=== PATIENT | female | born 1935 | race Caucasian/White ===

== ENCOUNTER → 2016-10-14 | Outpatient (CLI) | payer OTHER ==
[~2016-10-14] MED LIST: ASPEC81 PO; BIMA0.01 OPB; BRIM0.15 OPB; CRS/10 PO; DORZ1SOL6 OPB; LOSA1TAB PO; LSN10 PO; SYN50 PO; TPRSR25 PO; WARF2.5T8 PO; WARF5TAB7 PO
[2016-10-14 16:52] LABS: INR 2.3 (0.9-1.1); PROTHROMBIN TIME (PATIENT) 25.5 SECONDS (9.0-12.0)
[2016-10-14 16:54] LABS: BLOOD UREA NITROGEN 11 mg/dl (7-18); BUN/CREATININE RATIO 11.6 (10-20); CALCIUM 9.2 mg/dl (8.5-10.1); CARBON DIOXIDE 26 mmol/L (21-32); CHLORIDE 107 mmol/L (98-107); CREATININE 0.96 mg/dl (0.60-1.20); GLUCOSE 99 mg/dl (70-99); POTASSIUM 4.2 mmol/L (3.5-5.1); SODIUM 142 mmol/L (136-145)
== END | disposition home or self-care (01) ==
LOC: C.LABBFT 16:28
PROVIDERS: ATTEND Internal Medicine Cardiovascular Disease
DX: I48.91 Unspecified atrial fibrillation (principal); I42.9 Cardiomyopathy, unspecified

== ENCOUNTER → 2016-10-14 | Outpatient (CLI) | payer OTHER ==
--- NOTE | 2016-10-14 13:47 | MAMMOGRAPHY REPORT ---
UNILATERAL LEFT DIGITAL DIAGNOSTIC MAMMOGRAM TOMOSYNTHESIS WITH CAD: 10/14/2016 CLINICAL HISTORY: 6 Month Follow-up. TECHNIQUE: Breast tomosynthesis in addition to standard 2D mammography was performed. Current study was also evaluated with a Computer Aided Detection (CAD) system. Left CC and MLO 2-D and tomosynth esis images were obtained. COMPARISON: Comparison is made to exams dated: 04/13/2016 ultrasound, 04/13/2016 mammogram, 04/08/2016 m ammogram, 04/07/2015 mammogram, 04/04/2014 mammogram, and 04/03/2013 mammogram - [facility]. BREAST COMPOSITION: There are scattered areas of fibroglandular density in the left breast. FINDINGS: The previously described mass seen within the left upper inner quadrant posteriorly is de creased in size and is much less prominent compared to the prior March 2016 exam, and is therefore be nign and compatible with a resolving cyst. The remainder of the left breast is stable compared to p rior exams, without suspicious masses, calcifications, or areas of architectural distortion noted. Other small round/oval circumscribed benign-appearing masses are seen scattered within the left [address] st, which likely represent cysts. IMPRESSION: ACR BI-RADS CATEGORY 2: BENIGN The left upper inner quadrant breast mass is decreased in size and much less prominent compared to t he March 2016 exam, and is therefore benign and most compatible with a resolving cyst. There is no m ammographic evidence of malignancy. Return to annual mammogram screening schedule is recommended, du e April 2017. The patient has been verbally notified of the results. Approximately 10% of breast cancers are not detected with mammography. A negative mammographic repor t should not delay biopsy if a clinically suggestive mass is present. Shelley Greenwood M.D. /:10/14/2016 11:04:33 Rotating Equipment Specialist: Theodora Frances, [facility] letter sent: Normal 1/2 BI-RADS Code: ACR BI-RADS Category 2: Benign
== END | disposition home or self-care (01) ==
LOC: C.MAMM 10:42
PROVIDERS: ATTEND Family Medicine
DX: N63 Unspecified lump in breast (principal); I48.91 Unspecified atrial fibrillation; I42.9 Cardiomyopathy, unspecified

== ENCOUNTER → 2016-10-27 | Outpatient (CLI) | payer OTHER ==
[2016-10-27 14:52] LABS: BLOOD UREA NITROGEN 13 mg/dl (7-18); BUN/CREATININE RATIO 15.8 (10-20); CALCIUM 9.3 mg/dl (8.5-10.1); CARBON DIOXIDE 26 mmol/L (21-32); CHLORIDE 108 mmol/L (98-107); CREATININE 0.84 mg/dl (0.60-1.20); GLUCOSE 92 mg/dl (70-99); SODIUM 144 mmol/L (136-145)
== END | disposition home or self-care (01) ==
LOC: C.LAB1850 13:33
PROVIDERS: ATTEND Internal Medicine Cardiovascular Disease
DX: I42.9 Cardiomyopathy, unspecified (principal)

== ENCOUNTER → 2016-11-01 | Outpatient (CLI) | payer OTHER ==
[2016-11-01 12:46] LABS: INR 1.7 (0.9-1.1); PROTHROMBIN TIME (PATIENT) 18.9 SECONDS (9.0-12.0)
== END | disposition home or self-care (01) ==
LOC: C.LABBFT 09:54
PROVIDERS: ATTEND Internal Medicine
DX: I48.91 Unspecified atrial fibrillation (principal)

== ENCOUNTER → 2016-12-13 | Outpatient (CLI) | payer OTHER ==
[2016-12-13 11:31] LABS: ALT/SGPT 13 U/L (12-78); BLOOD UREA NITROGEN 13 mg/dl (7-18); BUN/CREATININE RATIO 16.5 (10-20); CARBON DIOXIDE 24 mmol/L (21-32); CHLORIDE 107 mmol/L (98-107); CREATININE 0.77 mg/dl (0.60-1.20); GLUCOSE 86 mg/dl (70-99); POTASSIUM 3.9 mmol/L (3.5-5.1); SODIUM 142 mmol/L (136-145)
[2016-12-13 11:34] LABS: ALB/GLOB RATIO 1.1 (0.9-2); ALKALINE PHOSPHATASE 89 U/L (45-117); AST/SGOT 12 U/L (15-37)
== END | disposition home or self-care (01) ==
LOC: C.LAB1850 10:03
PROVIDERS: ATTEND Internal Medicine Cardiovascular Disease
DX: I42.9 Cardiomyopathy, unspecified (principal); I48.91 Unspecified atrial fibrillation

== ENCOUNTER → 2016-12-27 | Outpatient (CLI) | payer OTHER ==
[2016-12-27 13:46] LABS: THYROID STIMULATING HORMONE 1.94 uIu/ml (0.300-4.500)
== END | disposition home or self-care (01) ==
LOC: C.LAB1850 12:10
PROVIDERS: ATTEND Internal Medicine Endocrinology, Diabetes & Metabolism
DX: E03.9 Hypothyroidism, unspecified (principal)

== ENCOUNTER → 2016-12-29 | Outpatient (CLI) | payer OTHER ==
--- NOTE | 2016-12-29 12:50 | DIAGNOSTIC IMAGING REPORT ---
ADDENDUM Comparison is now possible to prior study dated 2011 mild increase of the largest nodule at 3.0 x 2.5 cm. This is previously biopsied and is benign. Multinodular thyroid bilaterally in general is slightly increased in prominence. Electronically signed by: Conrado Drummond M.D. 12/30/2016 9:51 AM Dictated Date/Time: 12/30/2016 9:48 AM ORIGINAL REPORT THYROID ULTRASOUND HISTORY: Thyroid nodules E04.2 Nontoxic multinodular [id number] COMPARISON: None. FINDINGS: Right lobe: Diffusely heterogeneous. Maximum dimension 5.4 cm. Multinodular appearance. Largest nodule measures 3.0 x 2.5 cm. Left lobe: Maximum dimension 3.8 cm. Multinodular appearance. Maximum nodule dimension 2.4 x 1.1 cm. Isthmus: No nodules. IMPRESSION: Multinodular thyroid 2. Dominant nodule the right thyroid has maximum dimension of 3.0 x 2.5 cm. 3. Dominant nodule left thyroid measures 2.4 x 1.1 cm. Electronically signed by: Conrado Drummond M.D. 12/29/2016 12:49 PM Dictated Date/Time: 12/29/2016 12:46 PM
== END | disposition home or self-care (01) ==
LOC: C.ULTR 12:13
PROVIDERS: ATTEND Internal Medicine Endocrinology, Diabetes & Metabolism
DX: E04.2 Nontoxic multinodular goiter (principal)

== ENCOUNTER → 2017-04-11 | Outpatient (CLI) | payer OTHER ==
--- NOTE | 2017-04-13 12:32 | MAMMOGRAPHY REPORT ---
BILATERAL DIGITAL SCREENING MAMMOGRAM TOMOSYNTHESIS WITH CAD: 04/11/2017 CLINICAL HISTORY: Routine screening. Patient has no complaints. TECHNIQUE: Breast tomosynthesis in addition to standard 2D mammography was performed. Current study was also evaluated with a Computer Aided Detection (CAD) system. COMPARISON: Comparison is made to exams dated: 10/14/2016 mammogram, 04/13/2016 mammogram, 04/08/2016 caitie mogram, 04/07/2015 mammogram, 04/04/2014 mammogram, and 04/03/2013 mammogram - [facility]. BREAST COMPOSITION: There are scattered areas of fibroglandular density in both breasts. FINDINGS: There are stable benign-appearing calcifications in the breasts. Mild vascular calcificati on. No new suspicious mass, architectural distortion or cluster of microcalcifications is seen. IMPRESSION: ACR BI-RADS CATEGORY 1: NEGATIVE There is no mammographic evidence of malignancy. A 1 year screening mammogram is recommended. The pa tient will receive written notification of the results. Approximately 10% of breast cancers are not detected with mammography. A negative mammographic report should not delay biopsy if a clinically suggestive mass is present. Janelle Cedeno M.D. ay/:04/11/2017 15:16:06 Vp Account Director: Sophie JENSEN(Lucille)([place])(ARCH[place]), [facility] letter sent: Normal 1/2 BI-RADS Code: ACR BI-RADS Category 1: Negative
== END | disposition home or self-care (01) ==
LOC: C.MAMM 13:40
PROVIDERS: ATTEND Internal Medicine
DX: Z12.31 Encounter for screening mammogram for malignant neoplasm of breast (principal)

== ENCOUNTER 2017-04-17 19:44 | Observation (INO) | payer OTHER ==
[~2017-04-17] VITALS: Ht 157.5 cm; Wt 68.8 kg
[~2017-04-17 19:44] MED LIST changes: -LOSA1TAB PO
--- NOTE | 2017-04-17 20:28 | EMERGENCY ROOM VISIT NOTE ---
History Report prepared by Victorina: Kalpana Matamoros Under the Supervision of: Dr. Kalyan Jacobs M.D. First contact with patient: 19:50 Chief Complaint: CHEST PAIN Stated Complaint: CHEST PAINS History of Present Illness The patient is a 81 year old female who presents to the Emergency Room with complaints of intermittent chest pain beginning 2 hours ago. The patient states that she had an episode of constant sharp chest pain in the lower center of her chest that lasted 20 minutes. She reports that during the episode her pain was a 10/10 but it has now resolved. She notes that she took a baby aspirin when the pain started and after laying down and removing her bra her pain resolved. The patient denies any radiation of the pain, back pain, diaphoresis, nausea, vomiting, shortness of breath, and leg pain. She notes that she is on Coumadin for atrial fibrillation and was diagnosed with broken heart syndrome in 2016. The patient complains of excessive burping. She had a cardiac catheterization last year that revealed moderate non-obstructive coronary artery disease. Source of History: patient Onset: 2 hours ago Position: chest Symptom Intensity: 10/10 Quality: sharp Timing: other (episode) Modifying Factors (Worsening): rest Associated Symptoms: No diaphoresis, No SOB, No nausea, No vomiting, No back pain Note: Pt complains of excessive burping. The patient denies any radiation of the pain , leg pain. Review of Systems See HPI for pertinent positives & negatives. A total of 10 systems reviewed and were otherwise negative. Past Medical & Surgical Medical Problems: (1) Atrial fibrillation (2) CVA (3) Elevated troponin I level (4) HYPERLIPIDEMIA NEC/NOS (5) NSTEMI (non-ST elevated myocardial infarction) Old medical records were reviewed. Nurse's notes were reviewed and I agree with. Family History Noncontributory secondary to age Social History Smoking Status: Never Smoker Alcohol Use: occasionally Drug Use: none Marital Status: Housing Status: lives with family Occupation Status: retired Current/Historical Medications Scheduled Aspirin (Aspirin EC Low Dose), 81 MG PO QAM Bimatoprost (Lumigan), 1 DROPS OPB HS Brimonidine Tartrate Oph (Alphagan P Oph), 1 DROP OPB BID Dorzolamide Hcl-Timolol Maleat (Cosopt Oph), 1 DROP OPB BID Levothyroxine Sodium (Synthroid), 50 MCG PO QAM Losartan Potassium (Cozaar), Unknown Dose PO DAILY Metoprolol Succinate (Metoprolol Succinate ER), 25 MG PO QAM Warfarin Sod (Jantoven), 5 MG PO WK Warfarin Sod (Jantoven), 2.5 MG PO 6XWK Allergies Coded Allergies: Penicillins (Verified Allergy, Unknown, RASH ONLY, 04/17/17) Physical Exam Vital Signs Date Time Temp Pulse Resp B/P (MAP) Pulse Ox O2 Delivery O2 Flow Rate FiO2 04/17/17 19:59 57 04/17/17 19:45 36.6 62 20 161/81 95 Room Air Physical Exam General: Well developed well nourished in no acute distress, non ill appearing older female, breathing comfortably on room air. Normal speech HEENT: Normal cephalic atraumatic. Pupils are equal round and reactive to light. Sclerae anicteric. Extraocular movements are intact. Oropharynx is pink with moist mucous membranes. No swelling of the mouth lips or tongue. Neck: Supple with a midline trachea. No meningeal signs or stiffness, no JVD or bruits. No Stridor. Chest: Clear to auscultation bilaterally. No wheezes or rhonchi. No increased work of breathing. Heart: Irregular rate and rhythm. Consistent with chronic A. fib. Rate controlled. Abdomen: Soft nontender, nondistended without rebound guarding or rigidity. Extremities: No cyanosis clubbing or edema. No calf tenderness or assymetry Spine/Back. Non tender to palpation. No CVA tenderness Skin: Good turgor without rashes. Neurologic exam: Cranial nerves two through 12 are intact. Motor and sensation are intact and symmetrical throughout. Medical Decision & Procedures ER Provider Diagnostic Interpretation: Radiology results as stated below per my review and radiologist interpretation: SINGLE VIEW CHEST FINDINGS: An AP, portable, upright chest radiograph is compared to study dated 10/03/2016. The examination is degraded by portable technique and patient rotation. The heart is enlarged and there is atherosclerotic calcification of the thoracic aorta. The pulmonary vasculature is noncongested. Chronic interstitial thickening is similar to previous. No airspace consolidation, large pleural effusion, or pneumothorax is seen. The skeletal structures are osteopenic. Degenerative change is seen in the thoracic spine. IMPRESSION: Cardiomegaly with no acute cardiopulmonary abnormality. Electronically signed by: Volodymyr Olmedo M.D. 04/17/2017 8:51 PM Dictated Date/Time: 04/17/2017 8:50 PM Laboratory Results 04/17/17 19:55 Red Blood Count 4.63, Mean Corpuscular Volume 96.1, Mean Corpuscular Hemoglobin 31.3, Mean Corpuscular Hemoglobin Concent 32.6, Mean Platelet Volume 10.6, Neutrophils (%) (Auto) 43.9, Lymphocytes (%) (Auto) 41.4, Monocytes (%) (Auto) 11.4, Eosinophils (%) (Auto) 2.6, Basophils (%) (Auto) 0.5, Neutrophils # (Auto ) 2.74, Lymphocytes # (Auto) 2.58, Monocytes # (Auto) 0.71, Eosinophils # (Auto ) 0.16, Basophils # (Auto) 0.03 04/17/17 19:55 Test 04/17/17 19:55 04/17/17 21:04 White Blood Count 6.23 K/uL (4.8-10.8) Red Blood Count 4.63 M/uL (4.2-5.4) Hemoglobin 14.5 g/dL (12.0-16.0) Hematocrit 44.5 % (37-47) Mean Corpuscular Volume 96.1 fL (80-100) Mean Corpuscular Hemoglobin 31.3 pg (25-34) Mean Corpuscular Hemoglobin Concent 32.6 g/dl (32-36) Platelet Count 267 K/uL (130-400) Mean Platelet Volume 10.6 fL (7.4-10.4) Neutrophils (%) (Auto) 43.9 % Lymphocytes (%) (Auto) 41.4 % Monocytes (%) (Auto) 11.4 % Eosinophils (%) (Auto) 2.6 % Basophils (%) (Auto) 0.5 % Neutrophils # (Auto) 2.74 K/uL (1.4-6.5) Lymphocytes # (Auto) 2.58 K/uL (1.2-3.4) Monocytes # (Auto) 0.71 K/uL (0.11-0.59) Eosinophils # (Auto) 0.16 K/uL (0-0.5) Basophils # (Auto) 0.03 K/uL (0-0.2) RDW Standard Deviation 52.2 fL (36.4-46.3) RDW Coefficient of Variation 14.8 % (11.5-14.5) Immature Granulocyte % (Auto) 0.2 % Immature Granulocyte # (Auto) 0.01 K/uL (0.00-0.02) Prothrombin Time 30.9 SECONDS (9.0-12.0) Prothromb Time International Ratio 2.8 (0.9-1.1) Activated Partial Thromboplast Time 41.4 SECONDS (21.0-31.0) Partial Thromboplastin Ratio 1.6 Anion Gap 12.0 mmol/L (3-11) Est Creatinine Clear Calc Drug Dose 54.8 ml/min Estimated GFR () 89.5 Estimated GFR (Non- 77.2 BUN/Creatinine Ratio 17.1 (10-20) Calcium Level 9.0 mg/dl (8.5-10.1) Total Bilirubin 0.2 mg/dl (0.2-1) Direct Bilirubin < 0.1 mg/dl (0-0.2) Aspartate Amino Transf (AST/SGOT) 21 U/L (15-37) Alanine Aminotransferase (ALT/SGPT) 24 U/L (12-78) Alkaline Phosphatase 88 U/L (45-117) Total Creatine Kinase 45 U/L (26-192) Creatine Kinase MB 0.8 ng/ml (0.5-3.6) Creatine Kinase MB Ratio (0-3.0) Total Protein 7.5 gm/dl (6.4-8.2) Albumin 3.7 gm/dl (3.4-5.0) Lipase 215 U/L (73-393) Bedside Troponin I < 0.030 ng/ml (0-0.045) Laboratory studies as stated above per my review. ECG Indication: chest pain Rate (beats per minute): 64 Rhythm: atrial fibrillation Findings: no acute ischemic change, other (nonspecific T wave abnormalities ) Comparison ECG Date: 10/05/16 Change: T wave inversions have resolved. ED Course 1949: Past medical records reviewed. The patient was evaluated in room C11, and a complete history and physical examination were performed. 2130: I reevaluated and updated the patient. 2138: I spoke to Dr. Moore of [facility]. He will evaluate the patient for further management. 2144: Upon reevaluation, the patient is doing well. I discussed the results and treatment plan with the patient. She verbalized agreement of the treatment plan. The patient will be evaluated for further management. Medical Decision Differential diagnosis includes IA, acute coronary syndrome, arrhythmia, PE, GERD. Medication Reconciliation: I attest that I have personally reviewed the patient' s current medication list. Blood pressure Screening: Patient was found to have an elevated blood pressure and was referred to their primary doctor for recheck and further treatment. This patient comes in as described above. She was placed in room C11. She has a history cardiac disease and she had episode of chest pain. She is feeling better now last about a half hour. She was placed on a behavioral health case manager and room C11 and she took an aspirin prior to arrival. She additionally is also on Coumadin. EKG shows chronic A. fib without acute ischemic changes and her EKG looks significant improved compared to her most recent one in the computer. Chest x-ray does not show congestive heart failure, pneumonia, or pneumothorax. She has no acute electrolyte or metabolic abnormality. Cardiac biomarkers are not elevated. I did review her old records she did have a cardiac cath last year which showed mild to moderate multivessel coronary disease. I do think she needs to be observed in the hospital to rule out acute coronary syndrome. The patient and family were happy with the plan and she was admitted. Consults Time Called: 2134 Consulting Physician: Dr. Moore - [facility] Returned Call: [address] Moore of [facility]. He will evaluate the patient for further management. Impression Primary Impression: Precordial chest pain Scribe Attestation The scribe's documentation has been prepared under my direction and personally reviewed by me in its entirety. I confirm that the note above accurately reflects all work, treatment, procedures, and medical decision making performed by me. Departure Information Dispostion Being Evaluated By Hospitalist Referrals Andrei Francis M.D. (PCP) Patient Instructions My [facility]
[2017-04-17 20:30] LABS: BASO % 0.5 %; BASO ABS # 0.03 K/uL (0-0.2); COMPLETE YES; EOS % 2.6 %; HEMATOCRIT 44.5 % (37-47); IG% 0.2 %; LYMPH % 41.4 %; LYMPH ABS # 2.58 K/uL (1.2-3.4); MEAN CELL VOLUME 96.1 fL (80-100); MEAN CORPUSCULAR HEMOGLOBIN 31.3 pg (25-34); MEAN CORPUSCULAR HGB CONC 32.6 g/dl (32-36); MEAN PLATELET VOLUME 10.6 fL (7.4-10.4); MONO % 11.4 %; NEUT % 43.9 %; PLATELET COUNT 267 K/uL (130-400); RED BLOOD COUNT 4.63 M/uL (4.2-5.4); WHITE BLOOD COUNT 6.23 K/uL (4.8-10.8)
[2017-04-17 20:44] LABS: BLOOD UREA NITROGEN 13 mg/dl (7-18); BUN/CREATININE RATIO 17.1 (10-20); CARBON DIOXIDE 21 mmol/L (21-32); CHLORIDE 106 mmol/L (98-107); CREATININE 0.73 mg/dl (0.60-1.20); GLUCOSE 102 mg/dl (70-99); INR 2.8 (0.9-1.1); PARTIAL THROMBOPLASTIN RATIO 1.6; POTASSIUM 3.8 mmol/L (3.5-5.1); PROTHROMBIN TIME (PATIENT) 30.9 SECONDS (9.0-12.0); SODIUM 139 mmol/L (136-145)
[2017-04-17 20:49] LABS: ALKALINE PHOSPHATASE 88 U/L (45-117); ALT/SGPT 24 U/L (12-78); AST/SGOT 21 U/L (15-37); CKMB/CK RATIO 1.8 (0-3.0)
--- NOTE | 2017-04-17 20:52 | DIAGNOSTIC IMAGING REPORT ---
SINGLE VIEW CHEST CLINICAL HISTORY: Atypical chest pain. FINDINGS: An AP, portable, upright chest radiograph is compared to study dated 10/03/2016. The examination is degraded by portable technique and patient rotation. The heart is enlarged and there is atherosclerotic calcification of the thoracic aorta. The pulmonary vasculature is noncongested. Chronic interstitial thickening is similar to previous. No airspace consolidation, large pleural effusion, or pneumothorax is seen. The skeletal structures are osteopenic. Degenerative change is seen in the thoracic spine. IMPRESSION: Cardiomegaly with no acute cardiopulmonary abnormality. Electronically signed by: Volodymyr Olmedo M.D. 04/17/2017 8:51 PM Dictated Date/Time: 04/17/2017 8:50 PM
[2017-04-17] MEDS ORDERED: LOSA1TAB PO (21:22)
[2017-04-17] MEDS ORDERED: ALUMINUM/MAGNESIUM/SIMETH (MAALOX MAX) 30 ML UDC PO PRN (22:15)
[2017-04-17] MEDS ORDERED: MoRPHine SULFATE 2 MG/ML CARP IV PRN (22:15)
[2017-04-17] MEDS ORDERED: NITROGLYCERIN 0.4 MG SL PER TAB CHARGE SL PRN (22:15)
[2017-04-17] MEDS ORDERED: ONDANSETRON INJ 2 MG/ML 2 ML VIAL IV PRN (22:15)
[2017-04-17] MEDS ORDERED: MAGNESIUM HYDROXIDE SUSP 30 ML UDC PO PRN (22:15)
[2017-04-17] MEDS ORDERED: ACETAMINOPHEN 325 MG TAB PO PRN (22:15)
[2017-04-17] MEDS ORDERED: WARFARIN SOD 5 MG TAB PO STA (22:15)
[2017-04-17] MEDS ORDERED: POLYETHYLENE (MIRALAX) 17 GM PACK PO PRN (22:15)
[2017-04-17] MEDS ORDERED: BIMATOPROST 0.01% OP SOLN 2.5 ML BTL OPB SCH (22:30)
[2017-04-17] MEDS ORDERED: IV FLUIDS COMPLETED PRN (22:45)
[2017-04-17] MEDS ORDERED: HydrALAZINE HCL 20 MG/ML VIAL IV. PRN (23:00)
--- NOTE | 2017-04-17 23:11 | History and Physical ---
History & Physical Date & Time of Service: Apr 17, 2017 at 22:46 Chief Complaint: Chest Pains Primary Care Physician: Andrei Francis M.D. History of Present Illness Source: patient 81 y/o F, chronic AF, HTN, HPL, Takotsubo syndrome, moderate nonocclusive CAD. Pt was admitted with a NSTEMI 09/24 which was thought due to vasospasm. She had dinner this evening which included 2 wine spritzers and then retired to her computer to catch up on various [employer]-related activities. She then developed acute upper abdominal and central chest pain accompanied by SOB and lightheadedness. She denies N/V, diaphoresis. The pain persisted for a 30 min period and prompted her to visit the ER. Past Medical/Surgical History 1) Atrial fibrillation 2) Non-occlusive CAD on cath 2015 1. Left main coronary artery: The LMCA is without angiographic evidence of CAD. 2. Left anterior descending: The LAD extends to the apex. Proximal LAD 30%. Mid LAD 30%. Medium caliber D1. Slow flow (MARIYA II) noted within apical LAD with no severe lesion noted. 3. Circumflex: The circumflex gives rise to a very small OM1, small caliber OM2 , and medium caliber OM3 with lateral branches. Mid circumflex 20%. Distal circumflex 20%. No significant CAD within marginal vessels. 4. Right coronary artery: The RCA is large and dominant. Proximal RCA 40%. No angiographic evidence of CAD within posterior lateral branch or PDA. 3) CVA 4) HPL 5) HTN Family History Noncontributory secondary to age Social History Smoking Status: Never Smoker Drug Use: none Marital Status: Housing status: lives with family Occupational Status: retired Immunizations History of Influenza Vaccine: No History of Tetanus Vaccine?: 2008 History of Pneumococcal: No History of Hepatitis B Vaccine: No Multi-Drug Resistant Organisms History of MDRO: No Allergies Coded Allergies: Penicillins (Verified Allergy, Unknown, RASH ONLY, 04/17/17) Home Medications Scheduled Aspirin (Aspirin EC Low Dose), 81 MG PO QAM Bimatoprost (Lumigan), 1 DROPS OPB HS Brimonidine Tartrate Oph (Alphagan P Oph), 1 DROP OPB BID Dorzolamide Hcl-Timolol Maleat (Cosopt Oph), 1 DROP OPB BID Levothyroxine Sodium (Synthroid), 50 MCG PO QAM Losartan Potassium (Cozaar), Unknown Dose PO DAILY Metoprolol Succinate (Metoprolol Succinate ER), 25 MG PO QAM Warfarin Sod (Jantoven), 5 MG PO WK Warfarin Sod (Jantoven), 2.5 MG PO 6XWK Review of Systems Constitutional: No fever, No chills, No sweats Eyes: No worsening of vision ENT: No hearing loss, No nasal symptoms Respiratory: + shortness of breath, No cough, No sputum, No wheezing Cardiovascular: + chest pain, No orthopnea, No PND Abdomen: + pain, No nausea, No vomiting Musculoskeletal: No joint pain, No muscle pain Genitourinary - Female: No dysuria, No urinary frequency, No urinary urgency Neurologic: No memory loss, No paralysis, No weakness Psychiatric: No depression symptoms Endocrine: No fatigue Hematologic / Lymphatic: No abnormal bleeding/bruising Integumentary: No rash Allergic / Immunologic: No environmental allergies Physical Exam Vital Signs Date Time Temp Pulse Resp B/P (MAP) Pulse Ox O2 Delivery O2 Flow Rate FiO2 04/17/17 22:35 63 19 188/108 97 Room Air 04/17/17 22:25 208/105 04/17/17 19:59 57 04/17/17 19:45 36.6 62 20 161/81 95 Room Air General Appearance: WD/WN, no apparent distress Head: normocephalic Eyes: normal inspection ENT: normal ENT inspection, hearing grossly normal, TMs normal, pharynx normal Neck: supple, no JVD Respiratory/Chest: chest non-tender, lungs clear, normal breath sounds Cardiovascular: no edema, no gallop, no JVD, + irregularly irregular Abdomen/GI: normal bowel sounds, non tender, soft Back: normal inspection, no CVA tenderness, no muscle spasm, normal range of motion Extremities/Musculoskelatal: normal inspection, no calf tenderness, normal capillary refill 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, no motor/sensory deficits, alert, normal mood/affect, normal reflexes, oriented x 3 Skin: normal color, warm/dry, no rash Diagnostics Laboratory Results Results Past 24 Hours Test 04/17/17 19:55 04/17/17 21:04 Range/Units White Blood Count 6.23 4.8-10.8 K/uL Red Blood Count 4.63 4.2-5.4 M/uL Hemoglobin 14.5 12.0-16.0 g/dL Hematocrit 44.5 37-47 % Mean Corpuscular Volume 96.1 80-100 fL Mean Corpuscular Hemoglobin 31.3 25-34 pg Mean Corpuscular Hemoglobin Concent 32.6 32-36 g/dl Platelet Count 267 130-400 K/uL Mean Platelet Volume 10.6 7.4-10.4 fL Neutrophils (%) (Auto) 43.9 % Lymphocytes (%) (Auto) 41.4 % Monocytes (%) (Auto) 11.4 % Eosinophils (%) (Auto) 2.6 % Basophils (%) (Auto) 0.5 % Neutrophils # (Auto) 2.74 1.4-6.5 K/uL Lymphocytes # (Auto) 2.58 1.2-3.4 K/uL Monocytes # (Auto) 0.71 0.11-0.59 K/uL Eosinophils # (Auto) 0.16 0-0.5 K/uL Basophils # (Auto) 0.03 0-0.2 K/uL RDW Standard Deviation 52.2 36.4-46.3 fL RDW Coefficient of Variation 14.8 11.5-14.5 % Immature Granulocyte % (Auto) 0.2 % Immature Granulocyte # (Auto) 0.01 0.00-0.02 K/uL Prothrombin Time 30.9 9.0-12.0 SECONDS Prothromb Time International Ratio 2.8 0.9-1.1 Activated Partial Thromboplast Time 41.4 21.0-31.0 SECONDS Partial Thromboplastin Ratio 1.6 Sodium Level 139 136-145 mmol/L Potassium Level 3.8 3.5-5.1 mmol/L Chloride Level 106 98-107 mmol/L Carbon Dioxide Level 21 21-32 mmol/L Anion Gap 12.0 3-11 mmol/L Blood Urea Nitrogen 13 7-18 mg/dl Creatinine 0.73 0.60-1.20 mg/dl Est Creatinine Clear Calc Drug Dose 54.8 ml/min Estimated GFR () 89.5 Estimated GFR (Non- 77.2 BUN/Creatinine Ratio 17.1 10-20 Random Glucose 102 70-99 mg/dl Calcium Level 9.0 8.5-10.1 mg/dl Total Bilirubin 0.2 0.2-1 mg/dl Direct Bilirubin < 0.1 0-0.2 mg/dl Aspartate Amino Transf (AST/SGOT) 21 15-37 U/L Alanine Aminotransferase (ALT/SGPT) 24 12-78 U/L Alkaline Phosphatase 88 45-117 U/L Total Creatine Kinase 45 26-192 U/L Creatine Kinase MB 0.8 0.5-3.6 ng/ml Creatine Kinase MB Ratio 0-3.0 Total Protein 7.5 6.4-8.2 gm/dl Albumin 3.7 3.4-5.0 gm/dl Lipase 215 73-393 U/L Bedside Troponin I < 0.030 0-0.045 ng/ml EKG AF - low voltage - no evidence of acute ischemia Impression Assessment and Plan 81 y/o F, chronic AF, HTN, HPL, Takotsubo syndrome, moderate nonocclusive CAD. Pt was admitted with a NSTEMI 09/24 which was thought due to vasospasm - presents with acute upper abdominal and central chest pain accompanied by SOB and lightheadedness. She denies N/V, diaphoresis. The pain persisted for a 30 min period and prompted her to visit the ER. 1) Chest pain - resolved on admission - serial troponins, NTG PRN. Cont ASA, B cindy - she is anticoagulated with Coumadin. Presumably she is statin intolerant. 2) AF - Rate controlled - cont Toprol - INR is subtherapeutic -addtional dose of Coumadin was provided - will add Lovenox if troponin is elevated. 3) HTN- poorly controlled on admission - cont Lisinopril, Toprol - PRN Hydralazine added, Full code - Heparin prophylaxis Total time for this admit including review of labs, meds, EKG - discussion with pt and ER attending -30 min Level of Care Telemetry Resuscitation Status FULL RESUSCITATION VTE Prophylaxis VTE Risk Assessment Done? Y/N: Yes Risk Level: Moderate Given or contraindicated: Warfarin (Coumadin)
[2017-04-17 23:24] VITALS: BP_SYST 181; BP_SYST 195; BP_DIAS 100; BP_DIAS 103; PULSE 75; TEMP 36.4; O2SAT 98; Ht 157.5 cm; Wt 68.8 kg
[2017-04-18] VITALS (10 sets, daily range): BP systolic 119–189; BP diastolic 78–101; PULSE 55–68; TEMP 36.5–36.7; O2SAT 91–98
[2017-04-18] MEDS ORDERED: LEVOTHYROXINE 50 MCG TAB PO SCH (06:00)
[2017-04-18] MEDS ORDERED: METOPROLOL SUCC 25MG EXT REL TAB PO SCH (09:00)
[2017-04-18] MEDS ORDERED: BRIMONIDINE TARTRATE-P 0.15% 5 ML BTL OPB SCH (09:00)
[2017-04-18] MEDS ORDERED: LOSARTAN POTASSIUM 25 MG TAB PO SCH (09:00)
[2017-04-18] MEDS ORDERED: DORZOLAMIDE/TIMOLOL 22.3/6.8MG/ML 10 ML BTL OPB SCH (09:00)
[2017-04-18] MEDS ORDERED: ASPIRIN 81 MG ECTAB PO SCH (09:00)
--- NOTE | 2017-04-18 15:04 | Discharge Instructions ---
Discharge Instructions Date of Service Apr 18, 2017. Admission Reason for Admission: Precordial Chest Pain Discharge Discharge Diagnosis / Problem: Chest pain, no evidence of cardiac ischemia Discharge Goals Goal(s): Improve function, Increase independence Activity Recommendations Activity Limitations: resume your previous activity Lifting Limitations: none Exercise/Sports Limitations: as tolerated May Resume Sexual Activity: when tolerated Shower/Bathe: no limitations Driving or Machine Use: no limitations . Instructions / Follow-Up Instructions / Follow-Up Medications: no changes made Chest pain: EKG and cardiac enzymes negative for signs of ischemia, no evidence to suggest that chest pain was related to the heart. No further chest pain while admitted. FOLLOW UP - please follow up as needed with Dr. Francis, no specific need for hospital follow up as work up was negative and the issue was self limiting Current Hospital Diet Patient's current hospital diet: AHA Diet (Heart Healthy) Discharge Diet Recommended Diet: AHA Diet (Heart Healthy) Pending Studies Studies pending at discharge: no Medical Emergencies . Who to Call and When: Medical Emergencies: If at any time you feel your situation is an emergency, please call 911 immediately. . Non-Emergent Contact Non-Emergency issues call your: Primary Care Provider Call Non-Emergent contact if: your pain is concerning you, you have any medication questions . . "Provider Documentation" section prepared by Alex Raymond. . VTE Core Measure Inpt VTE Proph given/why not?: Warfarin (Coumadin) [place] Drug Monitoring Program Search Results: no issues identified
[2017-04-18] MEDS ORDERED: WARFARIN SOD 2.5 MG TAB PO SCH (16:00)
--- NOTE | 2017-04-19 08:18 | Discharge Summary ---
Discharge Summary Date of Service Apr 18, 2017. Discharge Summary Admission Date: Apr 17, 2017 at 22:10 Discharge Date: Apr 18, 2017 Principal Diagnosis: Chest pressure Immunizations: Have You Had Influenza Vaccine: No History of Tetanus Vaccine?: 2008 History of Pneumococcal: No History of Hepatitis B Vaccine: No Procedures: none Consultations: none Medication Reconciliation Continued Medications: Aspirin (Aspirin EC Low Dose) 81 Mg Ectab 81 MG PO QAM for 30 Days Bimatoprost (Lumigan) 0.01 % Yadira 1 DROPS OPB HS for 30 Days, #2.5 ML 3 Refills Brimonidine Tartrate Oph (Alphagan P Oph) 0.15 % Yadira 1 DROP OPB BID, BTL Dorzolamide Hcl-Timolol Maleat (Cosopt Oph) 1 Yadira Yadira 1 DROP OPB BID Levothyroxine Sodium (Synthroid) 50 Mcg Tab 50 MCG PO QAM Losartan Potassium (Cozaar) 25 Mg Tab Unknown Dose PO DAILY, TAB 2TAB Metoprolol Succinate (Metoprolol Succinate ER) 25 Mg Tabcr 25 MG PO QAM for 30 Days Warfarin Sod (Jantoven) 5 Mg Tab 5 MG PO WK, TAB TUESDAY Warfarin Sod (Jantoven) 2.5 Mg Tab 2.5 MG PO 6XWK, TAB Discharge Exam Patient without any further chest pain after admission. Rested comfortably all day. Troponin negative x 3. EKG normal. Discussed with patient and family, cleared for discharge. Review of Systems: Constitutional: No fever, No chills, No sweats, No weight loss, No weakness , No fatigue, No problem reported Eyes: No worsening of vision, No eye pain, No redness, No discharge, No diplopia, No problem reported ENT: No hearing loss, No unusual epistaxis, No nasal symptoms, No sore throat, No tinnitus, No dental problems, No trouble swallowing, No problem reported Respiratory: No cough, No sputum, No wheezing, No shortness of breath, No dyspnea on exertion, No dyspnea at rest, No hemoptysis, No problem reported Cardiovascular: No chest pain, No orthopnea, No PND, No edema, No claudication, No palpitations, No problem reported Abdomen: No pain, No nausea, No vomiting, No diarrhea, No constipation, No GI bleeding, No problem reported Musculoskeletal: No joint pain, No muscle pain, No swelling, No calf pain, No problem reported Genitourinary - Female: No dysuria, No urinary frequency, No urinary urgency , No urinary incontinence Neurologic: No memory loss, No paralysis, No weakness, No numbness/tingling , No vertigo, No balance problems, No problem reported Psychiatric: No depression symptoms, No anhedonism, No anxiety, No insomnia , No substance abuse, No problem reported Endocrine: No fatigue, No excessive thirst, No excessive urination, No problem reported Hematologic / Lymphatic: No abnormal bleeding/bruising, No clotting problems , No swollen lymph nodes, No night sweats, No problem reported Integumentary: No rash, No itch, No new/changing skin lesions, No color change, No bleeding, No problem reported Physical Exam: General Appearance: WD/WN, no apparent distress Eyes: normal inspection, EOMI, sclerae normal ENT: normal ENT inspection, hearing grossly normal, pharynx normal Neck: supple, no adenopathy, no JVD, trachea midline Respiratory/Chest: chest non-tender, lungs clear, normal breath sounds, no respiratory distress, no accessory muscle use Cardiovascular: regular rate, rhythm, no edema, no gallop, no JVD, no murmur , normal peripheral pulses Abdomen / GI: normal bowel sounds, non tender, soft, no organomegaly Extremities: normal inspection, no calf tenderness, normal capillary refill , no pedal edema, normal range of motion, pelvis stable Neurologic/Psychiatric: 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 Pt was admitted with a NSTEMI 09/24 which was thought due to vasospasm - presents with acute upper abdominal and central chest pain accompanied by SOB and lightheadedness. She denies N/V, diaphoresis. The pain persisted for a 30 min period and prompted her to visit the ER. 1) Chest pain - no further chest pain after admission EKG normal troponin negative x 3 patient feeling well, d/c to home, follow up with PCP as needed 2) AF - Rate controlled - continue Toprol - continue Coumadin 3) HTN- cont Lisinopril, Toprol BP initially poorly controlled, however, improved over the next 24 hours with rest and appropriate medications follow up in office as previously scheduled Full code - Heparin prophylaxis Total Time Spent: Less than 30 minutes This includes examination of the patient, discharge planning, medication reconciliation, and communication with other providers. Discharge Instructions Please refer to the electronic Patient Visit Report (Discharge Instructions) for additional information. Follow-Up Dr. Francis as needed Additional Copies To Andrei Francis M.D.
== END 2017-04-18 17:00 | disposition home or self-care (01) ==
LOC: C.EDB 19:44 → C.2T 22:10 → EEVIPCON 22:10 → ENRESERV 22:35
PROVIDERS: ADMIT Internal Medicine; ATTEND Internal Medicine
DX: R07.2 Precordial pain (principal); I48.2 Chronic atrial fibrillation; I10 Essential (primary) hypertension; I25.10 Atherosclerotic heart disease of native coronary artery without angina pectoris; I25.2 Old myocardial infarction; Z86.73 Personal history of transient ischemic attack (TIA), and cerebral infarction without residual deficits; Z79.82 Long term (current) use of aspirin; Z79.01 Long term (current) use of anticoagulants

== ENCOUNTER → 2017-06-23 | Outpatient (CLI) | payer OTHER ==
[~2017-06-23] MED LIST changes: -CRS/10 PO; +LOSA1TAB PO; -LSN10 PO
[2017-06-23 12:17] LABS: HEMATOCRIT 43.1 % (37-47); MEAN CELL VOLUME 96.9 fL (80-100); MEAN CORPUSCULAR HEMOGLOBIN 32.6 pg (25-34); MEAN CORPUSCULAR HGB CONC 33.6 g/dl (32-36); MEAN PLATELET VOLUME 11.1 fL (7.4-10.4); PLATELET COUNT 294 K/uL (130-400); RED BLOOD COUNT 4.45 M/uL (4.2-5.4); WHITE BLOOD COUNT 5.84 K/uL (4.8-10.8)
[2017-06-23 12:32] LABS: ALT/SGPT 20 U/L (12-78); AST/SGOT 15 U/L (15-37); BLOOD UREA NITROGEN 11 mg/dl (7-18); BUN/CREATININE RATIO 15.5 (10-20); CALCIUM 9.6 mg/dl (8.5-10.1); CARBON DIOXIDE 26 mmol/L (21-32); CHLORIDE 108 mmol/L (98-107); CREATININE 0.73 mg/dl (0.60-1.20); GLUCOSE 92 mg/dl (70-99); POTASSIUM 4.3 mmol/L (3.5-5.1); SODIUM 141 mmol/L (136-145)
== END | disposition home or self-care (01) ==
LOC: C.LAB1850 10:16
PROVIDERS: ATTEND Internal Medicine Cardiovascular Disease
DX: E03.9 Hypothyroidism, unspecified (principal); I48.91 Unspecified atrial fibrillation; I34.0 Nonrheumatic mitral (valve) insufficiency; I42.9 Cardiomyopathy, unspecified; I51.81 Takotsubo syndrome

== ENCOUNTER → 2017-12-29 | Outpatient (CLI) | payer OTHER ==
[2017-12-29 12:28] LABS: HEMATOCRIT 44.9 % (37-47); HEMOGLOBIN 14.7 g/dL (12.0-16.0); MEAN CELL VOLUME 99.3 fL (80-100); MEAN CORPUSCULAR HEMOGLOBIN 32.5 pg (25-34); MEAN CORPUSCULAR HGB CONC 32.7 g/dl (32-36); PLATELET COUNT 251 K/uL (130-400); RED CELL DISTRIBUTION WIDTH CV 15.1 % (11.5-14.5); WHITE BLOOD COUNT 6.27 K/uL (4.8-10.8)
[2017-12-29 12:58] LABS: BLOOD UREA NITROGEN 11 mg/dl (7-18); CARBON DIOXIDE 26 mmol/L (21-32); CREATININE 0.82 mg/dl (0.60-1.20); GLUCOSE 108 mg/dl (70-99); POTASSIUM 3.7 mmol/L (3.5-5.1); SODIUM 139 mmol/L (136-145)
== END | disposition home or self-care (01) ==
LOC: C.LAB1850 10:53
PROVIDERS: ATTEND Internal Medicine Cardiovascular Disease
DX: I48.91 Unspecified atrial fibrillation (principal); I10 Essential (primary) hypertension; I34.0 Nonrheumatic mitral (valve) insufficiency; I42.9 Cardiomyopathy, unspecified; I25.10 Atherosclerotic heart disease of native coronary artery without angina pectoris; Z79.01 Long term (current) use of anticoagulants

== ENCOUNTER → 2018-06-02 | Outpatient (CLI) | payer OTHER ==
[~2018-06-02] MED LIST changes: -ASPEC81 PO; +ASPI-320 PO; -BIMA0.01 OPB; +LATA0.009 OPB; -LOSA1TAB PO; +MRLP17X PO; +NRV5 PO; +PRED1SUS OPB
[2018-06-02 12:51] LABS: BASO % 0.5 %; BASO ABS # 0.03 K/uL (0-0.2); EOS % 1.4 %; EOS ABS # 0.08 K/uL (0-0.5); HEMATOCRIT 43.7 % (37-47); HEMOGLOBIN 14.3 g/dL (12.0-16.0); IG# 0.02 K/uL (0.00-0.02); LYMPH % 29.9 %; LYMPH ABS # 1.73 K/uL (1.2-3.4); MEAN CELL VOLUME 96.3 fL (80-100); MEAN CORPUSCULAR HEMOGLOBIN 31.5 pg (25-34); MEAN CORPUSCULAR HGB CONC 32.7 g/dl (32-36); MEAN PLATELET VOLUME 10.9 fL (7.4-10.4); MONO % 9.2 %; MONO ABS # 0.53 K/uL (0.11-0.59); NEUT % 58.7 %; PLATELET COUNT 274 K/uL (130-400); RED CELL DISTRIBUTION WIDTH CV 14.3 % (11.5-14.5); RED CELL DISTRIBUTION WIDTH SD 50.4 fL (36.4-46.3); WHITE BLOOD COUNT 5.79 K/uL (4.8-10.8)
[2018-06-02 14:01] LABS: BLOOD UREA NITROGEN 13 mg/dl (7-18); CALCIUM 9.2 mg/dl (8.5-10.1); CARBON DIOXIDE 22 mmol/L (21-32); CREATININE 0.78 mg/dl (0.60-1.20); GLUCOSE 99 mg/dl (70-99); POTASSIUM 3.6 mmol/L (3.5-5.1); SODIUM 140 mmol/L (136-145)
== END | disposition home or self-care (01) ==
LOC: C.LAB 11:31
PROVIDERS: ATTEND Internal Medicine Cardiovascular Disease
DX: E03.9 Hypothyroidism, unspecified (principal); I48.91 Unspecified atrial fibrillation; I10 Essential (primary) hypertension; I42.9 Cardiomyopathy, unspecified; Z79.01 Long term (current) use of anticoagulants; I25.10 Atherosclerotic heart disease of native coronary artery without angina pectoris; N28.0 Ischemia and infarction of kidney

== ENCOUNTER → 2018-06-05 | Outpatient (CLI) | payer OTHER ==
[~2018-06-05] MED LIST changes: +OPTIRAY 320 IV PRN
--- NOTE | 2018-06-05 09:43 | DIAGNOSTIC IMAGING REPORT ---
CT OF THE CHEST WITH IV CONTRAST CLINICAL HISTORY: Abnormal chest CT. Follow-up examination. COMPARISON STUDY: 03/14/2018 TECHNIQUE: Following the IV administration of 94 mL of Optiray-320, CT of the thorax was performed from the thoracic inlet to the lung bases. Images are reviewed in the axial, sagittal, and coronal planes. IV contrast was administered without complication. A dose lowering technique was utilized adhering to the principles of ALARA. CT DOSE: 227.06 mGy.cm FINDINGS: Thyroid: There is a multinodular thyroid gland with a dominant 26 mm right lobe nodule. This remain similar to the preceding study. Thoracic aorta: The thoracic aorta is normal in course and caliber, noting standard 3-vessel arch anatomy. No aneurysm or dissection is seen. Pulmonary vasculature: There is persistent prominence of the main pulmonary artery segment suggestive of pulmonary artery hypertension. HEART: The heart is mildly enlarged. Lungs and pleural spaces: There are no pleural effusions. There is no focal pulmonary consolidation. 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 Mediastinum: There is no evidence of pathologic mediastinal lymphadenopathy mediastinal lymph nodes measuring up to 8 mm in short axis are again evident. Alyx: There is no evidence of pathologic hilar lymphadenopathy Axilla: There is no evidence of pathologic axillary lymphadenopathy Upper abdomen: Partially visualized upper abdominal viscera is within normal limits. Skeletal structures: There is a pectus deformity. IMPRESSION: 1. Lingular arteriovenous malformation 2. No evidence of focal pulmonary consolidation. No evidence of pathologic adenopathy 3. Multinodular thyroid gland with a dominant 26 mm right lobe nodule Electronically signed by: Eulogio Noriega M.D. 06/05/2018 9:41 AM Dictated Date/Time: 06/05/2018 9:24 AM
== END | disposition home or self-care (01) ==
LOC: C.CTS 08:54
PROVIDERS: ATTEND Internal Medicine
DX: R93.8 Abnormal findings on diagnostic imaging of other specified body structures (principal); Q28.2 Arteriovenous malformation of cerebral vessels; E04.2 Nontoxic multinodular goiter

== ENCOUNTER 2023-06-19 15:52 | Inpatient (IN) ==
[2023-06-19] MEDS ORDERED: ONDANSETRON INJ 2 MG/ML 2 ML VIAL IV STA (16:10)
--- NOTE | 2023-06-19 16:27 | Emergency Department Note ---
ED Provider Note History of Present Illness Chief Complaint: Abdominal Pain Stated Complaint: ABDOMINAL PAIN, CONSTIPATED Time Seen by Provider: 06/19/23 16:00 Source: patient Mode of arrival: ambulatory Limitations: no limitations This patient is an 87-year-old female who presents to the emergency department for evaluation of abdominal pain. Patient reports that she has been feeling constipated recently. She states that over the past 2 months, she feels that she has difficulty with bowel movements although admits that she has still been having bowel movements daily. Her last bowel movement was 2 days ago. Last night, she reports she had abdominal pain which kept her up at night. She has had multiple episodes of vomiting. She denies any fever/chills or urinary symptoms. She has not taken any medications for her symptoms. Nothing makes her symptoms better or worse. Home Medications Medication Instructions Recorded Confirmed Type dorzolamide 22.3 mg-timolol 6.8 1 drp OPB BID 02/23/19 06/19/23 History mg/mL eye drops latanoprost 0.005 % eye drops 1 drp OPB HS 04/30/19 06/19/23 History brimonidine 0.2 % eye drops 1 drp OPB BID 05/07/19 06/19/23 History amlodipine 5 mg tablet 5 mg PO QPM #45 tabs 02/06/21 06/19/23 Rx cholecalciferol (vitamin D3) 50 4,000 unit PO DAILY 05/28/21 06/19/23 History mcg (2,000 unit) tablet (Vitamin D3) metoprolol succinate 25 mg 25 mg PO QAM #90 tabs 10/26/22 06/19/23 Rx tablet,extended release 24 hr levothyroxine 50 mcg tablet 50 mcg PO 6XWK 90 days #90 tabs 11/09/22 06/19/23 Rx ergocalciferol (vitamin D2) 1,250 1,250 mcg PO .weekly #30 caps 12/29/22 06/19/23 Rx mcg (50,000 unit) capsule rivaroxaban 20 mg tablet (Xarelto) 20 mg PO DAILY@1500 #90 tabs 04/22/23 06/19/23 Rx Allergies Allergy/AdvReac Type Severity Reaction Status Date / Time Penicillins Allergy Unknown RASH ONLY Verified 06/19/23 18:59 atorvastatin AdvReac Verified 06/19/23 18:59 pravastatin AdvReac Verified 06/19/23 18:59 simvastatin AdvReac Verified 06/19/23 18:59 Past Med/Surg History Medical History Abnormal CT of the chest Acid reflux Anticoagulant long-term use Arthritis Atrial fibrillation CAD in [place] artery Cardiomyopathy Carotid artery stenosis Claudication Glaucoma Jacques's thyroiditis Herpes zoster History of CVA (cerebrovascular accident) History of myocardial infarction Hx of hemorrhoids Hyperglycemia Hyperlipidemia Hypertension Hypothyroidism Intractable pain Irritable bowel syndrome (IBS) Mitral regurgitation NSTEMI (non-ST elevated myocardial infarction) Overweight Paralysis of left vocal fold Renal infarct Takotsubo syndrome Tricuspid regurgitation Ventricular tachycardia Surgical History H/O endarterectomy History of Neurological Surgery Carotid Endarterectomy History of carpal tunnel surgery History of cholecystectomy History of thyroid surgery History of total abdominal hysterectomy and bilateral salpingo-oophorectomy S/P appendectomy Family History Mother Diabetes Hypertension Sister Diabetes Kidney disease Hypertension Brother Kidney disease Hypertension Diabetes Father Myocardial infarction Colorectal cancer Unknown Hypertension Cardiac disorder Stroke Cancer Other Buerger's disease No family history of bleeding disorder Denies family history of Ovarian cancer Prostate cancer Breast cancer Social History Smoking Status: Never smoker Second Hand Exposure: No; Do You Dip or Chew Tobacco: No; Hx Alcohol Use: Yes Alcohol type: wine Alcohol Intake Frequency: 4 or More x per/Week Alcohol Intake Frequency Comment: 1-2 glasses per day Hx Substance Use: No Preferred Language: Bangladeshi Communication Ability: Effective Visual Impairment: Limited Hearing Ability: Normal marital status: Current Living Situation: Spouse current occupational status: retired current occupation: Retired-[employer] Feels Safe at Home: Yes Childhood Exposure to Second-Hand Smoke: No Diet: regular caffeine: Yes during the past year weight has: remained stable Dental Care, Regularly: No Physical Activity Frequency: Does not Exercise Seatbelt Use: always Sunscreen Use: Yes Assistive Devices: Denture - Upper, Denture - Lower and Glasses Physical Exam Vital Signs Vital Signs - 24 hr 06/19/23 15:54 06/19/23 16:43 06/19/23 17:03 Temperature 36.3 C L Temperature Source Temporal Artery Scan Pulse Rate 76 61 Pulse Rate [Left Apical] 58 L Respiratory Rate 20 24 Respiratory Effort / Characteristics Non-Labored Spontaneous Respiratory Depth Normal Blood Pressure 208/91 H Blood Pressure [Right Arm] 195/86 H Blood Pressure Mean 130 Blood Pressure Mean [Right Arm] 122 Pulse Oximetry 97 98 Oxygen Delivery Method Room Air Room Air Sepsis Recent Fever Within 48 Hours No Sepsis New/Unexplained Change in Mental Status N/A Sepsis Action Taken by Nursing No Action Required 06/19/23 19:11 06/19/23 19:50 Temperature Temperature Source Pulse Rate 101 H 60 Pulse Rate [Left Apical] Respiratory Rate 16 23 Respiratory Effort / Characteristics Respiratory Depth Blood Pressure 213/105 H 191/80 H Blood Pressure [Right Arm] Blood Pressure Mean 141 117 Blood Pressure Mean [Right Arm] Pulse Oximetry 95 96 Oxygen Delivery Method Room Air Room Air Sepsis Recent Fever Within 48 Hours Sepsis New/Unexplained Change in Mental Status Sepsis Action Taken by Nursing VITALS: Vitals are noted on the nurse's note and reviewed by myself. GENERAL: This is an 87-year-old female, in no acute distress, well-developed well-nourished. SKIN: The skin was without rashes, erythema, edema, or bruising. EYES: Pupils equal round and reactive to light and accommodation. No scleral icterus. MOUTH: Mucous membranes moist. HEART: Regular rate and rhythm without murmurs gallops or rubs. LUNGS: Clear to auscultation bilaterally without wheezes, rales or rhonchi. ABDOMEN: Positive bowel sounds x 4. Abdomen is soft, with tenderness throughout the mid abdomen and epigastric region. No guarding or rebound tenderness. NEURO: Patient was alert and oriented to person place and time. Course Administered Medications Brimonidine Tartrate (Brimonidine Tartrate 0.2% 5ml) 1 drops OPB BID [facility] Stop: 07/19/23 21:02 Last Admin: 06/19/23 22:51 Dose: 1 drops Documented By: QGV Dorzolamide/Timolol (Dorzolamide/Timolol 22.3/6.8mg/Ml 10 Ml Btl) 1 drops OPB BID [facility] Stop: 07/19/23 21:02 Last Admin: 06/19/23 22:51 Dose: 1 drops Documented By: QGV Heparin Sodium/Dextrose (Heparin Sodium/Dextrose) 25,000 units in 500 mls @ 20 mls/hr IV .Q24H ELZA; Protocol Stop: 07/19/23 19:29 Last Admin: 06/19/23 19:47 Dose: 1,000 units/hr, 20 mls/hr Documented By: QGV Co-signed By: TIERRA Discontinued Medications Amlodipine Besylate (Amlodipine Besylate 5 Mg Tab) 10 mg PO NOW ONE Stop: 06/19/23 20:19 Last Admin: 06/19/23 20:45 Dose: 10 mg Documented By: QGV Heparin Sodium (Porcine) (Heparin Sod (Porcine) 1000 Unit/Ml) 2,000 units IV NOW ONE Stop: 06/19/23 19:31 Last Admin: 06/19/23 19:48 Dose: 2,000 units Documented By: QGV Co-signed By: TIERRA Heparin Sodium/Dextrose (Heparin Iv Adult Wt-Based Standard With Bolus Protocol) 1 each IV NOW STA; Protocol Stop: 06/19/23 19:13 Last Admin: 06/19/23 19:48 Dose: Not Given Documented By: QGV Ioversol (Optiray 320 100ml) 89 ml IV ONCE ONE Stop: 06/19/23 17:41 Last Admin: 06/19/23 17:41 Dose: 89 ml Documented By: HAROON Ondansetron HCl (Ondansetron Inj 2 Mg/Ml 2 Ml Vial) 4 mg IV NOW STA Stop: 06/19/23 16:11 Last Admin: 06/19/23 16:49 Dose: 4 mg Documented By: Chao Medical Decision Making Differential Diagnosis Appendicitis, ovarian cyst, ovarian torsion, infections, diverticulitis, UTI, obstruction, mesenteric ischemia, aortic pathology, inflammatory bowel disease, renal colic, PUD, pancreatitis, biliary pathology, hernia, volvulus, constipati on, as well as other pathologies. Home Medications was personally reviewed by me Laboratory Data Attestation: I reviewed the patient's lab results. 06/19/23 16:44 06/19/23 16:44 Lab Results 06/19/23 06/19/23 06/19/23 Range/Units 16:44 16:44 16:44 WBC 9.71 (4.8-10.8) K/ul RBC 4.48 (4.20-5.40) M/uL Hgb 14.8 (12.0-16.0) g/dl Hct 43.4 (37.0-47.0) % MCV 96.9 (80.0-100.0) fL MCH 33.0 (25.0-34.0) pg MCHC 34.1 (32.0-36.0) g/dL RDW Std Deviation 50.7 H (36.4-46.3) fL RDW Coeff of Maritza 14.1 (11.5-14.5) % Plt Count 239 (130-400) K/uL MPV 10.8 (9.4-12.4) fL Immature Gran % (Auto) 0.2 % Neut % (Auto) 77.2 % Lymph % (Auto) 15.3 % [place] % (Auto) 6.6 % Eos % (Auto) 0.4 % Baso % (Auto) 0.3 % Neut # (Auto) 7.49 H (1.40-6.50) K/uL Lymph # (Auto) 1.49 (1.20-3.40) K/uL [place] # (Auto) 0.64 H (0.11-0.59) K/uL Eos # (Auto) 0.04 (0.00-0.50) K/uL Baso # (Auto) 0.03 (0.00-0.20) K/uL Immature Gran # (Auto) 0.02 (0.01-0.20) K/uL PT (9.0-12.0) Seconds INR (0.9-1.1) APTT (21.0-31.0) Seconds PTT Ratio Sodium 135 L (136-145) mmol/L Potassium 4.2 (3.5-5.1) mmol/L Chloride 102 (98-107) mmol/L Carbon Dioxide 25 (21-32) mmol/L Anion Gap 8 (3-11) BUN 13 (6-23) mg/dl Creatinine 0.68 (0.6-1.2) mg/dl Est Cr Clr Drug Dosing 52.0 ml/min Est GFR ( Amer) 91.2 ml/min Est GFR (Non-Af Amer) 78.6 ml/min BUN/Creatinine Ratio 19.1 (10-20) Glucose 107 H (70-99(Fasting)) mg/dl Lactate 1.2 (0.4-2.0) mmol/L Calcium 9.4 (8.6-10.3) mg/dl Phosphorus 3.0 (2.5-4.9) mg/dl Magnesium 2.1 (1.7-2.4) mg/dl Total Bilirubin 0.7 (0.2-1.0) mg/dl AST 29 (13-39) U/L ALT 22 (7-52) U/L Alkaline Phosphatase 75 (34-104) U/L Total Protein 7.6 (6.0-8.3) gm/dl Albumin 4.2 (3.4-5.0) gm/dl Globulin 3.4 (2.5-4.0) gm/dl Albumin/Globulin Ratio 1.2 (0.9-2) Lipase 25 (11-82) U/L Urine Color Urine Appearance (Clear) Urine pH (4.5-7.5) Ur Specific [place] (1.000-1.030) Urine Protein (Negative) Urine Glucose (UA) (Negative) Urine Ketones (Negative) Urine Blood (Negative) Urine Nitrite (Negative) Urine Bilirubin (Negative) Urine Urobilinogen (Negative) Ur Leukocyte Esterase (Negative) Urine WBC (Auto) (0-5) /hpf Urine RBC (Auto) (0-4) /hpf U Hyaline Cast (Auto) (0-5) /lpf U Epithel Cells (Auto) (0-5) /lpf Urine Bacteria (Auto) (Negative) 06/19/23 06/19/23 Range/Units 16:44 19:14 WBC (4.8-10.8) K/ul RBC (4.20-5.40) M/uL Hgb (12.0-16.0) g/dl Hct (37.0-47.0) % MCV (80.0-100.0) fL MCH (25.0-34.0) pg MCHC (32.0-36.0) g/dL RDW Std Deviation (36.4-46.3) fL RDW Coeff of Maritza (11.5-14.5) % Plt Count (130-400) K/uL MPV (9.4-12.4) fL Immature Gran % (Auto) % Neut % (Auto) % Lymph % (Auto) % [place] % (Auto) % Eos % (Auto) % Baso % (Auto) % Neut # (Auto) (1.40-6.50) K/uL Lymph # (Auto) (1.20-3.40) K/uL [place] # (Auto) (0.11-0.59) K/uL Eos # (Auto) (0.00-0.50) K/uL Baso # (Auto) (0.00-0.20) K/uL Immature Gran # (Auto) (0.01-0.20) K/uL PT 11.4 (9.0-12.0) Seconds INR 1.0 (0.9-1.1) APTT 30.1 (21.0-31.0) Seconds PTT Ratio 1.1 Sodium (136-145) mmol/L Potassium (3.5-5.1) mmol/L Chloride (98-107) mmol/L Carbon Dioxide (21-32) mmol/L Anion Gap (3-11) BUN (6-23) mg/dl Creatinine (0.6-1.2) mg/dl Est Cr Clr Drug Dosing ml/min Est GFR ( Amer) ml/min Est GFR (Non-Af Amer) ml/min BUN/Creatinine Ratio (10-20) Glucose (70-99(Fasting)) mg/dl Lactate (0.4-2.0) mmol/L Calcium (8.6-10.3) mg/dl Phosphorus (2.5-4.9) mg/dl Magnesium (1.7-2.4) mg/dl Total Bilirubin (0.2-1.0) mg/dl AST (13-39) U/L ALT (7-52) U/L Alkaline Phosphatase (34-104) U/L Total Protein (6.0-8.3) gm/dl Albumin (3.4-5.0) gm/dl Globulin (2.5-4.0) gm/dl Albumin/Globulin Ratio (0.9-2) Lipase (11-82) U/L Urine Color Yellow Urine Appearance Clear (Clear) Urine pH 6.5 (4.5-7.5) Ur Specific [place] 1.044 H (1.000-1.030) Urine Protein Negative (Negative) Urine Glucose (UA) Negative (Negative) Urine Ketones Negative (Negative) Urine Blood Trace H (Negative) Urine Nitrite Negative (Negative) Urine Bilirubin Negative (Negative) Urine Urobilinogen Negative (Negative) Ur Leukocyte Esterase Negative (Negative) Urine WBC (Auto) 1-5 (0-5) /hpf Urine RBC (Auto) 0-4 (0-4) /hpf U Hyaline Cast (Auto) 0 (0-5) /lpf U Epithel Cells (Auto) 20-30 H (0-5) /lpf Urine Bacteria (Auto) Negative (Negative) Imaging Data Attestation: I personally reviewed and interpreted this imaging study as follows: Radiologist's Impression: Abdomen/Pelvis CT 06/19/23 16:12 CT SCAN OF THE ABDOMEN AND PELVIS WITH IV CONTRAST CLINICAL HISTORY: Generous abdominal pain. Vomiting. COMPARISON STUDY: Abdominal CT dated 03/13/2018. TECHNIQUE: Following the IV administration of 89 cc of Optiray 320, CT scan of the abdomen and pelvis is performed from the lung bases to the proximal femora. Images are reviewed in the axial, sagittal, and coronal planes. IV contrast was administered without complication. A dose lowering technique was utilized adhering to the principles of ALARA. CT DOSE: 915.03 mGy.cm FINDINGS: Lung bases: The heart is enlarged and without pericardial effusion. The lung bases are clear noting bibasilar scarring/atelectasis. There is a tiny hiatal hernia. Liver: The contrast-enhanced liver is normal in size, contour, and attenuation. There is no intrahepatic biliary ductal dilatation. The hepatic veins and portal veins are patent. Gallbladder: Surgically absent noting clips in the gallbladder fossa. Spleen: Normal in size and attenuation. Pancreas: Moderately atrophic and grossly unremarkable. Adrenal glands: Unremarkable. Kidneys: The contrast enhanced kidneys demonstrate cortical atrophy and without hydronephrosis. Foci of cortical scarring are seen throughout the left kidney. There is a moderate subacute appearing cortical infarct in the posterior upper pole to interpolar region of the right kidney, best seen on axial image #111. This measures up to 4 cm. 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 A 1.4 cm right adrenal cyst is unchanged. Abdominal vasculature: The abdominal aorta is normal in course and caliber noting advanced atherosclerotic calcification. There is moderate focal stenosis of the superior mesenteric artery seen on axial image #102. The main renal arteries are patent. There is moderate to high-grade stenosis at the origin of the right renal artery. Bowel: There is mild sigmoid diverticulosis without CT evidence of acute diverticulitis. No bowel obstruction is identified. The appendix is not identified and reported surgically absent. Peritoneum: There is no intraperitoneal free air or abdominal ascites. There is a small fat-containing umbilical hernia. Lymphadenopathy: None. Pelvic viscera: The bladder is normal as visualized. The uterus is surgically absent. No adnexal lesion is seen. Skeletal structures: The skeletal structures are osteopenic. There is moderate lumbosacral spondylosis. No lytic or blastic lesions are seen. IMPRESSION: 1. There is a moderate subacute appearing cortical infarct of the right kidney as above. 2. Cardiomegaly. 3. Mild sigmoid diverticulosis without CT evidence of acute diverticulitis. 4. Additional findings as above. ACT 112: Negative or not required by law. Electronically signed by: Volodymyr Olmedo M.D. 06/19/2023 6:41 PM MDM Narrative Continuous director of cardiac rehabilitation: Order was placed for continuous director of cardiac rehabilitation. Patient was placed on the director of cardiac rehabilitation. Patient was noted to be in normal sinus rhythm at an initial rate of 60 bpm. The patient is a 87-year-old female who presents today complaining of abdominal pain and vomiting. Labs revealed no leukocytosis or anemia. There were no concerning electrolyte abnormalities. Lactate was not elevated. Urinalysis was not suggestive of infection. CT scan showed a renal infarct. I did speak with Dr. Bahena of hematology, who recommended discontinuing the Xarelto and starting the patient on heparin (standard with half bolus). She will need admitted for further cardiac/thrombo embolic work-up. All findings were discussed with the patient and family. They verbalized understanding. Impression Renal infarct Discharge Plan Visit Data Chief Complaint: Abdominal Pain Stated Complaint: ABDOMINAL PAIN, CONSTIPATED ED Provider: Conrado Miguel ED Midlevel Provider: Cait Aguilar Discharge Problem: Renal infarct Patient Disposition: Admitted As Inpatient Discharge Instructions Interventions: ED Discharge Assessment Last Done: 06/19/23 21:03
[2023-06-19 17:03] LABS: Basophils # (auto) 0.03 K/uL (0.00-0.20); Basophils % (auto) 0.3 %; Eosinophils # (auto) 0.04 K/uL (0.00-0.50); Eosinophils % (auto) 0.4 %; Hematocrit (blood only) 43.4 % (37.0-47.0); Hemoglobin 14.8 g/dl (12.0-16.0); Immature Granulocytes # (auto) 0.02 K/uL (0.01-0.20); Immature Granulocytes % (auto) 0.2 %; Lymphocytes # (auto) 1.49 K/uL (1.20-3.40); Lymphocytes % (auto) 15.3 %; Mean Corpuscular Hgb Conc 34.1 g/dL (32.0-36.0); Mean Corpuscular Volume 96.9 fL (80.0-100.0); Mean Platelet Volume 10.8 fL (9.4-12.4); Monocytes # (auto) 0.64 K/uL (0.11-0.59); Monocytes % (auto) 6.6 %; Neutrophils # (auto) 7.49 K/uL (1.40-6.50); Neutrophils % (auto) 77.2 %; Platelet Count 239 K/uL (130-400); RDW Coefficient of Variation 14.1 % (11.5-14.5); RDW Standard Deviation 50.7 fL (36.4-46.3); Red Blood Count 4.48 M/uL (4.20-5.40); White Blood Count 9.71 K/ul (4.8-10.8)
[2023-06-19 17:16] LABS: Albumin Globulin Ratio 1.2 (0.9-2); Albumin Level 4.2 gm/dl (3.4-5.0); BUN Creatinine Ratio 19.1 (10-20); Bilirubin,Total 0.7 mg/dl (0.2-1.0); Calcium 9.4 mg/dl (8.6-10.3); Est GFR (African American) 91.2 ml/min; Est GFR (Non-African American) 78.6 ml/min; Globulin 3.4 gm/dl (2.5-4.0); Potassium 4.2 mmol/L (3.5-5.1); Total Protein 7.6 gm/dl (6.0-8.3)
[2023-06-19] MEDS ORDERED: OPTIRAY 320 100ml IV ONE (17:40)
--- NOTE | 2023-06-19 18:44 | CT Scan Report ---
CT SCAN OF THE ABDOMEN AND PELVIS WITH IV CONTRAST CLINICAL HISTORY: Generous abdominal pain. Vomiting. COMPARISON STUDY: Abdominal CT dated 03/13/2018. TECHNIQUE: Following the IV administration of 89 cc of Optiray 320, CT scan of the abdomen and pelvi s is performed from the lung bases to the proximal femora. Images are reviewed in the axial, sagittal , and coronal planes. IV contrast was administered without complication. A dose lowering technique wa s utilized adhering to the principles of ALARA. CT DOSE: 915.03 mGy.cm FINDINGS: Lung bases: The heart is enlarged and without pericardial effusion. The lung bases are clear noting b ibasilar scarring/atelectasis. There is a tiny hiatal hernia. Liver: The contrast-enhanced liver is normal in size, contour, and attenuation. There is no intrahepa tic biliary ductal dilatation. The hepatic veins and portal veins are patent. Gallbladder: Surgically absent noting clips in the gallbladder fossa. Spleen: Normal in size and attenuation. Pancreas: Moderately atrophic and grossly unremarkable. Adrenal glands: Unremarkable. Kidneys: The contrast enhanced kidneys demonstrate cortical atrophy and without hydronephrosis. Foci of cortical scarring are seen throughout the left kidney. There is a moderate subacute appearing royce ical infarct in the posterior upper pole to interpolar region of the right kidney, best seen on axial image #111. This measures up to 4 cm. 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 A 1.4 cm right adrenal cyst is unchanged. Abdominal vasculature: The abdominal aorta is normal in course and caliber noting advanced atheroscle rotic calcification. There is moderate focal stenosis of the superior mesenteric artery seen on axial image #102. The main renal arteries are patent. There is moderate to high-grade stenosis at the orig in of the right renal artery. Bowel: There is mild sigmoid diverticulosis without CT evidence of acute diverticulitis. No bowel obs truction is identified. The appendix is not identified and reported surgically absent. Peritoneum: There is no intraperitoneal free air or abdominal ascites. There is a small fat-containin g umbilical hernia. Lymphadenopathy: None. Pelvic viscera: The bladder is normal as visualized. The uterus is surgically absent. No adnexal lesi on is seen. Skeletal structures: The skeletal structures are osteopenic. There is moderate lumbosacral spondylosi s. No lytic or blastic lesions are seen. IMPRESSION: 1. There is a moderate subacute appearing cortical infarct of the right kidney as above. 2. Cardiomegaly. 3. Mild sigmoid diverticulosis without CT evidence of acute diverticulitis. 4. Additional findings as above. ACT 112: Negative or not required by law. Electronically signed by: Volodymyr Olmedo M.D. 06/19/2023 6:41 PM
[2023-06-19] MEDS ORDERED: Heparin IV Adult Wt-Based Standard WITH Bolus Protocol IV STA (19:12)
[2023-06-19] MEDS ORDERED: HEPARIN SOD (PORCINE) 1000 UNIT/ML IV ONE ×2 (19:27→19:30)
[2023-06-19 19:34] LABS: Partial Thromboplastin Ratio 1.1; Partial Thromboplastin Time 30.1 Seconds (21.0-31.0); Prothrombin Time 11.4 Seconds (9.0-12.0)
[2023-06-19] MEDS: HEPARIN SODIUM/DEXTROSE 25,000 UNITS/500 ML BAG IV SCH (19:47)
[2023-06-19 19:51] LABS: Appearance Urine Clear (Clear); Bacteria Urine Automated Negative (Negative); Bilirubin Urine Negative (Negative); Blood Urine Trace (Negative); Cast Urine Automated 0 /lpf (0-5); Color Urine Yellow; Epithelial Cell Urine Auto 20-30 /lpf (0-5); Glucose Urine UA Negative (Negative); Ketones Urine Negative (Negative); Leukocyte Esterase Urine Negative (Negative); Nitrite Urine Negative (Negative); Protein Urine Negative (Negative); RBC Urine Automated 0-4 /hpf (0-4); Specific Gravity Urine 1.044 (1.000-1.030); Urobilinogen Urine Negative (Negative); pH Urine 6.5 (4.5-7.5)
--- NOTE | 2023-06-19 20:02 | Emergency Department Note ---
ED Visit Note Physician Evaluation Note: Patient was seen in conjunction with the midlevel provider. Please see the midlevel provider note for full details of the patient's visit. I have personally evaluated and examined this patient. On my examination the patient is in no acute distress, she has a mild tenderness in the lower mid abdomen on to palpation without any guarding or rigidity. Following discussion by the midlevel provider with on-call hematology, patient will be heparinized for renal infarct and admitted to the hospital for further management given her abdominal pain and concern for Xarelto failure. Patient is in agreement to this plan. She is hemodynamically stable and otherwise appears well on my reassessment. Patient was placed for admission in stable condition. I agree with assessment and plan of WILLY Carrizales DO .
[2023-06-19] MEDS ORDERED: amLODIPine BESYLATE 5 MG TAB PO ONE (20:18)
--- NOTE | 2023-06-19 20:18 | History & Physical Report ---
Date of Service June 19, 2023 Assessment & Plan (1) Renal infarct: Plan: 87-year-old female presenting with acute onset of abdominal pain. Found to have a moderate subacute appearing cortical infarct of the right kidney. CT of the abdomen as above with significant atherosclerotic disease as well as moderate to high-grade stenosis of the origin of the right renal artery. Question atherosclerotic versus thromboembolic source. patient has been on Eliquis and reports that she is compliant. Does not miss doses. Hold Eliquis for now Heparin drip for anticoagulation Patient is statin intolerant Consider nephrology consultation regarding consideration for stent placement (2) Atrial fibrillation: Plan: with slow ventricular response. Patient was recently on Eliquis which is currently being held in favor of heparin drip Continue metoprolol 25 mg p.o. every morning Heparin drip (3) Hypertension: Plan: Patient with markedly elevated blood pressures in the ER. She reports that her blood pressure typically runs high at home. She was given 10 mg of amlodipine which improved her pressure. Presently 155/63 We will continue amlodipine, increase from 5 mg p.o. daily to 10 mg p.o. daily Continue metoprolol 25 mg p.o. every morning Consider initiation of ESTRELLA inhibitor in setting of renovascular hypertension continue to monitor (4) Hypothyroidism: Plan: Chronic. Stable. Continue Synthroid History of Present Illness Chief Complaint: abdominal pain Primary Care Provider: Andrei Francis MD Salome Younger Is an 87-year-old female with history of atrial fibrillation on Eliquis anticoagulation, coronary artery disease, hypertension and hyperlipidemia presenting from home with acute onset of abdominal pain. Patient went to bed last night and woke around 01:30 with severe, acute periumbilical pain. The pain was central in location, nonradiating, severe and stabbing. She felt that she had to move her bowels but was unable. Her pain continued through the day. She had no associated nausea but did try to vomit to see if that would improve the pain which it did not. She has been passing gas and had a normal BM yesterday. No exacerbating or relieving factors identified. Additionally, patient denies fevers, chills, chest pain, cough, shortness of breath, nausea, vomiting or diarrhea. She has had normal urine output with no hematuria. She denies back pain or flank pain. Patient with baseline history of hypertension. States that her blood pressure is typically in the 180s at home. In the ER patient is afebrile, hypertensive at 195/86 otherwise hemodynamically stable ER course: Zofran, heparin drip, amlodipine, eyedrops Allergies Allergy/AdvReac Type Severity Reaction Status Date / Time Penicillins Allergy Unknown RASH ONLY Verified 06/19/23 18:59 atorvastatin AdvReac Verified 06/19/23 18:59 pravastatin AdvReac Verified 06/19/23 18:59 simvastatin AdvReac Verified 06/19/23 18:59 Home Medications Medication Instructions Recorded Confirmed Type dorzolamide 22.3 mg-timolol 6.8 1 drp OPB BID 02/23/19 06/19/23 History mg/mL eye drops latanoprost 0.005 % eye drops 1 drp OPB HS 04/30/19 06/19/23 History brimonidine 0.2 % eye drops 1 drp OPB BID 05/07/19 06/19/23 History amlodipine 5 mg tablet 5 mg PO QPM #45 tabs 02/06/21 06/19/23 Rx cholecalciferol (vitamin D3) 50 4,000 unit PO DAILY 05/28/21 06/19/23 History mcg (2,000 unit) tablet (Vitamin D3) metoprolol succinate 25 mg 25 mg PO QAM #90 tabs 10/26/22 06/19/23 Rx tablet,extended release 24 hr levothyroxine 50 mcg tablet 50 mcg PO 6XWK 90 days #90 tabs 11/09/22 06/19/23 Rx ergocalciferol (vitamin D2) 1,250 1,250 mcg PO .weekly #30 caps 12/29/22 06/19/23 Rx mcg (50,000 unit) capsule rivaroxaban 20 mg tablet (Xarelto) 20 mg PO DAILY@1500 #90 tabs 04/22/23 06/19/23 Rx Past Med/Surg History Medical History Abnormal CT of the chest Acid reflux Anticoagulant long-term use Arthritis Atrial fibrillation CAD in [place] artery Cardiomyopathy Carotid artery stenosis Claudication Glaucoma Jacques's thyroiditis Herpes zoster History of CVA (cerebrovascular accident) History of myocardial infarction Hx of hemorrhoids Hyperglycemia Hyperlipidemia Hypertension Hypothyroidism Intractable pain Irritable bowel syndrome (IBS) Mitral regurgitation NSTEMI (non-ST elevated myocardial infarction) Overweight Paralysis of left vocal fold Renal infarct Takotsubo syndrome Tricuspid regurgitation Ventricular tachycardia Surgical History H/O endarterectomy History of Neurological Surgery Carotid Endarterectomy History of carpal tunnel surgery History of cholecystectomy History of thyroid surgery History of total abdominal hysterectomy and bilateral salpingo-oophorectomy S/P appendectomy Family History Mother Diabetes Hypertension Sister Diabetes Kidney disease Hypertension Brother Kidney disease Hypertension Diabetes Father Myocardial infarction Colorectal cancer Unknown Hypertension Cardiac disorder Stroke Cancer Other Buerger's disease No family history of bleeding disorder Denies family history of Ovarian cancer Prostate cancer Breast cancer Social History Smoking Status: Never smoker Second Hand Exposure: No; Do You Dip or Chew Tobacco: No; Hx Alcohol Use: Yes Alcohol type: wine Alcohol Intake Frequency: 4 or More x per/Week Alcohol Intake Frequency Comment: 1-2 glasses per day Hx Substance Use: No Preferred Language: Angolan Communication Ability: Effective Visual Impairment: Limited Hearing Ability: Normal marital status: Current Living Situation: Spouse current occupational status: retired current occupation: Retired-[employer] Feels Safe at Home: Yes Childhood Exposure to Second-Hand Smoke: No Diet: regular caffeine: Yes during the past year weight has: remained stable Dental Care, Regularly: No Physical Activity Frequency: Does not Exercise Seatbelt Use: always Sunscreen Use: Yes Assistive Devices: Denture - Upper, Denture - Lower and Glasses Review of Systems Review of Systems: All systems reviewed & are unremarkable except as noted in HPI & below Physical Exam Physical Exam: General: patient resting comfortably, NAD, non-toxic in appearance, AA&O x 4 Skin: warm, dry, intact, no rashes or lesions HEENT: NC/AT, PERRL, EOMI, anicteric sclera, conjunctiva without injection, external ear normal to inspection and nontender, nares patent, moist mucus membranes, dentition intact, no oropharyngeal lesions, neck supple, trachea midline, no LAD, no thyromegaly, no JVD Heart: +S1/S2, irregularly irregular, no m/r/g Lungs: equal air entry bilaterally, no rales/rhonchi/wheezes Abd: +BS, soft, pain in mid abdominal, no rebound/guarding/peritoneal signs, ND, no masses/organomegaly/ascites Ext: warm, 2+ pulses in UE/LE bilaterally, no clubbing/cyanosis or edema Neuro: nonfocal, patient AA&O x 4, speech intact, no facial droop, moving all extremities on command with equal strength 5/5 Results & Data Results & Data Vital Signs (Past 12 Hours) Vital Signs Temp Pulse Pulse Resp BP BP Pulse Ox 06/19/23 17:03 61 06/19/23 16:43 58 L 24 195/86 H 98 06/19/23 15:54 36.3 C L 76 20 208/91 H 97 O2 Del Method 06/19/23 17:03 06/19/23 16:43 Room Air 06/19/23 15:54 Room Air Laboratory Results Laboratory Results WBC 9.71 K/ul (4.8-10.8) 06/19/23 16:44 RBC 4.48 M/uL (4.20-5.40) 06/19/23 16:44 Hgb 14.8 g/dl (12.0-16.0) 06/19/23 16:44 Hct 43.4 % (37.0-47.0) 06/19/23 16:44 MCV 96.9 fL (80.0-100.0) 06/19/23 16:44 MCH 33.0 pg (25.0-34.0) 06/19/23 16:44 MCHC 34.1 g/dL (32.0-36.0) 06/19/23 16:44 RDW Std Deviation 50.7 fL (36.4-46.3) H 06/19/23 16:44 RDW Coeff of Maritza 14.1 % (11.5-14.5) 06/19/23 16:44 Plt Count 239 K/uL (130-400) 06/19/23 16:44 MPV 10.8 fL (9.4-12.4) 06/19/23 16:44 Immature Gran % (Auto) 0.2 % 06/19/23 16:44 Neut % (Auto) 77.2 % 06/19/23 16:44 Lymph % (Auto) 15.3 % 06/19/23 16:44 [place] % (Auto) 6.6 % 06/19/23 16:44 Eos % (Auto) 0.4 % 06/19/23 16:44 Baso % (Auto) 0.3 % 06/19/23 16:44 Neut # (Auto) 7.49 K/uL (1.40-6.50) H 06/19/23 16:44 Lymph # (Auto) 1.49 K/uL (1.20-3.40) 06/19/23 16:44 [place] # (Auto) 0.64 K/uL (0.11-0.59) H 06/19/23 16:44 Eos # (Auto) 0.04 K/uL (0.00-0.50) 06/19/23 16:44 Baso # (Auto) 0.03 K/uL (0.00-0.20) 06/19/23 16:44 Immature Gran # (Auto) 0.02 K/uL (0.01-0.20) 06/19/23 16:44 PT 11.4 Seconds (9.0-12.0) 06/19/23 16:44 INR 1.0 (0.9-1.1) 06/19/23 16:44 APTT 30.1 Seconds (21.0-31.0) 06/19/23 16:44 PTT Ratio 1.1 06/19/23 16:44 Sodium 135 mmol/L (136-145) L 06/19/23 16:44 Potassium 4.2 mmol/L (3.5-5.1) 06/19/23 16:44 Chloride 102 mmol/L (98-107) 06/19/23 16:44 Carbon Dioxide 25 mmol/L (21-32) 06/19/23 16:44 Anion Gap 8 (3-11) 06/19/23 16:44 BUN 13 mg/dl (6-23) 06/19/23 16:44 Creatinine 0.68 mg/dl (0.6-1.2) 06/19/23 16:44 Est Cr Clr Drug Dosing 52.0 ml/min 06/19/23 16:44 Est GFR ( Amer) 91.2 ml/min 06/19/23 16:44 Est GFR (Non-Af Amer) 78.6 ml/min 06/19/23 16:44 BUN/Creatinine Ratio 19.1 (10-20) 06/19/23 16:44 Glucose 107 mg/dl (70-99(Fasting)) H 06/19/23 16:44 Lactate 1.2 mmol/L (0.4-2.0) 06/19/23 16:44 Calcium 9.4 mg/dl (8.6-10.3) 06/19/23 16:44 Phosphorus 3.0 mg/dl (2.5-4.9) 06/19/23 16:44 Magnesium 2.1 mg/dl (1.7-2.4) 06/19/23 16:44 Total Bilirubin 0.7 mg/dl (0.2-1.0) 06/19/23 16:44 AST 29 U/L (13-39) 06/19/23 16:44 ALT 22 U/L (7-52) 06/19/23 16:44 Alkaline Phosphatase 75 U/L (34-104) 06/19/23 16:44 Total Protein 7.6 gm/dl (6.0-8.3) 06/19/23 16:44 Albumin 4.2 gm/dl (3.4-5.0) 06/19/23 16:44 Globulin 3.4 gm/dl (2.5-4.0) 06/19/23 16:44 Albumin/Globulin Ratio 1.2 (0.9-2) 06/19/23 16:44 Lipase 25 U/L (11-82) 06/19/23 16:44 Urine Color Yellow 06/19/23 19:14 Urine Appearance Clear (Clear) 06/19/23 19:14 Urine pH 6.5 (4.5-7.5) 06/19/23 19:14 Ur Specific [place] 1.044 (1.000-1.030) H 06/19/23 19:14 Urine Protein Negative (Negative) 06/19/23 19:14 Urine Glucose (UA) Negative (Negative) 06/19/23 19:14 Urine Ketones Negative (Negative) 06/19/23 19:14 Urine Blood Trace (Negative) H 06/19/23 19:14 Urine Nitrite Negative (Negative) 06/19/23 19:14 Urine Bilirubin Negative (Negative) 06/19/23 19:14 Urine Urobilinogen Negative (Negative) 06/19/23 19:14 Ur Leukocyte Esterase Negative (Negative) 06/19/23 19:14 Urine WBC (Auto) 1-5 /hpf (0-5) 06/19/23 19:14 Urine RBC (Auto) 0-4 /hpf (0-4) 06/19/23 19:14 U Hyaline Cast (Auto) 0 /lpf (0-5) 06/19/23 19:14 U Epithel Cells (Auto) 20-30 /lpf (0-5) H 06/19/23 19:14 Urine Bacteria (Auto) Negative (Negative) 06/19/23 19:14 Impressions Abdomen/Pelvis CT 06/19/23 16:12 CT SCAN OF THE ABDOMEN AND PELVIS WITH IV CONTRAST CLINICAL HISTORY: Generous abdominal pain. Vomiting. COMPARISON STUDY: Abdominal CT dated 03/13/2018. TECHNIQUE: Following the IV administration of 89 cc of Optiray 320, CT scan of the abdomen and pelvis is performed from the lung bases to the proximal femora. Images are reviewed in the axial, sagittal, and coronal planes. IV contrast was administered without complication. A dose lowering technique was utilized adhering to the principles of ALARA. CT DOSE: 915.03 mGy.cm FINDINGS: Lung bases: The heart is enlarged and without pericardial effusion. The lung bases are clear noting bibasilar scarring/atelectasis. There is a tiny hiatal hernia. Liver: The contrast-enhanced liver is normal in size, contour, and attenuation. There is no intrahepatic biliary ductal dilatation. The hepatic veins and portal veins are patent. Gallbladder: Surgically absent noting clips in the gallbladder fossa. Spleen: Normal in size and attenuation. Pancreas: Moderately atrophic and grossly unremarkable. Adrenal glands: Unremarkable. Kidneys: The contrast enhanced kidneys demonstrate cortical atrophy and without hydronephrosis. Foci of cortical scarring are seen throughout the left kidney. There is a moderate subacute appearing cortical infarct in the posterior upper pole to interpolar region of the right kidney, best seen on axial image #111. This measures up to 4 cm. 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 A 1.4 cm right adrenal cyst is unchanged. Abdominal vasculature: The abdominal aorta is normal in course and caliber noting advanced atherosclerotic calcification. There is moderate focal stenosis of the superior mesenteric artery seen on axial image #102. The main renal arteries are patent. There is moderate to high-grade stenosis at the origin of the right renal artery. Bowel: There is mild sigmoid diverticulosis without CT evidence of acute diverticulitis. No bowel obstruction is identified. The appendix is not identified and reported surgically absent. Peritoneum: There is no intraperitoneal free air or abdominal ascites. There is a small fat-containing umbilical hernia. Lymphadenopathy: None. Pelvic viscera: The bladder is normal as visualized. The uterus is surgically absent. No adnexal lesion is seen. Skeletal structures: The skeletal structures are osteopenic. There is moderate lumbosacral spondylosis. No lytic or blastic lesions are seen. IMPRESSION: 1. There is a moderate subacute appearing cortical infarct of the right kidney as above. 2. Cardiomegaly. 3. Mild sigmoid diverticulosis without CT evidence of acute diverticulitis. 4. Additional findings as above. ACT 112: Negative or not required by law. Electronically signed by: Volodymyr Olmedo M.D. 06/19/2023 6:41 PM ECG Additional Comments: EKG shows atrial fibrillation with slow ventricular response at 57 bpm, QRS = 70, QTc = 412, no acute ischemic changes Code Status & VTE Plan VTE Prophylaxis Plan VTE Prophylaxis will be ordered: No PG Care Time/CCT Total # of Minutes Spent Total Time Spent with Patient: Total time spent is greater than 50% in coordination of care (as documented) at patient's floor/unit and/or counseling patient: Coding Level of Care Code 76761 INT INP/OBS CARE 3/75MIN Diagnoses Renal infarct N28.0 Atrial fibrillation I48.91 Hypertension I10 Hypertension type: essential hypertension Hypothyroidism E03.8; E06.3 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
[2023-06-19] MEDS ORDERED: DOCUSATE SODIUM 100 MG CAP PO PRN (21:03)
[2023-06-19] MEDS ORDERED: ACETAMINOPHEN 325 MG TAB PO PRN (21:03)
[2023-06-19 21:21] LABS: Magnesium 2.1 mg/dl (1.7-2.4)
[2023-06-19] MEDS: DORZOLAMIDE/TIMOLOL 22.3/6.8MG/ML 10 ML BTL OPB SCH (22:51)
[2023-06-19] MEDS: BRIMONIDINE TARTRATE 0.2% 5ML OPB SCH (22:51)
[2023-06-20 02:21] LABS: Basophils # (auto) 0.05 K/uL (0.00-0.20); Basophils % (auto) 0.5 %; Eosinophils # (auto) 0.06 K/uL (0.00-0.50); Eosinophils % (auto) 0.6 %; Hematocrit (blood only) 42.9 % (37.0-47.0); Hemoglobin 14.3 g/dl (12.0-16.0); Immature Granulocytes # (auto) 0.02 K/uL (0.01-0.20); Immature Granulocytes % (auto) 0.2 %; Lymphocytes # (auto) 2.04 K/uL (1.20-3.40); Lymphocytes % (auto) 18.8 %; Mean Corpuscular Hemoglobin 32.6 pg (25.0-34.0); Mean Corpuscular Hgb Conc 33.3 g/dL (32.0-36.0); Mean Corpuscular Volume 97.9 fL (80.0-100.0); Mean Platelet Volume 10.8 fL (9.4-12.4); Monocytes # (auto) 0.92 K/uL (0.11-0.59); Monocytes % (auto) 8.5 %; Neutrophils # (auto) 7.77 K/uL (1.40-6.50); Neutrophils % (auto) 71.4 %; Platelet Count 225 K/uL (130-400); RDW Coefficient of Variation 14.3 % (11.5-14.5); RDW Standard Deviation 51.6 fL (36.4-46.3); Red Blood Count 4.38 M/uL (4.20-5.40); White Blood Count 10.86 K/ul (4.8-10.8)
[2023-06-20 02:36] LABS: Albumin Level 4.2 gm/dl (3.4-5.0); BUN Creatinine Ratio 16.7 (10-20); Bilirubin Direct 0.1 mg/dl (0-0.2); Bilirubin,Total 0.7 mg/dl (0.2-1.0); Calcium 9.1 mg/dl (8.6-10.3); Creatinine Clr Calc Pharmacy 41.2 ml/min; Est GFR (African American) 72.4 ml/min; Est GFR (Non-African American) 62.5 ml/min; Potassium 3.6 mmol/L (3.5-5.1); Total Protein 7.4 gm/dl (6.0-8.3)
[2023-06-20 03:08] LABS: Partial Thromboplastin Ratio 1.8
[2023-06-20 03:09] LABS: Partial Thromboplastin Time 49.4 Seconds (21.0-31.0)
[2023-06-20] MEDS: DORZOLAMIDE/TIMOLOL 22.3/6.8MG/ML 10 ML BTL OPB SCH ×2 (09:52→20:49)
[2023-06-20] MEDS: BRIMONIDINE TARTRATE 0.2% 5ML OPB SCH ×2 (09:52→20:49)
[2023-06-20] MEDS: POLYETHYLENE (MIRALAX) 17 GM PACK PO SCH (09:52)
[2023-06-20] MEDS: LEVOTHYROXINE SODIUM 50 MCG TABLET PO SCH (09:52)
[2023-06-20] MEDS: METOPROLOL SUCC 25MG EXT REL TAB PO SCH (10:10)
--- NOTE | 2023-06-20 11:52 | Electrocardiogram Report ---
Test Reason : Blood Pressure : / mmHG Vent. Rate : 057 BPM Atrial Rate : 000 BPM P-R Int : 000 ms QRS Dur : 070 ms QT Int : 424 ms P-R-T Axes : 000 059 073 degrees QTc Int : 412 ms Atrial fibrillation with slow ventricular response Nonspecific ST abnormality Abnormal ECG When compared with ECG of 03-OCT-2019 09:46, No significant change was found Confirmed by Len Griffin ([id number]) on 06/20/2023 11:52:05 AM Referred By: REFERRED SELF Confirmed By:Len Griffin
--- NOTE | 2023-06-20 13:50 | XCELERA ---
[id number]
[2023-06-20] MEDS ORDERED: amLODIPine BESYLATE 5 MG TAB PO SCH ×2 (21:00)
--- NOTE | 2023-06-20 22:55 | Hospitalist Progress Note ---
Date of Service June 20, 2023 Assessment & Plan (1) Renal infarct: Plan: 87-year-old female presenting with acute onset of abdominal pain. Found to have a moderate subacute appearing cortical infarct of the right kidney. CT of the abdomen as above with significant atherosclerotic disease as well as moderate to high-grade stenosis of the origin of the right renal artery. Question atherosclerotic versus thromboembolic source. patient has been on Eliquis and reports that she is compliant. Does not miss doses. Hold Eliquis for now Heparin drip for anticoagulation Patient is statin intolerant Consider vascular consultation (2) Atrial fibrillation: Plan: with slow ventricular response. Patient was recently on Eliquis which is currently being held in favor of heparin drip Continue metoprolol 25 mg p.o. every morning Heparin drip (3) Hypertension: Plan: Patient with markedly elevated blood pressures in the ER. She reports that her blood pressure typically runs high at home. She was given 10 mg of amlodipine which improved her pressure. Presently 155/63 We will continue amlodipine, increase from 5 mg p.o. daily to 10 mg p.o. daily Continue metoprolol 25 mg p.o. every morning Consider initiation of ESTRELLA inhibitor in setting of renovascular hypertension continue to monitor (4) Hypothyroidism: Plan: Chronic. Stable. Continue Synthroid Admission and Anticipated Discharge Date Admission Date: June 19, 2023 Subjective Patient reports feeling better. Pain appears to be controlled. Review of Systems Review of Systems: All systems reviewed & are unremarkable except as noted in HPI & below Physical Exam Physical Exam: General: patient resting comfortably, NAD, non-toxic in appearance, AA&O x 4 Skin: warm, dry, intact, no rashes or lesions HEENT: NC/AT Heart: +S1/S2, irregularly irregular, no m/r/g Lungs: equal air entry bilaterally, no rales/rhonchi/wheezes Abd: +BS, soft, pain in mid abdominal Ext: warm, 2+ pulses in UE/LE bilaterally, no clubbing/cyanosis or edema Neuro: nonfocal, patient AA&O x 4 Results & Data Results & Data Vital Signs (Past 12 Hours) Vital Signs Temp Pulse Pulse Pulse Resp BP BP 06/20/23 19:00 37.6 C H 55 L 20 120/72 06/20/23 16:25 36.9 C 68 18 06/20/23 15:50 72 20 06/20/23 15:40 71 17 06/20/23 15:30 69 21 06/20/23 15:20 72 26 H 06/20/23 15:10 66 22 06/20/23 15:00 70 16 06/20/23 15:00 154/75 H 06/20/23 14:50 73 15 06/20/23 14:40 65 19 06/20/23 14:30 82 24 06/20/23 14:20 74 19 06/20/23 14:10 76 16 06/20/23 14:00 68 26 H 06/20/23 14:00 141/67 H 06/20/23 13:50 65 28 H 06/20/23 13:40 65 30 H 06/20/23 13:30 68 33 H 06/20/23 13:20 63 26 H 06/20/23 13:10 69 30 H 06/20/23 13:00 62 26 H 06/20/23 13:00 142/65 H 06/20/23 12:50 66 16 06/20/23 12:40 65 25 H 06/20/23 12:30 59 L 21 06/20/23 12:20 63 28 H 06/20/23 12:10 59 L 22 06/20/23 12:00 63 24 06/20/23 12:00 131/64 06/20/23 11:50 64 24 06/20/23 11:40 59 L 25 H 06/20/23 11:30 60 18 06/20/23 11:20 67 24 06/20/23 11:10 59 L 21 06/20/23 11:00 60 20 06/20/23 11:00 125/70 BP Pulse Ox O2 Del Method 06/20/23 19:00 92 Room Air 06/20/23 16:25 136/78 91 Room Air 06/20/23 15:50 91 06/20/23 15:40 90 06/20/23 15:30 93 06/20/23 15:20 90 06/20/23 15:10 92 06/20/23 15:00 90 06/20/23 15:00 06/20/23 14:50 89 L 06/20/23 14:40 91 06/20/23 14:30 06/20/23 14:20 91 06/20/23 14:10 90 06/20/23 14:00 06/20/23 14:00 06/20/23 13:50 91 06/20/23 13:40 91 06/20/23 13:30 91 06/20/23 13:20 91 06/20/23 13:10 91 06/20/23 13:00 89 L 06/20/23 13:00 06/20/23 12:50 92 06/20/23 12:40 06/20/23 12:30 06/20/23 12:20 90 06/20/23 12:10 90 06/20/23 12:00 92 06/20/23 12:00 06/20/23 11:50 92 06/20/23 11:40 93 06/20/23 11:30 92 06/20/23 11:20 93 06/20/23 11:10 94 06/20/23 11:00 91 06/20/23 11:00 PG Care Time/CCT Total # of Minutes Spent Total Time Spent with Patient: Total time spent is greater than 50% in coordination of care (as documented) at patient's floor/unit and/or counseling patient: Coding Level of Care Code 46936 SUB INP/OBS CARE 2/35MIN Diagnoses Renal infarct N28.0 Atrial fibrillation I48.91 Hypertension I10 Hypertension type: essential hypertension Hypothyroidism E03.8; E06.3 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
[2023-06-20] MEDS: HEPARIN SODIUM/DEXTROSE 25,000 UNITS/500 ML BAG IV SCH (23:26)
[2023-06-21] MEDS: LEVOTHYROXINE SODIUM 50 MCG TABLET PO SCH (05:33)
[2023-06-21 05:52] LABS: Hemoglobin 13.4 g/dl (12.0-16.0); Mean Corpuscular Hemoglobin 32.7 pg (25.0-34.0); Mean Corpuscular Hgb Conc 33.5 g/dL (32.0-36.0); Mean Corpuscular Volume 97.6 fL (80.0-100.0); Platelet Count 201 K/uL (130-400); RDW Coefficient of Variation 14.1 % (11.5-14.5); RDW Standard Deviation 51.2 fL (36.4-46.3)
[2023-06-21 05:59] LABS: D Dimer 280 ug/L FEU (0-500)
[2023-06-21 06:14] LABS: Albumin Level 3.6 gm/dl (3.4-5.0); BUN Creatinine Ratio 18.6 (10-20); Bilirubin Direct 0.2 mg/dl (0-0.2); Bilirubin,Total 0.9 mg/dl (0.2-1.0); Calcium 8.6 mg/dl (8.6-10.3); Creatinine Clr Calc Pharmacy 49.5 ml/min; Est GFR (African American) 90.3 ml/min; Est GFR (Non-African American) 77.9 ml/min; Potassium 3.8 mmol/L (3.5-5.1); Total Protein 6.5 gm/dl (6.0-8.3)
[2023-06-21 06:35] LABS: Partial Thromboplastin Time 57.4 Seconds (21.0-31.0)
[2023-06-21] MEDS: POLYETHYLENE (MIRALAX) 17 GM PACK PO SCH (08:47)
[2023-06-21] MEDS: DORZOLAMIDE/TIMOLOL 22.3/6.8MG/ML 10 ML BTL OPB SCH (08:47)
[2023-06-21] MEDS: BRIMONIDINE TARTRATE 0.2% 5ML OPB SCH (08:47)
[2023-06-21] MEDS: METOPROLOL SUCC 25MG EXT REL TAB PO SCH (08:47)
--- NOTE | 2023-06-21 09:14 | Consultation ---
Date of Consultation June 21, 2023 Assessment & Plan (1) Renal infarct: CT reviewed by Dr Abraham. Pt with small area of R renal infarct. No changes in renal fxn. Appears subacute and pt's pain was not in corresponding location. Unlikely to be the cause of her pain. While she does have some stenosis of her R renal artery, she would not benefit from vascular surgical intervention for this, as this will neither improve her renal fxn, improve her HTN control, nor reverse her infarct. A CTA could be ordered if there are further questions regarding degree of renal art stenosis, however, this would not likely change her outcome at the present time. Please call if needed. Pt typically follows with Dr Bolaños for vascular problems and will continue to follow up with him. 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 SHe is asymptomatic from this, no intervention required. Please call if needed. History of Present Illness Reason for Consultation: renal infarct Attending Physician: Gerber Jacome History of Present Illness 87 yo f with hx of a fib on xarelto, PAD, CAD, glaucoma, GERD, HTN, hyperlipidemia, hypothyroidism, MR, IBS, takotsubo cardiomyopathy, CVA, osteopenia, SC, admitted with abd pain, seen in consultation today for R renal infarct noted on CT abd/pelvis. Pt states no prior similar kidney problems, or changes in her renal fxn. States she had severe sudden onset mid abd pain that persisted most of the day, but is improved since admission. Did have some nausea/vomiting, but that is resolved. Denies SEAY, fever, chest pain, SOB, rest pain, claudication, nonhealing ulcerations, chronic post prandial pain, unintentional weight loss, changes in eating habits, other complaints. CT abd pelvis demonstrates some mesenteric artery stenosis and renal art stenosis, as well as R renal infarct. Allergies Allergy/AdvReac Type Severity Reaction Status Date / Time Penicillins Allergy Unknown RASH ONLY Verified 06/19/23 18:59 atorvastatin AdvReac Verified 06/19/23 18:59 pravastatin AdvReac Verified 06/19/23 18:59 simvastatin AdvReac Verified 06/19/23 18:59 Home Medications Medication Instructions Recorded Confirmed Type dorzolamide 22.3 mg-timolol 6.8 1 drp OPB BID 02/23/19 06/19/23 History mg/mL eye drops latanoprost 0.005 % eye drops 1 drp OPB HS 04/30/19 06/19/23 History brimonidine 0.2 % eye drops 1 drp OPB BID 05/07/19 06/19/23 History amlodipine 5 mg tablet 5 mg PO QPM #45 tabs 02/06/21 06/19/23 Rx cholecalciferol (vitamin D3) 50 4,000 unit PO DAILY 05/28/21 06/19/23 History mcg (2,000 unit) tablet (Vitamin D3) metoprolol succinate 25 mg 25 mg PO QAM #90 tabs 10/26/22 06/19/23 Rx tablet,extended release 24 hr levothyroxine 50 mcg tablet 50 mcg PO 6XWK 90 days #90 tabs 11/09/22 06/19/23 Rx ergocalciferol (vitamin D2) 1,250 1,250 mcg PO .weekly #30 caps 12/29/22 06/19/23 Rx mcg (50,000 unit) capsule rivaroxaban 20 mg tablet (Xarelto) 20 mg PO DAILY@1500 #90 tabs 04/22/23 06/19/23 Rx Patient History Medical History Abnormal CT of the chest Acid reflux Anticoagulant long-term use Arthritis Atrial fibrillation CAD in [place] artery Cardiomyopathy Carotid artery stenosis Claudication Glaucoma Jacques's thyroiditis Herpes zoster History of CVA (cerebrovascular accident) History of myocardial infarction Hx of hemorrhoids Hyperglycemia Hyperlipidemia Hypertension Hypothyroidism Intractable pain Irritable bowel syndrome (IBS) Mitral regurgitation NSTEMI (non-ST elevated myocardial infarction) Overweight Paralysis of left vocal fold Renal infarct Takotsubo syndrome Tricuspid regurgitation Ventricular tachycardia Surgical History H/O endarterectomy History of Neurological Surgery Carotid Endarterectomy History of carpal tunnel surgery History of cholecystectomy History of thyroid surgery History of total abdominal hysterectomy and bilateral salpingo-oophorectomy S/P appendectomy Family History Mother Diabetes Hypertension Sister Diabetes Kidney disease Hypertension Brother Kidney disease Hypertension Diabetes Father Myocardial infarction Colorectal cancer Unknown Hypertension Cardiac disorder Stroke Cancer Other Buerger's disease No family history of bleeding disorder Denies family history of Ovarian cancer Prostate cancer Breast cancer Social History Smoking Status: Never smoker Second Hand Exposure: No; Do You Dip or Chew Tobacco: No; Hx Alcohol Use: Yes Alcohol type: wine Alcohol Intake Frequency: 4 or More x per/Week Alcohol Intake Frequency Comment: 1-2 glasses per day Hx Substance Use: No Preferred Language: Irish Communication Ability: Effective Visual Impairment: Limited Hearing Ability: Normal Planning Specialist Required: No Beliefs That Will Affect Care: None marital status: Current Living Situation: Spouse Current Living Situation Comment: mobile home current occupational status: retired current occupation: Retired-[employer] Feels Safe at Home: Yes Childhood Exposure to Second-Hand Smoke: No Diet: regular caffeine: Yes during the past year weight has: remained stable Dental Care, Regularly: No Physical Activity Frequency: Does not Exercise Seatbelt Use: always Sunscreen Use: Yes Assistive Devices: Walker Review of Systems Review of Systems: All systems reviewed & are unremarkable except as noted in HPI & below Physical Exam Constitutional: WD/WN, vitals as above cooperative and comfortable; not in distress ENMT: Ears: no hearing impairment Neck: trachea midline Respiratory: normal respiratory effort, lungs clear to auscultation Auscultation: + diminished lung sounds Cardiovascular: Rate/Rhythm: + irregularly irregular Vessels: femoral pulses present, posterior tibial pulses present, dorsalis pedis pulses present and radial pulses present; + abnormal peripheral pulses Extremities: normal capillary refill Gastrointestinal (Abdomen): Inspection/Auscultation: abdomen normal to inspection and normal bowel sounds Percussion/Palpation: abdomen soft; abdo men nontender Musculoskeletal: no cyanosis or clubbing, extremities motor strength 5/5 Skin: no rashes, warm and dry Neurologic: moves all extremities and awake; no focal motor deficits and not confused Psychiatric: A+Ox3, euthymic affect Results & Data Vital Signs (Past 12 Hours) Vital Signs Temp Pulse Pulse Resp BP Pulse Ox O2 Del Method 06/21/23 07:58 37.5 C 89 17 130/69 90 Room Air 06/21/23 07:00 61 06/20/23 22:01 58 L 06/21/23 00:38 Room Air
--- NOTE | 2023-06-21 17:29 | Discharge Summary ---
Date of Service June 21, 2023 Admission HPI Per Admitting Provider Salome Younger Is an 87-year-old female with history of atrial fibrillation on Eliquis anticoagulation, coronary artery disease, hypertension and hyperlipidemia presenting from home with acute onset of abdominal pain. Patient went to bed last night and woke around 01:30 with severe, acute periumbilical pain. The pain was central in location, nonradiating, severe and stabbing. She felt that she had to move her bowels but was unable. Her pain continued through the day. She had no associated nausea but did try to vomit to see if that would improve the pain which it did not. She has been passing gas and had a normal BM yesterday. No exacerbating or relieving factors identified. Additionally, patient denies fevers, chills, chest pain, cough, shortness of breath, nausea, vomiting or diarrhea. She has had normal urine output with no hematuria. She denies back pain or flank pain. Patient with baseline history of hypertension. States that her blood pressure is typically in the 180s at home. In the ER patient is afebrile, hypertensive at 195/86 otherwise hemodynamically stable ER course: Zofran, heparin drip, amlodipine, eyedrops Discharge Data Allergies Allergy/AdvReac Type Severity Reaction Status Date / Time Penicillins Allergy Unknown RASH ONLY Verified 06/19/23 18:59 atorvastatin AdvReac Verified 06/19/23 18:59 pravastatin AdvReac Verified 06/19/23 18:59 simvastatin AdvReac Verified 06/19/23 18:59 Consultations 06/20/23 10:04 Consult Vascular Surgery Routine Ordered Studies 06/19/23 16:12 CT abd pelvis IV con only Stat Hospital Course (1) Renal infarct: 87-year-old female presenting with acute onset of abdominal pain. Found to have a moderate subacute appearing cortical infarct of the right kidney. CT of the abdomen as above with significant atherosclerotic disease as well as moderate to high-grade stenosis of the origin of the right renal artery. Question atherosclerotic versus thromboembolic source. patient has been on Eliquis and reports that she is compliant. Does not miss doses. Hold Eliquis for now Heparin drip for anticoagulation Patient is statin intolerant Consider vascular consultation (2) Atrial fibrillation: Chronic atrial fibrillation with slow ventricular response. Patient was recently on Eliquis which is currently being held in favor of heparin drip Continue metoprolol 25 mg p.o. every morning Heparin drip (3) Hypertension: Patient with markedly elevated blood pressures in the ER. She reports that her blood pressure typically runs high at home. She was given 10 mg of amlodipine which improved her pressure. Presently 155/63 We will continue amlodipine, increase from 5 mg p.o. daily to 10 mg p.o. daily Continue metoprolol 25 mg p.o. every morning Consider initiation of ESTRELLA inhibitor in setting of renovascular hypertension continue to monitor (4) Hypothyroidism: Chronic. Stable. Continue Synthroid Discharge Plan Discharge Items Patient Disposition: Home - Self-Care Reason For Visit: ABDOMINAL PAIN Discharge Diagnosis: abdominal pain Activity: Resume your previous activity Non-emergency contact: Primary Care Provider Call non-emergency contact if: you have any medication questions Follow-up/Referrals: Andrei Francis MD [Primary Care Provider] - Diet: Heart Healthy Addtl Attending Provider Instructions: recommend followup with GI to assess your abdominal pain. Recommend a goal to have 1 bowel movement per day with senna/docusate. You can try dicyclomine for your abdominal pain. We will also prescribe a cholesterol medicine once a day. Pending Studies at Discharge: No Stand-Alone Forms: [employer], Smoking Cessation Medications and DC Order Prescriptions: New sennosides-docusate sodium [Senna with Docusate Sodium] 8.6-50 mg tablet 1 tab-cap PO DAILY Qty: 30 0RF dicyclomine 10 mg capsule 10 mg PO QID PRN (Reason: abdominal pain) Qty: 30 0RF pravastatin 10 mg tablet 10 mg PO .q2dhs Qty: 30 0RF Continued amlodipine 5 mg tablet 5 mg PO QPM Qty: 45 5RF cholecalciferol (vitamin D3) [Vitamin D3] 50 mcg (2,000 unit) tablet 4,000 unit PO DAILY metoprolol succinate 25 mg tablet extended release 24 hr 25 mg PO QAM Qty: 90 3RF levothyroxine 50 mcg tablet 50 mcg PO 6XWK 90 Days Qty: 90 3RF Rx Instructions: Take every morning except Tuesday ergocalciferol (vitamin D2) 1,250 mcg (50,000 unit) capsule 1,250 mcg PO .weekly Qty: 30 0RF Xarelto 20 mg tablet 20 mg PO DAILY@1500 Qty: 90 1RF Rx Instructions: must administer with evening meal latanoprost 0.005 % drops 1 drp OPB HS dorzolamide-timolol 22.3-6.8 mg/mL drops 1 drp OPB BID brimonidine 0.2 % drops 1 drp OPB BID Discharge Orders: Discharge Order (Routine); Ordered 06/21/23 Ordered By: Gerber Jacome Admission Data Admit Date/Time: 06/19/23 20:16 Attending Provider: Gerber Jacome Admit Provider: Karyna Burrows Primary Care Provider: Andrei Francis Other Providers: Cali Abraham Coding Diagnoses Renal infarct N28.0 Atrial fibrillation I48.91 Hypertension I10 Hypertension type: essential hypertension Hypothyroidism E03.8; E06.3 Hypothyroidism type: due to Jacques's thyroiditis
[2023-06-21] MEDS ORDERED: RIVAROXABAN 20 MG TAB PO SCH (17:30)
== END 2023-06-21 18:13 | disposition home or self-care (01) | DRG 699 ==
LOC: ED 15:52 → SUATTDRO 20:16 → EDINP 20:16 → 2N 21:03

== ENCOUNTER 2024-04-08 15:34 | Observation (INO) ==
[2024-04-08 16:06] LABS: Basophils # (auto) 0.06 K/uL (0.00-0.20); Basophils % (auto) 0.9 %; Eosinophils # (auto) 0.18 K/uL (0.00-0.50); Eosinophils % (auto) 2.6 %; Hematocrit (blood only) 45.7 % (37.0-47.0); Immature Granulocytes # (auto) 0.01 K/uL (0.01-0.20); Immature Granulocytes % (auto) 0.1 %; Lymphocytes # (auto) 2.06 K/uL (1.20-3.40); Lymphocytes % (auto) 29.7 %; Mean Corpuscular Hemoglobin 32.2 pg (25.0-34.0); Mean Corpuscular Hgb Conc 32.8 g/dL (32.0-36.0); Mean Corpuscular Volume 98.1 fL (80.0-100.0); Mean Platelet Volume 10.5 fL (9.4-12.4); Monocytes # (auto) 0.65 K/uL (0.11-0.59); Monocytes % (auto) 9.4 %; Neutrophils # (auto) 3.97 K/uL (1.40-6.50); Neutrophils % (auto) 57.3 %; Platelet Count 241 K/uL (130-400); RDW Coefficient of Variation 14.2 % (11.5-14.5); RDW Standard Deviation 51.8 fL (36.4-46.3); Red Blood Count 4.66 M/uL (4.20-5.40); White Blood Count 6.93 K/ul (4.8-10.8)
[2024-04-08 16:18] LABS: Albumin Globulin Ratio 1.3 (0.9-2); Albumin Level 4.2 gm/dl (3.4-5.0); BUN Creatinine Ratio 11.3 (10-20); Bilirubin,Total 0.7 mg/dl (0.2-1.0); Calcium 9.9 mg/dl (8.6-10.3); Creatinine Clr Calc Pharmacy 35.3 ml/min; Est GFR (African American) 60.4 ml/min; Est GFR (Non-African American) 52.1 ml/min; Globulin 3.3 gm/dl (2.5-4.0); Magnesium 2.1 mg/dl (1.7-2.4); Potassium 4.8 mmol/L (3.5-5.1); Total Protein 7.5 gm/dl (6.0-8.3)
[2024-04-08 16:24] LABS: Troponin I High Sensitivity 9.2 pg/ml (0-14)
--- NOTE | 2024-04-08 16:24 | XRay Report ---
XR chest 1V portable CLINICAL HISTORY: Dyspnea. COMPARISON STUDY: Chest CT June 05, 2018. Chest radiograph February 27, 2024. FINDINGS: There is no pneumothorax. Blunting of the left costophrenic angle is chronic and likely rel ated to epicardial fat pad. Cardiomegaly is unchanged. No evidence for pulmonary edema. Apparent hazy left basilar opacity. IMPRESSION: 1. Cardiomegaly without evidence for pulmonary edema. 2. Apparent hazy left basilar opacity. This is likely artifactual however pneumonia could appear luther lar. Radiographic follow-up is recommended. ACT 112: Negative or not required by law. Electronically signed by: Avinash Mace M.D. 04/08/2024 4:23 PM
--- NOTE | 2024-04-08 16:27 | Emergency Department Note ---
Impression & Plan VACA (dyspnea on exertion), Bilateral claudication of lower limb, Abnormal nuclear stress test ED Provider Note Provider: Killian Humphrey MD DATE OF SERVICE: 04/08/2024 CHIEF COMPLAINT: Calf cramping, chest tightness and shortness of breath HISTORY OF PRESENT ILLNESS: Patient is a 88-year-old female past medical history including CAD, atrial fibrillation, hypertension, IBS, PAD, and CVA presenting here today via ambulance from her home. Has been working with her doctors and airplane charter clerk in particular with several weeks of some exertional chest discomfort. Been having some bilateral calf discomfort with ambulation but not at rest. No falls or syncope. Seen cardiology just several days ago. Denies chest pain currently but stated bit of tightness and again some worsening shortness of breath with exertion even just walking in the house. No syncope or falls. States she has been taking her Xarelto. Did miss her morning blood pressure medicine blood pressure is elevated upon arrival here. States he did finally talk with family given ongoing symptoms came here for evaluation. States her airplane charter clerk was planning to refer her back to Dr. Bolaños for evaluation of her legs given her some pain in the calves there. There is no swelling. No recent travel or sick contact reported. Received aspirin 324 mg and route. Did take her afternoon Xarelto already today by her report. No numbness or weakness or dizziness reported. PAST MEDICAL HISTORY: As noted above MEDICATIONS: Reviewed home medications, states she did not take her morning blood pressure medicine metoprolol, is on Xarelto SOCIAL HISTORY: Resides at home PHYSICAL EXAM: GENERAL: alert and oriented in no acute distress on stretcher Head: normocephalic and atraumatic EYES: No injection, discharge or icterus. NECK: Trachea midline. ENT: Mucous membranes pink and moist. LUNGS: Airway patent. No retractions. Breath sounds clear with good air entry bilaterally. HEART: Irregular rate and rhythm. No chest wall tenderness ABDOMEN: Soft and non-tender, without guarding or rebound. SKIN: Acyanotic, warm, dry, without rashes EXTREMITIES: Without swelling, tenderness or deformity, 1+ bilateral DP pulses. No evidence of decreased significant capillary refill or ischemia of the lower extremities notable on exam. No pain with ROM of the lower extremities. NEUROLOGICAL: No focal deficits. No aphasia. No facial droop or slurred speech. Normal strength and tone in the extremities. Sensation to gross touch normal. EK bpm atrial fibrillation. No acute ST segment elevation or depression with a QTc of 438. CONTINUOUS CARDIAC MONITORING: was ordered and showed a heart rate of 50s to 80s bpm in atrial fibrillation Patient's laboratory studies and imaging reviewed. Differential includes Reactive airway disease, pneumonia, pneumothorax, COPD, CHF, infections, cardiac ischemia, pulmonary embolism, musculoskeletal, gastrointestinal, PAD, DVT as well as other pathologies. IMPRESSION/MEDICAL DECISION MAKING: Patient no acute distress here. Not hypoxic here though reportedly slightly hypoxic for EMS upon their arrival in the high 80s after ambulating to the stretcher. Hypertensive upon arrival. Do not take her morning metoprolol this was ordered. Received aspirin prior to arrival. In no distress here. Resting comfortably. Did review and review cardiology notes. Patient did seem somewhat stable regards to her breathing on review of the note but again the patient states he has been having significant symptoms. Did recently have a abnormal stress test but as she was doing well at the cardiology appointment they deferred acute intervention at that time and that she developed symptoms. Sounds expect having some symptoms based on this. His anticoagulant Xarelto and low suspicion for PE or bilateral DVT. No swelling or pain at this time. Doubt fluid overload. Question some claudication issues and does have a history of PAD hence why they were referring to Dr. Bolaños for evaluation there. Does not appear to have ischemic limbs at this time. Chest x-ray here reassuring without evidence of mainstem x-ray or pulmonary edema although a little bit of pain in his left base, the clinical context I doubt pneumonia here. No fevers and no leukocytosis. No significant anemia or leukocytosis on blood work. No severe electrolyte abnormalities signs of renal dysfunction. BNP not severely elevated troponin is normal here which is somewhat reassuring. Renal function appears normal. Did complete an abundance of caution respiratory viral panel but seems less likely to be this. This did return negative. No A-fib RVR and stable permanent atrial fibrillation. Given the history of abnormal myocardial perfusion scan and her symptoms did discuss with her staying in the hospital overnight for further cardiac evaluation tomorrow possible cardiac catheterization. She was in agreement. Blood pressure is beginning to improve some here after home metoprolol. Discussed with the hospitalist team. DIAGNOSIS: Dyspnea on exertion, claudication, hypertension DISPOSITION: Hospitalist will evaluate Patient was agreeable with this plan. Past Med/Surg History Problem List (Updated 04/08/24 @ 17:44 by Killian Humphrey M.D.) Bilateral claudication of lower limb (Acute) VACA (dyspnea on exertion) (Acute) Abnormal nuclear stress test (Acute) Dyspnea on exertion Acute memory impairment Left knee DJD Abnormal CT of the chest Acid reflux Anticoagulant long-term use Arthritis Atrial fibrillation CAD in [place] artery Cardiomyopathy Carotid artery stenosis Constipation Glaucoma Jacques's thyroiditis Herpes zoster Hyperlipidemia Hypertension Hypothyroidism Mitral regurgitation Nontoxic multinodular goiter Overweight 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 Tricuspid regurgitation Ventricular tachycardia Irritable bowel syndrome (IBS) PAD (peripheral artery disease) Allergic rhinitis Hx of hemorrhoids Rectal bleeding Osteopenia Impaired fasting glucose Vitamin D deficiency Back pain Urinary symptom or sign Neurological symptoms Multiple thyroid nodules Cough Cholesterol-lowering agent myopathy Constipation History of CVA (cerebrovascular accident) History of myocardial infarction Renal infarct (Acute) Mesenteric artery stenosis Medical History Renal infarct Hyperglycemia Claudication NSTEMI (non-ST elevated myocardial infarction) Intractable pain Surgical History History of carpal tunnel surgery History of total abdominal hysterectomy and bilateral salpingo-oophorectomy S/P appendectomy History of cholecystectomy History of thyroid surgery H/O endarterectomy Family History Mother Diabetes Hypertension Sister Diabetes Kidney disease Hypertension Brother Kidney disease Hypertension Diabetes Father Myocardial infarction Colorectal cancer Unknown Hypertension Cardiac disorder Stroke Cancer Other Buerger's disease No family history of bleeding disorder Denies family history of Ovarian cancer Prostate cancer Breast cancer Social History Smoking Status: Never smoker Second Hand Exposure: No; Do You Dip or Chew Tobacco: No; Hx Alcohol Use: Yes Alcohol type: wine Alcohol Intake Frequency: 4 or More x per/Week Alcohol Intake Frequency Comment: 1-2 glasses per day Hx Substance Use: No Preferred Language: Mohawk Communication Ability: Effective Visual Impairment: Limited Hearing Ability: Normal Professor [employer] Education Required: No Beliefs That Will Affect Care: None marital status: Current Living Situation: Spouse Current Living Situation Comment: mobile home current occupational status: retired current occupation: Retired[employer] Feels Safe at Home: Yes Childhood Exposure to Second-Hand Smoke: No Diet: regular caffeine: Yes during the past year weight has: remained stable Dental Care, Regularly: No Physical Activity Frequency: Does not Exercise Seatbelt Use: always Sunscreen Use: Yes Assistive Devices: Denture - Upper, Denture - Lower and Glasses Allergies Allergies Allergy/AdvReac Type Severity Reaction Status Date / Time Penicillins Allergy Intermediate RASH ONLY Verified 04/08/24 17:33 atorvastatin AdvReac Intermediate MUSCLE Verified 04/08/24 17:33 CRAMPS/PAIN pravastatin AdvReac Intermediate MUSCLE Verified 04/08/24 17:33 CRAMPS/PAIN simvastatin AdvReac Intermediate MUSCLE Verified 04/08/24 17:33 CRAMPS/PAIN Home Meds Home Medications Medication Instructions Recorded Confirmed dorzolamide 22.3 mg-timolol 6.8 1 drp OPB BID 02/23/19 04/08/24 mg/mL eye drops latanoprost 0.005 % eye drops 1 drp OPB HS 04/30/19 04/08/24 brimonidine 0.2 % eye drops 1 drp OPB BID 05/07/19 04/08/24 ergocalciferol (vitamin D2) 1,250 1,250 mcg PO WK 04/08/24 04/08/24 mcg (50,000 unit) capsule Previous Rx's Medication Instructions Recorded metoprolol succinate 25 mg 25 mg PO QAM #90 tabs 10/26/22 tablet,extended release 24 hr rivaroxaban 20 mg tablet (Xarelto) 20 mg PO DAILY@1500 #90 tabs 04/22/23 omeprazole 40 mg capsule,delayed 40 mg PO DAILY #90 caps 07/18/23 release levothyroxine 50 mcg tablet 50 mcg PO DAILY 90 days #90 tabs 03/22/24 amlodipine 5 mg tablet 7.5 mg (1.5 x 5 mg) PO QPM #135 04/06/24 tabs evolocumab 140 mg/mL subcutaneous 140 mg subcut .q2week #2 mL 04/06/24 pen injector (Radha Goetz) Results & Data (ED) Vital Signs Vital Signs - 24 hr 04/08/24 15:39 04/08/24 15:39 04/08/24 15:45 Temperature Temperature Source Pulse Rate Pulse Rate [Apical] Pulse Rate from SpO2 Sensor Pulse Rhythm Respiratory Rate Respiratory Effort / Characteristics Respiratory Depth Respiratory Pattern Blood Pressure 257/115 H 257/115 H 208/105 H Blood Pressure [Left Arm] Blood Pressure Mean 168 168 172 Blood Pressure Mean [Left Arm] Pulse Oximetry Oxygen Delivery Method Oxygen Flow Rate Sepsis Recent Fever Within 48 Hours Sepsis New/Unexplained Change in Mental Status Sepsis Action Taken by Nursing 04/08/24 15:45 04/08/24 15:46 04/08/24 15:49 Temperature 36.3 C L Temperature Source Oral Pulse Rate 65 81 Pulse Rate [Apical] Pulse Rate from SpO2 Sensor Pulse Rhythm Irregular Respiratory Rate 21 Respiratory Effort / Characteristics Non-Labored Respiratory Depth Normal Respiratory Pattern Regular Blood Pressure 208/105 H 208/105 H Blood Pressure [Left Arm] Blood Pressure Mean 172 139 Blood Pressure Mean [Left Arm] Pulse Oximetry 97 Oxygen Delivery Method Room Air Oxygen Flow Rate Sepsis Recent Fever Within 48 Hours No Sepsis New/Unexplained Change in Mental Status No Sepsis Action Taken by Nursing No Action Required 04/08/24 15:54 04/08/24 16:01 04/08/24 16:02 Temperature Temperature Source Pulse Rate 64 Pulse Rate [Apical] Pulse Rate from SpO2 Sensor 69 Pulse Rhythm Respiratory Rate 15 Respiratory Effort / Characteristics Respiratory Depth Respiratory Pattern Blood Pressure 219/90 H Blood Pressure [Left Arm] Blood Pressure Mean 123 Blood Pressure Mean [Left Arm] Pulse Oximetry 94 Oxygen Delivery Method Room Air Oxygen Flow Rate 97 Sepsis Recent Fever Within 48 Hours Sepsis New/Unexplained Change in Mental Status Sepsis Action Taken by Nursing 04/08/24 16:03 04/08/24 16:06 04/08/24 16:30 Temperature Temperature Source Pulse Rate 63 Pulse Rate [Apical] Pulse Rate from SpO2 Sensor 66 Pulse Rhythm Respiratory Rate 23 Respiratory Effort / Characteristics Non-Labored Respiratory Depth Normal Respiratory Pattern Blood Pressure 205/86 H Blood Pressure [Left Arm] Blood Pressure Mean 154 Blood Pressure Mean [Left Arm] Pulse Oximetry 96 Oxygen Delivery Method Oxygen Flow Rate Sepsis Recent Fever Within 48 Hours Sepsis New/Unexplained Change in Mental Status Sepsis Action Taken by Nursing 04/08/24 16:30 04/08/24 16:30 04/08/24 16:30 Temperature Temperature Source Pulse Rate 61 Pulse Rate [Apical] Pulse Rate from SpO2 Sensor 61 Pulse Rhythm Respiratory Rate 23 Respiratory Effort / Characteristics Respiratory Depth Respiratory Pattern Blood Pressure 205/86 H 205/86 H Blood Pressure [Left Arm] Blood Pressure Mean 154 154 Blood Pressure Mean [Left Arm] Pulse Oximetry 95 Oxygen Delivery Method Oxygen Flow Rate Sepsis Recent Fever Within 48 Hours Sepsis New/Unexplained Change in Mental Status Sepsis Action Taken by Nursing 04/08/24 16:57 04/08/24 16:57 04/08/24 16:57 Temperature Temperature Source Pulse Rate 62 Pulse Rate [Apical] Pulse Rate from SpO2 Sensor 64 Pulse Rhythm Respiratory Rate 21 Respiratory Effort / Characteristics Respiratory Depth Respiratory Pattern Blood Pressure 192/77 H 192/77 H Blood Pressure [Left Arm] Blood Pressure Mean 148 148 Blood Pressure Mean [Left Arm] Pulse Oximetry 96 Oxygen Delivery Method Oxygen Flow Rate Sepsis Recent Fever Within 48 Hours Sepsis New/Unexplained Change in Mental Status Sepsis Action Taken by Nursing 04/08/24 17:00 04/08/24 17:00 04/08/24 17:00 Temperature Temperature Source Pulse Rate Pulse Rate [Apical] Pulse Rate from SpO2 Sensor Pulse Rhythm Respiratory Rate Respiratory Effort / Characteristics Respiratory Depth Respiratory Pattern Blood Pressure 181/86 H 181/86 H 181/86 H Blood Pressure [Left Arm] Blood Pressure Mean 139 139 139 Blood Pressure Mean [Left Arm] Pulse Oximetry Oxygen Delivery Method Oxygen Flow Rate Sepsis Recent Fever Within 48 Hours Sepsis New/Unexplained Change in Mental Status Sepsis Action Taken by Nursing 04/08/24 17:03 04/08/24 17:27 04/08/24 17:30 Temperature Temperature Source Pulse Rate 54 L 57 L Pulse Rate [Apical] Pulse Rate from SpO2 Sensor 58 L 60 Pulse Rhythm Respiratory Rate 28 H 29 H Respiratory Effort / Characteristics Respiratory Depth Respiratory Pattern Blood Pressure 193/90 H Blood Pressure [Left Arm] Blood Pressure Mean 128 Blood Pressure Mean [Left Arm] Pulse Oximetry 95 96 Oxygen Delivery Method Oxygen Flow Rate Sepsis Recent Fever Within 48 Hours Sepsis New/Unexplained Change in Mental Status Sepsis Action Taken by Nursing 04/08/24 17:30 04/08/24 17:39 04/08/24 17:42 Temperature Temperature Source Pulse Rate 56 L 61 Pulse Rate [Apical] Pulse Rate from SpO2 Sensor 57 L 59 L Pulse Rhythm Respiratory Rate 17 19 Respiratory Effort / Characteristics Respiratory Depth Respiratory Pattern Blood Pressure 193/90 H Blood Pressure [Left Arm] Blood Pressure Mean 128 Blood Pressure Mean [Left Arm] Pulse Oximetry 95 95 Oxygen Delivery Method Oxygen Flow Rate Sepsis Recent Fever Within 48 Hours Sepsis New/Unexplained Change in Mental Status Sepsis Action Taken by Nursing 04/08/24 17:46 04/08/24 17:51 04/08/24 18:00 Temperature Temperature Source Pulse Rate 54 L Pulse Rate [Apical] 51 L Pulse Rate from SpO2 Sensor 54 L Pulse Rhythm Respiratory Rate 16 21 Respiratory Effort / Characteristics Non-Labored Respiratory Depth Normal Respiratory Pattern Blood Pressure 198/91 H Blood Pressure [Left Arm] 198/91 H Blood Pressure Mean 122 Blood Pressure Mean [Left Arm] 126 Pulse Oximetry 97 95 Oxygen Delivery Method Room Air Oxygen Flow Rate Sepsis Recent Fever Within 48 Hours Sepsis New/Unexplained Change in Mental Status Sepsis Action Taken by Nursing 04/08/24 18:00 04/08/24 18:00 04/08/24 18:00 Temperature Temperature Source Pulse Rate Pulse Rate [Apical] Pulse Rate from SpO2 Sensor Pulse Rhythm Respiratory Rate Respiratory Effort / Characteristics Respiratory Depth Respiratory Pattern Blood Pressure 191/89 H 191/89 H 191/89 H Blood Pressure [Left Arm] Blood Pressure Mean 136 136 136 Blood Pressure Mean [Left Arm] Pulse Oximetry Oxygen Delivery Method Oxygen Flow Rate Sepsis Recent Fever Within 48 Hours Sepsis New/Unexplained Change in Mental Status Sepsis Action Taken by Nursing 04/08/24 18:15 04/08/24 18:15 04/08/24 18:15 Temperature Temperature Source Pulse Rate 55 L Pulse Rate [Apical] Pulse Rate from SpO2 Sensor 52 L Pulse Rhythm Respiratory Rate 29 H Respiratory Effort / Characteristics Respiratory Depth Respiratory Pattern Blood Pressure 198/106 H 198/106 H Blood Pressure [Left Arm] Blood Pressure Mean 149 149 Blood Pressure Mean [Left Arm] Pulse Oximetry 96 Oxygen Delivery Method Oxygen Flow Rate Sepsis Recent Fever Within 48 Hours Sepsis New/Unexplained Change in Mental Status Sepsis Action Taken by Nursing 04/08/24 18:21 Temperature Temperature Source Pulse Rate 50 L Pulse Rate [Apical] Pulse Rate from SpO2 Sensor 54 L Pulse Rhythm Respiratory Rate 18 Respiratory Effort / Characteristics Respiratory Depth Respiratory Pattern Blood Pressure Blood Pressure [Left Arm] Blood Pressure Mean Blood Pressure Mean [Left Arm] Pulse Oximetry 96 Oxygen Delivery Method Oxygen Flow Rate Sepsis Recent Fever Within 48 Hours Sepsis New/Unexplained Change in Mental Status Sepsis Action Taken by Nursing Laboratory Data 04/08/24 15:42 04/08/24 15:42 Lab Results 04/08/24 04/08/24 04/08/24 Range/Units 15:42 16:03 16:19 WBC 6.93 (4.8-10.8) K/ul RBC 4.66 (4.20-5.40) M/uL Hgb 15.0 (12.0-16.0) g/dl Hct 45.7 (37.0-47.0) % MCV 98.1 (80.0-100.0) fL MCH 32.2 (25.0-34.0) pg MCHC 32.8 (32.0-36.0) g/dL RDW Std Deviation 51.8 H (36.4-46.3) fL RDW Coeff of [place] 14.2 (11.5-14.5) % Plt Count 241 (130-400) K/uL MPV 10.5 (9.4-12.4) fL Immature Gran % (Auto) 0.1 % Neut % (Auto) 57.3 % Lymph % (Auto) 29.7 % Boundary % (Auto) 9.4 % Eos % (Auto) 2.6 % Baso % (Auto) 0.9 % Neut # (Auto) 3.97 (1.40-6.50) K/uL Lymph # (Auto) 2.06 (1.20-3.40) K/uL Boundary # (Auto) 0.65 H (0.11-0.59) K/uL Eos # (Auto) 0.18 (0.00-0.50) K/uL Baso # (Auto) 0.06 (0.00-0.20) K/uL Immature Gran # (Auto) 0.01 (0.01-0.20) K/uL PT 14.5 H (9.0-12.0) Seconds INR 1.4 H (0.9-1.1) APTT 38 H (21-31) Seconds PTT Ratio 1.4 Sodium 137 (136-145) mmol/L Potassium 4.8 (3.5-5.1) mmol/L Chloride 104 (98-107) mmol/L Carbon Dioxide 26 (21-32) mmol/L Anion Gap 7 (3-11) BUN 11 (6-23) mg/dl Creatinine 0.97 (0.6-1.2) mg/dl Est Cr Clr Drug Dosing 35.3 ml/min Est GFR ( Amer) 60.4 ml/min Est GFR (Non-Af Amer) 52.1 ml/min BUN/Creatinine Ratio 11.3 (10-20) Glucose 90 (70-99(Fasting)) mg/dl Calcium 9.9 (8.6-10.3) mg/dl Magnesium 2.1 (1.7-2.4) mg/dl Total Bilirubin 0.7 (0.2-1.0) mg/dl AST 17 (13-39) U/L ALT 9 (7-52) U/L Alkaline Phosphatase 78 (34-104) U/L Troponin I High Sens 9.2 (0-14) pg/ml B-Natriuretic Peptide 130 H (0-100) pg/ml Total Protein 7.5 (6.0-8.3) gm/dl Albumin 4.2 (3.4-5.0) gm/dl Globulin 3.3 (2.5-4.0) gm/dl Albumin/Globulin Ratio 1.3 (0.9-2) Urine Color Yellow Urine Appearance Cloudy A (Clear) Urine pH 6.0 (4.5-7.5) Ur Specific [place] 1.015 (1.000-1.030) Urine Protein Negative (Negative) Urine Glucose (UA) Negative (Negative) Urine Ketones Trace H (Negative) Urine Blood Negative (Negative) Urine Nitrite Negative (Negative) Urine Bilirubin Negative (Negative) Urine Urobilinogen Negative (Negative) Ur Leukocyte Esterase Trace H (Negative) Urine WBC (Auto) 0-5 (0-5) /hpf Urine RBC (Auto) 11-20 H (0-2) /hpf U Hyaline Cast (Auto) 0-2 (0-2) /lpf U Epithel Cells (Auto) 6-10 H (0-2) /hpf Urine Bacteria (Auto) 2+ H (None Seen) Urine Yeast Present A (None Prsent) Adenovirus (PCR) Not Detected (NotDetected) B. pertussis DNA (PCR) Not Detected (NotDetected) B.parapertussis DNA PCR Not Detected (NotDetected) C. pneumoniae DNA (PCR) Not Detected (NotDetected) Coronavirus OC43 (PCR) Not Detected (NotDetected) Coronavirus HKU1 (PCR) Not Detected (NotDetected) Coronavirus 229E (PCR) Not Detected (NotDetected) SARS-CoV-2 (PCR) Not Detected (NotDetected) Coronavirus NL63 (PCR) Not Detected (NotDetected) Human Metapneumovir PCR Not Detected (NotDetected) Influenza Type A (PCR) Not Detected (NotDetected) Influenza Type B (PCR) Not Detected (NotDetected) M. pneumoniae (PCR) Not Detected (NotDetected) Parainfluenza 1 (PCR) Not Detected (NotDetected) Parainfluenza 2 (PCR) Not Detected (NotDetected) Parainfluenza 3 (PCR) Not Detected (NotDetected) Parainfluenza 4 (PCR) Not Detected (NotDetected) RSV (PCR) Not Detected (NotDetected) Entero/Rhino (PCR) Not Detected (NotDetected) Administered Medications Amlodipine Besylate (Amlodipine Besylate 5 Mg Tab) 7.5 mg PO QPM [facility] Stop: 05/08/24 21:06 Last Admin: 04/08/24 21:30 Dose: 7.5 mg Documented By: MIRA Atorvastatin Calcium (Atorvastatin 40 Mg Tab) 40 mg PO QAM [facility] Stop: 05/08/24 18:29 Last Admin: 04/08/24 21:32 Dose: 40 mg Documented By: MIRA Brimonidine Tartrate (Brimonidine Tartrate 0.2% 5ml) 1 drops OPB BID [facility] Stop: 05/08/24 21:06 Last Admin: 04/08/24 21:30 Dose: 1 drops Documented By: MIRA Dorzolamide/Timolol (Dorzolamide/Timolol 22.3/6.8mg/Ml 10 Ml Btl) 1 drops OPB BID [facility] Stop: 05/08/24 21:06 Last Admin: 04/08/24 21:30 Dose: 1 drops Documented By: MIRA Latanoprost (Latanoprost 0.005% Op Soln 2.5 Ml Btl) 1 drops OPB HS [facility] Stop: 05/08/24 21:06 Last Admin: 04/08/24 21:30 Dose: 1 drops Documented By: MIRA Discontinued Medications Metoprolol Tartrate (Metoprolol Tartrate 25 Mg Tab) 25 mg PO ONCE ONE Stop: 04/08/24 16:10 Last Admin: 04/08/24 16:29 Dose: 25 mg Documented By: ED Nitroglycerin (Nitroglycerin 2% Ointment 30gm Tube) 1 inch EXT NOW ONE Stop: 04/08/24 21:08 Last Admin: 04/08/24 21:39 Dose: 1 inch Documented By: MIRA Imaging Data Radiologist's Impression: Chest X-Ray 04/08/24 15:50 XR chest 1V portable CLINICAL HISTORY: Dyspnea. COMPARISON STUDY: Chest CT June 05, 2018. Chest radiograph February 27, 2024. FINDINGS: There is no pneumothorax. Blunting of the left costophrenic angle is chronic and likely related to epicardial fat pad. Cardiomegaly is unchanged. No evidence for pulmonary edema. Apparent hazy left basilar opacity. IMPRESSION: 1. Cardiomegaly without evidence for pulmonary edema. 2. Apparent hazy left basilar opacity. This is likely artifactual however pneumonia could appear similar. Radiographic follow-up is recommended. ACT 112: Negative or not required by law. Electronically signed by: Avinash Mace M.D. 04/08/2024 4:23 PM Discharge Plan Visit Data Chief Complaint: Shortness of Breath/Dyspnea ED Provider: Killian Humphrey Discharge Problem: VACA (dyspnea on exertion), Bilateral claudication of lower limb, Abnormal nuclear stress test Patient Disposition: Admitted As Inpatient Discharge Instructions Interventions: ED Discharge Assessment Last Done: 04/08/24 20:53
[2024-04-08] MEDS: METOPROLOL TARTRATE 25 MG TAB PO ONE (16:29)
[2024-04-08 16:30] LABS: INR 1.4 (0.9-1.1); Partial Thromboplastin Ratio 1.4; Partial Thromboplastin Time 38 Seconds (21-31); Prothrombin Time 14.5 Seconds (9.0-12.0)
[2024-04-08 16:51] LABS: Appearance Urine Cloudy (Clear); Bacteria Urine Automated 2+ (None Seen); Bilirubin Urine Negative (Negative); Blood Urine Negative (Negative); Cast Urine Automated 0-2 /lpf (0-2); Color Urine Yellow; Glucose Urine UA Negative (Negative); Ketones Urine Trace (Negative); Leukocyte Esterase Urine Trace (Negative); Nitrite Urine Negative (Negative); Protein Urine Negative (Negative); Specific Gravity Urine 1.015 (1.000-1.030); Urobilinogen Urine Negative (Negative); WBC Urine Automated 0-5 /hpf (0-5)
[2024-04-08 17:07] LABS: Adenovirus PCR Not Detected (NotDetected); Bordetella parapertussis PCR Not Detected (NotDetected); Bordetella pertussis PCR Not Detected (NotDetected); Chlamydia pneumoniae PCR Not Detected (NotDetected); Coronavirus 229E PCR Not Detected (NotDetected); Coronavirus CoV-2 (COVID19)PCR Not Detected (NotDetected); Coronavirus HKU1 PCR Not Detected (NotDetected); Coronavirus NL63 PCR Not Detected (NotDetected); Coronavirus OC43PCR Not Detected (NotDetected); Human Metapneumovirus PCR Not Detected (NotDetected); Influenza A PCR Not Detected (NotDetected); Influenza B PCR Not Detected (NotDetected); Mycoplasma pneumoniae PCR Not Detected (NotDetected); Parainfluenza Virus 1 PCR Not Detected (NotDetected); Parainfluenza Virus 2 PCR Not Detected (NotDetected); Parainfluenza Virus 3 PCR Not Detected (NotDetected); Parainfluenza Virus 4 PCR Not Detected (NotDetected); Respiratory Syncytial VirusPCR Not Detected (NotDetected); Rhinovirus/Enterovirus PCR Not Detected (NotDetected)
[2024-04-08] MEDS ORDERED: hydrALAZINE HCL 20 MG/ML VIAL IV PRN (18:21)
[2024-04-08] MEDS ORDERED: ALUMINUM/MAGNESIUM SUSP 30 ML UDC PO PRN (18:23)
[2024-04-08] MEDS ORDERED: ACETAMINOPHEN 325 MG TAB PO PRN (18:23)
[2024-04-08] MEDS ORDERED: MELATONIN 3 MG TAB PO PRN (18:23)
[2024-04-08] MEDS ORDERED: ONDANSETRON INJ 2 MG/ML 2 ML VIAL IV PRN (18:23)
--- NOTE | 2024-04-08 19:05 | History & Physical Report ---
Date of Service April 08, 2024 Assessment & Plan (1) Hypertension: Plan: Patient presents with very elevated blood, systolic blood pressure in the 200s, reports chest discomfort with exertion, as well as shortness of breath EKG is consistent with atrial fibrillation, no significant ST changes Troponin is 9.2 Patient was not taking her blood pressure medicine as prescribed for at least 2 days Will continue her home medication Will start her on Nitropaste for now Consult engineering operations leader Keep her n.p.o. after midnight in case if she will need a cardiac catheterization Will hold her Xarelto (2) Bilateral claudication of lower limb: Plan: Patient does have peripheral arterial disease, reports stent placement a year ago Possibly needs to be evaluated by vascular surgeon (3) Abnormal nuclear stress test: Plan: Presents with chest discomfort, will consult engineering operations leader for further recommendation (4) Atrial fibrillation: Plan: She is in permanent atrial fibrillation, rate controlled (5) History of CVA (cerebrovascular accident): Plan: Patient is on Xarelto at home, blood pressure is very elevated, missed her regular home medication History of Present Illness Chief Complaint: Chest pain ,shortness of breath Primary Care Provider: Andrei Francis MD 88-year-old female past medical history including CAD, atrial fibrillation, hypertension, IBS, PAD, and CVA presenting here today via ambulance from her home. Has been working with her doctors and engineering operations leader in particular with several weeks of some exertional chest discomfort. Been having some bilateral calf discomfort with ambulation but not at rest. No falls or syncope. Seen cardiology just several days ago. Denies chest pain currently but stated bit of tightness and again some worsening shortness of breath with exertion even just walking in the house. No syncope or falls. States she has been taking her Xarelto. She did not take any of her blood pressure medicine for 2 days, she ran out of the, her blood pressure is elevated in the 200s. She reports having positive stress test as outpatient, but decision was to treated medically. She denies headache, fever or chills, cough. Denies chest pain currently, denies shortness of breath at rest. Allergies Allergy/AdvReac Type Severity Reaction Status Date / Time Penicillins Allergy Intermediate RASH ONLY Verified 04/08/24 17:33 atorvastatin AdvReac Intermediate MUSCLE Verified 04/08/24 17:33 CRAMPS/PAIN pravastatin AdvReac Intermediate MUSCLE Verified 04/08/24 17:33 CRAMPS/PAIN simvastatin AdvReac Intermediate MUSCLE Verified 04/08/24 17:33 CRAMPS/PAIN Home Medications Medication Instructions Recorded Confirmed Type dorzolamide 22.3 mg-timolol 6.8 1 drp OPB BID 02/23/19 04/08/24 History mg/mL eye drops latanoprost 0.005 % eye drops 1 drp OPB HS 04/30/19 04/08/24 History brimonidine 0.2 % eye drops 1 drp OPB BID 05/07/19 04/08/24 History metoprolol succinate 25 mg 25 mg PO QAM #90 tabs 10/26/22 04/08/24 Rx tablet,extended release 24 hr rivaroxaban 20 mg tablet (Xarelto) 20 mg PO DAILY@1500 #90 tabs 04/22/23 04/08/24 Rx omeprazole 40 mg capsule,delayed 40 mg PO DAILY #90 caps 07/18/23 04/08/24 Rx release levothyroxine 50 mcg tablet 50 mcg PO DAILY 90 days #90 tabs 03/22/24 04/08/24 Rx amlodipine 5 mg tablet 7.5 mg (1.5 x 5 mg) PO QPM #135 04/06/24 04/08/24 Rx tabs evolocumab 140 mg/mL subcutaneous 140 mg subcut .q2week #2 mL 04/06/24 04/08/24 Rx pen injector (Radha Goetz) ergocalciferol (vitamin D2) 1,250 1,250 mcg PO WK 04/08/24 04/08/24 History mcg (50,000 unit) capsule Past Med/Surg History Problem List (Updated 04/08/24 @ 17:44 by Killian Humphrey M.D.) Bilateral claudication of lower limb (Acute) VACA (dyspnea on exertion) (Acute) Abnormal nuclear stress test (Acute) Dyspnea on exertion Acute memory impairment Left knee DJD Abnormal CT of the chest Acid reflux Anticoagulant long-term use Arthritis Atrial fibrillation CAD in [place] artery Cardiomyopathy Carotid artery stenosis Constipation Glaucoma Jacques's thyroiditis Herpes zoster Hyperlipidemia Hypertension Hypothyroidism Mitral regurgitation Nontoxic multinodular goiter Overweight 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 Tricuspid regurgitation Ventricular tachycardia Irritable bowel syndrome (IBS) PAD (peripheral artery disease) Allergic rhinitis Hx of hemorrhoids Rectal bleeding Osteopenia Impaired fasting glucose Vitamin D deficiency Back pain Urinary symptom or sign Neurological symptoms Multiple thyroid nodules Cough Cholesterol-lowering agent myopathy Constipation History of CVA (cerebrovascular accident) History of myocardial infarction Renal infarct (Acute) Mesenteric artery stenosis Medical History Renal infarct Hyperglycemia Claudication NSTEMI (non-ST elevated myocardial infarction) Intractable pain Surgical History History of carpal tunnel surgery History of total abdominal hysterectomy and bilateral salpingo-oophorectomy S/P appendectomy History of cholecystectomy History of thyroid surgery H/O endarterectomy Family History Mother Diabetes Hypertension Sister Diabetes Kidney disease Hypertension Brother Kidney disease Hypertension Diabetes Father Myocardial infarction Colorectal cancer Unknown Hypertension Cardiac disorder Stroke Cancer Other Buerger's disease No family history of bleeding disorder Denies family history of Ovarian cancer Prostate cancer Breast cancer Social History Smoking Status: Never smoker Second Hand Exposure: No; Do You Dip or Chew Tobacco: No; Hx Alcohol Use: Yes Alcohol type: wine Alcohol Intake Frequency: 4 or More x per/Week Alcohol Intake Frequency Comment: 1-2 glasses per day Hx Substance Use: No Preferred Language: Ukrainian Communication Ability: Effective Visual Impairment: Limited Hearing Ability: Normal Delivery Technician Required: No Beliefs That Will Affect Care: None marital status: Current Living Situation: Spouse Current Living Situation Comment: mobile home current occupational status: retired current occupation: Retired[employer] Feels Safe at Home: Yes Childhood Exposure to Second-Hand Smoke: No Diet: regular caffeine: Yes during the past year weight has: remained stable Dental Care, Regularly: No Physical Activity Frequency: Does not Exercise Seatbelt Use: always Sunscreen Use: Yes Assistive Devices: Walker Review of Systems Review of Systems: All systems reviewed & are unremarkable except as noted in Subjective Physical Exam Physical Exam: GENERAL: alert and oriented in no acute distress on stretcher Head: normocephalic and atraumatic EYES: No injection, discharge or icterus. NECK: Trachea midline. ENT: Mucous membranes pink and moist. LUNGS: Airway patent. No retractions. Breath sounds clear with good air entry bilaterally. HEART: Irregular rate and rhythm. No chest wall tenderness ABDOMEN: Soft and non-tender, without guarding or rebound. SKIN: Acyanotic, warm, dry, without rashes EXTREMITIES: Without swelling, tenderness or deformity, 1+ bilateral DP pulses. No evidence of decreased significant capillary refill or ischemia of the lower extremities notable on exam. No pain with ROM of the lower extremities. NEUROLOGICAL: No focal deficits. No aphasia. No facial droop or slurred speech. Normal strength and tone in the extremities. Sensation to gross touch normal. Results & Data Results & Data Vital Signs (Past 12 Hours) Vital Signs Temp Pulse Pulse Resp BP BP Pulse Ox 04/08/24 18:50 51 L 18 208/109 H 97 04/08/24 18:33 57 L 21 95 04/08/24 18:30 211/107 H 04/08/24 18:30 211/107 H 04/08/24 18:21 50 L 18 96 04/08/24 18:15 198/106 H 04/08/24 18:15 198/106 H 04/08/24 18:15 55 L 29 H 96 04/08/24 18:00 191/89 H 04/08/24 18:00 191/89 H 04/08/24 18:00 191/89 H 04/08/24 18:00 54 L 21 95 04/08/24 17:51 51 L 16 198/91 H 97 04/08/24 17:46 198/91 H 04/08/24 17:42 61 19 95 04/08/24 17:39 56 L 17 95 04/08/24 17:30 193/90 H 04/08/24 17:30 193/90 H 04/08/24 17:27 57 L 29 H 96 04/08/24 17:03 54 L 28 H 04/08/24 17:00 181/86 H 04/08/24 17:00 181/86 H 04/08/24 17:00 181/86 H 04/08/24 16:57 192/77 H 04/08/24 16:57 192/77 H 04/08/24 16:57 62 21 96 04/08/24 16:30 61 23 95 04/08/24 16:30 205/86 H 04/08/24 16:30 205/86 H 04/08/24 16:30 205/86 H 04/08/24 16:06 63 23 96 04/08/24 16:02 04/08/24 16:01 219/90 H 04/08/24 15:54 64 15 94 04/08/24 15:49 36.3 C L 81 21 208/105 H 97 04/08/24 15:46 65 04/08/24 15:45 208/105 H 04/08/24 15:45 208/105 H 04/08/24 15:39 257/115 H 04/08/24 15:39 257/115 H O2 Del Method O2 Flow Rate 04/08/24 18:50 Room Air 04/08/24 18:33 04/08/24 18:30 04/08/24 18:30 04/08/24 18:21 04/08/24 18:15 04/08/24 18:15 04/08/24 18:15 04/08/24 18:00 04/08/24 18:00 04/08/24 18:00 04/08/24 18:00 04/08/24 17:51 Room Air 04/08/24 17:46 04/08/24 17:42 04/08/24 17:39 04/08/24 17:30 04/08/24 17:30 04/08/24 17:27 04/08/24 17:03 04/08/24 17:00 04/08/24 17:00 04/08/24 17:00 04/08/24 16:57 04/08/24 16:57 04/08/24 16:57 04/08/24 16:30 04/08/24 16:30 04/08/24 16:30 04/08/24 16:30 04/08/24 16:06 04/08/24 16:02 Room Air 97 04/08/24 16:01 04/08/24 15:54 04/08/24 15:49 Room Air 04/08/24 15:46 04/08/24 15:45 04/08/24 15:45 04/08/24 15:39 04/08/24 15:39 PG Care Time/CCT Total # of Minutes Spent Total Time Spent with Patient: Total time spent is greater than 50% in coordination of care (as documented) at patient's floor/unit and/or counseling patient: Coding Level of Care Code 11500 INT INP/OBS CARE MIN Diagnoses Essential hypertension I10 Hypertension type: essential hypertension Bilateral claudication of lower limb I73.9 Abnormal nuclear stress test R94.39 Atrial fibrillation I48.91 History of CVA (cerebrovascular accident) Z86.73 (1) Hypertension Hypertension type: essential hypertension Qualified Code(s): I10 - Essential (primary) hypertension
[2024-04-08] MEDS: LATANOPROST 0.005% OP SOLN 2.5 ML BTL OPB SCH (21:30)
[2024-04-08] MEDS: BRIMONIDINE TARTRATE 0.2% 5ML OPB SCH (21:30)
[2024-04-08] MEDS: amLODIPine BESYLATE 5 MG TAB PO SCH (21:30)
[2024-04-08] MEDS: DORZOLAMIDE/TIMOLOL 22.3/6.8MG/ML 10 ML BTL OPB SCH (21:30)
[2024-04-08] MEDS: ATORVASTATIN 40 MG TAB PO SCH (21:32)
[2024-04-08] MEDS: NITROGLYCERIN 2% OINTMENT 30GM TUBE EXT ONE (21:39)
--- NOTE | 2024-04-08 22:51 | Electrocardiogram Report ---
Test Reason : Blood Pressure : / mmHG Vent. Rate : 065 BPM Atrial Rate : 000 BPM P-R Int : 000 ms QRS Dur : 084 ms QT Int : 422 ms P-R-T Axes : 000 043 045 degrees QTc Int : 438 ms Atrial fibrillation Abnormal ECG When compared with ECG of 19-JUN-2023 16:27, No significant change was found Confirmed by Rodri Taylor ([id number]) on 04/08/2024 10:51:12 PM Referred By: Confirmed By:Rodri Taylor
[2024-04-09] MEDS: ASPIRIN CHEW 324 MG ONE (01:40)
[2024-04-09] MEDS: NITROGLYCERIN 2% OINTMENT 30GM TUBE EXT SCH (02:53)
[2024-04-09] MEDS: LEVOTHYROXINE SODIUM 50 MCG TABLET PO SCH (05:55)
[2024-04-09] MEDS: PANTOprazole 40 MG TAB PO SCH (08:28)
[2024-04-09] MEDS: METOPROLOL SUCC 25MG EXT REL TAB PO SCH (08:28)
--- NOTE | 2024-04-09 14:25 | Cardiology Consultation ---
Date of Consultation April 09, 2024 Assessment & Plan (1) Palpitations: (2) CAD in [place] artery: (3) Atrial fibrillation, permanent: (4) Mitral regurgitation: (5) Hypertension: (6) Cardiomyopathy: (7) Dyspnea on exertion: (8) Abnormal nuclear stress test: Plan ASSESSMENT/PLAN: 1. Palpitations: Although she used the words chest pain, her description seems more like palpitations. She had 2 brief thump sensation only lasting a second or 2 and none since. Atrial fibrillation on telemetry. No further evaluation in this regard. 2. CAD: Nonobstructive noted on 2015 coronary angiography. Small area of lateral ischemia 2023 myocardial perfusion study but her dyspnea on exertion has since returned to baseline. She preferred medical therapy. Intolerant to statin therapy. Continue beta-cindy. She did not tolerate nitrate therapy. 3. Atrial fibrillation: Permanent. Asymptomatic. Continue beta-cindy for rate control strategy. 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 Continue Ana stacey. Monitor CBC and renal function while on Eliquis. 4. Takotsubo cardiomyopathy: Appears euvolemic. LV systolic function has normalized. Losartan was discontinued during hospitalization in the past and replaced with amlodipine by other providers. ESTRELLA inhibitor possibly cause dry cough. Continue beta-cindy. 5. Hypertension: Has a history of hypertension but much more severe while miss ing a couple doses of amlodipine. Blood pressure has improved while here. Increase amlodipine to 10 mg daily. Will consider adding losartan, which she tolerated in the past if blood pressure remains elevated. 6. Peripheral arterial disease: Bilateral lower extremity claudication. Further imaging and vascular follow-up has been requested in the outpatient setting. She has been seen by Dr. Bolaños in the past. 7. Mitral regurgitation: Nonsevere. Continue to follow in the outpatient setting. 8. Abnormal myocardial perfusion study: Medical management as above. No angina. 9. Disposition: No further inpatient cardiology workup planned at this time. Please call with any further questions or concerns. Plan of care communicated with Dr. Torres of the primary hospitalist service. Today's visit was 55 minutes in duration, including [id number] time, counseling patient, coordinating care, reviewing records/labs, studies, and completing documentation. Thank you for allowing me to participate in the care of your patient. Please call for any other questions or concerns. Sincerely, Celestino Taylor M.D. History of Present Illness Reason for Consultation: "chest pain" Requesting Physician: Dr. Royal Attending Physician: Neo Torres MD History of Present Illness Mrs. Younger is a very pleasant 88-year-old female with a history significant for atrial fibrillation, Takotsubo cardiomyopathy, nonobstructive CAD, dyslipidemia, hypertension, carotid artery stenosis status post left CEA, PAD s/p angioplasty, and stroke. 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 On 08/27/12, she presented to [facility] with stroke-like symptoms. She apparently had an episode of syncope at home and also had difficulty with speech. She had another episode of loss of consciousness in the emergency department and was flown to [facility] for further care. It was noted however at that time that she had atrial fibrillation, which was a new diagnosis with her. She denies undergoing lytic therapy but was discharged on Coumadin. She was hospitalized on 10/04/2016 and diagnosed with Takotsubo's cardiomyopathy, with reduced LV systolic function. Her peak troponin was 10.8. She also had nonsustained ventricular tachycardia on telemetry, otherwise atrial fibrillation. On 03/10/2018, she had a left renal infarct with subtherapeutic INR and was eventually placed on Xarelto in place of Coumadin. She has had the following studies/procedures: 1. Echo 01/05/2016: Normal LV size, wall motion, systolic function. EF 60-65%. Moderate left atrial dilation. Moderate MR. RVSP less than 40. 2. Carotid duplex 12/23/2015: No significant stenosis bilateral ICA. Status post left endarterectomy. 3. Echo 10/04/2016: Mildly to moderately reduced LV systolic function. EF 40- 45%. Aneurysmal (dyskinesis) area involving apex, distal anterior, distal inferior, distal lateral, distal septal ruiz. Base to mid wall segments appear hypokinetic. Moderate left atrial dilation. Mild to moderate MR. RVSP 31. 4. Cardiac catheterization 10/04/2016: Proximal LAD 30%. Mid LAD 30%. Mid circumflex 20%. Distal circumflex 20%. Proximal RCA 40%. Dominant RCA. LVEDP 14. Hyperdynamic basal segment wall motion. Apical dyskinesis. EF 45%. 5. Echo 12/27/2016: Normal LV size and systolic function. EF 60-65%. Normal wall motion. Mild left atrial dilation. At least mild to moderate MR, MR jet not well visualized. RVSP 31. 6. Lower extremity arterial duplex 07/12/2017: No significant occlusive arterial disease bilaterally. 7. Echo 05/08/2018: Normal LV size, wall motion, systolic function. EF 60-65%. At least mild MR. Moderate TR. 8. Left leg arterial Doppler 05/07/19: High-grade stenosis estimated 90% left popliteal artery. Occlusion left posterior tibial artery. 9. Bilateral lower extremity angiogram 05/09/2019 Dr. Bolaños: Left Lower extremity: Mid popliteal artery 99%. Two vessel runoff to foot via peroneal artery which provides collaterals to the DPA/distal ADOPTION COUNSELOR. Mid ADOPTION COUNSELOR 100%. A TA with severe diffuse disease. Underwent angiography of left popliteal stenosis with 4 x 80 mm drug-eluting balloon. Angioplasty of ORLIN with 2 mm balloon. Right lower extremity: Ostial profundal a 40-50%. Mild SFA/popliteal disease. Severe diffuse peroneal disease. A TA proximal 100%. 10. Left lower extremity angiogram 06/20/2020: Severe distal SFA stenosis, patent popliteal artery and single-vessel runoff. Underwent angioplasty of distal SFA into popliteal artery with drug eluting balloon (5 x 150 mm). 11. Echo 11/04/2020: Normal LV size. Hyperdynamic systolic function. EF > 70%. Normal wall motion. No LVH. Severe left atrial dilation. Sclerotic aortic valve. Moderate MR. Mild to moderate TR. RVSP 34. 12. Lower extremity arterial duplex 01/20/2021: No evidence of restenoses in the left distal SFA/pop A, post intervention. Left proximal chinedu A, ORLIN (approximately 50% stenosis) and ADOPTION COUNSELOR are patent proximally. Mid ORLIN/ADOPTION COUNSELOR occluded with collateral flow at foot. 13. Echo 06/20/2023 [facility]: Normal LV size, wall motion, systolic function. EF 65 to 70%. Moderate MR. RVSP 27. 14. Echo 03/01/2024 [facility]: Normal LV size, wall motion, systolic function. EF 65-70%. Moderate LVH. Moderate left atrial dilation. Sclerotic aortic valve. Moderate MR. Mild to moderate TR. RVSP 49. 15. Nuclear stress 03/28/2024: Abnormal, suggesting small area of lateral ischemia. EF 88%. Normal wall motion. Severely hypertensive as she did not take her morning medications. She was admitted on 04/08/2024 after experiencing what she referred to as "chest pain" while sitting down at home. Upon further questioning, she felt a "thump thump" lasting only a quick second or 2. She felt 2 distinct thumps, such as palpitations. It has not recurred. When she presented to the ER however her blood pressure was severely elevated at 257/115 mmHg. She had run out of amlodipine for a couple of days, despite it being titrated just last week when she was seen in the office. A new prescription was sent to her pharmacy at that time. She feels back to baseline. She has chronic dyspnea on exertion which is at a stable level. She continues to have bilateral lower extremity claudication, more significant on the right. Outpatient arterial duplex study has been ordered with the plan to follow-up with Dr. Bolaños on the same day. She denies syncope, near syncope, angina, edema, or bleeding such as melena, hematochezia, or hematuria. Review of systems: As above. Family history: No known premature CAD. Mother had [place] at the age of 84. Social history: Denies tobacco or drug abuse. One glass of wine per day. She lives with her 3rd ( x1 [alcoholic], x1) in [place], [place]. Five children. A granddaughter, Rosa Elena, is RN. She is a retired piece work conveyor worker. In the past, she was accompanied by her . She was unaccompanied today. Allergies Allergy/AdvReac Type Severity Reaction Status Date / Time Penicillins Allergy Intermediate RASH ONLY Verified 04/08/24 17:33 atorvastatin AdvReac Intermediate MUSCLE Verified 04/08/24 17:33 CRAMPS/PAIN pravastatin AdvReac Intermediate MUSCLE Verified 04/08/24 17:33 CRAMPS/PAIN simvastatin AdvReac Intermediate MUSCLE Verified 04/08/24 17:33 CRAMPS/PAIN Home Medications Medication Instructions Recorded Confirmed Type dorzolamide 22.3 mg-timolol 6.8 1 drp OPB BID 02/23/19 04/08/24 History mg/mL eye drops latanoprost 0.005 % eye drops 1 drp OPB HS 04/30/19 04/08/24 History brimonidine 0.2 % eye drops 1 drp OPB BID 05/07/19 04/08/24 History metoprolol succinate 25 mg 25 mg PO QAM #90 tabs 10/26/22 04/08/24 Rx tablet,extended release 24 hr rivaroxaban 20 mg tablet (Xarelto) 20 mg PO DAILY@1500 #90 tabs 04/22/23 04/08/24 Rx omeprazole 40 mg capsule,delayed 40 mg PO DAILY #90 caps 07/18/23 04/08/24 Rx release levothyroxine 50 mcg tablet 50 mcg PO DAILY 90 days #90 tabs 03/22/24 04/08/24 Rx amlodipine 5 mg tablet 7.5 mg (1.5 x 5 mg) PO QPM #135 04/06/24 04/08/24 Rx tabs evolocumab 140 mg/mL subcutaneous 140 mg subcut .q2week #2 mL 04/06/24 04/08/24 Rx pen injector (Repatha SureClick) ergocalciferol (vitamin D2) 1,250 1,250 mcg PO WK 04/08/24 04/08/24 History mcg (50,000 unit) capsule Problem List (Updated 04/09/24 @ 22:45 by Rodri Taylor MD) Atrial fibrillation, permanent Palpitations Bilateral claudication of lower limb (Acute) VACA (dyspnea on exertion) (Acute) Abnormal nuclear stress test (Acute) Dyspnea on exertion Acute memory impairment Left knee DJD Abnormal CT of the chest Acid reflux Anticoagulant long-term use Arthritis CAD in t[place] artery Cardiomyopathy Carotid artery stenosis Constipation Glaucoma Jacques's thyroiditis Herpes zoster Hyperlipidemia Hypertension Hypothyroidism Mitral regurgitation Nontoxic multinodular goiter Overweight 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 Tricuspid regurgitation Ventricular tachycardia Irritable bowel syndrome (IBS) PAD (peripheral artery disease) Allergic rhinitis Hx of hemorrhoids Rectal bleeding Osteopenia Impaired fasting glucose Vitamin D deficiency Back pain Urinary symptom or sign Neurological symptoms Multiple thyroid nodules Cough Cholesterol-lowering agent myopathy Constipation History of CVA (cerebrovascular accident) History of myocardial infarction Renal infarct (Acute) Mesenteric artery stenosis Patient History Medical History (Updated 04/09/24 @ 22:45 by Rodri Taylor MD) Renal infarct Hyperglycemia Claudication NSTEMI (non-ST elevated myocardial infarction) Intractable pain Surgical History History of carpal tunnel surgery History of total abdominal hysterectomy and bilateral salpingo-oophorectomy S/P appendectomy History of cholecystectomy History of thyroid surgery H/O endarterectomy History of Neurological Surgery Carotid Endarterectomy Family History Mother Diabetes Hypertension Sister Diabetes Kidney disease Hypertension Brother Kidney disease Hypertension Diabetes Father Myocardial infarction Colorectal cancer Unknown Hypertension Cardiac disorder Stroke Cancer Other Buerger's disease No family history of bleeding disorder Denies family history of Ovarian cancer Prostate cancer Breast cancer Social History Smoking Status: Never smoker Second Hand Exposure: No; Do You Dip or Chew Tobacco: No; Hx Alcohol Use: Yes Alcohol type: wine Alcohol Intake Frequency: 4 or More x per/Week Alcohol Intake Frequency Comment: 1-2 glasses per day Hx Substance Use: No Preferred Language: Chilean Communication Ability: Effective Visual Impairment: Limited Hearing Ability: Normal Fire Support Man Required: No Beliefs That Will Affect Care: None marital status: Current Living Situation: Spouse Current Living Situation Comment: mobile home current occupational status: retired current occupation: Retired-[employer] Feels Safe at Home: Yes Childhood Exposure to Second-Hand Smoke: No Diet: regular caffeine: Yes during the past year weight has: remained stable Dental Care, Regularly: No Physical Activity Frequency: Does not Exercise Seatbelt Use: always Sunscreen Use: Yes Assistive Devices: None Physical Exam Physical Exam: Gen.: No acute distress. Alert. HEENT: Anicteric sclera. Neck: No JVD. Cardiac: No ventricular heave. Irregularly irregular. Normal rate. Normal S1- S2. No audible murmurs, rubs, or gallops. Pulmonary: Clear to auscultation bilaterally without wheezes, rales, or rhonchi. Abdomen: Soft, nontender, nondistended, with normoactive bowel sounds. No bruits noted. Extremities: 2+ radial pulses bilaterally. No significant pitting edema. No c yanosis. Psychiatric: Affect appears appropriate. Results & Data Vital Signs (Past 12 Hours) Vital Signs Temp Pulse Pulse Resp BP Pulse Ox O2 Del Method 04/09/24 11:37 36.4 C L 55 L 20 165/80 H 98 Room Air 04/09/24 08:28 76 04/09/24 07:34 36.9 C 55 L 20 150/73 H 95 Room Air 04/09/24 02:44 36.8 C 62 18 175/77 H 96 Room Air Laboratory Results Laboratory Results - last 24 hr 04/08/24 04/08/24 04/08/24 15:42 16:03 16:19 WBC 6.93 RBC 4.66 Hgb 15.0 Hct 45.7 MCV 98.1 MCH 32.2 MCHC 32.8 RDW Std Deviation 51.8 H RDW Coeff of Maritza 14.2 Plt Count 241 MPV 10.5 Immature Gran % (Auto) 0.1 Neut % (Auto) 57.3 Lymph % (Auto) 29.7 [place] % (Auto) 9.4 Eos % (Auto) 2.6 Baso % (Auto) 0.9 Neut # (Auto) 3.97 Lymph # (Auto) 2.06 [place] # (Auto) 0.65 H Eos # (Auto) 0.18 Baso # (Auto) 0.06 Immature Gran # (Auto) 0.01 PT 14.5 H INR 1.4 H APTT 38 H PTT Ratio 1.4 Sodium 137 Potassium 4.8 Chloride 104 Carbon Dioxide 26 Anion Gap 7 BUN 11 Creatinine 0.97 Est Cr Clr Drug Dosing 35.3 Est GFR ( Amer) 60.4 Est GFR (Non-Af Amer) 52.1 BUN/Creatinine Ratio 11.3 Glucose 90 Calcium 9.9 Magnesium 2.1 Total Bilirubin 0.7 AST 17 ALT 9 Alkaline Phosphatase 78 Troponin I High Sens 9.2 B-Natriuretic Peptide 130 H Total Protein 7.5 Albumin 4.2 Globulin 3.3 Albumin/Globulin Ratio 1.3 Urine Color Yellow Urine Appearance Cloudy A Urine pH 6.0 Ur Specific Sherman 1.015 Urine Protein Negative Urine Glucose (UA) Negative Urine Ketones Trace H Urine Blood Negative Urine Nitrite Negative Urine Bilirubin Negative Urine Urobilinogen Negative Ur Leukocyte Esterase Trace H Urine WBC (Auto) 0-5 Urine RBC (Auto) 11-20 H U Hyaline Cast (Auto) 0-2 U Epithel Cells (Auto) 6-10 H Urine Bacteria (Auto) 2+ H Urine Yeast Present A Adenovirus (PCR) Not Detected B. pertussis DNA (PCR) Not Detected B.parapertussis DNA PCR Not Detected C. pneumoniae DNA (PCR) Not Detected Coronavirus OC43 (PCR) Not Detected Coronavirus HKU1 (PCR) Not Detected Coronavirus 229E (PCR) Not Detected SARS-CoV-2 (PCR) Not Detected Coronavirus NL63 (PCR) Not Detected Human Metapneumovir PCR Not Detected Influenza Type A (PCR) Not Detected Influenza Type B (PCR) Not Detected M. pneumoniae (PCR) Not Detected Parainfluenza 1 (PCR) Not Detected Parainfluenza 2 (PCR) Not Detected Parainfluenza 3 (PCR) Not Detected Parainfluenza 4 (PCR) Not Detected RSV (PCR) Not Detected Entero/Rhino (PCR) Not Detected 04/09/24 09:27 WBC RBC Hgb Hct MCV MCH MCHC RDW Std Deviation RDW Coeff of Maritza Plt Count MPV Immature Gran % (Auto) Neut % (Auto) Lymph % (Auto) [place] % (Auto) Eos % (Auto) Baso % (Auto) Neut # (Auto) Lymph # (Auto) [place] # (Auto) Eos # (Auto) Baso # (Auto) Immature Gran # (Auto) PT INR APTT PTT Ratio Sodium Potassium Chloride Carbon Dioxide Anion Gap BUN Creatinine Est Cr Clr Drug Dosing Est GFR ( Amer) Est GFR (Non-Af Amer) BUN/Creatinine Ratio Glucose Calcium Magnesium Total Bilirubin AST ALT Alkaline Phosphatase Troponin I High Sens 9.8 B-Natriuretic Peptide Total Protein Albumin Globulin Albumin/Globulin Ratio Urine Color Urine Appearance Urine pH Ur Specific Sherman Urine Protein Urine Glucose (UA) Urine Ketones Urine Blood Urine Nitrite Urine Bilirubin Urine Urobilinogen Ur Leukocyte Esterase Urine WBC (Auto) Urine RBC (Auto) U Hyaline Cast (Auto) U Epithel Cells (Auto) Urine Bacteria (Auto) Urine Yeast Adenovirus (PCR) B. pertussis DNA (PCR) B.parapertussis DNA PCR C. pneumoniae DNA (PCR) Coronavirus OC43 (PCR) Coronavirus HKU1 (PCR) Coronavirus 229E (PCR) SARS-CoV-2 (PCR) Coronavirus NL63 (PCR) Human Metapneumovir PCR Influenza Type A (PCR) Influenza Type B (PCR) M. pneumoniae (PCR) Parainfluenza 1 (PCR) Parainfluenza 2 (PCR) Parainfluenza 3 (PCR) Parainfluenza 4 (PCR) RSV (PCR) Entero/Rhino (PCR) Diagnostic Findings Telemetry personally reviewed: Rate controlled atrial fibrillation. Labs reviewed and notable for stable renal function, normal potassium, normal blood counts. Normal transaminase levels. High-sensitivity troponin negative x 2. ECG personally reviewed from 04/08/2024: Atrial fibrillation 65 bpm. History and physical report reviewed. Chest x-ray 04/08/2024: Apparent hazy left basilar opacity likely artifactual per radiology. Medications Administered Current Inpatient Medications Acetaminophen (Acetaminophen 325 Mg Tab) 650 mg PO Q4H PRN PRN Reason: pain/fever Stop: 05/08/24 18:22 Al Hydrox/Mg Hydrox/Simethicone (Aluminum/Magnesium Susp 30 Ml Udc) 30 ml PO Q6H PRN PRN Reason: Dyspepsia Stop: 05/08/24 18:22 Amlodipine Besylate (Amlodipine Besylate 5 Mg Tab) 7.5 mg PO QPM ELZA Stop: 05/08/24 21:06 Last Admin: 04/08/24 21:30 Dose: 7.5 mg Atorvastatin Calcium (Atorvastatin 40 Mg Tab) 40 mg PO QAM ELZA Stop: 05/08/24 18:29 Last Admin: 04/09/24 08:20 Dose: Not Given Brimonidine Tartrate (Brimonidine Tartrate 0.2% 5ml) 1 drops OPB BID ELZA Stop: 05/08/24 21:06 Last Admin: 04/09/24 08:27 Dose: 1 drops Dorzolamide/Timolol (Dorzolamide/Timolol 22.3/6.8mg/Ml 10 Ml Btl) 1 drops OPB BID ELZA Stop: 05/08/24 21:06 Last Admin: 04/09/24 08:27 Dose: 1 drops Ergocalciferol (Ergocalciferol 1250 Mcg (50,000 Units) Cap) 1,250 mcg PO Fr ELZA Stop: 05/13/24 08:59 Hydralazine HCl (Hydralazine Hcl 20 Mg/Ml Vial) 10 mg IV Q8 PRN PRN Reason: sbp>185 or dbp>95 Stop: 05/08/24 18:20 Latanoprost (Latanoprost 0.005% Op Soln 2.5 Ml Btl) 1 drops OPB HS [facility] Stop: 05/08/24 21:06 Last Admin: 04/08/24 21:30 Dose: 1 drops Levothyroxine Sodium (Levothyroxine Sodium 50 Mcg Tablet) 50 mcg PO DAILYBB [facility] Stop: 05/09/24 06:29 Last Admin: 04/09/24 05:55 Dose: 50 mcg Melatonin (Melatonin 3 Mg Tab) 3 mg PO HS PRN PRN Reason: Insomnia Stop: 05/08/24 18:22 Metoprolol Succinate (Metoprolol Succ 25mg Ext Rel Tab) 25 mg PO QAM [facility] Stop: 05/09/24 08:59 Last Admin: 04/09/24 08:28 Dose: 25 mg Nitroglycerin (Nitroglycerin 2% Ointment 30gm Tube) 1 inch EXT Q6H [facility] Stop: 05/09/24 01:59 Last Admin: 04/09/24 14:23 Dose: 1 inch Ondansetron HCl (Ondansetron Inj 2 Mg/Ml 2 Ml Vial) 4 mg IV Q6H PRN PRN Reason: Nausea Stop: 05/08/24 18:22 Pantoprazole Sodium (Pantoprazole 40 Mg Tab) 40 mg PO DAILY [facility] Stop: 05/09/24 08:59 Last Admin: 04/09/24 08:28 Dose: 40 mg PG Care Time/CCT Total # of Minutes Spent Total Time Spent with Patient: Total time spent is greater than 50% in coordination of care (as documented) at patient's floor/unit and/or counseling patient: Coding Level of Care Code 04337 INT INP/OBS CARE 2/55MIN Diagnoses Palpitations R00.2 CAD in [place] artery I25.10 Atrial fibrillation, permanent I48.21 Mitral regurgitation I34.0 Essential hypertension I10 Hypertension type: essential hypertension Cardiomyopathy I42.9 Dyspnea on exertion R06.09 Abnormal nuclear stress test R94.39 (5) Hypertension Hypertension type: essential hypertension Qualified Code(s): I10 - Essential (primary) hypertension
--- NOTE | 2024-04-09 14:46 | Hospitalist Progress Note ---
Date of Service April 09, 2024 Assessment & Plan (1) Hypertension: Plan: Improved since admission. Amlodipine has been increased to 10 mg daily. Appreciate cardiology consultation and recommendations. Nitropaste has been discontinued (2) Bilateral claudication of lower limb: Plan: Known peripheral arterial disease. Stent placement a year ago. Continue current medical management (3) Abnormal nuclear stress test: Plan: Chest discomfort on admission was probably due to palpitations according to cardiology. Known abnormal stress test recently. No indication for left heart catheterization at this time per cardiology. Xarelto has been restarted (4) Atrial fibrillation: Plan: Chronic. Rate controlled. Continue Xarelto (5) History of CVA (cerebrovascular accident): Plan: Stable. Continue current medical management Plan Hopefully home tomorrow, April 10 Admission and Anticipated Discharge Date Admission Date: April 08, 2024 Subjective Alert and oriented. No complaints. No recurrent chest discomfort. She has been seen by cardiology who increased her amlodipine for better blood pressure control but does not feel stress testing or left heart catheterization is required at this time. Her chest pain was probably due to palpitations. Xarelto has been restarted and topical nitrates discontinued. Blood pressure has improved since admission. Hopefully she can go home tomorrow, April 10 Review of Systems 2 Review of Systems: Constitutional-no fever or chills ENT-no blurred vision, no double vision, no epistaxis, no sore throat Respiratory-no cough, no wheezing, no shortness of breath Cardiac-no palpitations, no chest pain, no syncope GI-no nausea, vomiting, diarrhea, melena, hematochezia -no urinary retention, no urinary incontinence, no dysuria, no hematuria Musculoskeletal-no joint pain, no muscle tenderness Skin-no bruising, no rashes, no pruritus Neuro-no isolated weakness, no paresthesia, no weakness Psych-no depression, no anxiety Physical Exam 2 Physical Exam: General-alert and oriented x3, no fever, no chills HEENT-head atraumatic and normocephalic, pupils equal and reactive to light, extraocular muscles intact Neck-no lymphadenopathy or thyromegaly, trachea midline Chest-clear to auscultation. No rales, wheezing or rhonchi Cardiac-irregular heart rhythm. Controlled rate. Normal S1 and S2 Abdomen-normal bowel sounds, no hepatosplenomegaly Extremities-no cyanosis, clubbing, or edema Neuro-cranial nerves II through XII intact, motor and sensory function within normal limits, strength symmetrical, no focal deficits Psych-normal affect, normal mood Results & Data Results & Data Vital Signs (Past 12 Hours) Vital Signs Temp Pulse Pulse Resp BP Pulse Ox O2 Del Method 04/09/24 11:37 36.4 C L 55 L 20 165/80 H 98 Room Air 04/09/24 08:28 76 04/09/24 07:34 36.9 C 55 L 20 150/73 H 95 Room Air 04/09/24 02:44 36.8 C 62 18 175/77 H 96 Room Air Laboratory Results 04/08/24 15:42 04/08/24 15:42 PG Care Time/CCT Total # of Minutes Spent Total Time Spent with Patient: Total time spent is greater than 50% in coordination of care (as documented) at patient's floor/unit and/or counseling patient: Coding Level of Care Code 72162 SUB INP/OBS CARE 3/50MIN Diagnoses Essential hypertension I10 Hypertension type: essential hypertension Bilateral claudication of lower limb I73.9 Abnormal nuclear stress test R94.39 Atrial fibrillation I48.91 History of CVA (cerebrovascular accident) Z86.73 (1) Hypertension Hypertension type: essential hypertension Qualified Code(s): I10 - Essential (primary) hypertension
[2024-04-09] MEDS ORDERED: NITROGLYCERIN SL 0.4 MG/TAB TAB SL PRN (14:47)
[2024-04-09] MEDS: RIVAROXABAN 20 MG TAB PO SCH (17:02)
[2024-04-09] MEDS: amLODIPine BESYLATE 5 MG TAB PO SCH (20:00)
[2024-04-10 07:05] LABS: Basophils # (auto) 0.05 K/uL (0.00-0.20); Basophils % (auto) 0.8 %; Eosinophils # (auto) 0.15 K/uL (0.00-0.50); Eosinophils % (auto) 2.3 %; Hematocrit (blood only) 43.6 % (37.0-47.0); Hemoglobin 14.6 g/dl (12.0-16.0); Immature Granulocytes # (auto) 0.06 K/uL (0.01-0.20); Immature Granulocytes % (auto) 0.9 %; Lymphocytes # (auto) 2.03 K/uL (1.20-3.40); Lymphocytes % (auto) 30.8 %; Mean Corpuscular Hemoglobin 32.4 pg (25.0-34.0); Mean Corpuscular Hgb Conc 33.5 g/dL (32.0-36.0); Mean Corpuscular Volume 96.9 fL (80.0-100.0); Mean Platelet Volume 10.4 fL (9.4-12.4); Monocytes # (auto) 0.67 K/uL (0.11-0.59); Monocytes % (auto) 10.2 %; Neutrophils # (auto) 3.64 K/uL (1.40-6.50); Platelet Count 241 K/uL (130-400)
[2024-04-10 07:52] LABS: Calcium 8.8 mg/dl (8.6-10.3)
[2024-04-10 07:57] LABS: BUN Creatinine Ratio 22.6 (10-20); Creatinine Clr Calc Pharmacy 40.7 ml/min; Est GFR (African American) 71.9 ml/min; Est GFR (Non-African American) 62.1 ml/min
--- NOTE | 2024-04-10 13:21 | Cardiology Progress Note ---
Date of Service April 10, 2024 Assessment & Plan (1) Palpitations: (2) CAD in [place] artery: (3) Atrial fibrillation, permanent: (4) Mitral regurgitation: (5) Hypertension: (6) Cardiomyopathy: (7) Dyspnea on exertion: (8) Abnormal nuclear stress test: Plan ASSESSMENT/PLAN: 1. Palpitations: Although she used the words chest pain, her description seems more like palpitations. She had 2 brief thump sensation only lasting a second or 2 and none since hospitalization. Atrial fibrillation on telemetry. No further evaluation in this regard. 2. CAD: Nonobstructive noted on 2015 coronary angiography. Small area of lateral ischemia 2023 myocardial perfusion study but her dyspnea on exertion has since returned to baseline. She preferred medical therapy. Intolerant to statin therapy. Continue beta-cindy. She did not tolerate nitrate therapy. Improved blood pressure control. 3. Atrial fibrillation: Permanent. Asymptomatic. Continue beta-cindy for rate control strategy. Mild bradycardia at rest but seems asymptomatic. If bradycardia seems troublesome in the future or potentially symptomatic, would consider discontinuing. 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 Continue El iquis. Monitor CBC and renal function while on Eliquis. 4. Takotsubo cardiomyopathy: Appears euvolemic. LV systolic function has normalized. Losartan was discontinued during hospitalization in the past and replaced with amlodipine by other providers. ESTRELLA inhibitor possibly cause dry cough. Continue beta-cindy as tolerated. 5. Hypertension: Has a history of hypertension but much more severe while missing a couple doses of amlodipine. Blood pressure has improved while here. Amlodipine has been increased to 10 mg daily. Start losartan 25 mg daily today. 6. Peripheral arterial disease: Bilateral lower extremity claudication. Further imaging and vascular follow-up has been requested in the outpatient setting. She has been seen by Dr. Bolaños in the past. 7. Mitral regurgitation: Nonsevere. Continue to follow in the outpatient setting. 8. Abnormal myocardial perfusion study: Medical management as above. No angina. 9. Disposition: No further inpatient cardiology workup planned at this time. Please call with any further questions or concerns. Plan of care communicated with Dr. Ashley of the primary hospitalist service. Admission and Anticipated Discharge Date Admission Date: April 08, 2024 Subjective She was seen this morning with her daughter and grandson at the bedside. She feels like she is back to baseline. She denies shortness of breath, chest pain, syncope, near syncope, palpitations, significant edema, or bleeding. She would like to go home today. Physical Exam Physical Exam: Gen.: No acute distress. Alert. HEENT: Anicteric sclera. Neck: No JVD. Cardiac: No ventricular heave. Irregularly irregular with normal rate. Normal S1-S2. No audible murmurs, rubs, or gallops. Pulmonary: Clear to auscultation bilaterally without wheezes, rales, or rhonchi. Abdomen: Soft, nontender, nondistended, with normoactive bowel sounds. No bruits noted. Extremities: 2+ radial pulses bilaterally. No significant pitting edema. No cyanosis. Psychiatric: Affect appears appropriate. Results & Data Vital Signs (Past 12 Hours) Vital Signs Temp Pulse Pulse Resp BP Pulse Ox O2 Del Method 04/10/24 12:21 36.6 C 48 L 16 152/77 H 94 Room Air 04/10/24 10:03 56 L 04/10/24 07:57 36.7 C 61 16 164/77 H 96 Room Air 04/10/24 03:06 36.7 C 54 L 16 151/76 H 97 Room Air Intake & Output 04/08/24 04/09/24 04/10/24 04/11/24 06:59 06:59 06:59 06:59 Intake Total 120 / 120 660 / 660 Balance 120 / 120 660 / 660 Weight 135 lb 5.821 oz 141 lb 8.588 oz Laboratory Results Laboratory Results - last 24 hr 04/10/24 06:47 WBC 6.60 RBC 4.50 Hgb 14.6 Hct 43.6 MCV 96.9 MCH 32.4 MCHC 33.5 RDW Std Deviation 50.0 H RDW Coeff of Maritza 14.0 Plt Count 241 MPV 10.4 Immature Gran % (Auto) 0.9 Neut % (Auto) 55.0 Lymph % (Auto) 30.8 Bollinger % (Auto) 10.2 Eos % (Auto) 2.3 Baso % (Auto) 0.8 Neut # (Auto) 3.64 Lymph # (Auto) 2.03 Bollinger # (Auto) 0.67 H Eos # (Auto) 0.15 Baso # (Auto) 0.05 Immature Gran # (Auto) 0.06 Sodium 135 L Potassium 4.0 Chloride 104 Carbon Dioxide 25 Anion Gap 6 BUN 19 Creatinine 0.84 Est Cr Clr Drug Dosing 40.7 Est GFR ( Amer) 71.9 Est GFR (Non-Af Amer) 62.1 BUN/Creatinine Ratio 22.6 H Glucose 98 Calcium 8.8 Diagnostic Findings Telemetry personally reviewed: Atrial fibrillation with heart rate in the 50s while in bed. Labs reviewed and notable for normal hemoglobin, normal potassium, stable renal function. Medications Administered Current Inpatient Medications Acetaminophen (Acetaminophen 325 Mg Tab) 650 mg PO Q4H PRN PRN Reason: pain/fever Stop: 05/08/24 18:22 Al Hydrox/Mg Hydrox/Simethicone (Aluminum/Magnesium Susp 30 Ml Udc) 30 ml PO Q6H PRN PRN Reason: Dyspepsia Stop: 05/08/24 18:22 Amlodipine Besylate (Amlodipine Besylate 5 Mg Tab) 10 mg PO QPM ELZA Stop: 05/09/24 20:59 Last Admin: 04/09/24 20:00 Dose: 10 mg Atorvastatin Calcium (Atorvastatin 40 Mg Tab) 40 mg PO QAM ELZA Stop: 05/08/24 18:29 Last Admin: 04/10/24 08:20 Dose: 40 mg Brimonidine Tartrate (Brimonidine Tartrate 0.2% 5ml) 1 drops OPB BID ELZA Stop: 05/08/24 21:06 Last Admin: 04/10/24 08:20 Dose: 1 drops Dorzolamide/Timolol (Dorzolamide/Timolol 22.3/6.8mg/Ml 10 Ml Btl) 1 drops OPB BID ELZA Stop: 05/08/24 21:06 Last Admin: 04/10/24 08:20 Dose: 1 drops Ergocalciferol (Ergocalciferol 1250 Mcg (50,000 Units) Cap) 1,250 mcg PO Fr ELZA Stop: 05/13/24 08:59 Hydralazine HCl (Hydralazine Hcl 20 Mg/Ml Vial) 10 mg IV Q8 PRN PRN Reason: sbp>185 or dbp>95 Stop: 05/08/24 18:20 Latanoprost (Latanoprost 0.005% Op Soln 2.5 Ml Btl) 1 drops OPB HS ELZA Stop: 05/08/24 21:06 Last Admin: 04/09/24 20:01 Dose: 1 drops Levothyroxine Sodium (Levothyroxine Sodium 50 Mcg Tablet) 50 mcg PO DAILYBB [facility] Stop: 05/09/24 06:29 Last Admin: 04/10/24 05:38 Dose: 50 mcg Melatonin (Melatonin 3 Mg Tab) 3 mg PO HS PRN PRN Reason: Insomnia Stop: 05/08/24 18:22 Metoprolol Succinate (Metoprolol Succ 25mg Ext Rel Tab) 25 mg PO QAM [facility] Stop: 05/09/24 08:59 Last Admin: 04/10/24 08:19 Dose: 25 mg Nitroglycerin (Nitroglycerin Sl 0.4 Mg/Tab Tab) 0.4 mg SL Q5M PRN PRN Reason: Chest Pain Stop: 05/09/24 14:46 Ondansetron HCl (Ondansetron Inj 2 Mg/Ml 2 Ml Vial) 4 mg IV Q6H PRN PRN Reason: Nausea Stop: 05/08/24 18:22 Pantoprazole Sodium (Pantoprazole 40 Mg Tab) 40 mg PO DAILY [facility] Stop: 05/09/24 08:59 Last Admin: 04/10/24 08:20 Dose: 40 mg Rivaroxaban (Rivaroxaban 20 Mg Tab) 20 mg PO QDD [facility] Stop: 05/09/24 16:29 Last Admin: 04/09/24 17:02 Dose: 20 mg PG Care Time/CCT Total # of Minutes Spent Total Time Spent with Patient: Total time spent is greater than 50% in coordination of care (as documented) at patient's floor/unit and/or counseling patient: Coding Level of Care Code 20892 SUB INP/OBS CARE 3/50MIN Diagnoses Palpitations R00.2 CAD in [place] artery I25.10 Atrial fibrillation, permanent I48.21 Mitral regurgitation I34.0 Essential hypertension I10 Hypertension type: essential hypertension Cardiomyopathy I42.9 Dyspnea on exertion R06.09 Abnormal nuclear stress test R94.39 (5) Hypertension Hypertension type: essential hypertension Qualified Code(s): I10 - Essential (primary) hypertension
[2024-04-10] MEDS: LOSARTAN POTASSIUM 25 MG TAB PO SCH (13:52)
--- NOTE | 2024-04-10 17:27 | Discharge Summary ---
Date of Service date of admission - April 08, 2024 date of discharge - April 10, 2024 Admission HPI Per Admitting Provider 88-year-old female past medical history including CAD, atrial fibrillation, hypertension, IBS, PAD, and CVA presenting here today via ambulance from her home. Has been working with her doctors and single stroke preformer in particular with several weeks of some exertional chest discomfort. Been having some bilateral calf discomfort with ambulation but not at rest. No falls or syncope. Seen cardiology just several days ago. Denies chest pain currently but stated bit of tightness and again some worsening shortness of breath with exertion even just walking in the house. No syncope or falls. States she has been taking her Xarelto. She did not take any of her blood pressure medicine for 2 days, she ran out of the, her blood pressure is elevated in the 200s. She reports having positive stress test as outpatient, but decision was to treated medically. She denies headache, fever or chills, cough. Denies chest pain currently, denies shortness of breath at rest. Principal Diagnosis 1. chest discomfort - ACS ruled out 2. chest "thumping"/palpitations - only atrial fibrillation seen on heart monitoring 3. PAD Discharge Exam gen - NAD, looks well neck - no JVD mouth - MMM heart - RRR, s1 s2, no murmur lungs - CTA b/l abd - soft NT ND BS+ ext - no edema vascular - pulses b/l feet 1+; popliteal pulse 0-1+ on left, 1+ on right; no ischemic changes b/l feet; cap refill about 3 sec Discharge Data Allergies Allergy/AdvReac Type Severity Reaction Status Date / Time Penicillins Allergy Intermediate RASH ONLY Verified 04/08/24 17:33 atorvastatin AdvReac Intermediate MUSCLE Verified 04/08/24 17:33 CRAMPS/PAIN pravastatin AdvReac Intermediate MUSCLE Verified 04/08/24 17:33 CRAMPS/PAIN simvastatin AdvReac Intermediate MUSCLE Verified 04/08/24 17:33 CRAMPS/PAIN Consultations [facility] Cardiology Vascular Surgery Ordered Studies Chest X-Ray 04/08/24 15:50 XR chest 1V portable CLINICAL HISTORY: Dyspnea. COMPARISON STUDY: Chest CT June 05, 2018. Chest radiograph February 27, 2024. FINDINGS: There is no pneumothorax. Blunting of the left costophrenic angle is chronic and likely related to epicardial fat pad. Cardiomegaly is unchanged. No evidence for pulmonary edema. Apparent hazy left basilar opacity. IMPRESSION: 1. Cardiomegaly without evidence for pulmonary edema. 2. Apparent hazy left basilar opacity. This is likely artifactual however pneumonia could appear similar. Radiographic follow-up is recommended. ACT 112: Negative or not required by law. Electronically signed by: Avinash Mace M.D. 04/08/2024 4:23 PM Duplex Scan Lower Extremity Artery 04/09/24 17:39 US arterial duplex LE BI CLINICAL HISTORY: claudication TECHNIQUE: Real-time grayscale and color and spectral Doppler ultrasound imaging of the bilateral lower extremity arteries was performed. Measurements calculated based on NASCET criteria. COMPARISON: Comparison is made to Doppler ultrasound 05/07/2019 FINDINGS: Right: Monophasic waveforms are seen in the deep femoral artery with a maximum flow rate of 52 cm/s. Elevated velocities are seen in the popliteal artery with maximal velocity of 260 cm/s. Monophasic waveforms are seen in the leg with diminished flow as follows: Anterior tibial artery: 10 cm/s occluded mid to distal anterior tibial artery noted. Posterior tibial artery: 39 cm/s Peroneal artery: 43 cm/s Dorsalis pedis artery: 25 cm/s Left: Monophasic waveforms are seen in the deep femoral artery with a maximum flow rate of 90 cm/s Monophasic waveforms are in the popliteal artery with occlusion of the mid to distal artery. Maximum flow is 9.5 cm/s. Monophasic waveforms are seen in the leg as follows: Peroneal artery: 31 cm/s Anterior tibial artery 4.6 cm/s with occlusion of the mid and distal artery Posterior tibial artery: 24 cm/s with occlusion of the mid and distal artery Dorsalis pedis artery: 5.6 cm/s ANKLE/BRACHIAL INDEX (KIRK): Brachial: Right: 166 mmHg. Ankle (dorsalis pedis): Right: 99 mmHg. Left: 125 mmHg. Ankle (posterior tibial): Right: 117 mmHg. Left: 114 mmHg. Ankle/brachial index: Right: 0.70, Left: 0.75. Reference ranges: Normal Ankle/Brachial Index (KIRK) 1.0-1.4; 0.91-0.99 borderline; < or = 0.9 abnormal (0.7-0.89 mild, 0.51-0.69 moderate, < or = 0.5 severe peripheral arterial disease). Normal Toe/Brachial Index (TBI) > or = 0.6; < 0.6 abnormal (0.34-0.59 mild, 0.12-0.34 moderate, < or = 0.11 severe peripheral arterial disease). IMPRESSION: 1. Hemodynamically significant stenosis in the bilateral popliteal arteries. Minimal flow is seen distally. 2. Ankle brachial indices indicative of mild peripheral artery disease bilaterally. ACT 112: Negative or not required by law. Electronically signed by: Alex Lainez M.D. 04/10/2024 9:03 PM Hospital Course (1) Chest discomfort: HS troponins were negative. EKG without ischemic changes. Nonobstructive CAD was seen on 2015 cardiac catheterization. On 03/28/24 a Lexiscan Nuclear stress test was performed as an outpatient showing the following - 1. Abnormal myocardial perfusion study suggesting a small area of lateral ischemia. 2. Hyperdynamic LV systolic function. EF 88%. No regional wall motion abnormalities. 3. Lexiscan induced shortness of breath. 4. Nondiagnostic Lexiscan ECG. Seen by [facility] Cardiology this admission -- chest discomfort was felt to NOT be due to ischemic heart disease despite the recent stress test results. Chest discomfort may have been due to her uncontrolled HTN. If patient continues to have chest symptoms, however, then consider cardiac catheterization. (2) Palpitations: Patient mentioned having a "thumping" sensation at times. Despite the palpitations we did not see anything beyond atrial fibrillation on telemetry. She will continue on metoprolol succinate 25mg daily. TSH recently as outpatient was mildly high at 8. Recommend repeat TSH in 4-6 weeks and adjust synthroid dose as needed. (3) Hypertension: Severely uncontrolled upon ER presentation with systolic BP of 257. BPs remained quite high for most of her stay. BPs gradually improved with titration of amlodipine from 7.5mg to 10mg/day along with addition of losartan 25mg daily. Systolic BP at discharge was in the 150s. (4) Bilateral claudication of lower limb: Patient with known PAD, followed by Dr Andrei Bolaños. --s/p GIRISH to left popliteal, angioplasty ORLIN 04/2019 --s/p GIRISH to left distal SFA/popliteal 06/2020 Underwent b/l arterial duplex study of legs. This showed b/l popliteal artery stenosis of significant degree. Dr Bolaños met with patient in consult. Options reviewed including arteriogram vs conservative measures (medicines for PAD, etc). Patient opted for conservative Rx only. Thus, starting cilostazol 50mg BID. Unfortunately patient has not tolerated multiple statin agents thus statin Rx deferred. Patient will follow-up with Dr Bolaños in 3 months, sooner if needed. (5) Abnormal nuclear stress test: see #1 above (6) Atrial fibrillation: Rate controlled with metoprolol succinate. Continue Xarelto 20mg daily. (7) History of CVA (cerebrovascular accident): Continue Xarelto for secondary prevention. (8) Hypothyroidism: TSH in February 2024 was mildly high at 8.7. This was on a dose of synthroid 50mcg daily. Recommend repeat TSH in a few weeks. If still elevated consider dose titration of synthroid at that time. Total Time Total Time Spent Total Time Spent (In Minutes): 40 Discharge Plan Discharge Items Patient Disposition: Home - Self-Care Reason For Visit: CHEST DISCOMFORT Discharge Diagnosis: 1. chest discomfort - no evidence of heart attack 2. chest "thumping"/palpitations - only atrial fibrillation seen on heart monitoring 3. PAD (peripheral arterial disease) of legs Activity: Resume your previous activity Activity Comment: as tolerated Non-emergency contact: Primary Care Provider Call non-emergency contact if: you have any medication questions and your symptoms worsen Follow-up/Referrals: Andrei Francis MD [Primary Care Provider] - 04/17/24 11:00 am (1 week APPT. WITH Christi JAMES PA-C) Andrei Bolaños MD [Physician] - (1-2 weeks; Dr Bolaños' office will be calling to schedule that follow-up appointment ) Diet: Heart Healthy Addtl Attending Provider Instructions: Mrs Younger, You were hospitalized due to a variety of complaints including chest discomfort, shortness of breath with exertion, chest "thumping," pain in the legs with walking, etc. We did not find evidence of a heart attack while here. Heart monitoring showed well-controlled atrial fibrillation. No other abnormal heart rhythms were seen. Your blood pressures were very high upon presentation and remained high for much of the stay. This prompted adjustments and additions in your blood pressure medication regimen. You were seen by [facility] - Dr Taylor and Dr Bolaños. Dr Taylor recommended tighter control of your blood pressure. It is very possible that many of your symptoms were caused by the elevated blood pressure. Dr Bolaños saw you after your arterial study of your legs showed a clogged popliteal artery in the left leg. At this time you wish to try medicines first for your peripheral arterial disease rather than invasive tests/procedures. Recommendations - 1. INCREASE your amlodipine to 10mg each evening. You had been taking 7.5mg prior. 2. START losartan 25mg once daily each morning. This is for your blood pressure. Start tomorrow morning. 3. START cilostazol 50mg twice daily for your peripheral arterial disease. You can start this tonight or tomorrow morning. Follow-up - see separate section Return to [facility] if - * you have recurrent chest pains * you have worsening shortness of breath * you have uncontrolled pain in either leg especially if that pain occurs while sitting, laying in bed, etc. * you have dizziness or lightheadedness * any other concerns It was our pleasure to care for you! -Dr Ashley Pending Studies at Discharge: No Stand-Alone Forms: My [facility], Smoking Cessation Medications and DC Order Prescriptions: New losartan 25 mg Tablet 25 mg PO QAM Qty: 30 2RF Rx Instructions: for high blood pressure cilostazol 50 mg tablet 50 mg PO BID Qty: 60 2RF Rx Instructions: for peripheral arterial disease Continued metoprolol succinate 25 mg tablet extended release 24 hr 25 mg PO QAM Qty: 90 3RF Xarelto 20 mg tablet 20 mg PO DAILY@1500 Qty: 90 1RF Rx Instructions: must administer with evening meal levothyroxine 50 mcg tablet 50 mcg PO DAILY 90 Days Qty: 90 0RF Rx Instructions: Take every morning except Tuesday latanoprost 0.005 % drops 1 drp OPB HS omeprazole 40 mg capsule,delayed release(DR/EC) 40 mg PO DAILY Qty: 90 1RF Rx Instructions: eat 30 minutes after taking medication. dorzolamide-timolol 22.3-6.8 mg/mL drops 1 drp OPB BID Repatha SureClick 140 mg/mL pen injector 140 mg subcut .q2week Qty: 2 5RF brimonidine 0.2 % drops 1 drp OPB BID ergocalciferol (vitamin D2) 1,250 mcg (50,000 unit) capsule 1,250 mcg PO WK Rx Instructions: PER PT "WHEN I REMEMBER" Changed amlodipine 5 mg tablet 10 mg PO QPM Qty: 135 3RF Discharge Orders: Discharge Order (Routine); Ordered 04/10/24 Ordered By: Javed Constantino/Other Patient Handouts: PAD Cilostazol Admission Data Admit Date/Time: 04/08/24 18:24 Attending Provider: Javed Ashley Admit Provider: Roberta Royal Primary Care Provider: Andrei Francis Other Providers: Len Griffin; Roberta Royal; Andrei Bolaños Other Interventions: Discharge Summary Assessment (RN) Last Done: 04/10/24 17:30 Coding Level of Care Code 09721 INP/OBS DISCH >30 MIN Diagnoses Chest discomfort R07.89 Palpitations R00.2 Essential hypertension I10 Hypertension type: essential hypertension Bilateral claudication of lower limb I73.9 Abnormal nuclear stress test R94.39 Atrial fibrillation I48.91 History of CVA (cerebrovascular accident) Z86.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
--- NOTE | 2024-04-10 21:05 | Ultrasound Report ---
US arterial duplex LE BI CLINICAL HISTORY: claudication TECHNIQUE: Real-time grayscale and color and spectral Doppler ultrasound imaging of the bilateral low er extremity arteries was performed. Measurements calculated based on NASCET criteria. COMPARISON: Comparison is made to Doppler ultrasound 05/07/2019 FINDINGS: Right: Monophasic waveforms are seen in the deep femoral artery with a maximum flow rate of 52 cm/s. Elevated velocities are seen in the popliteal artery with maximal velocity of 260 cm/s. Monophasic wa veforms are seen in the leg with diminished flow as follows: Anterior tibial artery: 10 cm/s occluded mid to distal anterior tibial artery noted. Posterior tibial artery: 39 cm/s Peroneal artery: 43 cm/s Dorsalis pedis artery: 25 cm/s Left: Monophasic waveforms are seen in the deep femoral artery with a maximum flow rate of 90 cm/s Monophasic waveforms are in the popliteal artery with occlusion of the mid to distal artery. Maximum flow is 9.5 cm/s. Monophasic waveforms are seen in the leg as follows: Peroneal artery: 31 cm/s Anterior tibial artery 4.6 cm/s with occlusion of the mid and distal artery Posterior tibial artery: 24 cm/s with occlusion of the mid and distal artery Dorsalis pedis artery: 5.6 cm/s ANKLE/BRACHIAL INDEX (KIRK): Brachial: Right: 166 mmHg. Ankle (dorsalis pedis): Right: 99 mmHg. Left: 125 mmHg. Ankle (posterior tibial): Right: 117 mmHg. Left: 114 mmHg. Ankle/brachial index: Right: 0.70, Left: 0.75. Reference ranges: Normal Ankle/Brachial Index (KIRK) 1.0-1.4; 0.91-0.99 borderline; < or = 0.9 abnormal (0.7-0.89 mild, 0.51-0.69 moderate, < or = 0.5 severe peripheral arterial disease). Normal Toe/Brachial Index (TBI) > or = 0.6; < 0.6 abnormal (0.34-0.59 mild, 0.12-0.34 moderate, < or = 0.11 severe peripheral arterial disease). IMPRESSION: 1. Hemodynamically significant stenosis in the bilateral popliteal arteries. Minimal flow is seen di stally. 2. Ankle brachial indices indicative of mild peripheral artery disease bilaterally. ACT 112: Negative or not required by law. Electronically signed by: Alex Lainez M.D. 04/10/2024 9:03 PM
--- NOTE | 2024-04-10 22:20 | Vascular Medicine Consultation ---
Date of Consultation April 10, 2024 Assessment & Plan (1) PAD (peripheral artery disease): --s/p GIRISH to left popliteal, angioplasty ORLIN 04/2019 --s/p GIRISH to left distal SFA/popliteal 06/2020 2. Permanent atrial fibrillationon Xarelto 3. Prior Takotsubo's cardiomyopathy 4. Dyslipidemia 5. Mitral regurgitationmoderate to severe, last echo 06/2023. Consulted today due to bilateral right >left claudication. No rest pain or signs of CLI. Reviewed patient's recent arterial duplex. Has bilateral severe popliteal artery disease. Left popliteal occlusion appears to extend to trifurcation. Discussed with patient options for management going forward including possible repeat angiogram/intervention. At this point wishes to try additional conservative management first which agree with. Will add cilostazol 50 mg twice daily. Encouraged daily structured walking. Continued ASCVD risk factor modification with Dr. Taylor. If refractory symptoms in future RLE popliteal stenosis appears amenable to intervention. Left popliteal occlusion more complex. Will follow-up in 3 months History of Present Illness Attending Physician: Javed Ashley MD History of Present Illness Mrs. Younger is a very pleasant 88 year-old female with left lower extremity peripheral arterial disease post multiple endovascular interventions seen today in hospital due to claudication. She also has a history of permanent atrial fibrillation, prior Takotsubo's cardiomyopathy, non-obstructive CAD and carotid artery disease post LT CEA and at least moderate MR followed by Dr. Taylor for her cardiac issues. Admitted 04/08/2024 after episode of palpitations/chest discomfort occurring in the setting of uncontrolled BP up to 250s. Occurred in the setting of questionable adherence to home medications. Restarted on home amlodipine and irbesartan BP improved. No additional chest symptoms. No additional cardiac testing necessary. Patient did endorse worsening bilateral right greater than left lower extremity claudication involving her calves. Symptoms at less than 50 feet. Resolved with rest. Denies any rest pain. No ulcerations. Underwent lower extremity arterial duplex showing left distal popliteal occlusion and severe right popliteal stenosis with bilateral monophasic infrapopliteal flow. Patient last seen by vascular medicine/20 06/2024. Repeat KIRK/TBI at that time right 0.84/0.34 (62), left 0.61/0.26 (48) Prior vascular history: She was initially seen in the ED on 05/07/2019 after noted new LLE claudication occurring as short as 50 ft over the preceding 1 to 2 weeks. LE arterial duplex showed a 90+% stenosis involving LT popliteal artery and severe tibial vessel disease. Angiogram/intervention on 05/09/2019 revealed a 99% focal popliteal stenosis on the left with occluded COMMERCIAL DIVER and ORLIN with severe diffuse disease. Popliteal treated with angioplasty with drug-eluting balloon (4.0 x 80) and anterior tibial dilated with 2.0 balloon. She was seen in our office on 06/05/20 with worsening left leg claudication. Left lower extremity angiogram on 06/20/20 revealed severe distal SFA stenosis, patent popliteal artery and single vessel runoff to the ankle via peroneal artery. She underwent successful angioplasty of distal SFA into popliteal artery with drug eluding balloon (5.0 x 150 mm Lutonix) without complication. She presented to our office several days after the procedure with episodic neurological symptoms. CT of the head was unremarkable. She had been off her chronic anticoagulation for 48 hours prior to procedure. Neurologic symptoms resolved without additional intervention. Repeat noninvasive vascular testing 07/2020 showed improvement in left KIRK from 0.77 to 1.02. TBI 0.42 (62 mmHg), improved from 0.37. Allergies Allergy/AdvReac Type Severity Reaction Status Date / Time Penicillins Allergy Intermediate RASH ONLY Verified 04/08/24 17:33 atorvastatin AdvReac Intermediate MUSCLE Verified 04/08/24 17:33 CRAMPS/PAIN pravastatin AdvReac Intermediate MUSCLE Verified 04/08/24 17:33 CRAMPS/PAIN simvastatin AdvReac Intermediate MUSCLE Verified 04/08/24 17:33 CRAMPS/PAIN Home Medications Medication Instructions Recorded Confirmed Type dorzolamide 22.3 mg-timolol 6.8 1 drp OPB BID 02/23/19 04/08/24 History mg/mL eye drops latanoprost 0.005 % eye drops 1 drp OPB HS 04/30/19 04/08/24 History brimonidine 0.2 % eye drops 1 drp OPB BID 05/07/19 04/08/24 History metoprolol succinate 25 mg 25 mg PO QAM #90 tabs 10/26/22 04/08/24 Rx tablet,extended release 24 hr rivaroxaban 20 mg tablet (Xarelto) 20 mg PO DAILY@1500 #90 tabs 04/22/23 04/08/24 Rx omeprazole 40 mg capsule,delayed 40 mg PO DAILY #90 caps 07/18/23 04/08/24 Rx release levothyroxine 50 mcg tablet 50 mcg PO DAILY 90 days #90 tabs 03/22/24 04/08/24 Rx evolocumab 140 mg/mL subcutaneous 140 mg subcut .q2week #2 mL 04/06/24 04/08/24 Rx pen injector (Radha Goetz) ergocalciferol (vitamin D2) 1,250 1,250 mcg PO WK 04/08/24 04/08/24 History mcg (50,000 unit) capsule amlodipine 5 mg tablet 10 mg (2 x 5 mg) PO QPM #135 tabs 04/10/24 04/08/24 Rx cilostazol 50 mg tablet 50 mg PO BID #60 tabs 04/10/24 Rx losartan 25 mg tablet 25 mg PO QAM #30 tabs 04/10/24 Rx Patient History Medical History (Updated 04/09/24 @ 22:45 by Rodri Taylor MD) Renal infarct Hyperglycemia Claudication NSTEMI (non-ST elevated myocardial infarction) Intractable pain Surgical History History of carpal tunnel surgery History of total abdominal hysterectomy and bilateral salpingo-oophorectomy S/P appendectomy History of cholecystectomy History of thyroid surgery H/O endarterectomy History of Neurological Surgery Carotid Endarterectomy Family History Mother Diabetes Hypertension Sister Diabetes Kidney disease Hypertension Brother Kidney disease Hypertension Diabetes Father Myocardial infarction Colorectal cancer Unknown Hypertension Cardiac disorder Stroke Cancer Other Buerger's disease No family history of bleeding disorder Denies family history of Ovarian cancer Prostate cancer Breast cancer Social History Smoking Status: Never smoker Second Hand Exposure: No; Do You Dip or Chew Tobacco: No; Hx Alcohol Use: Yes Alcohol type: wine Alcohol Intake Frequency: 4 or More x per/Week Alcohol Intake Frequency Comment: 1-2 glasses per day Hx Substance Use: No Preferred Language: Martiniquais Communication Ability: Effective Visual Impairment: Limited Hearing Ability: Normal Maintainer Central Office Required: No Beliefs That Will Affect Care: None marital status: Current Living Situation: Spouse Current Living Situation Comment: mobile home current occupational status: retired current occupation: Retired-[employer] Feels Safe at Home: Yes Childhood Exposure to Second-Hand Smoke: No Diet: regular caffeine: Yes during the past year weight has: remained stable Dental Care, Regularly: No Physical Activity Frequency: Does not Exercise Seatbelt Use: always Sunscreen Use: Yes Assistive Devices: None Review of Systems Review of Systems: All systems reviewed & are unremarkable except as noted in HPI & below Physical Exam Physical Exam: General: Comfortable HEENT: Sclerae anicteric Lungs: Clear to auscultation bilaterally, Cardiac: Irregular irregular 2 out of 6 holosystolic murmur heard best at left lower sternal border Vascular: 2+ radial, nonpalpable DP/PT pulses bilaterally, nonpalpable popliteal pulses. Normal capillary refill, feet warm. Abdomen: Soft, nontender Extremities: Well perfused, no peripheral edema Psych: Alert orient x3, normal affect and mood Results & Data Vital Signs (Past 12 Hours) Vital Signs Temp Pulse Pulse Resp BP BP Pulse Ox 04/10/24 17:30 97.9 F 76 51 L 16 135/80 152/77 H 95 04/10/24 15:00 97.9 F 51 L 16 135/80 95 04/10/24 12:21 97.9 F 48 L 16 152/77 H 94 O2 Del Method 04/10/24 17:30 04/10/24 15:00 Room Air 04/10/24 12:21 Room Air PG Care Time/CCT Total # of Minutes Spent Total Time Spent with Patient: Total time spent is greater than 50% in coordination of care (as documented) at patient's floor/unit and/or counseling patient: Coding Level of Care Code 43936 INT INP/OBS CARE 2/55MIN Diagnoses PAD (peripheral artery disease) I73.9
[2024-04-13] MEDS ORDERED: ERGOCALCIFEROL 1250 MCG (50,000 UNITS) CAP PO SCH (09:00)
== END 2024-04-10 17:46 | disposition home or self-care (01) ==
LOC: 2N 15:34 → ED 15:34 → SUATTDRO 18:24 → 2N 20:53

== ENCOUNTER 2024-07-24 14:39 | Observation (INO) ==
--- NOTE | 2024-07-24 15:32 | Emergency Department Note ---
Impression & Plan BRBPR (bright red blood per rectum), Anticoagulant long-term use ED Provider Note NAME: HIWOT RANGEL AGE: 88 SEX: F : 1935 ARRIVES VIA: Walk-In INFORMANT: Patient ED PROVIDER(S): Alex Acuña DO CHIEF COMPLAINT: HPI: Patient 88-year-old female who presents to the ER for feeling weak. She notes that she has been pooping blood intermittently for the past several months. This generally occurs once every couple days. She notes that for the past 4 days she has been noticing bright red blood per rectum when she goes. She notes she is not straining. She is taking Eliquis. Bleeding has worsened today as she has had it twice. She has not had a colonoscopy for the past several years. She noticed some black stool today. After bright red blood and dark blood. Denies any belly pain. Additional history was obtained from family who notes that this has been going off and on intermittently for several weeks. ADDITIONAL HISTORY OBTAINED: Per HPI Chronic Medical/Social Conditions Affecting Care: Per HPI PAST MEDICAL HISTORY:See Below PAST SURGICAL HISTORY:See Below FAMILY HISTORY:See Below SOCIAL HISTORY:See Below HOME MEDICATIONS:See Below ALLERGIES:See Below VITALS:See Below PHYSICAL EXAMINATION: GENERAL: Sitting up in bed, alert, well appearing, well nourished, no distress, non-toxic EYE EXAM: normal conjunctiva. PERRL and EOM's grossly intact. OROPHARYNX: no exudate, no erythema, lips, buccal mucosa, and tongue normal and mucous membranes are moist NECK: supple, no nuchal rigidity, no adenopathy, non-tender LUNGS: Clear to auscultation. Normal chest wall mechanics HEART: no murmurs, S1 normal and S2 normal ABDOMEN: abdomen soft, non-tender, normo-active bowel sounds, no masses, no rebound or guarding. RECTAL: Heme positive brown stool. No external engorged hemorrhoids. UPPER EXTREMITIES: upper extremities are grossly normal. LOWER EXTREMITIES: No pitting edema. NEURO EXAM: Normal sensorium, cranial nerves II-XII grossly intact, normal speech, no gross weakness of arms, no weakness of legs. MEDICAL DECISION MAKING: Patient is an 88-year-old female who presents ER for the below stated complaint. IV was established medicos obtained. Labs show no significant leukocytosis or anemia. INR unremarkable. BMP on LFTs bilirubin was unremarkable. Patient was typed and screened. She has no belly pain. No external hemorrhoids. Rectal did have brown stool and blood was present. There is no black or tarry stools. She was given a dose of IV Protonix. She is updated bedside. Discussed case with the hospitalist for further evaluation management and treatment due to her age and the large amount of blood that she was complaining of passing. Consults/Care Managements Discussions: Per MDM Triage Nursing notes reviewed. Limited review of prior medical records performed Vital Signs: reviewed and remarkable for no significant abnormalities Differential diagnosis: Differential diagnoses includes but is not limited to gastritis, peptic ulcer disease, GERD, gallbladder disease, pancreatitis, small bowel obstruction, appendicitis, diverticulitis, hernia, urinary tract infection, torsion, perforation, trauma, infectious. ER treatment provided: See below Diagnostics interpreted by me include EKG and cardiac monitoring as listed below: -Cardiac Monitoring: An order was placed for continuous cardiac monitoring. The monitor shows a rate of 80 with sinus rhythm. -ECG: Sinus rhythm rate of 71 Normal axis No PVCs QTc 452 -Laboratory studies:Interpreted by me as stated above in MDM and shown below. Imaging studies: Xrays: As interpreted by me:none CTs show: none Procedures:none Critical Care: None Past Med/Surg History Problem List (Updated 07/24/24 @ 21:36 by Alex Acuña DO) BRBPR (bright red blood per rectum) (Acute) Bright red blood per rectum Syncope and collapse Chest discomfort Atrial fibrillation, permanent Palpitations Bilateral claudication of lower limb (Acute) VACA (dyspnea on exertion) (Acute) Abnormal nuclear stress test (Acute) Dyspnea on exertion Acute memory impairment Left knee DJD Abnormal CT of the chest Acid reflux Anticoagulant long-term use (Acute) Arthritis CAD in [place] artery Cardiomyopathy Carotid artery stenosis Constipation Glaucoma Jacques's thyroiditis Herpes zoster Hyperlipidemia Hypertension Hypothyroidism Mitral regurgitation Nontoxic multinodular goiter Overweight 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 Tricuspid regurgitation Ventricular tachycardia Irritable bowel syndrome (IBS) PAD (peripheral artery disease) Allergic rhinitis Hx of hemorrhoids Rectal bleeding Osteopenia Impaired fasting glucose Vitamin D deficiency Back pain Urinary symptom or sign Neurological symptoms Multiple thyroid nodules Cough Cholesterol-lowering agent myopathy Constipation History of myocardial infarction Renal infarct (Acute) Mesenteric artery stenosis Medical History History of CVA (cerebrovascular accident) Renal infarct Hyperglycemia Claudication NSTEMI (non-ST elevated myocardial infarction) Intractable pain Surgical History History of carpal tunnel surgery History of total abdominal hysterectomy and bilateral salpingo-oophorectomy S/P appendectomy History of cholecystectomy History of thyroid surgery H/O endarterectomy Family History Mother Diabetes Hypertension Sister Diabetes Kidney disease Hypertension Brother Kidney disease Hypertension Diabetes Father Myocardial infarction Colorectal cancer Unknown Hypertension Cardiac disorder Stroke Cancer Other Buerger's disease No family history of bleeding disorder Denies family history of Ovarian cancer Prostate cancer Breast cancer Social History (Updated 07/16/24 @ 15:03 by Diamond Culver LPN) Smoking Status: Never smoker Second Hand Exposure: No; Do You Dip or Chew Tobacco: No; Hx Alcohol Use: Yes Alcohol type: wine Alcohol Intake Frequency: 4 or More x per/Week Alcohol Intake Frequency Comment: 1-2 glasses per day Hx Substance Use: No Preferred Language: Dominican Communication Ability: Effective Visual Impairment: Limited Hearing Ability: Normal Table Operator Required: No Beliefs That Will Affect Care: None marital status: Current Living Situation: Spouse Current Living Situation Comment: mobile home current occupational status: retired current occupation: Retired-[employer] Feels Safe at Home: Yes Childhood Exposure to Second-Hand Smoke: No Diet: regular caffeine: Yes during the past year weight has: remained stable Dental Care, Regularly: No Physical Activity Frequency: Does not Exercise Seatbelt Use: always Sunscreen Use: Yes Assistive Devices: Denture - Upper, Denture - Lower and Glasses Allergies Allergies Allergy/AdvReac Type Severity Reaction Status Date / Time Penicillins Allergy Intermediate RASH ONLY Verified 07/24/24 13:50 atorvastatin AdvReac Intermediate MUSCLE Verified 07/24/24 13:50 CRAMPS/PAIN pravastatin AdvReac Intermediate MUSCLE Verified 07/24/24 13:50 CRAMPS/PAIN simvastatin AdvReac Intermediate MUSCLE Verified 07/24/24 13:50 CRAMPS/PAIN Home Meds Home Medications Medication Instructions Recorded Confirmed dorzolamide 22.3 mg-timolol 6.8 1 drp OPB BID 02/23/19 07/24/24 mg/mL eye drops brimonidine 0.2 % eye drops 1 drp OPB BID 05/07/19 07/24/24 ergocalciferol (vitamin D2) 1,250 1,250 mcg PO WK 04/08/24 07/24/24 mcg (50,000 unit) capsule netarsudil 0.02 %-latanoprost 1 drp ophthalmic (eye) DAILY 05/30/24 07/24/24 0.005 % eye drops (Rocklatan) Previous Rx's Medication Instructions Recorded omeprazole 40 mg capsule,delayed 40 mg PO DAILY #90 caps 04/13/24 release amlodipine 10 mg tablet 10 mg PO QPM #90 tabs 04/16/24 losartan 50 mg tablet 50 mg PO QAM #90 tabs 04/16/24 cilostazol 100 mg tablet 100 mg PO BID #60 tabs 04/30/24 apixaban 5 mg tablet (Eliquis) 5 mg PO BID #180 tabs 05/30/24 levothyroxine 50 mcg tablet 50 mcg PO DAILY 90 days #90 tabs 06/26/24 hydrocortisone 2.5 % topical cream 1 applic RI DAILY PRN hemorrhoids 07/13/24 with perineal applicator #30 grams Results & Data (ED) Vital Signs Vital Signs - 24 hr 07/24/24 14:46 07/24/24 15:31 07/24/24 16:01 Temperature 36.6 C Temperature Source Temporal Artery Scan Pulse Rate 76 73 Pulse Rate [Apical] Pulse Rate from SpO2 Sensor Respiratory Rate 20 Respiratory Effort / Characteristics Non-Labored Respiratory Depth Normal Respiratory Pattern Blood Pressure 137/71 Blood Pressure [Left Arm] Blood Pressure Mean 93 Blood Pressure Mean [Left Arm] Pulse Oximetry 97 94 Oxygen Delivery Method Room Air Room Air Sepsis Recent Fever Within 48 Hours No Sepsis New/Unexplained Change in Mental Status No Sepsis Action Taken by Nursing No Action Required 07/24/24 16:02 07/24/24 19:00 07/24/24 19:00 Temperature Temperature Source Pulse Rate Pulse Rate [Apical] 71 Pulse Rate from SpO2 Sensor Respiratory Rate 18 Respiratory Effort / Characteristics Non-Labored Spontaneous Respiratory Depth Normal Respiratory Pattern Regular Blood Pressure 132/64 132/64 Blood Pressure [Left Arm] 135/70 Blood Pressure Mean 75 75 Blood Pressure Mean [Left Arm] 91 Pulse Oximetry 92 Oxygen Delivery Method Room Air Sepsis Recent Fever Within 48 Hours Sepsis New/Unexplained Change in Mental Status Sepsis Action Taken by Nursing 07/24/24 19:03 07/24/24 19:09 07/24/24 19:12 Temperature Temperature Source Pulse Rate 70 73 73 Pulse Rate [Apical] Pulse Rate from SpO2 Sensor 70 73 Respiratory Rate 24 20 Respiratory Effort / Characteristics Respiratory Depth Respiratory Pattern Blood Pressure Blood Pressure [Left Arm] Blood Pressure Mean Blood Pressure Mean [Left Arm] Pulse Oximetry 92 96 Oxygen Delivery Method Sepsis Recent Fever Within 48 Hours Sepsis New/Unexplained Change in Mental Status Sepsis Action Taken by Nursing 07/24/24 19:30 07/24/24 19:30 07/24/24 19:30 Temperature Temperature Source Pulse Rate Pulse Rate [Apical] Pulse Rate from SpO2 Sensor Respiratory Rate Respiratory Effort / Characteristics Respiratory Depth Respiratory Pattern Blood Pressure 132/79 132/79 132/79 Blood Pressure [Left Arm] Blood Pressure Mean 109 109 109 Blood Pressure Mean [Left Arm] Pulse Oximetry Oxygen Delivery Method Sepsis Recent Fever Within 48 Hours Sepsis New/Unexplained Change in Mental Status Sepsis Action Taken by Nursing 07/24/24 19:32 07/24/24 20:00 07/24/24 20:00 Temperature Temperature Source Pulse Rate 78 Pulse Rate [Apical] 72 Pulse Rate from SpO2 Sensor 79 Respiratory Rate 16 22 Respiratory Effort / Characteristics Respiratory Depth Respiratory Pattern Blood Pressure 137/91 Blood Pressure [Left Arm] 132/79 Blood Pressure Mean 106 Blood Pressure Mean [Left Arm] 96 Pulse Oximetry 92 94 Oxygen Delivery Method Room Air Sepsis Recent Fever Within 48 Hours Sepsis New/Unexplained Change in Mental Status Sepsis Action Taken by Nursing 07/24/24 20:00 07/24/24 20:00 07/24/24 20:00 Temperature Temperature Source Pulse Rate Pulse Rate [Apical] Pulse Rate from SpO2 Sensor Respiratory Rate Respiratory Effort / Characteristics Respiratory Depth Respiratory Pattern Blood Pressure 137/91 137/91 137/91 Blood Pressure [Left Arm] Blood Pressure Mean 106 106 106 Blood Pressure Mean [Left Arm] Pulse Oximetry Oxygen Delivery Method Sepsis Recent Fever Within 48 Hours Sepsis New/Unexplained Change in Mental Status Sepsis Action Taken by Nursing 07/24/24 21:00 07/24/24 21:00 07/24/24 21:00 Temperature Temperature Source Pulse Rate Pulse Rate [Apical] Pulse Rate from SpO2 Sensor Respiratory Rate Respiratory Effort / Characteristics Respiratory Depth Respiratory Pattern Blood Pressure 125/60 125/60 125/60 Blood Pressure [Left Arm] Blood Pressure Mean 101 101 101 Blood Pressure Mean [Left Arm] Pulse Oximetry Oxygen Delivery Method Sepsis Recent Fever Within 48 Hours Sepsis New/Unexplained Change in Mental Status Sepsis Action Taken by Nursing 07/24/24 21:00 07/24/24 21:07 Temperature Temperature Source Pulse Rate 68 Pulse Rate [Apical] 74 Pulse Rate from SpO2 Sensor 73 Respiratory Rate 22 16 Respiratory Effort / Characteristics Respiratory Depth Respiratory Pattern Blood Pressure Blood Pressure [Left Arm] 125/60 Blood Pressure Mean Blood Pressure Mean [Left Arm] 81 Pulse Oximetry 96 95 Oxygen Delivery Method Sepsis Recent Fever Within 48 Hours Sepsis New/Unexplained Change in Mental Status Sepsis Action Taken by Nursing Laboratory Data 07/24/24 14:58 07/24/24 14:58 Lab Results 07/24/24 07/24/24 Range/Units 14:58 16:04 WBC 9.96 (4.8-10.8) K/ul RBC 3.90 L (4.20-5.40) M/uL Hgb 12.0 (12.0-16.0) g/dl Hct 35.6 L (37.0-47.0) % MCV 91.3 (80.0-100.0) fL MCH 30.8 (25.0-34.0) pg MCHC 33.7 (32.0-36.0) g/dL RDW Std Deviation 48.0 H (36.4-46.3) fL RDW Coeff of Maritza 14.5 (11.5-14.5) % Plt Count 348 (130-400) K/uL MPV 10.6 (9.4-12.4) fL Immature Gran % (Auto) 0.3 % Neut % (Auto) 74.4 % Lymph % (Auto) 15.5 % Mccreary % (Auto) 8.0 % Eos % (Auto) 1.1 % Baso % (Auto) 0.7 % Neut # (Auto) 7.41 H (1.40-6.50) K/uL Lymph # (Auto) 1.54 (1.20-3.40) K/uL Mccreary # (Auto) 0.80 H (0.11-0.59) K/uL Eos # (Auto) 0.11 (0.00-0.50) K/uL Baso # (Auto) 0.07 (0.00-0.20) K/uL Immature Gran # (Auto) 0.03 (0.01-0.20) K/uL PT 13.0 H (9.0-12.0) Seconds INR 1.2 H (0.9-1.1) APTT 37 H (21-31) Seconds PTT Ratio 1.4 Sodium 136 (136-145) mmol/L Potassium 3.5 (3.5-5.1) mmol/L Chloride 102 (98-107) mmol/L Carbon Dioxide 21 (21-32) mmol/L Anion Gap 13 H (3-11) BUN 15 (6-23) mg/dl Creatinine 0.95 (0.6-1.2) mg/dl Est Cr Clr Drug Dosing 36.3 ml/min eGFR 57.63 BUN/Creatinine Ratio 15.8 (10-20) Glucose 92 (70-99(Fasting)) mg/dl Calcium 9.6 (8.6-10.3) mg/dl Total Bilirubin 0.7 (0.2-1.0) mg/dl AST 30 (13-39) U/L ALT 14 (7-52) U/L Alkaline Phosphatase 65 (34-104) U/L Total Protein 7.4 (6.0-8.3) gm/dl Albumin 4.1 (3.4-5.0) gm/dl Globulin 3.3 (2.5-4.0) gm/dl Albumin/Globulin Ratio 1.2 (0.9-2) Blood Type O Positive Antibody Screen NEGATIVE Administered Medications Discontinued Medications Pantoprazole Sodium (Protonix) 40 mg in 10 mls @ 5 mls/min IV NOW ONE Stop: 07/24/24 15:47 Last Admin: 07/24/24 16:25 Dose: 5 mls/min Documented By: GGG Discharge Plan Visit Data Chief Complaint: Bleeding Stated Complaint: HEMORRAGEING ED Provider: Alex Acuña Discharge Problem: BRBPR (bright red blood per rectum), Anticoagulant long-term use Forms Stand Alone Forms: My [facility] MEDSEEK Prescriptions Prescriptions: No Action omeprazole 40 mg capsule,delayed release(DR/EC) 40 mg PO DAILY Qty: 90 1RF Rx Instructions: eat 30 minutes after taking medication. levothyroxine 50 mcg tablet 50 mcg PO DAILY 90 Days Qty: 90 0RF Rx Instructions: Take every morning except Tuesday dorzolamide-timolol 22.3-6.8 mg/mL drops 1 drp OPB BID losartan 50 mg tablet 50 mg PO QAM Qty: 90 3RF Rx Instructions: for high blood pressure amlodipine 10 mg tablet 10 mg PO QPM Qty: 90 3RF hydrocortisone 2.5 % cream with perineal applicator 1 applic RI DAILY PRN (Reason: hemorrhoids) Qty: 30 2RF cilostazol 100 mg tablet 100 mg PO BID Qty: 60 5RF Rocklatan 0.02-0.005 % drops 1 drp ophthalmic (eye) DAILY Eliquis 5 mg tablet 5 mg PO BID Qty: 180 3RF brimonidine 0.2 % drops 1 drp OPB BID ergocalciferol (vitamin D2) 1,250 mcg (50,000 unit) capsule 1,250 mcg PO WK Rx Instructions: PER PT "WHEN I REMEMBER" Referrals Referrals: Andrei Francis MD [Primary Care Provider] -
[2024-07-24 15:38] LABS: Basophils # (auto) 0.07 K/uL (0.00-0.20); Basophils % (auto) 0.7 %; Eosinophils # (auto) 0.11 K/uL (0.00-0.50); Eosinophils % (auto) 1.1 %; Hematocrit (blood only) 35.6 % (37.0-47.0); Immature Granulocytes # (auto) 0.03 K/uL (0.01-0.20); Immature Granulocytes % (auto) 0.3 %; Lymphocytes # (auto) 1.54 K/uL (1.20-3.40); Lymphocytes % (auto) 15.5 %; Mean Corpuscular Hemoglobin 30.8 pg (25.0-34.0); Mean Corpuscular Hgb Conc 33.7 g/dL (32.0-36.0); Mean Corpuscular Volume 91.3 fL (80.0-100.0); Mean Platelet Volume 10.6 fL (9.4-12.4); Neutrophils # (auto) 7.41 K/uL (1.40-6.50); Neutrophils % (auto) 74.4 %; Platelet Count 348 K/uL (130-400); RDW Coefficient of Variation 14.5 % (11.5-14.5); White Blood Count 9.96 K/ul (4.8-10.8)
[2024-07-24 15:45] LABS: Albumin Globulin Ratio 1.2 (0.9-2); Albumin Level 4.1 gm/dl (3.4-5.0); BUN Creatinine Ratio 15.8 (10-20); Bilirubin,Total 0.7 mg/dl (0.2-1.0); Calcium 9.6 mg/dl (8.6-10.3); Creatinine Clr Calc Pharmacy 36.3 ml/min; Globulin 3.3 gm/dl (2.5-4.0); Potassium 3.5 mmol/L (3.5-5.1); Total Protein 7.4 gm/dl (6.0-8.3)
[2024-07-24 15:55] LABS: INR 1.2 (0.9-1.1); Partial Thromboplastin Ratio 1.4; Partial Thromboplastin Time 37 Seconds (21-31)
[2024-07-24] MEDS: PANTOprazole 40 MG/10 ML SYR IV ONE (16:25)
--- NOTE | 2024-07-24 19:16 | History & Physical Report ---
Date of Service July 24, 2024 Assessment & Plan (1) Bright red blood per rectum: Plan: Salome is a 88yo F w PMH afib on chronic DOAC, CAD, HTN, PAD, NSTEMI, CVA, and nontoxic multinodular goiter, who presents with complaint of intermittent hematochezia x1m and melena x1 episode today, admitted for suspected LGIB. - painless rectal bleeding once every few days for the past month, 1 episode melena today, no abd pain - h/o hemorrhoids and diverticulosis - no fevers, leukocytosis, Hgb and BUN wnl - hold home Eliquis - start hydrocortisone 2.5% rectal cream - trend Hgb q8h (2) Atrial fibrillation, permanent: Plan: - HR wnl in ED, rhythm irregularly irregular - hold home Eliquis (5mg daily) - metoprolol stopped per electronic console display operator d/t low HR - admit to med/tele (3) Bilateral claudication of lower limb: Plan: - continue home cilostazol 100mg - LLE swelling; duplex US 04/09/24 showed no sign of DVT (4) Hypertension: Plan: - BP stable while in ED - continue amlodipine 10mg - continue losartan 50mg - continue ranolazine 1000mg bid (5) Nontoxic multinodular goiter: Plan: - multiple, benign thyroid nodules going back to 1970 per electrical and radio aircraft mechanic - s/p partial nodule removal - past biopsies indicative of Jacques's - continue levothyroxine 50mcg - continue regular outpatient monitoring w endo (6) Acute memory impairment: Plan: - oriented to person, to place w cues, and not to time - behavior is at baseline per family - mini-cog score was 3 on 12/29/22 (vs 5 on 05/25/21) Admission and Anticipated Discharge Date Admission Date: 07/24/24 History of Present Illness Chief Complaint: BRBPR Primary Care Provider: Andrei Francis MD Patient reports coming to ED by recommendation of Dr. Bolaños at her cardiology appt today. Earlier today she had 2 episodes of loose stools that were dark and bloody. For the past month, she has noticed bright-red blood in her stool once every few days, but says this is the first time it's happened twice in one day. It's also the first time she has noticed abnormal stool color, or had diarrhea where she felt she "couldn't stop it." She has no abdominal or rectal pain. She has not had any nausea, changes in appetite, or unintended weight loss. She does report one episode of emesis, but attributes it to a new medication that she started that day and has since stopped. She cannot recall ever experiencing something similar in the past. She is on Eliquis for afib (recently switched from Xarelto) and reports taking it daily as prescribed. Allergies Allergy/AdvReac Type Severity Reaction Status Date / Time Penicillins Allergy Intermediate RASH ONLY Verified 07/24/24 13:50 atorvastatin AdvReac Intermediate MUSCLE Verified 07/24/24 13:50 CRAMPS/PAIN pravastatin AdvReac Intermediate MUSCLE Verified 07/24/24 13:50 CRAMPS/PAIN simvastatin AdvReac Intermediate MUSCLE Verified 07/24/24 13:50 CRAMPS/PAIN Home Medications Medication Instructions Recorded Confirmed Type dorzolamide 22.3 mg-timolol 6.8 1 drp OPB BID 02/23/19 07/24/24 History mg/mL eye drops brimonidine 0.2 % eye drops 1 drp OPB BID 05/07/19 07/24/24 History ergocalciferol (vitamin D2) 1,250 1,250 mcg PO WK 04/08/24 07/24/24 History mcg (50,000 unit) capsule omeprazole 40 mg capsule,delayed 40 mg PO DAILY #90 caps 04/13/24 07/24/24 Rx release amlodipine 10 mg tablet 10 mg PO QPM #90 tabs 04/16/24 07/24/24 Rx losartan 50 mg tablet 50 mg PO QAM #90 tabs 04/16/24 07/24/24 Rx cilostazol 100 mg tablet 100 mg PO BID #60 tabs 04/30/24 07/24/24 Rx apixaban 5 mg tablet (Eliquis) 5 mg PO BID #180 tabs 05/30/24 07/24/24 Rx netarsudil 0.02 %-latanoprost 1 drp ophthalmic (eye) DAILY 05/30/24 07/24/24 History 0.005 % eye drops (Rocklatan) levothyroxine 50 mcg tablet 50 mcg PO DAILY 90 days #90 tabs 06/26/24 07/24/24 Rx hydrocortisone 2.5 % topical cream 1 applic MS DAILY PRN hemorrhoids 07/13/24 07/24/24 Rx with perineal applicator #30 grams Past Med/Surg History Problem List Bright red blood per rectum Syncope and collapse Chest discomfort Atrial fibrillation, permanent Palpitations Bilateral claudication of lower limb (Acute) VACA (dyspnea on exertion) (Acute) Abnormal nuclear stress test (Acute) Dyspnea on exertion Acute memory impairment Left knee DJD Abnormal CT of the chest Acid reflux Anticoagulant long-term use Arthritis CAD in [place] artery Cardiomyopathy Carotid artery stenosis Constipation Glaucoma Jacques's thyroiditis Herpes zoster Hyperlipidemia Hypertension Hypothyroidism Mitral regurgitation Nontoxic multinodular goiter Overweight 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 Tricuspid regurgitation Ventricular tachycardia Irritable bowel syndrome (IBS) PAD (peripheral artery disease) Allergic rhinitis Hx of hemorrhoids Rectal bleeding Osteopenia Impaired fasting glucose Vitamin D deficiency Back pain Urinary symptom or sign Neurological symptoms Multiple thyroid nodules Cough Cholesterol-lowering agent myopathy Constipation History of myocardial infarction Renal infarct (Acute) Mesenteric artery stenosis Medical History History of CVA (cerebrovascular accident) Renal infarct Hyperglycemia Claudication NSTEMI (non-ST elevated myocardial infarction) Intractable pain Surgical History History of carpal tunnel surgery History of total abdominal hysterectomy and bilateral salpingo-oophorectomy S/P appendectomy History of cholecystectomy History of thyroid surgery H/O endarterectomy Family History Mother Diabetes Hypertension Sister Diabetes Kidney disease Hypertension Brother Kidney disease Hypertension Diabetes Father Myocardial infarction Colorectal cancer Unknown Hypertension Cardiac disorder Stroke Cancer Other Buerger's disease No family history of bleeding disorder Denies family history of Ovarian cancer Prostate cancer Breast cancer Social History (Updated 07/16/24 @ 15:03 by Diamond Culver LPN) Smoking Status: Never smoker Second Hand Exposure: No; Do You Dip or Chew Tobacco: No; Hx Alcohol Use: Yes Alcohol type: wine Alcohol Intake Frequency: 4 or More x per/Week Alcohol Intake Frequency Comment: 1-2 glasses per day Hx Substance Use: No Preferred Language: Slovenian Communication Ability: Effective Visual Impairment: Limited Hearing Ability: Normal Audiometrist Required: No Beliefs That Will Affect Care: None marital status: Current Living Situation: Spouse Current Living Situation Comment: mobile home current occupational status: retired current occupation: Retired-[employer] Feels Safe at Home: Yes Childhood Exposure to Second-Hand Smoke: No Diet: regular caffeine: Yes during the past year weight has: remained stable Dental Care, Regularly: No Physical Activity Frequency: Does not Exercise Seatbelt Use: always Sunscreen Use: Yes Assistive Devices: Denture - Upper, Denture - Lower and Glasses Review of Systems Review of Systems: Constitutional: no fevers, fatigue CV: no chest pain, palpitations Resp: no SOB GI: + intermittent BRBPR, diarrhea w dark stools today, 1 recent episode emesis; no abdominal pain : no pain with urination, change in urinary frequency, incontinence Endo: no increased thirst, heat or cold intolerance Neuro: no new numbness, tingling, weakness Physical Exam Physical Exam: Gen: A&Ox2, NAD, WD/WN HEENT: NCAT, PERRL, EOMI CV: no m/r/g, S1/S2 normal, no edema Resp: CTAB, symmetrical chest rise, breathing non-labored Abd: Soft, NT/ND, +BS, no masses Ext: Normal str, no gross deformities, no deep calf pain Skin: Warm, dry, pink, no rashes or lesions Psych: Mood-affect congruent. Speech pace and content normal. Results & Data Results & Data Vital Signs (Past 12 Hours) Vital Signs Temp Pulse Pulse Resp BP BP Pulse Ox 07/24/24 16:02 71 18 135/70 92 07/24/24 16:01 94 07/24/24 15:31 73 07/24/24 14:46 36.6 C 76 20 137/71 97 O2 Del Method 07/24/24 16:02 Room Air 07/24/24 16:01 Room Air 07/24/24 15:31 07/24/24 14:46 Room Air Supervising Physician Co-Signing Physician Notes Patient seen and examined, chart reviewed, case discussed with Martina Black MD and I agree with the assessment and plan as above except as otherwise noted Labs and images reviewed Salome is an 88yo F with a PMHx of permanent Afib on DOAC, HTN, CVA, renal infarct, NSTEMI, PAD on apixaban who presents with 1 month of intermittent of BRBPR every few days. Painless bleeding. No abdominal pain. Today had two back to back episodes, one of which was dark/melanotic and with a +occult blood in the ER. Was referred in by her outpt electronic console display operator.Saw GI for constipation 1 year ago. Had a history of hemorrhoidal bleeding at that time. Resolved with topical tx and metamucil. At the bedside she is nondistressed, normotensive, she is not tachycardic. Abdomen is nontender to both light and deep palpation. No rebound tenderness or guarding. Denies chest pain chest pressure shortness of breath difficulty breathing at the bedside GI Bleed; hematochezia with one episode of melena Has a past history of diverticulosis and hemorrhoids - Hgb 12.0 - Intermittent episodes of hematochezia over the last month, 1 episode of small amount of melena day of admission. Occult + in ER - BUN is not elevated - No tachycardia, no hypotension - Abd is soft, no tenderness. Has a past history of diverticulosis. No pain, leukocytosis, fevergastro to suggest diverticulitis. CT deferred - ?Hemorrhoidal bleeding. Eliquis held x24 hours. Patient does not have indwelling stents although will resume this if hemoglobin stable given underlying vascular disease CBC continued every 8 hours Continue topical steroids Afib on Doac, history of Takotsubos, nonobstructive CAD - Last 02/2024 EF 65%, moderate LAD, mod MR, mod TR, mild pHTN Nonobstructive CAD on 2016 catheterization No history of stents Antihypertensives continued PAD -Focally on Eliquis as above History of GIRISH to left popliteal, left distal SFA/popliteal. No history of indwelling stents Resident Activity Tracking Resident Involvement: Resident Care Provided Care Provided: Adult Hospital Medicine (4) Hypertension Hypertension type: essential hypertension Qualified Code(s): I10 - Essential (primary) hypertension
--- NOTE | 2024-07-24 20:25 | Billing Data ---
Date of Service July 24, 2024 Coding Level of Care Code 17487 INT INP/OBS CARE
[2024-07-24] MEDS: cilostazoL 100 MG TAB PO SCH (22:56)
[2024-07-24] MEDS: amLODIPine BESYLATE 5 MG TAB PO SCH (22:56)
[2024-07-24] MEDS: DORZOLAMIDE/TIMOLOL 22.3/6.8MG/ML 10 ML BTL OPB SCH (22:57)
[2024-07-24] MEDS: BRIMONIDINE TARTRATE 0.2% 5ML OPB SCH (22:57)
[2024-07-24 23:03] LABS: Hematocrit (blood only) 34.6 % (37.0-47.0); Hemoglobin 11.8 g/dl (12.0-16.0); Mean Corpuscular Hemoglobin 31.2 pg (25.0-34.0); Mean Corpuscular Hgb Conc 34.1 g/dL (32.0-36.0); Mean Corpuscular Volume 91.5 fL (80.0-100.0); Mean Platelet Volume 10.5 fL (9.4-12.4); Platelet Count 315 K/uL (130-400); RDW Coefficient of Variation 14.5 % (11.5-14.5); RDW Standard Deviation 48.9 fL (36.4-46.3); Red Blood Count 3.78 M/uL (4.20-5.40); White Blood Count 6.45 K/ul (4.8-10.8)
[2024-07-25] MEDS: LEVOTHYROXINE SODIUM 50 MCG TABLET PO SCH (05:48)
[2024-07-25 07:05] LABS: BUN Creatinine Ratio 14.8 (10-20); Calcium 8.8 mg/dl (8.6-10.3); Creatinine Clr Calc Pharmacy 41.7 ml/min; Potassium 3.7 mmol/L (3.5-5.1)
[2024-07-25 07:06] LABS: Hematocrit (blood only) 33.6 % (37.0-47.0); Hemoglobin 11.4 g/dl (12.0-16.0); Mean Corpuscular Hemoglobin 31.2 pg (25.0-34.0); Mean Corpuscular Hgb Conc 33.9 g/dL (32.0-36.0); Mean Corpuscular Volume 92.1 fL (80.0-100.0); Mean Platelet Volume 10.7 fL (9.4-12.4); Platelet Count 311 K/uL (130-400); RDW Coefficient of Variation 14.5 % (11.5-14.5); RDW Standard Deviation 49.1 fL (36.4-46.3); Red Blood Count 3.65 M/uL (4.20-5.40); White Blood Count 6.19 K/ul (4.8-10.8)
--- NOTE | 2024-07-25 08:00 | Electrocardiogram Report ---
Test Reason : Blood Pressure : */* mmHG Vent. Rate : 71 BPM Atrial Rate : * BPM P-R Int : * ms QRS Dur : 70 ms QT Int : 416 ms P-R-T Axes : * 89 71 degrees QTcB Int : 452 ms Atrial fibrillation Low voltage QRS Diffuse Minor Nonspecific ST abnormality Abnormal ECG When compared with ECG of 08-Apr-2024 15:42, Nonspecific ST abnormality now present Confirmed by Jorge Harmon ([id number]) on 07/25/2024 8:00:31 AM Referred By: Andrei Bolaños Confirmed By: Jorge Harmon
[2024-07-25] MEDS: PANTOprazole 40 MG/10 ML SYR IV SCH (08:18)
[2024-07-25] MEDS: LOSARTAN POTASSIUM 50 MG TAB PO SCH (08:18)
[2024-07-25] MEDS: HYDROCORTISONE HC 2.5% CRM 30GM TUBE EXT SCH (08:19)
[2024-07-25] MEDS ORDERED: INFLUENZA VACC TS2024-25(65y+)/PF (IIV3) 0.5mL Syr IM ONE (09:00)
--- NOTE | 2024-07-25 13:19 | Hospitalist Progress Note ---
Date of Service July 25, 2024 Assessment & Plan (1) Bright red blood per rectum: Plan: Salome is a 88yo F w PMH CAD, HTN, PAD, NSTEMI, CVA, and nontoxic multinodular goiter s/p thyroidectomy, who presents with complaint of rectal bleeding on 07/24/2024 Etiology likely internal hemorrhoids given BRBPR on toilet paper and painless. - hold home Eliquis - switched topical steroid cream to Anusol suppositories BID x 2 weeks. -advanced to heart healthy diet -CBC reviewed 07/25: hgb stable at 11.4 -BMP reviewed 07/25: kidney function WNL, electrolytes stable. AM CBC, BMP (2) Atrial fibrillation, permanent: Plan: - hold home Eliquis (5mg daily) - metoprolol stopped per web development intern d/t low HR - continuous cardiac monitoring (3) Acute memory impairment: Plan: - oriented to person, to place w cues, and not to time - behavior is at baseline per family - mini-cog score was 3 on 12/29/22 (vs 5 on 05/25/21) Plan Chronic conditions: b/l limb claudication: continue Cilostazol HTN: continue Amlodipine, Losartan, and Ranolazine Nontoxic multinodular goiter: continue Levothyroxine 50mcg, follows w/ outpatient regularly DVT prophylaxis: hold in event of GI bleeding Diet: heart healthy Code status: DNR/DNI Disposition: anticipate discharge home 07/25 pending stabilization of hgb/bleeding Admission and Anticipated Discharge Date Admission Date: July 24, 2024 Subjective Patient seen and examined this morning. Patient reports that she did have BM this AM and had BRBPR on the toilet paper. Patient states yesterday blood was trickling from her rectum but that has stopped. She states her stools have been more loose recently. She denied abdominal pain, nausea, or vomiting. Physical Exam 2 Constitutional: WD/WN, vitals as above Eyes: PERRL, conjunctivae normal, anicteric sclerae Respiratory: normal respiratory effort, lungs clear to auscultation Cardiovascular: RRR, no murmur, no edema Psychiatric: A+Ox3, euthymic affect Results & Data Results & Data Vital Signs (Past 12 Hours) Vital Signs Temp Pulse Pulse Resp BP Pulse Ox O2 Del Method 07/25/24 11:47 36.3 C L 60 18 110/65 93 Room Air 07/25/24 07:45 73 07/25/24 07:29 36.7 C 74 18 116/64 93 Nasal Cannula 07/25/24 02:40 36.6 C 75 18 120/63 91 Nasal Cannula O2 Flow Rate 07/25/24 11:47 07/25/24 07:45 07/25/24 07:29 2 07/25/24 02:40 2 Laboratory Results 07/25/24 06:04 07/25/24 06:04 PG Care Time/CCT Total # of Minutes Spent Total Time Spent with Patient: Total time spent is greater than 50% in coordination of care (as documented) at patient's floor/unit and/or counseling patient: Coding Level of Care Code 19700 SUB INP/OBS CARE 2/35MIN Diagnoses Bright red blood per rectum K62.5 Atrial fibrillation, permanent I48.21 Acute memory impairment R41.3
[2024-07-25] MEDS: HYDROCORTISONE ACETATE 25 MG SUPP PR SCH (20:11)
[2024-07-25 20:25] VITALS: RESP 20
[2024-07-26 06:48] LABS: Hematocrit (blood only) 32.6 % (37.0-47.0); Hemoglobin 10.9 g/dl (12.0-16.0); Mean Corpuscular Hemoglobin 31.1 pg (25.0-34.0); Mean Corpuscular Hgb Conc 33.4 g/dL (32.0-36.0); Mean Corpuscular Volume 92.9 fL (80.0-100.0); Mean Platelet Volume 10.1 fL (9.4-12.4); Platelet Count 313 K/uL (130-400); RDW Coefficient of Variation 14.7 % (11.5-14.5); RDW Standard Deviation 50.1 fL (36.4-46.3); Red Blood Count 3.51 M/uL (4.20-5.40); White Blood Count 6.48 K/ul (4.8-10.8)
[2024-07-26 07:10] LABS: Anion Gap 6 (3-11); BUN Creatinine Ratio 14.3 (10-20); Blood Urea Nitrogen 12 mg/dl (6-23); Calcium 8.6 mg/dl (8.6-10.3); Carbon Dioxide 25 mmol/L (21-32); Chloride 107 mmol/L (98-107); Creatinine Clr Calc Pharmacy 40.2 ml/min; Glucose 92 mg/dl (70-99(Fasting)); Sodium 138 mmol/L (136-145)
[2024-07-26 07:35] VITALS: BP 142/74; PULSE 77; TEMP 99.1; O2SAT 91
[2024-07-26 08:09] LABS: Potassium 3.5 mmol/L (3.5-5.1)
--- NOTE | 2024-07-26 09:39 | Discharge Summary ---
Discharge Summary Date of Service July 26, 2024 Principal Dx & Hospital Course #1 = Principal Diagnosis (1) Bright red blood per rectum: Salome is a 88yo F w PMH CAD, HTN, PAD, NSTEMI, CVA, and nontoxic multinodular goiter s/p thyroidectomy, who presents with complaint of rectal bleeding on 07/24/2024 Etiology likely internal hemorrhoids given BRBPR on toilet paper and painless. - hold home Eliquis until seen by PCP. -Continue Anusol suppositories upon discharge for additional 12 days. -CBC/BMP reviewed 07/26 - stable. hgb slight drop to 10.9 but patient denies any further episodes of bleeding. Repeat CBC in 1 week from discharge and follow up on results w/ PCP -Iron studies reviewed 07/26 - stable (2) Atrial fibrillation, permanent: - hold home Eliquis (5mg daily) until seen by PCP - metoprolol stopped per seismic prospecting observer helper d/t low HR (3) Acute memory impairment: - oriented to person, to place w cues, and not to time - behavior is at baseline per family - mini-cog score was 3 on 12/29/22 (vs 5 on 05/25/21) Plan Chronic conditions: b/l limb claudication: continue Cilostazol HTN: continue Amlodipine, Losartan, and Ranolazine Nontoxic multinodular goiter: continue Levothyroxine 50mcg, follows w/ outpatient regularly Admission HPI Per Admitting Provider Patient reports coming to ED by recommendation of Dr. Bolaños at her cardiology appt today. Earlier today she had 2 episodes of loose stools that were dark and bloody. For the past month, she has noticed bright-red blood in her stool once every few days, but says this is the first time it's happened twice in one day. It's also the first time she has noticed abnormal stool color, or had diarrhea where she felt she "couldn't stop it." She has no abdominal or rectal pain. She has not had any nausea, changes in appetite, or unintended weight loss. She does report one episode of emesis, but attributes it to a new medication that she started that day and has since stopped. She cannot recall ever experiencing something similar in the past. She is on Eliquis for afib (recently switched from Xarelto) and reports taking it daily as prescribed. Discharge Exam Constitutional WD/WN, vitals as above Eyes PERRL, conjunctivae normal, anicteric sclerae Respiratory breathing unlabored Cardiovascular well perfused Skin no rashes, warm and dry Discharge Plan Discharge Items Patient Disposition: Home - Self-Care Reason For Visit: LGIB Discharge Diagnosis: Lower GI bleeding Activity: Resume your previous activity Non-emergency contact: Primary Care Provider Call non-emergency contact if: you have any medication questions and your symptoms worsen Follow-up/Referrals: Andrei Francis MD [Primary Care Provider] - 07/31/24 2:00 pm () Diet: Heart Healthy Ambulatory Orders: Complete Blood Count no Diff (Timed) Timeframe: [id number] Location: Determined by Patient Ordered By: Chelle Nunn Attending Provider Instructions: Mrs. Younger, You were recently admitted to the hospital for rectal bleeding. Your Eliquis was placed on hold and the bleeding subsided. Please see recommendations below regarding your discharge. 1. Please hold your Eliquis until seen by your PCP. 2. Please use Anusol Suppositories twice daily for the next 12 days. 3. Please obtain repeat labs in 1 week to assess your blood counts. 4. Please resume the remainder of your outpatient medications as previously prescribed. 5. Please follow up with PCP within 1-2 weeks of discharge. If you develop any worsening rectal bleeding, dizziness, or light headedness please report to the ER for further care. Sincerely, Chelle Conklin PA-C Pending Studies at Discharge: No Stand-Alone Forms: [facility], Smoking Cessation Medications and DC Order Prescriptions: New hydrocortisone acetate [Anusol-HC] 25 mg suppository 25 mg CO BID Qty: 24 0RF Continued omeprazole 40 mg capsule,delayed release(DR/EC) 40 mg PO DAILY Qty: 90 1RF Rx Instructions: eat 30 minutes after taking medication. levothyroxine 50 mcg tablet 50 mcg PO DAILY 90 Days Qty: 90 0RF Rx Instructions: Take every morning except Tuesday dorzolamide-timolol 22.3-6.8 mg/mL drops 1 drp OPB BID losartan 50 mg tablet 50 mg PO QAM Qty: 90 3RF Rx Instructions: for high blood pressure amlodipine 10 mg tablet 10 mg PO QPM Qty: 90 3RF hydrocortisone 2.5 % cream with perineal applicator 1 applic CO DAILY PRN (Reason: hemorrhoids) Qty: 30 2RF cilostazol 100 mg tablet 100 mg PO BID Qty: 60 5RF Rocklatan 0.02-0.005 % drops 1 drp ophthalmic (eye) DAILY brimonidine 0.2 % drops 1 drp OPB BID ergocalciferol (vitamin D2) 1,250 mcg (50,000 unit) capsule 1,250 mcg PO WK Rx Instructions: PER PT "WHEN I REMEMBER" Held Eliquis 5 mg tablet 5 mg PO BID Qty: 180 3RF Hold Instructions: Resume on 08/02/24. hold until seen by PCP Discharge Orders: Discharge Order (Routine); Ordered 07/26/24 Ordered By: Chelle Conklin Admission Data Admit Date/Time: 07/24/24 20:35 Attending Provider: Gerber Jacome Admit Provider: Martina Black Primary Care Provider: Andrei Francis Other Interventions: Discharge Summary Assessment (RN) Last Done: 07/26/24 11:05 Hospital Stay Data Consultations 07/24/24 17:12 ED Decision to Admit Stat Pending Results Patient Have Any Pending Studies at Discharge: No Discharge Instructions Given to Patient (Per Discharging Provider) Mrs. Younger, Patrick were recently admitted to the hospital for rectal bleeding. Your Eliquis was placed on hold and the bleeding subsided. Please see recommendations below regarding your discharge. 1. Please hold your Eliquis until seen by your PCP. 2. Please use Anusol Suppositories twice daily for the next 12 days. 3. Please obtain repeat labs in 1 week to assess your blood counts. 4. Please resume the remainder of your outpatient medications as previously prescribed. 5. Please follow up with PCP within 1-2 weeks of discharge. If you develop any worsening rectal bleeding, dizziness, or light headedness please report to the ER for further care. Sincerely, Chelle Conklin PA-C Supervising Physician Co-Signing Physician Notes During face to face encounter, I obtained a brief physical examination, discussed hospital stay with patient and discharge instructions with patient. I discussed discharge plan of care with LINDA Conklin. I reviewed above note and agree with it except for the following: Patient seen for GI blood loss Hemoglobin now stable. WIll hold Eliquis. Recommend resuming once PCP is agreeable. Do not recommend holding eliquis intermodal truck driver given risk of stroke. Total Time Total Time Spent Total Time Spent (In Minutes): 40 Total Time Includes: Examination of the Patient, Discharge Planning and Medication Reconciliation Coding Level of Care Code 46467 INP/OBS DISCH >30 MIN Diagnoses Bright red blood per rectum K62.5 Atrial fibrillation, permanent I48.21 Acute memory impairment R41.3
== END 2024-07-26 11:56 | disposition home or self-care (01) | DRG 378 ==
LOC: ED 14:39 → SUATTDRO 20:35 → INTOOBSV 20:35 → 2N 20:35
DX: K64.8 Other hemorrhoids; I25.2 Old myocardial infarction; R41.3 Other amnesia; Z86.73 Personal history of transient ischemic attack (TIA), and cerebral infarction without residual deficits; I73.9 Peripheral vascular disease, unspecified; Z66 Do not resuscitate; Z88.8 Allergy status to other drugs, medicaments and biological substances; K62.5 Hemorrhage of anus and rectum; Z79.899 Other long term (current) drug therapy; Z88.0 Allergy status to penicillin; I25.10 Atherosclerotic heart disease of native coronary artery without angina pectoris; I10 Essential (primary) hypertension; Z90.89 Acquired absence of other organs; Z79.01 Long term (current) use of anticoagulants; I48.21 Permanent atrial fibrillation; E04.2 Nontoxic multinodular goiter

== ENCOUNTER 2024-08-14 16:30 | Inpatient (IN) ==
--- NOTE | 2024-08-14 17:25 | Emergency Department Note ---
Impression & Plan Nausea & vomiting, Dyspnea, Acute hypoxemic respiratory failure, Bilateral pleural effusion, Bilateral edema of lower extremity ED Provider Note ED Provider Note NAME: HIWOT RANGEL AGE:88 SEX: Female : 1935 ARRIVES VIA: Private vehicle INFORMANT: Patient ED PROVIDER(s): Nkechi Green DO CHIEF COMPLAINT: Nausea and vomiting HPI: This is an 88-year-old female who presents emergency department with family bedside due to concern for nausea and vomiting today. Patient states she is felt "queasy" over the last 2 to 3 days but did not have any vomiting until today. She states she was unable to keep down anything by mouth. She states she was recently started on furosemide 20 mg last week as she has had increased shortness of breath and they were concerned for fluid on the lungs as well as her legs. She states due to increased lower extremity edema and increasing daily weights that they instructed her to increase the dose to 40 mg daily on Tuesday. No other change in medications, no change in diet, no known sick contact. She does have bilateral lower extremity edema, left greater than right due to prior surgery in the left lower extremity. She states she has been more short of breath and unable to lie flat and has been wearing her 's oxygen at home intermittently. She denies fevers or chills, chest pain, abdominal pain, change in urine, or change in stools. She has had several prior abdominal surgeries, no other history of PUD, IBS, or IBD. PAST MEDICAL HISTORY:See Below PAST SURGICAL HISTORY:See Below FAMILY HISTORY:See Below SOCIAL HISTORY:See Below HOME MEDICATIONS:See Below ALLERGIES:See Below VITALS:See Below PHYSICAL EXAMINATION: GENERAL: alert, well appearing, well nourished, no distress, non-toxic EYE EXAM: normal conjunctiva, PERRL and EOM's grossly intact OROPHARYNX: no exudate, no erythema, lips, buccal mucosa, and tongue normal and mucous membranes are moist NECK: supple, no nuchal rigidity, no adenopathy, non-tender LUNGS: Clear to auscultation. Normal chest wall mechanics, no w/r/r HEART: no murmurs, S1 normal and S2 normal ABDOMEN: abdomen soft, non-tender, normo-active bowel sounds, no masses, no rebound or guarding. Dull to percussion. SKIN: no rashes, petechiae, orbruising UPPER EXTREMITIES: upper extremities are grossly normal. FROM, nml pulses b/l. LOWER EXTREMITIES: 2+ b/l pitting edema. FROM, nml pulses b/l. NEURO EXAM: Normal sensorium, cranial nerves II-XII grossly intact, normal speech, no facial droop,nogross weakness of arms, no gross weakness of legs. Gross sensation intact. No ataxia. Vital Signs: reviewed and remarkable Differential Diagnosis: pneumonia, bronchitis, COPD/Asthma exacerbation, pneumothorax, pulmonary embolism, congestive heart failure, acute coronary syndrome, as well as others were considered MEDICAL DECISION MAKING: This is an 88-year-old female presents emergency room due to concern for nausea and vomiting in the setting of recent shortness of breath, lower extremity edema, and initiation of diuretic management as an outpatient. She was afebrile vital signs stable however noted to be mildly hypoxic and was placed on 2 L via nasal cannula. Labs drawn and sent, IV established, EKG and chest ray performed at bedside interpreted me and patient monitored on telemetry. Patient noted to have bilateral pleural effusions and appearance of likely evolving pulmonary edema on chest x-ray. Patient's EKG showed her usual A-fib and she is anticoagulated. Patient was noted to have lower extremity edema although no increased work of breathing on bedside exam. She did have decreased breath sounds bilateral bases however no overt rales. Given accompanying nausea and vomiting she was sent for CT of the abdomen pelvis additionally. This did not reveal any additional acute GI or pathology. Patient was given IV Zofran, IV Pepcid, and IV furosemide in the emergency department. She was able to tolerate ice chips and was given oral potassium repletion. We discussed all results at bedside. She was noted to have increased oxygen requirements while monitored in the emergency department that required us titrating her oxygen up to 4 L/min. Due to concern for acute hypoxic respiratory failure, failure of outpatient management/diuresis, and accompanying nausea and vomiting, case discussed with the hospitalist team for additional evaluation and management. Consultation(s): 2009: Discussed with Dr. Morocho, [facility] hospitalist team, for additional evaluation and management. ER Treatment Provided: See below Diagnostics Interpreted By Me: -ECG: Atrial fibrillation at 74, rightward axis, normal QRS and QTc, nonspecific ST/T wave changes -Cardiac Monitoring: An order was placed for continuous cardiac monitoring. The monitor shows a rate of 78 with A-fib rhythm. -Laboratory studies: As stated above and show below. -Imaging studies: cxr: Bilateral pleural effusions, mild cardiomegaly, increased interstitial markings bilaterally, no wide mediastinum Triage Nursing Note Reviewed Prior/Outside Records Reviewed -reviewed cardiology visit from 08/08/2024 Past Med/Surg History Problem List (Updated 08/15/24 @ 00:34 by David Morocho MD) Pulmonary edema cardiac cause Pleural effusion Dyspnea (Acute) Nausea & vomiting (Acute) BRBPR (bright red blood per rectum) (Acute) Bright red blood per rectum Syncope and collapse Chest discomfort Atrial fibrillation, permanent Palpitations Bilateral claudication of lower limb (Acute) VACA (dyspnea on exertion) (Acute) Abnormal nuclear stress test (Acute) Dyspnea on exertion Acute memory impairment Left knee DJD Abnormal CT of the chest Acid reflux Anticoagulant long-term use (Acute) Arthritis CAD in [place] artery Cardiomyopathy Carotid artery stenosis Constipation Glaucoma Jacques's thyroiditis Herpes zoster Hyperlipidemia Hypertension Hypothyroidism Mitral regurgitation Nontoxic multinodular goiter Overweight 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 Tricuspid regurgitation Ventricular tachycardia Irritable bowel syndrome (IBS) PAD (peripheral artery disease) Allergic rhinitis Hx of hemorrhoids Rectal bleeding Osteopenia Impaired fasting glucose Vitamin D deficiency Back pain Urinary symptom or sign Neurological symptoms Multiple thyroid nodules Cough Cholesterol-lowering agent myopathy Constipation History of myocardial infarction Renal infarct (Acute) Mesenteric artery stenosis Medical History History of CVA (cerebrovascular accident) Renal infarct Hyperglycemia Claudication NSTEMI (non-ST elevated myocardial infarction) Intractable pain Surgical History History of carpal tunnel surgery History of total abdominal hysterectomy and bilateral salpingo-oophorectomy S/P appendectomy History of cholecystectomy History of thyroid surgery H/O endarterectomy Family History Mother Diabetes Hypertension Sister Diabetes Kidney disease Hypertension Brother Kidney disease Hypertension Diabetes Father Myocardial infarction Colorectal cancer Unknown Hypertension Cardiac disorder Stroke Cancer Other Buerger's disease No family history of bleeding disorder Denies family history of Ovarian cancer Prostate cancer Breast cancer Social History (Updated 08/06/24 @ 13:58 by BOBBY Hutton) Smoking Status: Never smoker Second Hand Exposure: No; Do You Dip or Chew Tobacco: No; Hx Alcohol Use: No Hx Substance Use: No Preferred Language: Telugu Communication Ability: Effective Visual Impairment: Limited Hearing Ability: Normal Hospital Ward Clerk Required: No Beliefs That Will Affect Care: None marital status: Current Living Situation: Family Current Living Situation Comment: mobile home current occupational status: retired current occupation: Retired-[employer] Feels Safe at Home: Yes Childhood Exposure to Second-Hand Smoke: No Diet: regular caffeine: Yes during the past year weight has: remained stable Dental Care, Regularly: No Physical Activity Frequency: Does not Exercise Seatbelt Use: always Sunscreen Use: Yes Assistive Devices: None Allergies Allergies Allergy/AdvReac Type Severity Reaction Status Date / Time Penicillins Allergy Intermediate RASH ONLY Verified 08/08/24 15:34 atorvastatin AdvReac Intermediate MUSCLE Verified 08/08/24 15:34 CRAMPS/PAIN pravastatin AdvReac Intermediate MUSCLE Verified 08/08/24 15:34 CRAMPS/PAIN simvastatin AdvReac Intermediate MUSCLE Verified 08/08/24 15:34 CRAMPS/PAIN Home Meds Home Medications Medication Instructions Recorded Confirmed dorzolamide 22.3 mg-timolol 6.8 1 drp OPB BID 02/23/19 08/14/24 mg/mL eye drops brimonidine 0.2 % eye drops 1 drp OPB BID 05/07/19 08/14/24 netarsudil 0.02 %-latanoprost 1 drp ophthalmic (eye) DAILY 05/30/24 08/14/24 0.005 % eye drops (Rocklatan) levothyroxine 50 mcg tablet 50 mcg PO DAILYBB 08/14/24 08/14/24 Previous Rx's Medication Instructions Recorded omeprazole 40 mg capsule,delayed 40 mg PO DAILY #90 caps 04/13/24 release amlodipine 10 mg tablet 10 mg PO QPM #90 tabs 04/16/24 losartan 50 mg tablet 50 mg PO QAM #90 tabs 04/16/24 cilostazol 100 mg tablet 100 mg PO BID #60 tabs 04/30/24 apixaban 5 mg tablet (Eliquis) 5 mg PO BID #180 tabs 05/30/24 hydrocortisone 2.5 % topical cream 1 applic NC DAILY PRN hemorrhoids 07/13/24 with perineal applicator #30 grams hydrocortisone acetate 25 mg 25 mg NC BID PRN hemorrhoids #24 ea 08/06/24 rectal suppository (Anusol-HC) furosemide 20 mg tablet 20 mg PO DAILY #30 tabs 08/08/24 ranolazine 1,000 mg 1,000 mg PO BID #60 tabs 08/08/24 tablet,extended release,12 hr Results & Data (ED) Vital Signs Vital Signs - 24 hr 08/14/24 16:38 08/14/24 17:31 08/14/24 17:39 Temperature 36.5 C Temperature Source Skin Pulse Rate 73 77 81 Pulse Rate from SpO2 Sensor 84 Respiratory Rate 12 22 Respiratory Effort / Characteristics Non-Labored Respiratory Depth Normal Blood Pressure 110/65 Blood Pressure Mean 80 Pulse Oximetry 93 92 Oxygen Delivery Method Room Air Oxygen Flow Rate 3 Sepsis Recent Fever Within 48 Hours No Sepsis New/Unexplained Change in Mental Status N/A Sepsis Action Taken by Nursing No Action Required Oxygen Flow Rate - Titration Pulse Oximetry Post Tiitration 08/14/24 18:09 08/14/24 18:56 08/14/24 18:56 Temperature Temperature Source Pulse Rate 71 73 Pulse Rate from SpO2 Sensor 73 75 Respiratory Rate 18 22 Respiratory Effort / Characteristics Respiratory Depth Blood Pressure Blood Pressure Mean Pulse Oximetry 92 87 L 90 Oxygen Delivery Method Room Air Oxygen Flow Rate 3 4 Sepsis Recent Fever Within 48 Hours Sepsis New/Unexplained Change in Mental Status Sepsis Action Taken by Nursing Oxygen Flow Rate - Titration 4 Pulse Oximetry Post Tiitration 93 08/14/24 19:11 08/14/24 19:42 08/14/24 20:00 Temperature Temperature Source Pulse Rate 69 76 75 Pulse Rate from SpO2 Sensor 71 73 75 Respiratory Rate 20 22 20 Respiratory Effort / Characteristics Respiratory Depth Blood Pressure Blood Pressure Mean Pulse Oximetry 91 91 92 Oxygen Delivery Method Oxygen Flow Rate 4 4 4 Sepsis Recent Fever Within 48 Hours Sepsis New/Unexplained Change in Mental Status Sepsis Action Taken by Nursing Oxygen Flow Rate - Titration Pulse Oximetry Post Tiitration 08/14/24 20:30 08/14/24 21:03 08/14/24 21:15 Temperature Temperature Source Pulse Rate 72 72 69 Pulse Rate from SpO2 Sensor 72 73 Respiratory Rate 20 20 Respiratory Effort / Characteristics Respiratory Depth Blood Pressure Blood Pressure Mean Pulse Oximetry 91 92 Oxygen Delivery Method Oxygen Flow Rate 4 5 Sepsis Recent Fever Within 48 Hours Sepsis New/Unexplained Change in Mental Status Sepsis Action Taken by Nursing Oxygen Flow Rate - Titration Pulse Oximetry Post Tiitration 08/14/24 21:30 Temperature Temperature Source Pulse Rate 78 Pulse Rate from SpO2 Sensor 71 Respiratory Rate 20 Respiratory Effort / Characteristics Respiratory Depth Blood Pressure Blood Pressure Mean Pulse Oximetry 92 Oxygen Delivery Method Oxygen Flow Rate 5 Sepsis Recent Fever Within 48 Hours Sepsis New/Unexplained Change in Mental Status Sepsis Action Taken by Nursing Oxygen Flow Rate - Titration Pulse Oximetry Post Tiitration Laboratory Data 08/14/24 17:00 08/14/24 17:00 Lab Results 08/14/24 Range/Units 17:00 WBC 7.53 (4.8-10.8) K/ul RBC 3.75 L (4.20-5.40) M/uL Hgb 11.9 L (12.0-16.0) g/dl Hct 34.3 L (37.0-47.0) % MCV 91.5 (80.0-100.0) fL MCH 31.7 (25.0-34.0) pg MCHC 34.7 (32.0-36.0) g/dL RDW Std Deviation 51.7 H (36.4-46.3) fL RDW Coeff of Maritza 15.4 H (11.5-14.5) % Plt Count 348 (130-400) K/uL MPV 10.6 (9.4-12.4) fL Immature Gran % (Auto) 0.1 % Neut % (Auto) 78.5 % Lymph % (Auto) 14.6 % [place] % (Auto) 6.4 % Eos % (Auto) 0.1 % Baso % (Auto) 0.3 % Neut # (Auto) 5.91 (1.40-6.50) K/uL Lymph # (Auto) 1.10 L (1.20-3.40) K/uL [place] # (Auto) 0.48 (0.11-0.59) K/uL Eos # (Auto) 0.01 (0.00-0.50) K/uL Baso # (Auto) 0.02 (0.00-0.20) K/uL Immature Gran # (Auto) 0.01 (0.01-0.20) K/uL PT 14.1 H (9.0-12.0) Seconds INR 1.3 H (0.9-1.1) Sodium 138 (136-145) mmol/L Potassium 3.2 L (3.5-5.1) mmol/L Chloride 102 (98-107) mmol/L Carbon Dioxide 22 (21-32) mmol/L Anion Gap 14 H (3-11) BUN 14 (6-23) mg/dl Creatinine 1.23 H (0.6-1.2) mg/dl Est Cr Clr Drug Dosing Not Reportable eGFR 42.27 BUN/Creatinine Ratio 11.4 (10-20) Glucose 107 H (70-99(Fasting)) mg/dl Calcium 9.5 (8.6-10.3) mg/dl Magnesium 1.9 (1.7-2.4) mg/dl Total Bilirubin 0.7 (0.2-1.0) mg/dl AST 13 (13-39) U/L ALT 8 (7-52) U/L Alkaline Phosphatase 57 (34-104) U/L Troponin I High Sens 18.8 H (0-14) pg/ml B-Natriuretic Peptide 292 H (0-100) pg/ml Total Protein 7.3 (6.0-8.3) gm/dl Albumin 4.2 (3.4-5.0) gm/dl Globulin 3.1 (2.5-4.0) gm/dl Albumin/Globulin Ratio 1.4 (0.9-2) Lipase 18 (11-82) U/L TSH 2.180 (0.300-4.500) uIu/ml Adenovirus (PCR) Not Detected (NotDetected) B. pertussis DNA (PCR) Not Detected (NotDetected) B.parapertussis DNA PCR Not Detected (NotDetected) C. pneumoniae DNA (PCR) Not Detected (NotDetected) Coronavirus OC43 (PCR) Not Detected (NotDetected) Coronavirus HKU1 (PCR) Not Detected (NotDetected) Coronavirus 229E (PCR) Not Detected (NotDetected) SARS-CoV-2 (PCR) Not Detected (NotDetected) Coronavirus NL63 (PCR) Not Detected (NotDetected) Human Metapneumovir PCR Not Detected (NotDetected) Influenza Type A (PCR) Not Detected (NotDetected) Influenza Type B (PCR) Not Detected (NotDetected) M. pneumoniae (PCR) Not Detected (NotDetected) Parainfluenza 1 (PCR) Not Detected (NotDetected) Parainfluenza 2 (PCR) Not Detected (NotDetected) Parainfluenza 3 (PCR) Not Detected (NotDetected) Parainfluenza 4 (PCR) Not Detected (NotDetected) RSV (PCR) Not Detected (NotDetected) Entero/Rhino (PCR) Not Detected (NotDetected) Administered Medications Miscellaneous (Rocklatan - Order Awaiting Action) 1 each N/A QS ELZA Stop: 09/14/24 00:00 Last Admin: 08/15/24 00:01 Dose: Not Given Documented By: CP Discontinued Medications Apixaban (Apixaban 5 Mg Tablet) 5 mg PO ONE ONE Stop: 08/14/24 22:01 Last Admin: 08/14/24 22:10 Dose: 5 mg Documented By: FRANCO Cilostazol (Cilostazol 100 Mg Tab) 100 mg PO ONE ONE Stop: 08/14/24 22:01 Last Admin: 08/14/24 22:09 Dose: 100 mg Documented By: FRANCO Furosemide (Furosemide 40 Mg/4 Ml Vial) 40 mg IV ONE ONE Stop: 08/14/24 19:39 Last Admin: 08/14/24 19:49 Dose: 40 mg Documented By: FRANCO Famotidine (Pepcid 20mg Iv Push) 20 mg in 5 mls @ 2.5 mls/min IV NOW STA Stop: 08/14/24 18:31 Last Admin: 08/14/24 18:53 Dose: 2.5 mls/min Documented By: FRANCO Ioversol (Optiray 320 100ml) 94 ml IV ONCE ONE Stop: 08/14/24 18:43 Last Admin: 08/14/24 18:43 Dose: 94 ml Documented By: ILANA Ondansetron HCl (Ondansetron Inj 2 Mg/Ml 2 Ml Vial) 4 mg IV NOW STA Stop: 08/14/24 18:31 Last Admin: 08/14/24 18:53 Dose: 4 mg Documented By: FRANCO Potassium Chloride (Potassium Chloride Crtab 20 Meq Tabcr) 40 meq PO NOW STA Stop: 08/14/24 19:39 Last Admin: 08/14/24 19:49 Dose: 40 meq Documented By: FRANCO Potassium Chloride (Potassium Chloride Crtab 20 Meq Tabcr) 40 meq PO NOW STA Stop: 08/14/24 21:39 Last Admin: 08/14/24 23:07 Dose: 40 meq Documented By: FINA Ranolazine (Ranolazine 500 Mg Er Tab) 1,000 mg PO NOW STA Stop: 08/14/24 21:24 Last Admin: 08/14/24 22:09 Dose: 1,000 mg Documented By: DS Imaging Data Radiologist's Impression: Chest X-Ray 08/14/24 17:22 INDICATION: Chest pain. TECHNIQUE: Frontal radiograph of the chest. COMPARISON: Radiograph from 04/08/2024. FINDINGS: Cardiomegaly. Mild interstitial edema. Left greater than right pleural effusions with atelectasis/airspace disease. No pneumothorax. No acute fracture. IMPRESSION: Mild interstitial edema. Left greater than right pleural effusions with atelectasis/airspace disease. Electronically signed by Celestino Sheehan 08-14-2024 5:52 PM Abdomen/Pelvis CT 08/14/24 18:18 Clinical History: Weakness and fatigue. Vomiting. Shortness of breath Technique: Axial computed tomography images were obtained of the abdomen and pelvis after the administration of intravenous contrast. Comparison is made to the prior CT dated 03/13/2018. Findings: The liver is overall of normal size, attenuation, and contour with no sign of cirrhosis or significant fatty infiltration. No liver mass lesion is seen. The portal vein is patent. The gallbladder has been removed. No bile duct dilatation is noted. The spleen is of normal size. No focal splenic lesion is evident. The pancreas appears normal with no sign of acute or chronic pancreatitis and no mass lesion noted. The pancreatic duct is of normal caliber. The adrenal glands appear unremarkable. There is no hydronephrosis or perinephric stranding. There is an unchanged 2 cm fatty mass at the lateral aspect of the mid right kidney, likely a benign angiomyolipoma. There is bilateral renal cortical scarring. There is a 1.1 cm right renal cyst The aorta is of normal caliber. No abdominal adenopathy is seen. The stomach appears normal. There is no sign of small bowel obstruction. There is diverticulosis without evidence of diverticulitis. No free intraperitoneal fluid or air is identified. No distal ureteral or bladder calculi are seen. There is a small 9 mm diverticulum of the right wall of the urinary bladder. No definite bladder mass lesion is evident. The iliac arteries are of normal caliber. No pelvic adenopathy is noted. The uterus has been removed. There is apparent pelvic prolapse There are bilateral moderate-sized pleural effusions. There is bilateral lower lobe atelectasis. Lumbar degenerative disc disease is seen. No fracture is identified. No focal osseous lesion is seen Impression: 1. Bilateral moderate sized pleural effusions and bilateral lower lobe atelectasis 2. Unchanged right renal angiomyolipoma 3. Bilateral renal cortical atrophy and right renal cyst 4. Diverticulosis without evidence of diverticulitis 5. Small bladder diverticulum 6. Pelvic prolapse Electronically signed by Mukul Banerjee 08-14-2024 7:13 PM Discharge Plan Visit Data Chief Complaint: Vomiting Stated Complaint: VOMITTING, SOB, FATIGUED, WEAK ED Provider: Nkechi Green Discharge Problem: Nausea & vomiting, Dyspnea, Acute hypoxemic respiratory failure, Bilateral pleural effusion, Bilateral edema of lower extremity Patient Disposition: Admitted As Inpatient Discharge Instructions Interventions: ED Discharge Assessment Last Done: 08/14/24 22:27
[2024-08-14 17:34] LABS: Basophils # (auto) 0.02 K/uL (0.00-0.20); Basophils % (auto) 0.3 %; Eosinophils # (auto) 0.01 K/uL (0.00-0.50); Eosinophils % (auto) 0.1 %; Hematocrit (blood only) 34.3 % (37.0-47.0); Hemoglobin 11.9 g/dl (12.0-16.0); Immature Granulocytes # (auto) 0.01 K/uL (0.01-0.20); Immature Granulocytes % (auto) 0.1 %; Lymphocytes % (auto) 14.6 %; Mean Corpuscular Hemoglobin 31.7 pg (25.0-34.0); Mean Corpuscular Hgb Conc 34.7 g/dL (32.0-36.0); Mean Corpuscular Volume 91.5 fL (80.0-100.0); Mean Platelet Volume 10.6 fL (9.4-12.4); Monocytes # (auto) 0.48 K/uL (0.11-0.59); Monocytes % (auto) 6.4 %; Neutrophils # (auto) 5.91 K/uL (1.40-6.50); Neutrophils % (auto) 78.5 %; Platelet Count 348 K/uL (130-400); RDW Coefficient of Variation 15.4 % (11.5-14.5); RDW Standard Deviation 51.7 fL (36.4-46.3); Red Blood Count 3.75 M/uL (4.20-5.40); White Blood Count 7.53 K/ul (4.8-10.8)
--- NOTE | 2024-08-14 17:52 | XRay Report ---
INDICATION: Chest pain. TECHNIQUE: Frontal radiograph of the chest. COMPARISON: Radiograph from 04/08/2024. FINDINGS: Cardiomegaly. Mild interstitial edema. Left greater than right pleural effusions with atelectasis/airspace disease. No pneumothorax. No acute fracture. IMPRESSION: Mild interstitial edema. Left greater than right pleural effusions with atelectasis/airspace disease. Electronically signed by Celestino Sheehan 08-14-2024 5:52 PM
[2024-08-14 17:53] LABS: Alanine Aminotransferase 8 U/L (7-52); Albumin Globulin Ratio 1.4 (0.9-2); Albumin Level 4.2 gm/dl (3.4-5.0); Alkaline Phosphatase 57 U/L (34-104); Anion Gap 14 (3-11); Aspartate Aminotransferase 13 U/L (13-39); BUN Creatinine Ratio 11.4 (10-20); Bilirubin,Total 0.7 mg/dl (0.2-1.0); Blood Urea Nitrogen 14 mg/dl (6-23); Calcium 9.5 mg/dl (8.6-10.3); Carbon Dioxide 22 mmol/L (21-32); Chloride 102 mmol/L (98-107); Globulin 3.1 gm/dl (2.5-4.0); Glucose 107 mg/dl (70-99(Fasting)); Lipase 18 U/L (11-82); Magnesium 1.9 mg/dl (1.7-2.4); Potassium 3.2 mmol/L (3.5-5.1); Sodium 138 mmol/L (136-145); Total Protein 7.3 gm/dl (6.0-8.3)
[2024-08-14 17:59] LABS: Troponin I High Sensitivity 18.8 pg/ml (0-14)
[2024-08-14 18:03] LABS: INR 1.3 (0.9-1.1); Prothrombin Time 14.1 Seconds (9.0-12.0)
[2024-08-14 18:34] LABS: Adenovirus PCR Not Detected (NotDetected); Bordetella parapertussis PCR Not Detected (NotDetected); Bordetella pertussis PCR Not Detected (NotDetected); Chlamydia pneumoniae PCR Not Detected (NotDetected); Coronavirus 229E PCR Not Detected (NotDetected); Coronavirus CoV-2 (COVID19)PCR Not Detected (NotDetected); Coronavirus HKU1 PCR Not Detected (NotDetected); Coronavirus NL63 PCR Not Detected (NotDetected); Coronavirus OC43PCR Not Detected (NotDetected); Human Metapneumovirus PCR Not Detected (NotDetected); Influenza A PCR Not Detected (NotDetected); Influenza B PCR Not Detected (NotDetected); Mycoplasma pneumoniae PCR Not Detected (NotDetected); Parainfluenza Virus 1 PCR Not Detected (NotDetected); Parainfluenza Virus 2 PCR Not Detected (NotDetected); Parainfluenza Virus 3 PCR Not Detected (NotDetected); Parainfluenza Virus 4 PCR Not Detected (NotDetected); Respiratory Syncytial VirusPCR Not Detected (NotDetected); Rhinovirus/Enterovirus PCR Not Detected (NotDetected)
[2024-08-14] MEDS: OPTIRAY 320 100ml IV ONE (18:43)
[2024-08-14] MEDS: FAMOTIDINE 20MG IV PUSH 20 MG/5 ML SYR IV STA (18:53)
[2024-08-14] MEDS: ONDANSETRON INJ 2 MG/ML 2 ML VIAL IV STA (18:53)
--- NOTE | 2024-08-14 19:13 | CT Scan Report ---
Clinical History: Weakness and fatigue. Vomiting. Shortness of breath Technique: Axial computed tomography images were obtained of the abdomen and pelvis after the administration of intravenous contrast. Comparison is made to the prior CT dated 03/13/2018. Findings: The liver is overall of normal size, attenuation, and contour with no sign of cirrhosis or significant fatty infiltration. No liver mass lesion is seen. The portal vein is patent. The gallbladder has been removed. No bile duct dilatation is noted. The spleen is of normal size. No focal splenic lesion is evident. The pancreas appears normal with no sign of acute or chronic pancreatitis and no mass lesion noted. The pancreatic duct is of normal caliber. The adrenal glands appear unremarkable. There is no hydronephrosis or perinephric stranding. There is an unchanged 2 cm fatty mass at the lateral aspect of the mid right kidney, likely a benign angiomyolipoma. There is bilateral renal cortical scarring. There is a 1.1 cm right renal cyst The aorta is of normal caliber. No abdominal adenopathy is seen. The stomach appears normal. There is no sign of small bowel obstruction. There is diverticulosis without evidence of diverticulitis. No free intraperitoneal fluid or air is identified. No distal ureteral or bladder calculi are seen. There is a small 9 mm diverticulum of the right wall of the urinary bladder. No definite bladder mass lesion is evident. The iliac arteries are of normal caliber. No pelvic adenopathy is noted. The uterus has been removed. There is apparent pelvic prolapse There are bilateral moderate-sized pleural effusions. There is bilateral lower lobe atelectasis. Lumbar degenerative disc disease is seen. No fracture is identified. No focal osseous lesion is seen Impression: 1. Bilateral moderate sized pleural effusions and bilateral lower lobe atelectasis 2. Unchanged right renal angiomyolipoma 3. Bilateral renal cortical atrophy and right renal cyst 4. Diverticulosis without evidence of diverticulitis 5. Small bladder diverticulum 6. Pelvic prolapse Electronically signed by Mukul Banerjee 08-14-2024 7:13 PM
[2024-08-14] MEDS: FUROSEMIDE 40 MG/4 ML VIAL IV ONE (19:49)
[2024-08-14] MEDS: POTASSIUM CHLORIDE CRTAB 20 MEQ TABCR PO STA ×2 (19:49→23:07)
--- NOTE | 2024-08-14 21:42 | History & Physical Report ---
Date of Service August 14, 2024 Assessment & Plan (1) Dyspnea on exertion: (2) Pleural effusion: (3) Pulmonary edema cardiac cause: (4) Nausea & vomiting: (5) Atrial fibrillation, permanent: (6) Anticoagulant long-term use: (7) Cardiomyopathy: (8) CAD in [place] artery: (9) Hypertension: (10) PAD (peripheral artery disease): (11) Hyperlipidemia: (12) History of myocardial infarction: Plan Pulmonary edema/bilateral pleural effusions/atrial fibrillation/CAD/cardiomyopathy/PAD- The patient will be admitted to telemetry for serial cardiac enzymes, serial EKG's, cardiac rhythm monitoring Troponin 18.8, with follow-up pending From the ED received the following: Furosemide 40 mg IV, Klor-Con 40 mEq p.o., Zofran 4 mg IV and famotidine [address] scan shows interstitial pulmonary edema and bilateral pleural effusions Most recent echocardiogram from 03/01/2024 with ejection fraction 65-70% Continue furosemide 40 mg IV every morning, holding oral dose for now Continue Cilostazol,, Eliquis and ranolazine Due to borderline low blood pressure will hold amlodipine and losartan for now Serial CBC with differential, renal function panel and magnesium level Consult cardiology, reports that she follows with Dr. Bolaños Hypokalemia- Potassium 3.2 Given Klor-Con 40 mEq p.o. by the ED, and will give an additional 40 mEq p.o. now due to upcoming diuresis Repeat laboratories in the a.m. Deconditioning- Would order PT/OT after above treatment is improved her breathing History of Present Illness Chief Complaint: The patient presents to the emergency department due to shortness of breath and dyspnea on exertion with worsening lower extremity edema over the past week, and today she developed nausea and vomiting. Primary Care Provider: Andrei Francis MD The patient is an 88-year-old female with a past medical history including syncope and collapse, atrial fibrillation, bilateral lower limb claudication, memory impairment, GERD, long-term anticoagulant use, CAD, cardiomyopathy, carotid artery stenosis, hyperlipidemia, hypertension, hypothyroidism, Takotsubo's syndrome, ventricular tachycardia, history of DC, renal infarct, and mesenteric artery stenosis. She presents to the emergency department with symptoms of shortness of breath, dyspnea on exertion, fatigue and worsening lower extremity edema over the past week, with development of nausea and vomiting today. She had been started on furosemide 20 mg daily last week, and was recently increased to 40 mg daily 2 days ago, however, she has not noticed significant improvement in lower extremity edema or breathing issues. Allergies Allergy/AdvReac Type Severity Reaction Status Date / Time Penicillins Allergy Intermediate RASH ONLY Verified 08/08/24 15:34 atorvastatin AdvReac Intermediate MUSCLE Verified 08/08/24 15:34 CRAMPS/PAIN pravastatin AdvReac Intermediate MUSCLE Verified 08/08/24 15:34 CRAMPS/PAIN simvastatin AdvReac Intermediate MUSCLE Verified 08/08/24 15:34 CRAMPS/PAIN Home Medications Medication Instructions Recorded Confirmed Type dorzolamide 22.3 mg-timolol 6.8 1 drp OPB BID 02/23/19 08/14/24 History mg/mL eye drops brimonidine 0.2 % eye drops 1 drp OPB BID 05/07/19 08/14/24 History omeprazole 40 mg capsule,delayed 40 mg PO DAILY #90 caps 04/13/24 08/14/24 Rx release amlodipine 10 mg tablet 10 mg PO QPM #90 tabs 04/16/24 08/14/24 Rx losartan 50 mg tablet 50 mg PO QAM #90 tabs 04/16/24 08/14/24 Rx cilostazol 100 mg tablet 100 mg PO BID #60 tabs 04/30/24 08/14/24 Rx apixaban 5 mg tablet (Eliquis) 5 mg PO BID #180 tabs 05/30/24 08/14/24 Rx netarsudil 0.02 %-latanoprost 1 drp ophthalmic (eye) DAILY 05/30/24 08/14/24 History 0.005 % eye drops (Rocklatan) hydrocortisone 2.5 % topical cream 1 applic [place] DAILY PRN hemorrhoids 07/13/24 08/14/24 Rx with perineal applicator #30 grams hydrocortisone acetate 25 mg 25 mg [place] BID PRN hemorrhoids #24 ea 08/06/24 08/14/24 Rx rectal suppository (Anusol-HC) furosemide 20 mg tablet 20 mg PO DAILY #30 tabs 08/08/24 08/14/24 Rx ranolazine 1,000 mg 1,000 mg PO BID #60 tabs 08/08/24 08/14/24 Rx tablet,extended release,12 hr levothyroxine 50 mcg tablet 50 mcg PO DAILYBB 08/14/24 08/14/24 History Past Med/Surg History Problem List (Updated 08/15/24 @ 00:34 by David Morocho MD) Pulmonary edema cardiac cause Pleural effusion Dyspnea (Acute) Nausea & vomiting (Acute) BRBPR (bright red blood per rectum) (Acute) Bright red blood per rectum Syncope and collapse Chest discomfort Atrial fibrillation, permanent Palpitations Bilateral claudication of lower limb (Acute) VACA (dyspnea on exertion) (Acute) Abnormal nuclear stress test (Acute) Dyspnea on exertion Acute memory impairment Left knee DJD Abnormal CT of the chest Acid reflux Anticoagulant long-term use (Acute) Arthritis CAD in [place] artery Cardiomyopathy Carotid artery stenosis Constipation Glaucoma Jacques's thyroiditis Herpes zoster Hyperlipidemia Hypertension Hypothyroidism Mitral regurgitation Nontoxic multinodular goiter Overweight 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 Tricuspid regurgitation Ventricular tachycardia Irritable bowel syndrome (IBS) PAD (peripheral artery disease) Allergic rhinitis Hx of hemorrhoids Rectal bleeding Osteopenia Impaired fasting glucose Vitamin D deficiency Back pain Urinary symptom or sign Neurological symptoms Multiple thyroid nodules Cough Cholesterol-lowering agent myopathy Constipation History of myocardial infarction Renal infarct (Acute) Mesenteric artery stenosis Medical History History of CVA (cerebrovascular accident) Renal infarct Hyperglycemia Claudication NSTEMI (non-ST elevated myocardial infarction) Intractable pain Surgical History History of carpal tunnel surgery History of total abdominal hysterectomy and bilateral salpingo-oophorectomy S/P appendectomy History of cholecystectomy History of thyroid surgery H/O endarterectomy Family History Mother Diabetes Hypertension Sister Diabetes Kidney disease Hypertension Brother Kidney disease Hypertension Diabetes Father Myocardial infarction Colorectal cancer Unknown Hypertension Cardiac disorder Stroke Cancer Other Buerger's disease No family history of bleeding disorder Denies family history of Ovarian cancer Prostate cancer Breast cancer Social History (Updated 08/06/24 @ 13:58 by BOBBY Hutton) Smoking Status: Never smoker Second Hand Exposure: No; Do You Dip or Chew Tobacco: No; Hx Alcohol Use: No Hx Substance Use: No Preferred Language: Turkmen Communication Ability: Effective Visual Impairment: Limited Hearing Ability: Normal Propulsion Motor And Generator Repairer Required: No Beliefs That Will Affect Care: None marital status: Current Living Situation: Family Current Living Situation Comment: mobile home current occupational status: retired current occupation: Retired-[employer] Feels Safe at Home: Yes Childhood Exposure to Second-Hand Smoke: No Diet: regular caffeine: Yes during the past year weight has: remained stable Dental Care, Regularly: No Physical Activity Frequency: Does not Exercise Seatbelt Use: always Sunscreen Use: Yes Assistive Devices: None Review of Systems Review of Systems: The patient denies chest pain, palpitations, sore throat, fevers, chills, sweats, diarrhea , constipation, abdominal pain, pelvic pain, blood in urine or stool, dysuria, urinary frequency or urgency, lightheadedness, dizziness, headache, memory loss, loss of consciousness, rash, abnormal bruising or bleeding, focal weakness, numbness or tingling in arms or legs, generalized arthralgias or myalgias, back or neck pain, or night sweats. The review of systems is otherwise negative other than for that already noted above, and at least 10 systems have been reviewed. Physical Exam Physical Exam: The patient is awake, alert and oriented 3, well developed and well nourished, normocephalic and atraumatic, lying in bed and in no acute distress. HEENT--PERRL, EOMI, mucous membranes and oropharynx normal Neck--supple. No JVD. No bruits. Thyroid normal, trachea midline, no adenopathy. Heart--normal S1 and S2. No murmurs, rubs or gallops. Lungs--clear bilaterally, no respiratory distress, no accessory muscle use. Abdomen--normal bowel sounds and soft. Nontender. Nondistended, no hernias or masses, no organomegaly. Extremities--1+ bilateral pretibial pitting edema. There are good distal pulses b/l. Dermatologic--normal skin turgor, normal color, no abnormal lymph nodes, no rash. Neurologic--cranial nerves II through XII grossly intact. Rheumatologic--normal range of motion. Psychiatric--normal affect. Results & Data Results & Data Vital Signs (Past 12 Hours) Vital Signs Temp Pulse Resp BP Pulse Ox O2 Del Method O2 Flow Rate 08/14/24 21:15 69 08/14/24 20:30 72 20 91 4 08/14/24 20:00 75 20 92 4 08/14/24 19:42 76 22 91 4 08/14/24 19:11 69 20 91 4 08/14/24 18:56 73 22 90 4 08/14/24 18:56 87 L Room Air 08/14/24 18:09 71 18 92 3 08/14/24 17:39 81 22 92 3 08/14/24 17:31 77 08/14/24 16:38 36.5 C 73 12 110/65 93 Room Air Laboratory Results Laboratory Results WBC 7.53 K/ul (4.8-10.8) 08/14/24 17:00 RBC 3.75 M/uL (4.20-5.40) L 08/14/24 17:00 Hgb 11.9 g/dl (12.0-16.0) L 08/14/24 17:00 Hct 34.3 % (37.0-47.0) L 08/14/24 17:00 MCV 91.5 fL (80.0-100.0) 08/14/24 17:00 MCH 31.7 pg (25.0-34.0) 08/14/24 17:00 MCHC 34.7 g/dL (32.0-36.0) 08/14/24 17:00 RDW Std Deviation 51.7 fL (36.4-46.3) H 08/14/24 17:00 RDW Coeff of Maritza 15.4 % (11.5-14.5) H 08/14/24 17:00 Plt Count 348 K/uL (130-400) 08/14/24 17:00 MPV 10.6 fL (9.4-12.4) 08/14/24 17:00 Immature Gran % (Auto) 0.1 % 08/14/24 17:00 Neut % (Auto) 78.5 % 08/14/24 17:00 Lymph % (Auto) 14.6 % 08/14/24 17:00 [place] % (Auto) 6.4 % 08/14/24 17:00 Eos % (Auto) 0.1 % 08/14/24 17:00 Baso % (Auto) 0.3 % 08/14/24 17:00 Neut # (Auto) 5.91 K/uL (1.40-6.50) 08/14/24 17:00 Lymph # (Auto) 1.10 K/uL (1.20-3.40) L 08/14/24 17:00 [place] # (Auto) 0.48 K/uL (0.11-0.59) 08/14/24 17:00 Eos # (Auto) 0.01 K/uL (0.00-0.50) 08/14/24 17:00 Baso # (Auto) 0.02 K/uL (0.00-0.20) 08/14/24 17:00 Immature Gran # (Auto) 0.01 K/uL (0.01-0.20) 08/14/24 17:00 PT 14.1 Seconds (9.0-12.0) H 08/14/24 17:00 INR 1.3 (0.9-1.1) H 08/14/24 17:00 Sodium 138 mmol/L (136-145) 08/14/24 17:00 Potassium 3.2 mmol/L (3.5-5.1) L 08/14/24 17:00 Chloride 102 mmol/L (98-107) 08/14/24 17:00 Carbon Dioxide 22 mmol/L (21-32) 08/14/24 17:00 Anion Gap 14 (3-11) H 08/14/24 17:00 BUN 14 mg/dl (6-23) 08/14/24 17:00 Creatinine 1.23 mg/dl (0.6-1.2) H 08/14/24 17:00 Est Cr Clr Drug Dosing Not Reportable 08/14/24 17:00 eGFR 42.27 08/14/24 17:00 BUN/Creatinine Ratio 11.4 (10-20) 08/14/24 17:00 Glucose 107 mg/dl (70-99(Fasting)) H 08/14/24 17:00 Calcium 9.5 mg/dl (8.6-10.3) 08/14/24 17:00 Magnesium 1.9 mg/dl (1.7-2.4) 08/14/24 17:00 Total Bilirubin 0.7 mg/dl (0.2-1.0) 08/14/24 17:00 AST 13 U/L (13-39) 08/14/24 17:00 ALT 8 U/L (7-52) 08/14/24 17:00 Alkaline Phosphatase 57 U/L (34-104) 08/14/24 17:00 Troponin I High Sens 18.8 pg/ml (0-14) H 08/14/24 17:00 B-Natriuretic Peptide 292 pg/ml (0-100) H 08/14/24 17:00 Total Protein 7.3 gm/dl (6.0-8.3) 08/14/24 17:00 Albumin 4.2 gm/dl (3.4-5.0) 08/14/24 17:00 Globulin 3.1 gm/dl (2.5-4.0) 08/14/24 17:00 Albumin/Globulin Ratio 1.4 (0.9-2) 08/14/24 17:00 Lipase 18 U/L (11-82) 08/14/24 17:00 TSH 2.180 uIu/ml (0.300-4.500) 08/14/24 17:00 Adenovirus (PCR) Not Detected (NotDetected) 08/14/24 17:00 B. pertussis DNA (PCR) Not Detected (NotDetected) 08/14/24 17:00 B.parapertussis DNA PCR Not Detected (NotDetected) 08/14/24 17:00 C. pneumoniae DNA (PCR) Not Detected (NotDetected) 08/14/24 17:00 Coronavirus OC43 (PCR) Not Detected (NotDetected) 08/14/24 17:00 Coronavirus HKU1 (PCR) Not Detected (NotDetected) 08/14/24 17:00 Coronavirus 229E (PCR) Not Detected (NotDetected) 08/14/24 17:00 SARS-CoV-2 (PCR) Not Detected (NotDetected) 08/14/24 17:00 Coronavirus NL63 (PCR) Not Detected (NotDetected) 08/14/24 17:00 Human Metapneumovir PCR Not Detected (NotDetected) 08/14/24 17:00 Influenza Type A (PCR) Not Detected (NotDetected) 08/14/24 17:00 Influenza Type B (PCR) Not Detected (NotDetected) 08/14/24 17:00 M. pneumoniae (PCR) Not Detected (NotDetected) 08/14/24 17:00 Parainfluenza 1 (PCR) Not Detected (NotDetected) 08/14/24 17:00 Parainfluenza 2 (PCR) Not Detected (NotDetected) 08/14/24 17:00 Parainfluenza 3 (PCR) Not Detected (NotDetected) 08/14/24 17:00 Parainfluenza 4 (PCR) Not Detected (NotDetected) 08/14/24 17:00 RSV (PCR) Not Detected (NotDetected) 08/14/24 17:00 Entero/Rhino (PCR) Not Detected (NotDetected) 08/14/24 17:00 Impressions Chest X-Ray 08/14/24 17:22 INDICATION: Chest pain. TECHNIQUE: Frontal radiograph of the chest. COMPARISON: Radiograph from 04/08/2024. FINDINGS: Cardiomegaly. Mild interstitial edema. Left greater than right pleural effusions with atelectasis/airspace disease. No pneumothorax. No acute fracture. IMPRESSION: Mild interstitial edema. Left greater than right pleural effusions with atelectasis/airspace disease. Electronically signed by Celestino Sheehan 08-14-2024 5:52 PM Abdomen/Pelvis CT 08/14/24 18:18 Clinical History: Weakness and fatigue. Vomiting. Shortness of breath Technique: Axial computed tomography images were obtained of the abdomen and pelvis after the administration of intravenous contrast. Comparison is made to the prior CT dated 03/13/2018. Findings: The liver is overall of normal size, attenuation, and contour with no sign of cirrhosis or significant fatty infiltration. No liver mass lesion is seen. The portal vein is patent. The gallbladder has been removed. No bile duct dilatation is noted. The spleen is of normal size. No focal splenic lesion is evident. The pancreas appears normal with no sign of acute or chronic pancreatitis and no mass lesion noted. The pancreatic duct is of normal caliber. The adrenal glands appear unremarkable. There is no hydronephrosis or perinephric stranding. There is an unchanged 2 cm fatty mass at the lateral aspect of the mid right kidney, likely a benign angiomyolipoma. There is bilateral renal cortical scarring. There is a 1.1 cm right renal cyst The aorta is of normal caliber. No abdominal adenopathy is seen. The stomach appears normal. There is no sign of small bowel obstruction. There is diverticulosis without evidence of diverticulitis. No free intraperitoneal fluid or air is identified. No distal ureteral or bladder calculi are seen. There is a small 9 mm diverticulum of the right wall of the urinary bladder. No definite bladder mass lesion is evident. The iliac arteries are of normal caliber. No pelvic adenopathy is noted. The uterus has been removed. There is apparent pelvic prolapse There are bilateral moderate-sized pleural effusions. There is bilateral lower lobe atelectasis. Lumbar degenerative disc disease is seen. No fracture is identified. No focal osseous lesion is seen Impression: 1. Bilateral moderate sized pleural effusions and bilateral lower lobe atelectasis 2. Unchanged right renal angiomyolipoma 3. Bilateral renal cortical atrophy and right renal cyst 4. Diverticulosis without evidence of diverticulitis 5. Small bladder diverticulum 6. Pelvic prolapse Electronically signed by Mukul Banerjee 08-14-2024 7:13 PM Code Status & VTE Plan Code Status DNR/DNI VTE Prophylaxis Plan VTE Prophylaxis will be ordered: Yes PG Care Time/CCT Total # of Minutes Spent Total Time Spent with Patient: Total time spent is greater than 50% in coordination of care (as documented) at patient's floor/unit and/or counseling patient: Coding Level of Care Code 46881 INT INP/OBS CARE 3/75MIN Diagnoses Dyspnea on exertion R06.09 Pleural effusion J90 Pulmonary edema cardiac cause I50.1 Nausea & vomiting R11.2 Atrial fibrillation, permanent I48.21 Anticoagulant long-term use Z79.01 Cardiomyopathy I42.9 CAD in [place] artery I25.10 Essential hypertension I10 Hypertension type: essential hypertension PAD (peripheral artery disease) I73.9 Hyperlipidemia E78.5 History of myocardial infarction I25.2 (9) Hypertension Hypertension type: essential hypertension Qualified Code(s): I10 - Essential (primary) hypertension
[2024-08-14] MEDS: RANOLAZINE 500 MG ER TAB PO STA (22:09)
[2024-08-14] MEDS: cilostazoL 100 MG TAB PO ONE (22:09)
[2024-08-14] MEDS: APIXABAN 5 MG TABLET PO ONE (22:10)
[2024-08-15] MEDS: FUROSEMIDE 40 MG/4 ML VIAL IV ONE (01:46)
[2024-08-15 04:30] LABS: Appearance Urine Cloudy (Clear); Bacteria Urine Automated 2+ (None Seen); Bilirubin Urine Negative (Negative); Blood Urine Negative (Negative); Cast Urine Automated >20 /lpf (0-2); Color Urine Yellow; Glucose Urine UA Negative (Negative); Ketones Urine Negative (Negative); Leukocyte Esterase Urine 1+ (Negative); Nitrite Urine Negative (Negative); Protein Urine Negative (Negative); RBC Urine Automated >20 /hpf (0-2); Specific Gravity Urine > 1.045 (1.000-1.030); Urobilinogen Urine Negative (Negative)
--- NOTE | 2024-08-15 05:07 | Communication Note ---
Date of Service: August 15, 2024 Notified by nursing of pt's increasing oxygen requirement. Pt was originally satting well on 5L NC; she then required 12L oxymask and continued to desaturate to the mid 80s. Her oxymask was increased to 15L with saturations in the higher 80s. Pt seen at bedside. She is alert and conversant and w/o breathing concerns. She denies chest pain or feeling short of breath. She states she has never had fluids in her lung before and has no history of lung pathology. On auscultation, pt with course, rhonchus sounds throughout bilateral lobes without wheezing. 40mg of lasix IV ordered and pt placed on BIPAP by respiratory with improvement in her oxygen status. Resident Activity Tracking Resident Involvement: Resident Care Provided Care Provided: Adult Hospital Medicine
[2024-08-15] MEDS: LEVOTHYROXINE SODIUM 50 MCG TABLET PO SCH (06:04)
[2024-08-15 06:31] LABS: Basophils # (auto) 0.04 K/uL (0.00-0.20); Basophils % (auto) 0.6 %; Eosinophils # (auto) 0.03 K/uL (0.00-0.50); Eosinophils % (auto) 0.4 %; Hematocrit (blood only) 32.8 % (37.0-47.0); Hemoglobin 11.3 g/dl (12.0-16.0); Immature Granulocytes # (auto) 0.11 K/uL (0.01-0.20); Immature Granulocytes % (auto) 1.5 %; Lymphocytes # (auto) 1.14 K/uL (1.20-3.40); Lymphocytes % (auto) 15.9 %; Mean Corpuscular Hemoglobin 31.6 pg (25.0-34.0); Mean Corpuscular Hgb Conc 34.5 g/dL (32.0-36.0); Mean Corpuscular Volume 91.6 fL (80.0-100.0); Mean Platelet Volume 10.4 fL (9.4-12.4); Monocytes # (auto) 0.67 K/uL (0.11-0.59); Monocytes % (auto) 9.4 %; Neutrophils # (auto) 5.17 K/uL (1.40-6.50); Neutrophils % (auto) 72.2 %; Platelet Count 304 K/uL (130-400); RDW Coefficient of Variation 15.5 % (11.5-14.5); RDW Standard Deviation 52.1 fL (36.4-46.3); Red Blood Count 3.58 M/uL (4.20-5.40); White Blood Count 7.16 K/ul (4.8-10.8)
[2024-08-15 06:45] LABS: Albumin Level 3.8 gm/dl (3.4-5.0); BUN Creatinine Ratio 11.8 (10-20); Calcium 9.2 mg/dl (8.6-10.3); Creatinine Clr Calc Pharmacy 25.7 ml/min; Magnesium 1.8 mg/dl (1.7-2.4); Phosphorus 3.3 mg/dl (2.5-4.9); Potassium 4.6 mmol/L (3.5-5.1)
[2024-08-15] MEDS: BRIMONIDINE TARTRATE 0.2% 5ML OPB SCH (09:57)
[2024-08-15] MEDS: cilostazoL 100 MG TAB PO SCH (09:57)
[2024-08-15] MEDS: APIXABAN 5 MG TABLET PO SCH (09:57)
[2024-08-15] MEDS: FUROSEMIDE 40 MG/4 ML VIAL IV SCH ×2 (09:58→17:33)
[2024-08-15] MEDS: RANOLAZINE 500 MG ER TAB PO SCH (09:58)
[2024-08-15] MEDS: PANTOprazole 40 MG TAB PO SCH (09:58)
[2024-08-15] MEDS: DORZOLAMIDE/TIMOLOL 22.3/6.8MG/ML 10 ML BTL OPB SCH (09:58)
[2024-08-15] MEDS: ONDANSETRON INJ 2 MG/ML 2 ML VIAL IV PRN (11:14)
--- NOTE | 2024-08-15 12:32 | Pulmonary Consultation ---
Date of Consultation August 15, 2024 Assessment & Plan (1) Pleural effusion: (2) Atrial fibrillation, permanent: (3) Acute respiratory failure with hypoxia: Plan 2D echo 06/20/2023: EF 65 to 70%, moderate MR, mild TR, RV not well-visualized -- Acute hypoxic respiratory failure Likely secondary to HFpEF BNP 292 Respiratory BioFire negative for everything Procalcitonin negative -- Bilateral pleural effusion Secondary to HFpEF -- A-fib On Eliquis Plan: Recommend aggressive diuresis to keep the patient negative balance at least 1 L on a daily basis Hold Eliquis, there is no improvement in the pleural effusion and thoracentesis will be thought of BiPAP nightly and as needed shortness of breath Recommend holding Eliquis and putting the patient on a heparin drip instead Please note the above document was generated using voice recognition software. It may contain grammatical, syntax or spelling errors.Any formal questions or concerns about the content, text or information contained within the body of this dictation should be directly addressed to the provider for clarification. History of Present Illness Attending Physician: Mervat Samuel MD History of Present Illness 88-year-old female presented to the hospital with shortness of breath Past medical history: A-fib on Eliquis, peripheral vascular disease, GERD, coronary artery disease, dyslipidemia, hypertension, hypothyroidism, mesenteric artery stenosis Pulmonary positive for pleural effusion no hypoxia At the time of examination patient was on room air saturating 86% She was put on oxime mask 14 L and her saturation went up to 93-94% Patient complains of subjective chills but no fever. Does complain of cough and difficulty bringing it up. No chest pain Has been complaining of nausea. Threw up before coming to the hospital which was nonbilious nonbloody. No dysuria, no diarrhea No unusual headache or blurry vision No recent travel history Social history: Lifetime non-smoker, used to work in making airplanes parts. Wore mask. Allergies Allergy/AdvReac Type Severity Reaction Status Date / Time Penicillins Allergy Intermediate RASH ONLY Verified 08/08/24 15:34 atorvastatin AdvReac Intermediate MUSCLE Verified 08/08/24 15:34 CRAMPS/PAIN pravastatin AdvReac Intermediate MUSCLE Verified 08/08/24 15:34 CRAMPS/PAIN simvastatin AdvReac Intermediate MUSCLE Verified 08/08/24 15:34 CRAMPS/PAIN Home Medications Medication Instructions Recorded Confirmed Type dorzolamide 22.3 mg-timolol 6.8 1 drp OPB BID 02/23/19 08/14/24 History mg/mL eye drops brimonidine 0.2 % eye drops 1 drp OPB BID 05/07/19 08/14/24 History omeprazole 40 mg capsule,delayed 40 mg PO DAILY #90 caps 04/13/24 08/14/24 Rx release amlodipine 10 mg tablet 10 mg PO QPM #90 tabs 04/16/24 08/14/24 Rx losartan 50 mg tablet 50 mg PO QAM #90 tabs 04/16/24 08/14/24 Rx cilostazol 100 mg tablet 100 mg PO BID #60 tabs 04/30/24 08/14/24 Rx apixaban 5 mg tablet (Eliquis) 5 mg PO BID #180 tabs 05/30/24 08/14/24 Rx netarsudil 0.02 %-latanoprost 1 drp ophthalmic (eye) DAILY 05/30/24 08/14/24 History 0.005 % eye drops (Rocklatan) hydrocortisone 2.5 % topical cream 1 applic [place] DAILY PRN hemorrhoids 07/13/24 08/14/24 Rx with perineal applicator #30 grams hydrocortisone acetate 25 mg 25 mg [place] BID PRN hemorrhoids #24 ea 08/06/24 08/14/24 Rx rectal suppository (Anusol-HC) furosemide 20 mg tablet 20 mg PO DAILY #30 tabs 08/08/24 08/14/24 Rx ranolazine 1,000 mg 1,000 mg PO BID #60 tabs 08/08/24 08/14/24 Rx tablet,extended release,12 hr levothyroxine 50 mcg tablet 50 mcg PO DAILYBB 08/14/24 08/14/24 History Patient History Medical History History of CVA (cerebrovascular accident) Renal infarct Hyperglycemia Claudication NSTEMI (non-ST elevated myocardial infarction) Intractable pain Surgical History History of carpal tunnel surgery History of total abdominal hysterectomy and bilateral salpingo-oophorectomy S/P appendectomy History of cholecystectomy History of thyroid surgery H/O endarterectomy Family History Mother Diabetes Hypertension Sister Diabetes Kidney disease Hypertension Brother Kidney disease Hypertension Diabetes Father Myocardial infarction Colorectal cancer Unknown Hypertension Cardiac disorder Stroke Cancer Other Buerger's disease No family history of bleeding disorder Denies family history of Ovarian cancer Prostate cancer Breast cancer Social History (Updated 08/06/24 @ 13:58 by BOBBY Hutton) Smoking Status: Never smoker Second Hand Exposure: No; Do You Dip or Chew Tobacco: No; Hx Alcohol Use: No Hx Substance Use: No Preferred Language: Luxembourgish Communication Ability: Effective Visual Impairment: Limited Hearing Ability: Normal Compensation Director Required: No Beliefs That Will Affect Care: None marital status: Current Living Situation: Family Current Living Situation Comment: mobile home current occupational status: retired current occupation: Retired-[employer] Feels Safe at Home: Yes Childhood Exposure to Second-Hand Smoke: No Diet: regular caffeine: Yes during the past year weight has: remained stable Dental Care, Regularly: No Physical Activity Frequency: Does not Exercise Seatbelt Use: always Sunscreen Use: Yes Assistive Devices: None Review of Systems 2 Review of Systems: All systems reviewed & are unremarkable except as noted in HPI & below Physical Exam 2 Physical Exam: Constitutional: No acute distress HEENT: EOMI, PERRLA Respiratory system: Decreased air entry bilaterally, no wheeze, no rhonchi, positive crackles bilaterally CVS: S1-S2 positive, no murmurs or gallops Abdomen: Soft, nontender, nondistended, positive bowel sounds x4 Extremities: +2 pulses bilaterally radialis/ dorsalis pedis, no cyanosis, +1 pitting edema bilateral lower extremity Neuro: Awake alert oriented x3 Psych: Normal mood and affect G/U: Positive [place] Skin: no rashes, warm and dry Lymphatic: no cervical or axillary lymphadenopathy Results & Data Results & Data Vital Signs (Past 12 Hours) Vital Signs Temp Pulse Pulse Resp BP Pulse Ox O2 Del Method 08/15/24 12:13 Oxymask 08/15/24 08:20 36.6 C 79 24 114/65 96 BiPAP 08/15/24 07:25 65 20 94 08/15/24 03:54 36.5 C 71 25 H 111/68 98 BiPAP 08/15/24 02:03 62 25 H 92 08/15/24 00:59 36.4 C L 62 16 108/60 O2 Flow Rate FiO2 08/15/24 12:13 14 08/15/24 08:20 08/15/24 07:25 90 08/15/24 03:54 08/15/24 02:03 100 08/15/24 00:59 Laboratory Results 08/15/24 06:00 08/15/24 06:00 PG Care Time/CCT Total # of Minutes Spent Total Time Spent with Patient: Total time spent is greater than 50% in coordination of care (as documented) at patient's floor/unit and/or counseling patient: Coding Level of Care Code 22333 INT INP/OBS CARE 375MIN Diagnoses Pleural effusion J90 Atrial fibrillation, permanent I48.21 Acute respiratory failure with hypoxia J96.01
--- NOTE | 2024-08-15 13:39 | XCELERA ---
[id number] \\[id number]
--- NOTE | 2024-08-15 14:20 | Cardiology Consultation ---
Date of Consultation August 15, 2024 Assessment & Plan (1) (HFpEF) heart failure with preserved ejection fraction: 2. Bilateral pleural effusions 3. Positive stress test with prior lateral ischemia/prior nonobstructive CAD 4. Permanent atrial fibrillationprior symptomatic bradycardia on beta-cindy 5. Moderate mitral regurgitation, mild MS, pulmonary hypertension 6. Acute on chronic renal insufficiency 7. Anemia, prior rectal bleeding 8. Lower extremity PAD, carotid artery disease Patient here with respiratory failure in the setting of acute decompensated heart failure. Seems to have had a gradual progression of volume overload. No clear acute precipitants. Repeat echo today reviewed, shows preserved LV function with stable, nonsevere valvular heart disease. No new regional wall motion abnormalities. Previously had borderline stress test with a mild amount of ischemia. Current presentation not ACS. On exam today still grossly volume overloaded with bilateral pleural effusions. Will need continued IV diuresis. Relatively low suspicion for ischemic heart disease significant contributing to heart failure or MR but will consider cardiac catheterization when volume status improved. Recommendations: Increase Lasix to 40 mg twice daily Strict I's and O's, daily standing weights. Target net negative >1 L today Trend troponin Continue to monitor on telemetry With HF stop Cilostazol Okay to hold Eliquis for possible thoracentesis Will follow History of Present Illness Attending Physician: Mervat Samuel MD History of Present Illness Mrs. Younger is a very pleasant 80-year-old woman with a history of permanent atrial fibrillation, nonobstructive CAD, PAD post prior lower extremity endovascular intervention and carotid artery stenosis post left CEA admitted with dyspnea and acute decompensated heart failure. Patient follows with Dr. Taylor for her cardiac care. Follows with me for LE PAD. Has been dealing with progressive exertional dyspnea for months. Previously underwent nuclear stress 03/2024 which showed a small for lateral ischemia. Cardiac catheterization considered. Last month was hospitalized in the setting of possible GI bleed, hemoglobin stable between 1112. Over the last few weeks shortness of breath has continued to progress with worsening lower extremity edema, orthopnea. Was seen by cardiology last week and restarted on Lasix 20 mg daily. Symptoms continued to progress. Yesterday had multiple episodes of nausea/vomiting in addition to dyspnea. No chest pain. No palpitations. No p resyncope. Hypoxic on arrival with large pleural effusions on chest x-ray. ECG again with A-fib, no ST changes. HS TropI 18. BNP 292. Required BiPAP overnight. Has received furosemide 40 mg IV x 2. Breathing somewhat improved today now on oxymask. Repeat echo showed normal LV function with moderate MR/mild , moderate pulmonary hypertension, trace pericardial effusion and large left pleural effusion. Allergies Allergy/AdvReac Type Severity Reaction Status Date / Time Penicillins Allergy Intermediate RASH ONLY Verified 08/08/24 15:34 atorvastatin AdvReac Intermediate MUSCLE Verified 08/08/24 15:34 CRAMPS/PAIN pravastatin AdvReac Intermediate MUSCLE Verified 08/08/24 15:34 CRAMPS/PAIN simvastatin AdvReac Intermediate MUSCLE Verified 08/08/24 15:34 CRAMPS/PAIN Home Medications Medication Instructions Recorded Confirmed Type dorzolamide 22.3 mg-timolol 6.8 1 drp OPB BID 02/23/19 08/14/24 History mg/mL eye drops brimonidine 0.2 % eye drops 1 drp OPB BID 05/07/19 08/14/24 History omeprazole 40 mg capsule,delayed 40 mg PO DAILY #90 caps 04/13/24 08/14/24 Rx release amlodipine 10 mg tablet 10 mg PO QPM #90 tabs 04/16/24 08/14/24 Rx losartan 50 mg tablet 50 mg PO QAM #90 tabs 04/16/24 08/14/24 Rx cilostazol 100 mg tablet 100 mg PO BID #60 tabs 04/30/24 08/14/24 Rx apixaban 5 mg tablet (Eliquis) 5 mg PO BID #180 tabs 05/30/24 08/14/24 Rx netarsudil 0.02 %-latanoprost 1 drp ophthalmic (eye) DAILY 05/30/24 08/14/24 History 0.005 % eye drops (Rocklatan) hydrocortisone 2.5 % topical cream 1 applic AR DAILY PRN hemorrhoids 07/13/24 08/14/24 Rx with perineal applicator #30 grams hydrocortisone acetate 25 mg 25 mg AR BID PRN hemorrhoids #24 ea 08/06/24 08/14/24 Rx rectal suppository (Anusol-HC) furosemide 20 mg tablet 20 mg PO DAILY #30 tabs 08/08/24 08/14/24 Rx ranolazine 1,000 mg 1,000 mg PO BID #60 tabs 08/08/24 08/14/24 Rx tablet,extended release,12 hr levothyroxine 50 mcg tablet 50 mcg PO DAILYBB 08/14/24 08/14/24 History Patient History Medical History History of CVA (cerebrovascular accident) Renal infarct Hyperglycemia Claudication NSTEMI (non-ST elevated myocardial infarction) Intractable pain Surgical History History of carpal tunnel surgery History of total abdominal hysterectomy and bilateral salpingo-oophorectomy S/P appendectomy History of cholecystectomy History of thyroid surgery H/O endarterectomy Family History Mother Diabetes Hypertension Sister Diabetes Kidney disease Hypertension Brother Kidney disease Hypertension Diabetes Father Myocardial infarction Colorectal cancer Unknown Hypertension Cardiac disorder Stroke Cancer Other Buerger's disease No family history of bleeding disorder Denies family history of Ovarian cancer Prostate cancer Breast cancer Social History (Updated 08/06/24 @ 13:58 by BOBBY Hutton) Smoking Status: Never smoker Second Hand Exposure: No; Do You Dip or Chew Tobacco: No; Hx Alcohol Use: No Hx Substance Use: No Preferred Language: Vietnamese Communication Ability: Effective Visual Impairment: Limited Hearing Ability: Normal Assignment Desk Assistant Required: No Beliefs That Will Affect Care: None marital status: Current Living Situation: Family Current Living Situation Comment: mobile home current occupational status: retired current occupation: Retired[employer] Feels Safe at Home: Yes Childhood Exposure to Second-Hand Smoke: No Diet: regular caffeine: Yes during the past year weight has: remained stable Dental Care, Regularly: No Physical Activity Frequency: Does not Exercise Seatbelt Use: always Sunscreen Use: Yes Assistive Devices: None Review of Systems Review of Systems: All systems reviewed & are unremarkable except as noted in HPI & below Physical Exam Physical Exam: General: Comfortable, frail HEENT: Sclerae anicteric Lungs: Decreased breath sounds at bases bilaterally left greater than right with few associated crackles Cardiac: Irregular irregular, 2 out of 6 systolic ejection murmur heard best at right upper sternal border Abdomen: Soft, nontender Extremities: Well perfused, trace to 1+ lower extremity edema left greater than right Neuro: Nonfocal Psych: Alert orient x3, normal affect and mood Results & Data Vital Signs (Past 12 Hours) Vital Signs Temp Pulse Pulse Resp BP Pulse Ox O2 Del Method 08/15/24 12:33 97.7 F 70 20 107/54 L 89 L Oxymask 08/15/24 12:13 Oxymask 08/15/24 08:20 97.9 F 79 24 114/65 96 BiPAP 08/15/24 07:25 65 20 94 08/15/24 03:54 97.7 F 71 25 H 111/68 98 BiPAP 08/15/24 02:03 62 25 H 92 O2 Flow Rate FiO2 08/15/24 12:33 08/15/24 12:13 14 08/15/24 08:20 08/15/24 07:25 90 08/15/24 03:54 08/15/24 02:03 100 PG Care Time/CCT Total # of Minutes Spent Total Time Spent with Patient: Total time spent is greater than 50% in coordination of care (as documented) at patient's floor/unit and/or counseling patient: Coding Level of Care Code 38006 IN/OBS CONSULT LVL 4,60M Diagnoses (HFpEF) heart failure with preserved ejection fraction I50.30
--- NOTE | 2024-08-15 14:56 | Procedure Note ---
Procedure Note Date of Service August 15, 2024 Bedside Ultrasound: Lung: Left:-Moderate left-sided pleural effusion with dependent atelectasis, no loculations Right:-Moderate right-sided pleural effusion with dependent atelectasis, no loculations Please note the above document was generated using voice recognition software. It may contain grammatical, syntax or spelling errors.Any formal questions or concerns about the content, text or information contained within the body of this dictation should be directly addressed to the provider for clarification. [facility] [place] Procedure Codes (Charges) Pulmonary/Thoracic Procedure 1: Pulmonary and Thoracic: 08437 US, Chest, real time with imaging documentation Coding CPT Codes Pulmonary/Thoracic - Pulmonary and Thoracic: 46956 US, Chest, real time with imaging documentation ([id number]) Additional Codes Date of Service (PG.[email or web address])
--- NOTE | 2024-08-15 15:28 | Electrocardiogram Report ---
Test Reason : Blood Pressure : */* mmHG Vent. Rate : 74 BPM Atrial Rate : * BPM P-R Int : * ms QRS Dur : 84 ms QT Int : 298 ms P-R-T Axes : * 96 -57 degrees QTcB Int : 330 ms Normal sinus rhythm Rightward axis Nonspecific T wave abnormality Abnormal ECG When compared with ECG of 24-Jul-2024 15:55, Nonspecific T wave abnormality now evident in Inferior leads Nonspecific T wave abnormality, worse in Anterolateral leads QT has shortened Reconfirmed by Len Griffin ([id number]) on 08/15/2024 3:35:40 PM Referred By: REFERRED SELF Confirmed By: Len Griffin
--- NOTE | 2024-08-15 15:34 | Electrocardiogram Report ---
Test Reason : Blood Pressure : */* mmHG Vent. Rate : 58 BPM Atrial Rate : 58 BPM P-R Int : 222 ms QRS Dur : 78 ms QT Int : 458 ms P-R-T Axes : 81 78 55 degrees QTcB Int : 449 ms Sinus bradycardia with 1st degree A-V block Low voltage QRS Borderline ECG When compared with ECG of 14-Aug-2024 17:45, (unconfirmed) Nonspecific T wave abnormality no longer evident in Inferior leads Nonspecific T wave abnormality no longer evident in Anterolateral leads QT has lengthened Confirmed by Len Griffin ([id number]) on 08/15/2024 3:34:27 PM Referred By: REFERRED SELF Confirmed By: Len Griffin
--- NOTE | 2024-08-15 16:04 | Hospitalist Progress Note ---
Date of Service August 15, 2024 Assessment & Plan (1) Dyspnea on exertion: (2) Pleural effusion: (3) Pulmonary edema cardiac cause: (4) Nausea & vomiting: (5) Atrial fibrillation, permanent: (6) Anticoagulant long-term use: (7) Cardiomyopathy: (8) CAD in [place] artery: (9) Hypertension: (10) PAD (peripheral artery disease): (11) Hyperlipidemia: (12) History of myocardial infarction: Plan Acute hypoxic respiratory failure Due to acute on chronic diastolic congestive heart failure Continue diuretics as below On BiPAP now Consult pulmonology Acute on chronic diastolic congestive heart failure/bilateral pleural effusions Patient presented with shortness of breath and leg swelling Chest x-ray showed bilateral pleural effusions and interstitial pulmonary edema Repeat echocardiogram showed normal EF BNP elevated at 290 Patient was given IV Lasix in the emergency room followed by IV Lasix every morning with minimal diuretic response Gamble catheter ordered for accurate measurement of ins and outs Increase the Lasix to 40 mg IV twice daily Consult cardiology and pulmonology Discontinue cilostazol in the face of CHF flare Switch Eliquis to heparin drip in case she ends up needing thoracentesis Monitor BMP closely Permanent atrial fibrillation Switch Eliquis to heparin drip in case patient needs thoracentesis Not on any rate controlling agent at home Rate controlled Peripheral vascular disease/coronary artery disease/hypertension/hyperlipidemia Discontinue cilostazol Continue ranolazine Will hold amlodipine and losartan while being aggressively diuresed Hypokalemia- Potassium 3.2 Repleted Deconditioning- Will consult PT/OT once breathing improved Code: DNR/DNI DVT prophylaxis: Eliquis being switched over to heparin drip Admission and Anticipated Discharge Date Admission Date: August 14, 2024 Subjective Patient was seen and examined at 10:30 AM. She was in a BiPAP during my enco unter. She was accompanied by her , daughter in the room. Overnight, patient was started on BiPAP due to respiratory distress. I explained to the patient and her family that she is fluid overloaded and will need aggressive diuresis. Review of Systems Review of Systems: All systems reviewed & are unremarkable except as noted in Subjective Physical Exam Physical Exam: General: Awake, conversant. Frail looking elderly woman Heart: S1, S2/regular rate and rhythm, no murmur rubs or gallops Lungs: Diminished breath sounds at the bases bilaterally. BiPAP on. Abdomen: Soft/nontender/nondistended. No hepatosplenomegaly Extremities: No clubbing/cyanosis. 1+ pitting bilateral edema Behavior: Appropriate, cooperative Results & Data Results & Data Vital Signs (Past 12 Hours) Vital Signs Temp Pulse Pulse Resp BP Pulse Ox O2 Del Method 08/15/24 14:48 64 08/15/24 12:33 36.5 C 70 20 107/54 L 89 L Oxymask 08/15/24 12:13 Oxymask 08/15/24 08:20 36.6 C 79 24 114/65 96 BiPAP 08/15/24 07:25 65 20 94 O2 Flow Rate FiO2 08/15/24 14:48 08/15/24 12:33 08/15/24 12:13 14 08/15/24 08:20 08/15/24 07:25 90 Laboratory Results Abnormal lab results 08/14/24 08/15/24 08/15/24 Range/Units 17:00 04:00 06:00 RBC 3.75 L 3.58 L (4.20-5.40) M/uL Hgb 11.9 L 11.3 L (12.0-16.0) g/dl Hct 34.3 L 32.8 L (37.0-47.0) % RDW Std Deviation 51.7 H 52.1 H (36.4-46.3) fL RDW Coeff of [place] 15.4 H 15.5 H (11.5-14.5) % Lymph # (Auto) 1.10 L 1.14 L (1.20-3.40) K/uL [place] # (Auto) 0.67 H (0.11-0.59) K/uL PT 14.1 H (9.0-12.0) Seconds INR 1.3 H (0.9-1.1) Potassium 3.2 L (3.5-5.1) mmol/L Anion Gap 14 H (3-11) Creatinine 1.23 H 1.36 H (0.6-1.2) mg/dl Glucose 107 H 105 H (70-99(Fasting)) mg/dl Troponin I High Sens 18.8 H (0-14) pg/ml B-Natriuretic Peptide 292 H (0-100) pg/ml Urine Appearance Cloudy A (Clear) Ur Specific [place] > 1.045 H (1.000-1.030) Ur Leukocyte Esterase 1+ H (Negative) Urine WBC (Auto) 11-20 H (0-5) /hpf Urine RBC (Auto) >20 H (0-2) /hpf U Hyaline Cast (Auto) >20 H (0-2) /lpf U Epithel Cells (Auto) 11-20 H (0-2) /hpf Urine Bacteria (Auto) 2+ H (None Seen) PG Care Time/CCT Total # of Minutes Spent Total Time Spent with Patient: Total time spent is greater than 50% in coordination of care (as documented) at patient's floor/unit and/or counseling patient: Coding Level of Care Code 05685 SUB INP/OBS CARE 2/35MIN Diagnoses Dyspnea on exertion R06.09 Pleural effusion J90 Pulmonary edema cardiac cause I50.1 Nausea & vomiting R11.2 Atrial fibrillation, permanent I48.21 Anticoagulant long-term use Z79.01 Cardiomyopathy I42.9 CAD in [place] artery I25.10 Essential hypertension I10 Hypertension type: essential hypertension PAD (peripheral artery disease) I73.9 Hyperlipidemia E78.5 History of myocardial infarction I25.2 (9) Hypertension Hypertension type: essential hypertension Qualified Code(s): I10 - Essential (primary) hypertension
[2024-08-15] MEDS ORDERED: Heparin IV Adult Wt-Based Standard *NO* INITIAL Bolus Protocol IV SCH (21:00)
[2024-08-15] MEDS: HEPARIN SODIUM/DEXTROSE 25,000 UNITS/500 ML BAG IV SCH (21:52)
[2024-08-16 05:15] LABS: ANTI-Xa, UFH(UnfractionatedHep > 1.50 IU/ml (0.3-0.7)
[2024-08-16 06:48] LABS: Basophils # (auto) 0.03 K/uL (0.00-0.20); Basophils % (auto) 0.4 %; Eosinophils # (auto) 0.08 K/uL (0.00-0.50); Eosinophils % (auto) 0.9 %; Hematocrit (blood only) 31.8 % (37.0-47.0); Hemoglobin 10.6 g/dl (12.0-16.0); Immature Granulocytes # (auto) 0.03 K/uL (0.01-0.20); Immature Granulocytes % (auto) 0.4 %; Lymphocytes # (auto) 1.09 K/uL (1.20-3.40); Lymphocytes % (auto) 12.8 %; Mean Corpuscular Hemoglobin 31.7 pg (25.0-34.0); Mean Corpuscular Hgb Conc 33.3 g/dL (32.0-36.0); Mean Corpuscular Volume 95.2 fL (80.0-100.0); Mean Platelet Volume 10.3 fL (9.4-12.4); Monocytes # (auto) 0.64 K/uL (0.11-0.59); Monocytes % (auto) 7.5 %; Neutrophils # (auto) 6.62 K/uL (1.40-6.50); Platelet Count 268 K/uL (130-400); RDW Coefficient of Variation 15.8 % (11.5-14.5); RDW Standard Deviation 55.4 fL (36.4-46.3); Red Blood Count 3.34 M/uL (4.20-5.40); White Blood Count 8.49 K/ul (4.8-10.8)
[2024-08-16 07:05] LABS: Albumin Level 3.7 gm/dl (3.4-5.0); BUN Creatinine Ratio 13.5 (10-20); Calcium 9.4 mg/dl (8.6-10.3); Creatinine Clr Calc Pharmacy 23.3 ml/min; Magnesium 1.8 mg/dl (1.7-2.4); Phosphorus 4.1 mg/dl (2.5-4.9); Potassium 4.2 mmol/L (3.5-5.1)
[2024-08-16 08:32] LABS: ANTI-Xa, UFH(UnfractionatedHep > 1.50 IU/ml (0.3-0.7)
[2024-08-16 10:10] LABS: ANTI-Xa, UFH(UnfractionatedHep > 1.50 IU/ml (0.3-0.7)
--- NOTE | 2024-08-16 10:28 | Electrocardiogram Report ---
Test Reason : Blood Pressure : */* mmHG Vent. Rate : 73 BPM Atrial Rate : 277 BPM P-R Int : * ms QRS Dur : 86 ms QT Int : 436 ms P-R-T Axes : * 74 12 degrees QTcB Int : 480 ms Normal sinus rhythm Low voltage QRS Nonspecific T wave abnormality Abnormal ECG When compared with ECG of 15-Aug-2024 06:52, Nonspecific T wave abnormality now evident in Inferior leads Confirmed by Len Griffin ([id number]) on 08/16/2024 10:28:10 AM Referred By: REFERRED SELF Confirmed By: Len Griffin
--- NOTE | 2024-08-16 10:57 | Pulmonology Progress Note ---
Date of Service August 16, 2024 Assessment & Plan (1) Pleural effusion: (2) Atrial fibrillation, permanent: (3) Acute respiratory failure with hypoxia: Plan 2D echo 06/20/2023: EF 65 to 70%, moderate MR, mild TR, RV not well-visualized -- Acute hypoxic respiratory failure Likely secondary to HFpEF BNP 292 Respiratory BioFire negative for everything Procalcitonin negative -- Bilateral pleural effusion Secondary to HFpEF -- A-fib On Eliquis Plan: In/out: -692, urine output 1050 Unfortunately patient is still requiring significant oxygen requirement Incentive spirometry will be beneficial Continue with diuresis. Lasix dose has been increased by cardiology BiPAP nightly and as needed shortness of breath. Increase the EPAP to 10. If patient is not able to tolerate BiPAP and does give CPAP 10 and increase it to 12 if she is able to tolerate it Continue with heparin drip today. Hold heparin drip 6 AM tomorrow for thoracentesis Case was discussed with RN and RT at bedside Please note the above document was generated using voice recognition software. It may contain grammatical, syntax or spelling errors.Any formal questions or concerns about the content, text or information contained within the body of this dictation should be directly addressed to the provider for clarification. Admission and Anticipated Discharge Date Admission Date: August 14, 2024 Subjective Patient seen and examined at bedside. No acute distress, no adverse events overnight She was saturating 93% on 20 L, 80% FiO2 I was able to go down on FiO2 70% and increase the flow to 30 L The saturation was still maintaining around 91-92% Overall she says she is feeling better compared to when she came to the hospital She has been urinating well. Denies any chest pain Appetite is fair Review of Systems 2 Review of Systems: All systems reviewed & are unremarkable except as noted in Subjective Physical Exam 2 Physical Exam: Constitutional: No acute distress HEENT: EOMI, PERRLA Respiratory system: Decreased air entry bilaterally, no wheeze, no rhonchi, positive crackles bilaterally CVS: S1-S2 positive, no murmurs or gallops Abdomen: Soft, nontender, nondistended, positive bowel sounds x4 Extremities: +2 pulses bilaterally radialis/ dorsalis pedis, no cyanosis, +1 pitting edema bilateral lower extremity Neuro: Awake alert oriented x3 Psych: Normal mood and affect G/U: Positive Gamble Skin: no rashes, warm and dry Lymphatic: no cervical or axillary lymphadenopathy Results & Data Results & Data Vital Signs (Past 12 Hours) Vital Signs Temp Pulse Pulse Resp BP BP Pulse Ox 08/16/24 08:25 08/16/24 08:06 36.7 C 74 21 116/64 85 L 08/16/24 07:15 62 18 91 08/16/24 07:00 18 90 08/16/24 07:00 56 L 08/16/24 06:53 78 20 93 08/16/24 03:15 70 20 98 08/16/24 02:36 36.3 C L 70 18 127/71 98 O2 Del Method O2 Flow Rate FiO2 08/16/24 08:25 20 80 08/16/24 08:06 Nasal CPAP 08/16/24 07:15 High Flow Nasal Cannula 15 75 08/16/24 07:00 High Flow Nasal Cannula 15 75 08/16/24 07:00 08/16/24 06:53 High Flow Nasal Cannula 15 60 08/16/24 03:15 80 08/16/24 02:36 BiPAP Laboratory Results 08/16/24 06:30 08/16/24 06:30 PG Care Time/CCT Total # of Minutes Spent Total Time Spent with Patient: Total time spent is greater than 50% in coordination of care (as documented) at patient's floor/unit and/or counseling patient: Coding Level of Care Code 37349 SUB INP/OBS CARE 3/50MIN Diagnoses Pleural effusion J90 Atrial fibrillation, permanent I48.21 Acute respiratory failure with hypoxia J96.01
[2024-08-16] MEDS: FUROSEMIDE 40 MG/4 ML VIAL IV ONE (11:37)
[2024-08-16 12:44] LABS: ANTI-Xa, UFH(UnfractionatedHep > 1.50 IU/ml (0.3-0.7)
--- NOTE | 2024-08-16 13:19 | Hospitalist Progress Note ---
Date of Service August 16, 2024 Assessment & Plan (1) Dyspnea on exertion: (2) Pleural effusion: (3) Pulmonary edema cardiac cause: (4) Nausea & vomiting: (5) Atrial fibrillation, permanent: (6) Anticoagulant long-term use: (7) Cardiomyopathy: (8) CAD in [place] artery: (9) Hypertension: (10) PAD (peripheral artery disease): (11) Hyperlipidemia: (12) History of myocardial infarction: Plan Acute hypoxic respiratory failure Due to acute on chronic diastolic congestive heart failure Patient is subjectively feeling better but is still on high flow oxygen [employer] Manager on board Increased the dose of Lasix to 80 mg twice daily Acute on chronic diastolic congestive heart failure/bilateral pleural effusions Patient presented with shortness of breath and leg swelling Chest x-ray showed bilateral pleural effusions and interstitial pulmonary edema Repeat echocardiogram showed normal EF BNP elevated at 290 Patient was given IV Lasix in the emergency room followed by IV Lasix every morning with minimal diuretic response Gamble catheter for accurate measurement of ins and outs Increase the Lasix to 80 mg IV twice daily Cardiology and pulmonology on board Cilostazol on hold Eliquis switched to heparin drip in case she ends up needing thoracentesis Monitor BMP closely Permanent atrial fibrillation Switch Eliquis to heparin drip in case patient needs thoracentesis Not on any rate controlling agent at home Rate controlled Peripheral vascular disease/coronary artery disease/hypertension/hyperlipidemia Discontinue cilostazol Continue ranolazine Will hold amlodipine and losartan while being aggressively diuresed Hypokalemia- Repleted Deconditioning- Will consult PT/OT once breathing improved Code: DNR/DNI DVT prophylaxis: Eliquis being switched over to heparin drip Admission and Anticipated Discharge Date Admission Date: August 14, 2024 Subjective Patient was seen and examined at 11:05 AM.. She says that she feels better. Her leg swelling has improved. She still has high oxygen needs. Review of Systems Review of Systems: All systems reviewed & are unremarkable except as noted in Subjective Physical Exam Physical Exam: General: Awake, conversant. Frail looking elderly woman Heart: S1, S2/regular rate and rhythm, no murmur rubs or gallops Lungs: Diminished breath sounds at the bases bilaterally. Abdomen: Soft/nontender/nondistended. No hepatosplenomegaly Extremities: No clubbing/cyanosis. Trace bilateral edema Behavior: Appropriate, cooperative Results & Data Results & Data Vital Signs (Past 12 Hours) Vital Signs Temp Pulse Pulse Resp BP BP Pulse Ox 08/16/24 11:45 74 18 93 08/16/24 11:19 36.8 C 69 30 H 114/63 92 08/16/24 08:25 08/16/24 08:06 36.7 C 74 21 116/64 85 L 08/16/24 07:15 62 18 91 08/16/24 07:00 18 90 08/16/24 07:00 56 L 08/16/24 06:53 78 20 93 08/16/24 03:15 70 20 98 08/16/24 02:36 36.3 C L 70 18 127/71 98 O2 Del Method O2 Flow Rate FiO2 08/16/24 11:45 High Flow Nasal Cannula 20 80 08/16/24 11:19 Nasal CPAP 08/16/24 08:25 20 80 08/16/24 08:06 Nasal CPAP 08/16/24 07:15 High Flow Nasal Cannula 15 75 08/16/24 07:00 High Flow Nasal Cannula 15 75 08/16/24 07:00 08/16/24 06:53 High Flow Nasal Cannula 15 60 08/16/24 03:15 80 08/16/24 02:36 BiPAP Laboratory Results Abnormal lab results 08/16/24 08/16/24 08/16/24 Range/Units 03:54 06:30 09:10 RBC 3.34 L (4.20-5.40) M/uL Hgb 10.6 L (12.0-16.0) g/dl Hct 31.8 L (37.0-47.0) % RDW Std Deviation 55.4 H (36.4-46.3) fL RDW Coeff of Maritza 15.8 H (11.5-14.5) % Neut # (Auto) 6.62 H (1.40-6.50) K/uL Lymph # (Auto) 1.09 L (1.20-3.40) K/uL [place] # (Auto) 0.64 H (0.11-0.59) K/uL Heparin Anti-Xa, Unfract > 1.50 H* > 1.50 H* > 1.50 H* (0.3-0.7) IU/ml Creatinine 1.48 H (0.6-1.2) mg/dl Glucose 105 H (70-99(Fasting)) mg/dl 08/16/24 Range/Units 11:36 RBC (4.20-5.40) M/uL Hgb (12.0-16.0) g/dl Hct (37.0-47.0) % RDW Std Deviation (36.4-46.3) fL RDW Coeff of Marit[place] (11.5-14.5) % Neut # (Auto) (1.40-6.50) K/uL Lymph # (Auto) (1.20-3.40) K/uL [place] # (Auto) (0.11-0.59) K/uL Heparin Anti-Xa, Unfract > 1.50 H* (0.3-0.7) IU/ml Creatinine (0.6-1.2) mg/dl Glucose (70-99(Fasting)) mg/dl Diagnostic Findings Chest X-Ray 08/14/24 17:22 INDICATION: Chest pain. TECHNIQUE: Frontal radiograph of the chest. COMPARISON: Radiograph from 04/08/2024. FINDINGS: Cardiomegaly. Mild interstitial edema. Left greater than right pleural effusions with atelectasis/airspace disease. No pneumothorax. No acute fracture. IMPRESSION: Mild interstitial edema. Left greater than right pleural effusions with atelectasis/airspace disease. Electronically signed by Celestino Sheehan 08-14-2024 5:52 PM Abdomen/Pelvis CT 08/14/24 18:18 Clinical History: Weakness and fatigue. Vomiting. Shortness of breath Technique: Axial computed tomography images were obtained of the abdomen and pelvis after the administration of intravenous contrast. Comparison is made to the prior CT dated 03/13/2018. Findings: The liver is overall of normal size, attenuation, and contour with no sign of cirrhosis or significant fatty infiltration. No liver mass lesion is seen. The portal vein is patent. The gallbladder has been removed. No bile duct dilatation is noted. The spleen is of normal size. No focal splenic lesion is evident. The pancreas appears normal with no sign of acute or chronic pancreatitis and no mass lesion noted. The pancreatic duct is of normal caliber. The adrenal glands appear unremarkable. There is no hydronephrosis or perinephric stranding. There is an unchanged 2 cm fatty mass at the lateral aspect of the mid right kidney, likely a benign angiomyolipoma. There is bilateral renal cortical scarring. There is a 1.1 cm right renal cyst The aorta is of normal caliber. No abdominal adenopathy is seen. The stomach appears normal. There is no sign of small bowel obstruction. There is diverticulosis without evidence of diverticulitis. No free intraperitoneal fluid or air is identified. No distal ureteral or bladder calculi are seen. There is a small 9 mm diverticulum of the right wall of the urinary bladder. No definite bladder mass lesion is evident. The iliac arteries are of normal caliber. No pelvic adenopathy is noted. The uterus has been removed. There is apparent pelvic prolapse There are bilateral moderate-sized pleural effusions. There is bilateral lower lobe atelectasis. Lumbar degenerative disc disease is seen. No fracture is identified. No focal osseous lesion is seen Impression: 1. Bilateral moderate sized pleural effusions and bilateral lower lobe atelectasis 2. Unchanged right renal angiomyolipoma 3. Bilateral renal cortical atrophy and right renal cyst 4. Diverticulosis without evidence of diverticulitis 5. Small bladder diverticulum 6. Pelvic prolapse Electronically signed by Mukul Banerjee 08-14-2024 7:13 PM PG Care Time/CCT Total # of Minutes Spent Total Time Spent with Patient: Total time spent is greater than 50% in coordination of care (as documented) at patient's floor/unit and/or counseling patient: Coding Level of Care Code 11810 SUB INP/OBS CARE 2/35MIN Diagnoses Dyspnea on exertion R06.09 Pleural effusion J90 Pulmonary edema cardiac cause I50.1 Nausea & vomiting R11.2 Atrial fibrillation, permanent I48.21 Anticoagulant long-term use Z79.01 Cardiomyopathy I42.9 CAD in [place] artery I25.10 Essential hypertension I10 Hypertension type: essential hypertension PAD (peripheral artery disease) I73.9 Hyperlipidemia E78.5 History of myocardial infarction I25.2 (9) Hypertension Hypertension type: essential hypertension Qualified Code(s): I10 - Essential (primary) hypertension
[2024-08-16 13:42] LABS: ANTI-Xa, UFH(UnfractionatedHep > 1.50 IU/ml (0.3-0.7)
--- NOTE | 2024-08-16 13:58 | Cardiology Progress Note ---
Date of Service August 16, 2024 Assessment & Plan (1) (HFpEF) heart failure with preserved ejection fraction: Plan: 2. Bilateral pleural effusions 3. Positive stress test with prior lateral ischemia/prior nonobstructive CAD 4. Permanent atrial fibrillationprior symptomatic bradycardia on beta-cindy 5. Moderate mitral regurgitation, mild MS, pulmonary hypertension 6. Acute on chronic renal insufficiency 7. Anemia, prior rectal bleeding 8. Lower extremity PAD, carotid artery disease Dyspnea improvement today and appears more comfortable but remains on high flow oxygen -500 yesterday but weight unchanged Persistent congestion on exam today Renal function stable Will increase Lasix to 80 mg twice daily Continue strict I's and O's, daily standing weights. Target net negative >1 L today Eliquis on hold. On heparin, awaiting possible thoracentesis tomorrow Long-term consider cardiac catheterization when volume status improved. Will follow Admission and Anticipated Discharge Date Admission Date: August 14, 2024 Subjective Reports feeling better today than yesterday and on admission. Remains on high flow nasal cannula to maintain O2 sats in low 90s. Denies any chest pain. Nausea, appetite improved today. Has had several bowel movements. I/O yesterday: 450/1050 Weight unchanged today Review of Systems Review of Systems: All systems reviewed & are unremarkable except as noted in HPI & below Physical Exam Physical Exam: General: Comfortable, frail HEENT: Sclerae anicteric Lungs: Decreased breath sounds at bases bilaterally left greater than right, no crackles today Cardiac: Irregular irregular, 2 out of 6 systolic ejection murmur heard best at right upper sternal border. JVD persist Abdomen: Soft, nontender Extremities: Well perfused, trace bilateral edema Neuro: Nonfocal Psych: Alert orient x3, normal affect and mood Results & Data Vital Signs (Past 12 Hours) Vital Signs Temp Pulse Pulse Resp BP BP Pulse Ox 08/16/24 11:45 74 18 93 08/16/24 11:19 98.2 F 69 30 H 114/63 92 08/16/24 08:25 08/16/24 08:06 98.1 F 74 21 116/64 85 L 08/16/24 07:15 62 18 91 08/16/24 07:00 18 90 08/16/24 07:00 56 L 08/16/24 06:53 78 20 93 08/16/24 03:15 70 20 98 08/16/24 02:36 97.3 F L 70 18 127/71 98 O2 Del Method O2 Flow Rate FiO2 08/16/24 11:45 High Flow Nasal Cannula 20 80 08/16/24 11:19 Nasal CPAP 08/16/24 08:25 20 80 08/16/24 08:06 Nasal CPAP 08/16/24 07:15 High Flow Nasal Cannula 15 75 08/16/24 07:00 High Flow Nasal Cannula 15 75 08/16/24 07:00 08/16/24 06:53 High Flow Nasal Cannula 15 60 08/16/24 03:15 80 08/16/24 02:36 BiPAP PG Care Time/CCT Total # of Minutes Spent Total Time Spent with Patient: Total time spent is greater than 50% in coordination of care (as documented) at patient's floor/unit and/or counseling patient: Coding Level of Care Code 56048 SUB INP/OBS CARE 3/50MIN Diagnoses (HFpEF) heart failure with preserved ejection fraction I50.30
[2024-08-16 15:37] LABS: ANTI-Xa, UFH(UnfractionatedHep > 1.50 IU/ml (0.3-0.7)
[2024-08-16] MEDS: FUROSEMIDE 40 MG/4 ML VIAL IV SCH (16:30)
[2024-08-16 17:51] LABS: ANTI-Xa, UFH(UnfractionatedHep > 1.50 IU/ml (0.3-0.7)
[2024-08-16 20:03] LABS: ANTI-Xa, UFH(UnfractionatedHep > 1.50 IU/ml (0.3-0.7)
[2024-08-16 22:09] LABS: ANTI-Xa, UFH(UnfractionatedHep > 1.50 IU/ml (0.3-0.7)
[2024-08-17 00:12] LABS: ANTI-Xa, UFH(UnfractionatedHep > 1.50 IU/ml (0.3-0.7)
[2024-08-17 01:51] LABS: ANTI-Xa, UFH(UnfractionatedHep > 1.50 IU/ml (0.3-0.7)
[2024-08-17 04:08] LABS: ANTI-Xa, UFH(UnfractionatedHep > 1.50 IU/ml (0.3-0.7)
[2024-08-17 06:07] LABS: Basophils # (auto) 0.02 K/uL (0.00-0.20); Basophils % (auto) 0.2 %; Eosinophils # (auto) 0.08 K/uL (0.00-0.50); Hematocrit (blood only) 28.8 % (37.0-47.0); Hemoglobin 9.8 g/dl (12.0-16.0); Immature Granulocytes # (auto) 0.04 K/uL (0.01-0.20); Immature Granulocytes % (auto) 0.5 %; Lymphocytes # (auto) 0.78 K/uL (1.20-3.40); Lymphocytes % (auto) 9.5 %; Mean Corpuscular Hemoglobin 31.6 pg (25.0-34.0); Mean Corpuscular Volume 92.9 fL (80.0-100.0); Mean Platelet Volume 10.8 fL (9.4-12.4); Monocytes # (auto) 0.61 K/uL (0.11-0.59); Monocytes % (auto) 7.4 %; Neutrophils # (auto) 6.69 K/uL (1.40-6.50); Neutrophils % (auto) 81.4 %; Platelet Count 240 K/uL (130-400); RDW Coefficient of Variation 15.3 % (11.5-14.5); RDW Standard Deviation 52.2 fL (36.4-46.3); White Blood Count 8.22 K/ul (4.8-10.8)
[2024-08-17 06:08] LABS: Albumin Level 3.4 gm/dl (3.4-5.0); BUN Creatinine Ratio 16.8 (10-20); Bilirubin,Total 0.5 mg/dl (0.2-1.0); Creatinine Clr Calc Pharmacy 24.1 ml/min; Magnesium 1.7 mg/dl (1.7-2.4); Phosphorus 4.3 mg/dl (2.5-4.9); Potassium 4.3 mmol/L (3.5-5.1); Total Protein 5.9 gm/dl (6.0-8.3)
[2024-08-17 06:55] LABS: ANTI-Xa, UFH(UnfractionatedHep > 1.50 IU/ml (0.3-0.7)
--- NOTE | 2024-08-17 12:12 | Pulmonology Progress Note ---
Date of Service August 17, 2024 Assessment & Plan (1) Pleural effusion: (2) Atrial fibrillation, permanent: (3) Acute respiratory failure with hypoxia: Plan 2D echo 06/20/2023: EF 65 to 70%, moderate MR, mild TR, RV not well-visualized -- Acute hypoxic respiratory failure Likely secondary to HFpEF BNP 292 Respiratory BioFire negative for everything Procalcitonin negative -- Bilateral pleural effusion Secondary to HFpEF S/p thoracentesis 08/17/2024 650 mL on from the left 500 mL on the right Follow-up cytology -- A-fib On Eliquis Plan: In/out: - 1.3 L since coming to the hospital S/p thoracentesis today Oxygen requirement has significantly improved Would recommend to titrate down on diuresis. Continue with incentive spirometry, still will benefit from BiPAP nightly and as needed shortness of breath Okay to resume Eliquis Case was discussed with RN and RT at bedside Please note the above document was generated using voice recognition software. It may contain grammatical, syntax or spelling errors.Any formal questions or concerns about the content, text or information contained within the body of this dictation should be directly addressed to the provider for clarification. Admission and Anticipated Discharge Date Admission Date: August 14, 2024 Subjective Patient seen and examined at bedside. No acute distress, events overnight Patient had thoracentesis done today, total of 1 L was removed from both side. She was saturating 97% on 10 L, I went down to 6 L and she was still able to maintain her saturation 97% Stated that she is feeling better after thoracentesis Has been urinating well Denies any headache No nausea vomiting Patient's family was at bedside Review of Systems 2 Review of Systems: All systems reviewed & are unremarkable except as noted in Subjective Physical Exam 2 Physical Exam: Constitutional: No acute distress HEENT: EOMI, PERRLA Respiratory system: Decreased air entry bilaterally, no wheeze, no rhonchi, positive crackles bilaterally CVS: S1-S2 positive, no murmurs or gallops Abdomen: Soft, nontender, nondistended, positive bowel sounds x4 Extremities: +2 pulses bilaterally radialis/ dorsalis pedis, no cyanosis, +1 pitting edema bilateral lower extremity Neuro: Awake alert oriented x3 Psych: Normal mood and affect G/U: Positive Gamble Skin: no rashes, warm and dry Lymphatic: no cervical or axillary lymphadenopathy Results & Data Results & Data Vital Signs (Past 12 Hours) Vital Signs Temp Pulse Pulse Resp BP Pulse Ox O2 Del Method 08/17/24 10:26 76 18 91 High Flow Nasal Cannula 08/17/24 08:44 High Flow Nasal Cannula 08/17/24 07:30 72 08/17/24 07:26 36.8 C 73 18 123/73 91 High Flow Nasal Cannula 08/17/24 06:06 74 18 93 High Flow Nasal Cannula 08/17/24 03:47 36.5 C 67 16 106/63 95 BiPAP 08/17/24 03:10 109 H 26 H 94 08/17/24 00:29 BiPAP O2 Flow Rate FiO2 08/17/24 10:26 40 80 08/17/24 08:44 30 70 08/17/24 07:30 08/17/24 07:26 40 08/17/24 06:06 30 70 08/17/24 03:47 08/17/24 03:10 70 08/17/24 00:29 80 Laboratory Results 08/17/24 05:20 08/17/24 05:20 PG Care Time/CCT Total # of Minutes Spent Total Time Spent with Patient: Total time spent is greater than 50% in coordination of care (as documented) at patient's floor/unit and/or counseling patient: Coding Level of Care Code 50664 SUB INP/OBS CARE 2/35MIN Diagnoses Pleural effusion J90 Atrial fibrillation, permanent I48.21 Acute respiratory failure with hypoxia J96.01
--- NOTE | 2024-08-17 12:39 | XRay Report ---
XR chest 1V not portable HISTORY: 88 years-old Female s/p Bilat thora acute shortness of breath with pleural effusion COMPARISON: 08/14/2024 TECHNIQUE: AP view of the chest FINDINGS: Cardiac silhouette is enlarged. Cholecystectomy. Atherosclerosis of the aorta. Pulmonary vascular con gestion with interstitial coarsening. No pneumothorax. Layering pleural effusions with bibasilar cons olidation redemonstrated. The left pleural effusion may have decreased in size. Mild upper thoracic l evoscoliosis. IMPRESSION: 1. No postprocedural pneumothorax identified. 2. Cardiomegaly with persistent interstitial pulmonary edema. 3. Layering pleural effusions with bibasilar consolidation redemonstrated. ACT 112: Negative or not required by law. The above report was generated using voice recognition software. It may contain grammatical, syntax o r spelling errors. Electronically signed by: Julio Olivares M.D. 08/17/2024 12:37 PM
--- NOTE | 2024-08-17 13:04 | Ultrasound Report ---
Ultrasound-guided left thoracentesis INDICATION: left pleural effusion PROCEDURE: Procedure and risks were explained. Informed consent was obtained. A final timeout was com pleted. The left posterior thorax was prepped and draped in sterile fashion. 1% lidocaine was utilize d for skin anesthesia. Utilizing ultrasound guidance, a 5 [place] safety centesis catheter was advanced into the left pleural effusion. Ultrasound images were obtained. 650 mL of paez fluid was removed and sent to lab for an alysis. The catheter was removed and Band-Aid applied. The patient tolerated the procedure well. A est x-ray will be obtained and vital signs will be monitored prior to discharge. IMPRESSION: Left thoracentesis as above. Performed, dictated, and signed by Yves Lara PA-C; to be co-signed by Dr. Avinash Mace. Electronically signed by: Avinash Mace M.D. 08/17/2024 1:27 PM
--- NOTE | 2024-08-17 13:05 | Ultrasound Report ---
Ultrasound-guided right thoracentesis INDICATION: Right pleural effusion PROCEDURE: Procedure and risks were explained. Informed consent was obtained. A final timeout was com pleted. The right posterior thorax was prepped and draped in sterile fashion. 1% lidocaine was utiliz ed for skin anesthesia. Utilizing ultrasound guidance, a 5 [place] safety centesis catheter was advanced into the right pleura l effusion. Ultrasound images were obtained. 500 mL of paez fluid was removed and sent to lab for a nalysis. The catheter was removed and Band-Aid applied. The patient tolerated the procedure well. A c hest x-ray will be obtained and vital signs will be monitored prior to discharge. IMPRESSION: Right thoracentesis as above. Performed, dictated, and signed by Yves Lara PA-C; to be co-signed by Dr. Avinash Mace. Electronically signed by: Avinash Mace M.D. 08/17/2024 1:27 PM
[2024-08-17 13:36] LABS: Glucose Pleural Fluid 112 mg/dl; LDH Pleural Fluid 45 U/L; Total Protein Pleural Fluid < 3.0 gm/dl
[2024-08-17 13:56] LABS: Glucose Pleural Fluid 114 mg/dl; LDH Pleural Fluid 56 U/L; Total Protein Pleural Fluid < 3.0 gm/dl
[2024-08-17 14:17] LABS: Appearance Pleural Fluid Slightly Hazy; Color Pleural Fluid Pale Yellow; Lymphocytes, Fluid 96 %; Mono,Macrophage,Mesothelial 3 %; Neutrophils, Fluid 1 %; RBC Pleural Fluid Auto < 2000 /uL; Source Pleural Fluid Right Lung; WBC Pleural Fluid Auto 388 /uL
[2024-08-17 14:18] LABS: Appearance Pleural Fluid Slightly Hazy; Color Pleural Fluid Pale Yellow; Lymphocytes, Fluid 94 %; Mono,Macrophage,Mesothelial 4 %; Neutrophils, Fluid 2 %; RBC Pleural Fluid Auto < 2000 /uL; Source Pleural Fluid Left Lung; WBC Pleural Fluid Auto 314 /uL
--- NOTE | 2024-08-17 16:26 | Hospitalist Progress Note ---
Date of Service August 17, 2024 Assessment & Plan (1) Dyspnea on exertion: (2) Pleural effusion: (3) Pulmonary edema cardiac cause: (4) Nausea & vomiting: (5) Atrial fibrillation, permanent: (6) Anticoagulant long-term use: (7) Cardiomyopathy: (8) CAD in [place] artery: (9) Hypertension: (10) PAD (peripheral artery disease): (11) Hyperlipidemia: (12) History of myocardial infarction: Plan Acute hypoxic respiratory failure Due to acute on chronic diastolic congestive heart failure, bilateral pleural effusion Patient had bilateral thoracentesis done 08/17 650 cc removed from left, 500 cc removed from right Nurse was able to titrate down O2 since thoracentesis Acute on chronic diastolic congestive heart failure/bilateral pleural effusions Patient presented with shortness of breath and leg swelling Chest x-ray showed bilateral pleural effusions and interstitial pulmonary edema Repeat echocardiogram showed normal EF BNP elevated at 290 Patient was being aggressively diuresed with large doses of Lasix without significant diuretic response Gamble catheter for accurate measurement of ins and outs Patient had thoracentesis done today 08/17 Cardiology and pulmonology on board Cilostazol on hold Discontinue Lasix for now. May resume at a lower dose tomorrow if needed Patient is able to down titrate on her O2 needs. Monitor BMP closely Permanent atrial fibrillation Switch Eliquis to heparin drip in case patient needs thoracentesis Not on any rate controlling agent at home Rate controlled Peripheral vascular disease/coronary artery disease/hypertension/hyperlipidemia Discontinue cilostazol Continue ranolazine Will hold amlodipine and losartan while being aggressively diuresed Hypokalemia- Repleted Deconditioning- Will consult PT/OT once breathing improved Code: DNR/DNI DVT prophylaxis: Switch back from heparin drip to Eliquis Admission and Anticipated Discharge Date Admission Date: August 14, 2024 Subjective Patient was seen and examined at 12:45 PM. She was accompanied by her family at the bedside. She stated that she felt well overall. She had a thoracentesis done earlier this morning. The nurse has been able to titrate her O2 down significantly since the fluid was drained. Review of Systems Review of Systems: All systems reviewed & are unremarkable except as noted in Subjective Physical Exam Physical Exam: General: Awake, conversant. Frail looking elderly woman Heart: S1, S2/regular rate and rhythm, no murmur rubs or gallops Lungs: Better air entry bilaterally. Normal effort. Abdomen: Soft/nontender/nondistended. No hepatosplenomegaly Extremities: No clubbing/cyanosis. No edema Behavior: Appropriate, cooperative Results & Data Results & Data Vital Signs (Past 12 Hours) Vital Signs Temp Pulse Pulse Resp BP Pulse Ox O2 Del Method 08/17/24 16:02 89 L High Flow Nasal Cannula 08/17/24 15:23 4 L Nasal Cannula 08/17/24 15:13 71 08/17/24 13:06 92 High Flow Nasal Cannula 08/17/24 12:35 36.6 C 98 H 20 111/66 98 High Flow Nasal Cannula 08/17/24 12:23 92 H 18 95 Nasal Cannula 08/17/24 10:26 76 18 91 High Flow Nasal Cannula 08/17/24 08:44 High Flow Nasal Cannula 08/17/24 07:30 72 08/17/24 07:26 36.8 C 73 18 123/73 91 High Flow Nasal Cannula 08/17/24 06:06 74 18 93 High Flow Nasal Cannula O2 Flow Rate FiO2 08/17/24 16:02 6 08/17/24 15:23 4 08/17/24 15:13 08/17/24 13:06 6 08/17/24 12:35 10 08/17/24 12:23 12 08/17/24 10:26 40 80 08/17/24 08:44 30 70 08/17/24 07:30 08/17/24 07:26 40 08/17/24 06:06 30 70 Laboratory Results Abnormal lab results 08/16/24 08/16/24 08/16/24 Range/Units 16:47 19:11 20:52 RBC (4.20-5.40) M/uL Hgb (12.0-16.0) g/dl Hct (37.0-47.0) % RDW Std Deviation (36.4-46.3) fL RDW Coeff of Maritza (11.5-14.5) % Neut # (Auto) (1.40-6.50) K/uL Lymph # (Auto) (1.20-3.40) K/uL Jenkins # (Auto) (0.11-0.59) K/uL Heparin Anti-Xa, Unfract > 1.50 H* > 1.50 H* > 1.50 H* (0.3-0.7) IU/ml Sodium (136-145) mmol/L BUN (6-23) mg/dl Creatinine (0.6-1.2) mg/dl Total Protein (6.0-8.3) gm/dl Pleural pH (7.3-7.4) 08/16/24 08/17/24 08/17/24 Range/Units 23:04 00:59 03:01 RBC (4.20-5.40) M/uL Hgb (12.0-16.0) g/dl Hct (37.0-47.0) % RDW Std Deviation (36.4-46.3) fL RDW Coeff of Maritza (11.5-14.5) % Neut # (Auto) (1.40-6.50) K/uL Lymph # (Auto) (1.20-3.40) K/uL Jenkins # (Auto) (0.11-0.59) K/uL Heparin Anti-Xa, Unfract > 1.50 H* > 1.50 H* > 1.50 H* (0.3-0.7) IU/ml Sodium (136-145) mmol/L BUN (6-23) mg/dl Creatinine (0.6-1.2) mg/dl Total Protein (6.0-8.3) gm/dl Pleural pH (7.3-7.4) 08/17/24 08/17/24 08/17/24 Range/Units 05:20 12:16 12:20 RBC 3.10 L (4.20-5.40) M/uL Hgb 9.8 L (12.0-16.0) g/dl Hct 28.8 L (37.0-47.0) % RDW Std Deviation 52.2 H (36.4-46.3) fL RDW Coeff of Maritza 15.3 H (11.5-14.5) % Neut # (Auto) 6.69 H (1.40-6.50) K/uL Lymph # (Auto) 0.78 L (1.20-3.40) K/uL Jenkins # (Auto) 0.61 H (0.11-0.59) K/uL Heparin Anti-Xa, Unfract > 1.50 H* (0.3-0.7) IU/ml Sodium 134 L (136-145) mmol/L BUN 24 H (6-23) mg/dl Creatinine 1.43 H (0.6-1.2) mg/dl Total Protein 5.9 L (6.0-8.3) gm/dl Pleural pH 7.57 H 7.46 H (7.3-7.4) Diagnostic Findings Thoracentesis/Paracentesis US 08/17/24 00:00 Ultrasound-guided left thoracentesis INDICATION: left pleural effusion PROCEDURE: Procedure and risks were explained. Informed consent was obtained. A final timeout was completed. The left posterior thorax was prepped and draped in sterile fashion. 1% lidocaine was utilized for skin anesthesia. Utilizing ultrasound guidance, a 5 Spanish safety centesis catheter was advanced into the left pleural effusion. Ultrasound images were obtained. 650 mL of paez fluid was removed and sent to lab for analysis. The catheter was removed and Band-Aid applied. The patient tolerated the procedure well. A chest x-ray will be obtained and vital signs will be monitored prior to discharge. IMPRESSION: Left thoracentesis as above. Performed, dictated, and signed by Yves Lara PA-C; to be co-signed by Dr. Avinash Mace. Electronically signed by: Avinash Mace M.D. 08/17/2024 1:27 PM Thoracentesis/Paracentesis US 08/17/24 00:00 Ultrasound-guided right thoracentesis INDICATION: Right pleural effusion PROCEDURE: Procedure and risks were explained. Informed consent was obtained. A final timeout was completed. The right posterior thorax was prepped and draped in sterile fashion. 1% lidocaine was utilized for skin anesthesia. Utilizing ultrasound guidance, a 5 Spanish safety centesis catheter was advanced into the right pleural effusion. Ultrasound images were obtained. 500 mL of paez fluid was removed and sent to lab for analysis. The catheter was removed and Band-Aid applied. The patient tolerated the procedure well. A chest x-ray will be obtained and vital signs will be monitored prior to discharge. IMPRESSION: Right thoracentesis as above. Performed, dictated, and signed by Yves Lara PA-C; to be co-signed by Dr. Avinash Mace. Electronically signed by: Avinash Mace M.D. 08/17/2024 1:27 PM Chest X-Ray 11/08/24 11:50 XR chest 1V not portable HISTORY: 88 years-old Female s/p Bilat thora acute shortness of breath with pleural effusion COMPARISON: 08/14/2024 TECHNIQUE: AP view of the chest FINDINGS: Cardiac silhouette is enlarged. Cholecystectomy. Atherosclerosis of the aorta. Pulmonary vascular congestion with interstitial coarsening. No pneumothorax. Layering pleural effusions with bibasilar consolidation redemonstrated. The left pleural effusion may have decreased in size. Mild upper thoracic levoscoliosis. IMPRESSION: 1. No postprocedural pneumothorax identified. 2. Cardiomegaly with persistent interstitial pulmonary edema. 3. Layering pleural effusions with bibasilar consolidation redemonstrated. ACT 112: Negative or not required by law. The above report was generated using voice recognition software. It may contain grammatical, syntax or spelling errors. Electronically signed by: Julio Olivares M.D. 08/17/2024 12:37 PM PG Care Time/CCT Total # of Minutes Spent Total Time Spent with Patient: Total time spent is greater than 50% in coordination of care (as documented) at patient's floor/unit and/or counseling patient: Coding Level of Care Code 41859 SUB INP/OBS CARE 2/35MIN Diagnoses Dyspnea on exertion R06.09 Pleural effusion J90 Pulmonary edema cardiac cause I50.1 Nausea & vomiting R11.2 Atrial fibrillation, permanent I48.21 Anticoagulant long-term use Z79.01 Cardiomyopathy I42.9 CAD in [place] artery I25.10 Essential hypertension I10 Hypertension type: essential hypertension PAD (peripheral artery disease) I73.9 Hyperlipidemia E78.5 History of myocardial infarction I25.2 (9) Hypertension Hypertension type: essential hypertension Qualified Code(s): I10 - Essential (primary) hypertension
[2024-08-17] MEDS: STOP HEPARIN ORDER ONE (18:21)
--- NOTE | 2024-08-18 08:18 | XRay Report ---
EXAM: XR chest 1V portable CLINICAL HISTORY: F/U [facility] INPATIENT TECHNIQUE: X-ray image of the chest obtained in frontal projection. COMPARISON: Prior X-ray dated 08/14/2024 for comparison. FINDINGS: Pulmonary Parenchyma: Reticular thickening and haziness with opacities in bilateral mid and lower zones. Bilateral CP angles are obscured suggesting pleural effusion. Heart and Mediastinum: Heart size and shape are normal. Aortic knuckle calcifications. No mediastinal widening or masses. No hilar or mediastinal lymphadenopathy. Bony Thorax: Spondylotic changes in the thoracic spine. The bony thorax appears intact without fractures or deformities. Soft Tissues: Soft tissues overlying the chest wall are unremarkable. IMPRESSION: 1. Unchanged appearance of reticular thickening with haziness in bilateral mid/lower zones and bilateral pleural effusion could be pulmonary edema, clinical correlation is needed. Electronically signed by Daniel Valente 08-18-2024 08:18 AM
--- NOTE | 2024-08-18 08:50 | Pulmonology Progress Note ---
Date of Service August 18, 2024 Assessment & Plan (1) Pleural effusion: (2) Atrial fibrillation, permanent: (3) Acute respiratory failure with hypoxia: Plan 2D echo 06/20/2023: EF 65 to 70%, moderate MR, mild TR, RV not well-visualized -- Acute hypoxic respiratory failure Likely secondary to HFpEF BNP 292 Respiratory BioFire negative for everything Procalcitonin negative -- Bilateral pleural effusion Secondary to HFpEF S/p thoracentesis 08/17/2024 650 mL on from the left, 500 mL on the right, both side transudative Follow-up cytology -- A-fib On Eliquis Plan: In/out: -2.5 L since coming to the hospital Recommend incentive spirometry Patient is likely having delirium. Would recommend frequent reorientation Recommend to resume 40 mg of Lasix IV on a daily basis while in the hospital and discharged on 40 mg p.o. daily Try to titrate down oxygen to keep O2 saturation around 90-92% BiPAP nightly and as needed shortness of breath Case was discussed with RN at bedside Please note the above document was generated using voice recognition software. It may contain grammatical, syntax or spelling errors.Any formal questions or concerns about the content, text or information contained within the body of this dictation should be directly addressed to the provider for clarification. Admission and Anticipated Discharge Date Admission Date: August 14, 2024 Subjective Patient seen and examined at bedside. No acute distress, no adverse events overnight She was saturating 89% on 6 L nasal cannula which was not placed in her nose I positioned the nasal cannula appropriately and ask her to take deep breaths and then her saturation went up to 93-94% Denied any chest pain No headache, no blurry vision Appetite is fair As per the nurse patient has been having some delirium since yesterday Review of Systems 2 Review of Systems: All systems reviewed & are unremarkable except as noted in Subjective Physical Exam 2 Physical Exam: Constitutional: No acute distress HEENT: EOMI, PERRLA Respiratory system: Decreased air entry bilaterally, no wheeze, no rhonchi, positive crackles bilaterally CVS: S1-S2 positive, no murmurs or gallops Abdomen: Soft, nontender, nondistended, positive bowel sounds x4 Extremities: +2 pulses bilaterally radialis/ dorsalis pedis, no cyanosis, +1 pitting edema bilateral lower extremity Neuro: Awake alert oriented to self Psych: Normal mood and affect G/U: Positive Gamble Skin: no rashes, warm and dry Lymphatic: no cervical or axillary lymphadenopathy Results & Data Results & Data Vital Signs (Past 12 Hours) Vital Signs Temp Pulse Pulse Resp BP BP Pulse Ox 08/18/24 08:46 72 08/18/24 07:20 36.7 C 62 18 110/57 L 93 08/18/24 07:05 08/18/24 04:14 70 17 98 08/18/24 03:33 37.2 C 66 17 121/61 98 08/17/24 23:59 69 08/17/24 23:10 37.1 C 68 16 113/56 L 97 08/17/24 23:04 08/17/24 22:45 69 26 H 97 O2 Del Method O2 Flow Rate FiO2 08/18/24 08:46 08/18/24 07:20 High Flow Nasal Cannula 6 08/18/24 07:05 High Flow Nasal Cannula 8 08/18/24 04:14 60 08/18/24 03:33 BiPAP 08/17/24 23:59 08/17/24 23:10 CPAP 60 08/17/24 23:04 High Flow Nasal Cannula 8 08/17/24 22:45 60 Laboratory Results 08/17/24 05:20 08/17/24 05:20 PG Care Time/CCT Total # of Minutes Spent Total Time Spent with Patient: Total time spent is greater than 50% in coordination of care (as documented) at patient's floor/unit and/or counseling patient: Coding Level of Care Code 99428 SUB INP/OBS CARE 2/35MIN Diagnoses Pleural effusion J90 Atrial fibrillation, permanent I48.21 Acute respiratory failure with hypoxia J96.01
[2024-08-18 09:44] LABS: Hematocrit (blood only) 33.4 % (37.0-47.0); Hemoglobin 11.3 g/dl (12.0-16.0); Mean Corpuscular Hgb Conc 33.8 g/dL (32.0-36.0); Mean Corpuscular Volume 94.6 fL (80.0-100.0); Mean Platelet Volume 10.5 fL (9.4-12.4); Platelet Count 223 K/uL (130-400); RDW Coefficient of Variation 15.3 % (11.5-14.5); RDW Standard Deviation 52.4 fL (36.4-46.3); Red Blood Count 3.53 M/uL (4.20-5.40); White Blood Count 7.13 K/ul (4.8-10.8)
[2024-08-18 10:13] LABS: Creatinine Clr Calc Pharmacy 36.1 ml/min
[2024-08-18 10:14] LABS: BUN Creatinine Ratio 22.3 (10-20); Calcium 9.3 mg/dl (8.6-10.3); Potassium 3.7 mmol/L (3.5-5.1)
--- NOTE | 2024-08-18 15:05 | Hospitalist Progress Note ---
Date of Service August 18, 2024 Assessment & Plan (1) Dyspnea on exertion: (2) Pleural effusion: (3) Pulmonary edema cardiac cause: (4) Nausea & vomiting: (5) Atrial fibrillation, permanent: (6) Anticoagulant long-term use: (7) Cardiomyopathy: (8) CAD in [place] artery: (9) Hypertension: (10) PAD (peripheral artery disease): (11) Hyperlipidemia: (12) History of myocardial infarction: Plan Acute hypoxic respiratory failure Due to acute on chronic diastolic congestive heart failure, bilateral pleural effusion Patient had bilateral thoracentesis done 08/17 650 cc removed from left, 500 cc removed from right Nurse was able to titrate down O2 since thoracentesis Patient is still requiring 6 L of oxygen Continue diuresis Acute on chronic diastolic congestive heart failure/bilateral pleural effusions Patient presented with shortness of breath and leg swelling Chest x-ray showed bilateral pleural effusions and interstitial pulmonary edema Repeat echocardiogram showed normal EF BNP elevated at 290 Patient was being aggressively diuresed with large doses of Lasix without significant diuretic response Gamble catheter for accurate measurement of ins and outs Patient had thoracentesis done 08/17 Cardiology and pulmonology on board Cilostazol on hold Resume Lasix at 40 mg IV daily, first dose now Continue to titrate down O2 Monitor BMP closely Permanent atrial fibrillation Resume Eliquis Not on any rate controlling agent at home Rate controlled Peripheral vascular disease/coronary artery disease/hypertension/hyperlipidemia Discontinue cilostazol Continue ranolazine Will hold amlodipine and losartan while being aggressively diuresed Hypokalemia- Repleted Deconditioning- Will consult PT/OT once breathing improved Code: DNR/DNI DVT prophylaxis: Tracey Admission and Anticipated Discharge Date Admission Date: August 14, 2024 Subjective Patient was seen and examined at 9:20 AM. She continues to feel well. However she still requiring 6 L of oxygen per nasal cannula. Leg swelling has improved significantly. Review of Systems Review of Systems: All systems reviewed & are unremarkable except as noted in Subjective Physical Exam Physical Exam: General: Awake, conversant. Frail looking elderly woman Heart: S1, S2/regular rate and rhythm, no murmur rubs or gallops Lungs: Better air entry bilaterally. Normal effort. Abdomen: Soft/nontender/nondistended. No hepatosplenomegaly Extremities: No clubbing/cyanosis. No edema Behavior: Appropriate, cooperative Results & Data Results & Data Vital Signs (Past 12 Hours) Vital Signs Temp Pulse Pulse Pulse Resp BP BP 08/18/24 13:57 62 08/18/24 11:26 36.9 C 61 19 116/58 L 08/18/24 08:46 72 08/18/24 07:20 36.7 C 62 18 110/57 L 08/18/24 07:05 08/18/24 04:14 70 17 08/18/24 03:33 37.2 C 66 17 121/61 Pulse Ox O2 Del Method O2 Flow Rate FiO2 08/18/24 13:57 08/18/24 11:26 90 Nasal Cannula 6 08/18/24 08:46 08/18/24 07:20 93 High Flow Nasal Cannula 6 08/18/24 07:05 High Flow Nasal Cannula 8 08/18/24 04:14 98 60 08/18/24 03:33 98 BiPAP Laboratory Results Abnormal lab results 08/18/24 Range/Units 09:21 RBC 3.53 L (4.20-5.40) M/uL Hgb 11.3 L (12.0-16.0) g/dl Hct 33.4 L (37.0-47.0) % RDW Std Deviation 52.4 H (36.4-46.3) fL RDW Coeff of Maritza 15.3 H (11.5-14.5) % Sodium 132 L (136-145) mmol/L BUN/Creatinine Ratio 22.3 H (10-20) Diagnostic Findings Chest X-Ray 08/18/24 07:00 EXAM: XR chest 1V portable CLINICAL HISTORY: F/U [facility] INPATIENT TECHNIQUE: X-ray image of the chest obtained in frontal projection. COMPARISON: Prior X-ray dated 08/14/2024 for comparison. FINDINGS: Pulmonary Parenchyma: Reticular thickening and haziness with opacities in bilateral mid and lower zones. Bilateral CP angles are obscured suggesting pleural effusion. Heart and Mediastinum: Heart size and shape are normal. Aortic knuckle calcifications. No mediastinal widening or masses. No hilar or mediastinal lymphadenopathy. Bony Thorax: Spondylotic changes in the thoracic spine. The bony thorax appears intact without fractures or deformities. Soft Tissues: Soft tissues overlying the chest wall are unremarkable. IMPRESSION: 1. Unchanged appearance of reticular thickening with haziness in bilateral mid/lower zones and bilateral pleural effusion could be pulmonary edema, clinical correlation is needed. Electronically signed by Daniel Valente 08-18-2024 08:18 AM PG Care Time/CCT Total # of Minutes Spent Total Time Spent with Patient: Total time spent is greater than 50% in coordination of care (as documented) at patient's floor/unit and/or counseling patient: Coding Level of Care Code 98436 SUB INP/OBS CARE 2/35MIN Diagnoses Dyspnea on exertion R06.09 Pleural effusion J90 Pulmonary edema cardiac cause I50.1 Nausea & vomiting R11.2 Atrial fibrillation, permanent I48.21 Anticoagulant long-term use Z79.01 Cardiomyopathy I42.9 CAD in [place] artery I25.10 Essential hypertension I10 Hypertension type: essential hypertension PAD (peripheral artery disease) I73.9 Hyperlipidemia E78.5 History of myocardial infarction I25.2 (9) Hypertension Hypertension type: essential hypertension Qualified Code(s): I10 - Essential (primary) hypertension
[2024-08-18] MEDS: FUROSEMIDE 40 MG/4 ML VIAL IV SCH (15:14)
[2024-08-19 04:08] LABS: Hematocrit (blood only) 30.5 % (37.0-47.0); Hemoglobin 10.1 g/dl (12.0-16.0); Mean Corpuscular Hemoglobin 31.5 pg (25.0-34.0); Mean Corpuscular Hgb Conc 33.1 g/dL (32.0-36.0); Mean Platelet Volume 10.8 fL (9.4-12.4); Platelet Count 222 K/uL (130-400); RDW Standard Deviation 52.2 fL (36.4-46.3); Red Blood Count 3.21 M/uL (4.20-5.40); White Blood Count 7.63 K/ul (4.8-10.8)
[2024-08-19 04:25] LABS: BUN Creatinine Ratio 22.1 (10-20); Calcium 8.8 mg/dl (8.6-10.3); Creatinine Clr Calc Pharmacy 39.5 ml/min; Potassium 3.9 mmol/L (3.5-5.1)
[2024-08-19] MEDS: LATANOPROST OP SCH (08:20)
[2024-08-19] MEDS: NETARSUDIL MESYLAT OP SCH (08:20)
--- NOTE | 2024-08-19 08:45 | Pulmonology Progress Note ---
Date of Service August 19, 2024 Assessment & Plan (1) Pleural effusion: (2) Atrial fibrillation, permanent: (3) Acute respiratory failure with hypoxia: Plan 2D echo 06/20/2023: EF 65 to 70%, moderate MR, mild TR, RV not well-visualized -- Acute hypoxic respiratory failure Likely secondary to HFpEF BNP 292 Respiratory BioFire negative for everything Procalcitonin negative -- Bilateral pleural effusion Secondary to HFpEF S/p thoracentesis 08/17/2024 650 mL on from the left, 500 mL on the right, both side transudative Follow-up cytology -- A-fib On Eliquis Plan: In/out: -4.7 L since coming to the hospital Continue with incentive spirometry Continue with diuretics Importance of using BiPAP explained to the patient Try to titrate down oxygen to keep O2 saturation around 90-92% Out of the bed to chair Case was discussed with RN at bedside as well as primary team No further recommendation from pulmonary perspective, will sign off Please call directly with any questions Please note the above document was generated using voice recognition software. It may contain grammatical, syntax or spelling errors.Any formal questions or concerns about the content, text or information contained within the body of this dictation should be directly addressed to the provider for clarification. Admission and Anticipated Discharge Date Admission Date: August 14, 2024 Subjective Patient seen and bedside. No acute distress, no adverse event overnight Unfortunately patient refused to wear the mask overnight She was sleeping when I entered the room. Her saturation was 85 on 10 L. Morning she woke up it went up to 90-91% Denies any chest pain, no headache, no nausea, no vomiting No abdominal pain Has been diuresing well Review of Systems 2 Review of Systems: All systems reviewed & are unremarkable except as noted in Subjective Physical Exam 2 Physical Exam: Constitutional: No acute distress HEENT: EOMI, PERRLA Respiratory system: Decreased air entry bilaterally, no wheeze, no rhonchi, positive crackles bilaterally CVS: S1-S2 positive, no murmurs or gallops Abdomen: Soft, nontender, nondistended, positive bowel sounds x4 Extremities: +2 pulses bilaterally radialis/ dorsalis pedis, no cyanosis, minimal pitting edema bilateral lower extremity Neuro: Awake alert oriented to self Psych: Normal mood and affect G/U: Positive Gamble Skin: no rashes, warm and dry Lymphatic: no cervical or axillary lymphadenopathy Results & Data Results & Data Vital Signs (Past 12 Hours) Vital Signs Temp Pulse Pulse Pulse Resp BP Pulse Ox 08/19/24 07:13 62 08/19/24 07:11 36.7 C 68 18 110/57 L 90 08/19/24 07:02 08/19/24 04:30 36.7 C 61 16 124/60 93 08/19/24 03:22 60 08/19/24 00:24 36.8 C 52 L 17 108/45 L 95 O2 Del Method O2 Flow Rate 08/19/24 07:13 08/19/24 07:11 Nasal Cannula 10 08/19/24 07:02 Nasal Cannula 10 08/19/24 04:30 Nasal Cannula 6 08/19/24 03:22 08/19/24 00:24 Nasal Cannula 6 Laboratory Results 08/19/24 03:48 08/19/24 03:48 PG Care Time/CCT Total # of Minutes Spent Total Time Spent with Patient: Total time spent is greater than 50% in coordination of care (as documented) at patient's floor/unit and/or counseling patient: Coding Level of Care Code 94883 SUB INP/OBS CARE 2/35MIN Diagnoses Pleural effusion J90 Atrial fibrillation, permanent I48.21 Acute respiratory failure with hypoxia J96.01
--- NOTE | 2024-08-19 15:20 | Hospitalist Progress Note ---
Date of Service August 19, 2024 Assessment & Plan (1) Dyspnea on exertion: (2) Pleural effusion: (3) Pulmonary edema cardiac cause: (4) Nausea & vomiting: (5) Atrial fibrillation, permanent: (6) Anticoagulant long-term use: (7) Cardiomyopathy: (8) CAD in [place] artery: (9) Hypertension: (10) PAD (peripheral artery disease): (11) Hyperlipidemia: (12) History of myocardial infarction: Plan Acute hypoxic respiratory failure Due to acute on chronic diastolic congestive heart failure, bilateral pleural effusion Patient had bilateral thoracentesis done 08/17 650 cc removed from left, 500 cc removed from right Nurse was able to titrate down O2 since thoracentesis Patient is now requiring 2 L of oxygen Continue diuresis Acute on chronic diastolic congestive heart failure/bilateral pleural effusions Patient presented with shortness of breath and leg swelling Chest x-ray showed bilateral pleural effusions and interstitial pulmonary edema Repeat echocardiogram showed normal EF BNP elevated at 290 Patient was being aggressively diuresed with large doses of Lasix without significant diuretic response Gamble catheter for accurate measurement of ins and outs Patient had thoracentesis done 08/17 Cardiology and pulmonology on board Cilostazol on hold Resume Lasix at 40 mg IV daily Continue to titrate down O2 Monitor BMP closely Permanent atrial fibrillation Resume Eliquis Not on any rate controlling agent at home Rate controlled Peripheral vascular disease/coronary artery disease/hypertension/hyperlipidemia Discontinue cilostazol Continue ranolazine Will hold amlodipine and losartan while being aggressively diuresed Hypokalemia- Repleted Deconditioning- Consult PT/OT now that breathing has improved and oxygen needs have improved. Code: DNR/DNI DVT prophylaxis: Tracey Likely discharge in the next 2 days Admission and Anticipated Discharge Date Admission Date: August 14, 2024 Subjective Patient was seen and examined at 9 AM. She stated that she is feeling much better overall. Denies chest pain or shortness of breath. Asked the nurse to titrate down O2. When I walked into the room, she was still on 6 L of O2 Review of Systems Review of Systems: All systems reviewed & are unremarkable except as noted in Subjective Physical Exam Physical Exam: General: Awake, conversant. Frail looking elderly woman Heart: S1, S2/regular rate and rhythm, no murmur rubs or gallops Lungs: Better air entry bilaterally. Normal effort. Abdomen: Soft/nontender/nondistended. No hepatosplenomegaly Extremities: No clubbing/cyanosis. No edema Behavior: Appropriate, cooperative Results & Data Results & Data Vital Signs (Past 12 Hours) Vital Signs Temp Pulse Pulse Pulse Resp BP BP 08/19/24 15:00 36.5 C 57 L 19 112/57 L 08/19/24 15:00 08/19/24 14:16 62 08/19/24 14:00 08/19/24 12:00 08/19/24 11:02 36.3 C L 55 L 19 107/54 L 08/19/24 10:48 08/19/24 10:00 08/19/24 08:51 08/19/24 07:13 62 08/19/24 07:11 36.7 C 68 18 110/57 L 08/19/24 07:02 08/19/24 04:30 36.7 C 61 16 124/60 08/19/24 03:22 60 Pulse Ox O2 Del Method O2 Flow Rate 08/19/24 15:00 91 Nasal Cannula 2 08/19/24 15:00 91 Nasal Cannula 2 08/19/24 14:16 08/19/24 14:00 92 High Flow Nasal Cannula 4 08/19/24 12:00 90 High Flow Nasal Cannula 6 08/19/24 11:02 97 BiPAP 08/19/24 10:48 94 BiPAP 08/19/24 10:00 90 High Flow Nasal Cannula 10 08/19/24 08:51 95 Nasal Cannula 6 08/19/24 07:13 08/19/24 07:11 90 Nasal Cannula 10 08/19/24 07:02 Nasal Cannula 10 08/19/24 04:30 93 Nasal Cannula 6 08/19/24 03:22 Laboratory Results Abnormal lab results 08/19/24 Range/Units 03:48 RBC 3.21 L (4.20-5.40) M/uL Hgb 10.1 L (12.0-16.0) g/dl Hct 30.5 L (37.0-47.0) % RDW Std Deviation 52.2 H (36.4-46.3) fL RDW Coeff of Maritza 15.0 H (11.5-14.5) % Sodium 134 L (136-145) mmol/L BUN/Creatinine Ratio 22.1 H (10-20) PG Care Time/CCT Total # of Minutes Spent Total Time Spent with Patient: Total time spent is greater than 50% in coordination of care (as documented) at patient's floor/unit and/or counseling patient: Coding Level of Care Code 14743 SUB INP/OBS CARE 2/35MIN Diagnoses Dyspnea on exertion R06.09 Pleural effusion J90 Pulmonary edema cardiac cause I50.1 Nausea & vomiting R11.2 Atrial fibrillation, permanent I48.21 Anticoagulant long-term use Z79.01 Cardiomyopathy I42.9 CAD in [place] artery I25.10 Essential hypertension I10 Hypertension type: essential hypertension PAD (peripheral artery disease) I73.9 Hyperlipidemia E78.5 History of myocardial infarction I25.2 (9) Hypertension Hypertension type: essential hypertension Qualified Code(s): I10 - Essential (primary) hypertension
[2024-08-20 06:35] LABS: Hematocrit (blood only) 30.9 % (37.0-47.0); Hemoglobin 10.5 g/dl (12.0-16.0); Mean Corpuscular Hemoglobin 31.3 pg (25.0-34.0); Mean Platelet Volume 11.1 fL (9.4-12.4); Platelet Count 216 K/uL (130-400); RDW Coefficient of Variation 15.2 % (11.5-14.5); RDW Standard Deviation 50.6 fL (36.4-46.3); Red Blood Count 3.36 M/uL (4.20-5.40); White Blood Count 6.45 K/ul (4.8-10.8)
[2024-08-20 06:50] LABS: BUN Creatinine Ratio 22.5 (10-20); Calcium 9.2 mg/dl (8.6-10.3); Creatinine Clr Calc Pharmacy 42.4 ml/min; Potassium 4.1 mmol/L (3.5-5.1)
--- NOTE | 2024-08-20 09:03 | XRay Report ---
XR chest 1V portable HISTORY: 88 years-old Female CHF, hypoxia . Breath COMPARISON: 08/18/2024 TECHNIQUE: AP view the chest FINDINGS: Cardiac silhouette is enlarged. Atherosclerosis of the aorta. No pneumothorax. Pulmonary vascular con gestion with interstitial coarsening, slightly improved. Layering pleural effusions with bibasilar co nsolidation. The left pleural effusion has mildly increased in size. Bones appear grossly intact. IMPRESSION: 1. Cardiomegaly with mildly improved interstitial pulmonary edema. 2. Layering pleural effusions with bibasilar consolidation redemonstrated. The left pleural effusion has mildly increased in size. ACT 112: Negative or not required by law. The above report was generated using voice recognition software. It may contain grammatical, syntax o r spelling errors. Electronically signed by: Julio Olivares M.D. 08/20/2024 9:01 AM
[2024-08-20] MEDS: FUROSEMIDE 40 MG/4 ML VIAL IV SCH (09:24)
--- NOTE | 2024-08-20 16:05 | Hospitalist Progress Note ---
Date of Service August 20, 2024 Assessment & Plan (1) Dyspnea on exertion: Plan: Due to acute hypoxic respiratory failure. Continue oxygen per nasal cannula to maintain saturation greater than 90%. Treat underlying CHF. Wean oxygen off as tolerated (2) Pleural effusion: Plan: Status post bilateral thoracentesis earlier this admission. Chest x-ray done today, August 20, continues to show small bilateral pleural effusions and CHF. Continue parenteral Lasix diuresis (3) Pulmonary edema cardiac cause: Plan: Acute diastolic CHF. Continue Lasix diuresis. Monitor intake and output. Serial chest x-ray (4) Nausea & vomiting: Plan: Zofran as needed. Resolved (5) Atrial fibrillation, permanent: Plan: Rate controlled. Currently on Eliquis. Telemetry (6) Anticoagulant long-term use: Plan: Chronic Eliquis therapy (7) Hypertension: Plan: Stable. Continue current medical management Plan OT and PT both recommend rehab placement. Nocturnal sleep study ordered. Continue oxygen per nasal cannula to maintain saturation greater than 90%. Wean off as tolerated. Continue to treat CHF. Admission and Anticipated Discharge Date Admission Date: August 14, 2024 Subjective Alert and oriented. No distress. Repeat chest x-ray done today continues to show bilateral effusions with evidence of CHF. She underwent bilateral thoracentesis earlier this admission. Parenteral Lasix dosage has been uptitrated. She is currently requiring 2 L of oxygen per nasal cannula. This will eventually be weaned off. OT and PT both recommend rehab placement. Recent cardiac echo reveals normal ejection fraction. Nocturnal sleep study and pulse oximetry have been ordered and pending. Review of Systems 2 Review of Systems: Constitutionalno fever or chills ENTno blurred vision, no double vision, no epistaxis, no sore throat Respiratoryno cough, no wheezing. Dyspnea on exertion Cardiacno palpitations, no chest pain, no syncope Irma nausea, vomiting, diarrhea, melena, hematochezia GUno urinary retention, no urinary incontinence, no dysuria, no hematuria Musculoskeletalno joint pain, no muscle tenderness Skinno bruising, no rashes, no pruritus Neurono isolated weakness, no paresthesia Psychno depression, no anxiety Physical Exam 2 Physical Exam: General-alert and oriented x3, no fever, no chills HEENT-head atraumatic and normocephalic, pupils equal and reactive to light, extraocular muscles intact Neck-no lymphadenopathy or thyromegaly, trachea midline Chest-dullness and diminished breath sounds at the bases. Bibasilar inspiratory rales. No wheezing. Cardiac-irregular rhythm. Controlled rate. Normal S1 and S2 Abdomen-normal bowel sounds, no hepatosplenomegaly Extremities-no cyanosis, clubbing, or edema Neuro-cranial nerves II through XII intact, motor and sensory function within normal limits, strength symmetrical with generalized weakness, no focal deficits Psych-normal affect, normal mood Results & Data Results & Data Vital Signs (Past 12 Hours) Vital Signs Temp Pulse Pulse Resp BP Pulse Ox Pulse Ox 08/20/24 15:56 36.8 C 66 17 126/74 95 08/20/24 15:47 08/20/24 13:37 96 08/20/24 11:48 36.4 C L 55 L 17 124/67 95 08/20/24 11:26 61 08/20/24 10:18 08/20/24 07:43 91 08/20/24 07:31 36.6 C 56 L 17 116/60 93 O2 Del Method O2 Flow Rate O2 Flow Rate 08/20/24 15:56 Nasal Cannula 3 08/20/24 15:47 Nasal Cannula 2 08/20/24 13:37 3 08/20/24 11:48 Nasal Cannula 3 08/20/24 11:26 08/20/24 10:18 Nasal Cannula 2 08/20/24 07:43 Nasal Cannula 2 08/20/24 07:31 High Flow Nasal Cannula 12 Laboratory Results 08/20/24 05:48 08/20/24 05:48 PG Care Time/CCT Total # of Minutes Spent Total Time Spent with Patient: Total time spent is greater than 50% in coordination of care (as documented) at patient's floor/unit and/or counseling patient: Coding Level of Care Code 28171 SUB INP/OBS CARE 3/50MIN Diagnoses Dyspnea on exertion R06.09 Pleural effusion J90 Pulmonary edema cardiac cause I50.1 Nausea & vomiting R11.2 Atrial fibrillation, permanent I48.21 Anticoagulant long-term use Z79.01 Essential hypertension I10 Hypertension type: essential hypertension (7) Hypertension Hypertension type: essential hypertension Qualified Code(s): I10 - Essential (primary) hypertension
[2024-08-21 07:12] LABS: Calcium 9.1 mg/dl (8.6-10.3); Creatinine Clr Calc Pharmacy 41.8 ml/min; Potassium 3.9 mmol/L (3.5-5.1)
--- NOTE | 2024-08-21 16:18 | Hospitalist Progress Note ---
Date of Service August 21, 2024 Assessment & Plan (1) Dyspnea on exertion: Plan: Due to acute hypoxic respiratory failure. Continue oxygen per nasal cannula to maintain saturation greater than 90%. Treat underlying CHF. Wean oxygen off as tolerated (2) Pleural effusion: Plan: Status post bilateral thoracentesis earlier this admission. Chest x-ray will be repeated again tomorrow, August 22. Continue parenteral Lasix diuresis (3) Pulmonary edema cardiac cause: Plan: Acute diastolic CHF. Improving. Continue Lasix diuresis. Monitor intake and output. Serial chest x-ray (4) Nausea & vomiting: Plan: Zofran as needed. Resolved (5) Atrial fibrillation, permanent: Plan: Rate controlled. Currently on Eliquis. Telemetry (6) Anticoagulant long-term use: Plan: Chronic Eliquis therapy (7) Hypertension: Plan: Stable. Continue current medical management Plan [facility] She will go to SNF at discharge when arrangements are finalized. She can be discharged as early as tomorrow, August 22, if everything is approved. Admission and Anticipated Discharge Date Admission Date: August 14, 2024 Subjective Alert and oriented. Asymptomatic at rest. Good diuretic response with higher dose IV Lasix. Will repeat chest x-ray again tomorrow, August 22. Still on 3 L of oxygen with 96% saturation. Hopefully this can eventually be weaned off. She is agreed to go to SNF at discharge. Referrals made to [facility] and [facility]. Review of Systems 2 Review of Systems: Constitutionalno fever or chills ENTno blurred vision, no double vision, no epistaxis, no sore throat Respiratoryno cough, no wheezing. Dyspnea on exertion Cardiacno palpitations, no chest pain, no syncope Irma nausea, vomiting, diarrhea, melena, hematochezia GUno urinary retention, no urinary incontinence, no dysuria, no hematuria Musculoskeletalno joint pain, no muscle tenderness Skinno bruising, no rashes, no pruritus Neurono isolated weakness, no paresthesia Psychno depression, no anxiety Physical Exam 2 Physical Exam: General-alert and oriented x3, no fever, no chills HEENT-head atraumatic and normocephalic, pupils equal and reactive to light, extraocular muscles intact Neck-no lymphadenopathy or thyromegaly, trachea midline Chest-dullness and diminished breath sounds at the bases has improved. Bibasilar inspiratory rales have lessened. No wheezing. Cardiac-irregular rhythm. Controlled rate. Normal S1 and S2 Abdomen-normal bowel sounds, no hepatosplenomegaly Extremities-no cyanosis, clubbing, or edema Neuro-cranial nerves II through XII intact, motor and sensory function within normal limits, strength symmetrical with generalized weakness, no focal deficits Psych-normal affect, normal mood Results & Data Results & Data Vital Signs (Past 12 Hours) Vital Signs Temp Pulse Pulse Resp BP Pulse Ox O2 Del Method 08/21/24 15:23 36.6 C 51 L 16 116/63 98 Nasal Cannula 08/21/24 14:17 51 L 08/21/24 10:46 36.6 C 51 L 16 114/64 96 Nasal Cannula 08/21/24 07:51 Nasal Cannula 08/21/24 07:26 52 L 08/21/24 07:05 36.6 C 51 L 14 118/63 96 Nasal Cannula O2 Flow Rate 08/21/24 15:23 3 08/21/24 14:17 08/21/24 10:46 3 08/21/24 07:51 3 08/21/24 07:26 08/21/24 07:05 3 Laboratory Results 08/20/24 05:48 08/21/24 06:16 PG Care Time/CCT Total # of Minutes Spent Total Time Spent with Patient: Total time spent is greater than 50% in coordination of care (as documented) at patient's floor/unit and/or counseling patient: Coding Level of Care Code 02792 SUB INP/OBS CARE 2/35MIN Diagnoses Dyspnea on exertion R06.09 Pleural effusion J90 Pulmonary edema cardiac cause I50.1 Nausea & vomiting R11.2 Atrial fibrillation, permanent I48.21 Anticoagulant long-term use Z79.01 Essential hypertension I10 Hypertension type: essential hypertension (7) Hypertension Hypertension type: essential hypertension Qualified Code(s): I10 - Essential (primary) hypertension
[2024-08-22 06:26] LABS: BUN Creatinine Ratio 21.8 (10-20); Calcium 9.2 mg/dl (8.6-10.3)
--- NOTE | 2024-08-22 07:58 | XRay Report ---
EXAM: XR chest 1V portable CLINICAL HISTORY: F/U [facility] TECHNIQUE: An X-ray image of the chest is obtained in AP projection. COMPARISON: Studies dated 08/20/2024 and 08/18/2024. FINDINGS: Pulmonary Parenchyma: Reticular thickening and haziness with opacities in bilateral mid and lower zones. Bilateral CP angles are obscured, more at left side suggesting pleural effusion. Heart and Mediastinum: Heart size and shape are normal. Aortic knuckle calcifications. No mediastinal widening or masses. No hilar or mediastinal lymphadenopathy. Bony Thorax: Spondylotic changes in the thoracic spine. The bony thorax appears intact without fractures or deformities. Soft Tissues: Soft tissues overlying the chest wall are unremarkable. IMPRESSION: Unchanged appearance of reticular thickening with haziness in bilateral mid/lower zones and bilateral pleural effusion could be pulmonary edema, clinical correlation is needed. Electronically signed by Daniel Valente 08-22-2024 07:57 AM
--- NOTE | 2024-08-22 12:37 | Hospitalist Progress Note ---
Date of Service August 22, 2024 Assessment & Plan (1) Dyspnea on exertion: Plan: Due to acute hypoxic respiratory failure. Continue oxygen per nasal cannula to maintain saturation greater than 90%. Treat underlying CHF. Wean oxygen off as tolerated (2) Pleural effusion: Plan: Status post bilateral thoracentesis earlier this admission. Chest x-ray done today, August 22, looks better by my interpretation. Continue parenteral Lasix diuresis while hospitalized and switch to oral dosing at discharge. Will also discontinue Gamble catheter at discharge. (3) Pulmonary edema cardiac cause: Plan: Acute diastolic CHF. Improving. Continue Lasix diuresis. Monitor intake and output. Serial chest x-ray (4) Nausea & vomiting: Plan: Zofran as needed. Resolved (5) Atrial fibrillation, permanent: Plan: Rate controlled. Currently on Eliquis. Telemetry (6) Anticoagulant long-term use: Plan: Chronic Eliquis therapy (7) Hypertension: Plan: Stable. Continue current medical management Plan Referrals to [facility] and [facility] have been made. She will go to SNF at discharge when arrangements are finalized. She is medically stable. Admission and Anticipated Discharge Date Admission Date: August 14, 2024 Subjective Alert and oriented. No distress. She continues with good diuresis with intravenous Lasix. Chest x-ray done today looks better by my interpretation. Oxygen saturation 97% on 3 L. Will continue oxygen weaning. Cardiac echo reveals normal ejection fraction. Awaiting discharge to either [facility] or [facility]. She is medically stable Review of Systems 2 Review of Systems: Constitutionalno fever or chills ENTno blurred vision, no double vision, no epistaxis, no sore throat Respiratoryno cough, no wheezing. Dyspnea on exertion Cardiacno palpitations, no chest pain, no syncope Irma nausea, vomiting, diarrhea, melena, hematochezia GUno urinary retention, no urinary incontinence, no dysuria, no hematuria Musculoskeletalno joint pain, no muscle tenderness Skinno bruising, no rashes, no pruritus Neurono isolated weakness, no paresthesia Psychno depression, no anxiety Physical Exam 2 Physical Exam: General-alert and oriented x3, no fever, no chills HEENT-head atraumatic and normocephalic, pupils equal and reactive to light, extraocular muscles intact Neck-no lymphadenopathy or thyromegaly, trachea midline Chest-dullness and diminished breath sounds at the bases continues to improve. Bibasilar inspiratory rales have lessened. No wheezing. Cardiac-irregular rhythm. Controlled rate. Normal S1 and S2 Abdomen-normal bowel sounds, no hepatosplenomegaly Extremities-no cyanosis, clubbing, or edema Neuro-cranial nerves II through XII intact, motor and sensory function within normal limits, strength symmetrical with generalized weakness, no focal deficits Psych-normal affect, normal mood Results & Data Results & Data Vital Signs (Past 12 Hours) Vital Signs Temp Pulse Pulse Pulse Resp BP Pulse Ox 08/22/24 11:40 36.8 C 50 L 18 117/66 93 08/22/24 07:30 08/22/24 07:20 36.7 C 49 L 18 131/70 97 08/22/24 07:16 51 L 08/22/24 02:44 36.6 C 52 L 18 103/57 L 94 O2 Del Method O2 Flow Rate 08/22/24 11:40 Nasal Cannula 2 08/22/24 07:30 Nasal Cannula 3 08/22/24 07:20 Nasal Cannula 3 08/22/24 07:16 08/22/24 02:44 Nasal Cannula Laboratory Results 08/20/24 05:48 08/22/24 05:47 PG Care Time/CCT Total # of Minutes Spent Total Time Spent with Patient: Total time spent is greater than 50% in coordination of care (as documented) at patient's floor/unit and/or counseling patient: Coding Level of Care Code 25974 SUB INP/OBS CARE 2/35MIN Diagnoses Dyspnea on exertion R06.09 Pleural effusion J90 Pulmonary edema cardiac cause I50.1 Nausea & vomiting R11.2 Atrial fibrillation, permanent I48.21 Anticoagulant long-term use Z79.01 Essential hypertension I10 Hypertension type: essential hypertension (7) Hypertension Hypertension type: essential hypertension Qualified Code(s): I10 - Essential (primary) hypertension
[2024-08-23 06:26] LABS: BUN Creatinine Ratio 16.8 (10-20); Calcium 9.6 mg/dl (8.6-10.3); Creatinine Clr Calc Pharmacy 33.5 ml/min; Potassium 4.1 mmol/L (3.5-5.1)
--- NOTE | 2024-08-23 09:42 | XRay Report ---
EXAM: XR chest 1V portable CLINICAL HISTORY: CHF [facility] TECHNIQUE: An X-ray image of the chest was obtained in 1 view: AP projection. COMPARISON: X-ray dated 08/22/2024. FINDINGS: Pulmonary Parenchyma: Reticular thickening with opacities in bilateral mid and lower zones, more on the left. Bilateral costophrenic angles are obscured, more on the left side suggesting pleural effusion. Heart and Mediastinum: Mild cardiomegaly. Aortic atheromatous calcifications. No mediastinal widening or masses. No hilar or mediastinal lymphadenopathy. Bony Thorax: Spondylotic changes in the thoracic spine. Degenerative changes of both acromioclavicular and left shoulder joint. The bony thorax appears intact without fractures or deformities. Soft Tissues: Soft tissues overlying the chest wall are unremarkable. IMPRESSION: No interval changes since the last study suggesting CHF changes with mild edema and effusion, clinical correlation is needed. Electronically signed by Daniel Valente 08-23-2024 08:05 AM
--- NOTE | 2024-08-23 10:59 | Hospitalist Progress Note ---
Date of Service August 23, 2024 Assessment & Plan (1) Dyspnea on exertion: Plan: Due to acute hypoxic respiratory failure. Continue oxygen per nasal cannula to maintain saturation greater than 90%. Treat underlying CHF. Wean oxygen off as tolerated (2) Pleural effusion: Plan: Status post bilateral thoracentesis earlier this admission. Chest x-ray done today, August 23, looks better by my interpretation. Continue parenteral Lasix diuresis while hospitalized and switch to oral dosing at discharge. Will also discontinue Gamble catheter at discharge. (3) Pulmonary edema cardiac cause: Plan: Acute diastolic CHF. Improving. Continue Lasix diuresis. Monitor intake and output. Serial chest x-ray (4) Nausea & vomiting: Plan: Zofran as needed. Resolved (5) Atrial fibrillation, permanent: Plan: Rate controlled. Currently on Eliquis. Telemetry (6) Anticoagulant long-term use: Plan: Chronic Eliquis therapy (7) Hypertension: Plan: Stable. Continue current medical management Plan [facility]ful discharge to [facility] later today, August 23. Admission and Anticipated Discharge Date Admission Date: August 14, 2024 Subjective Medically stable. She continues to diurese with IV Lasix and continues to improve. Chest x-ray done today, August 23, looks better to my eye. She remains on oxygen at only 2 L/min which eventually will be weaned off. Cardiac echo reveals normal ejection fraction. Hopefully [facility] today, August 23 Review of Systems 2 Review of Systems: Constitutionalno fever or chills ENTno blurred vision, no double vision, no epistaxis, no sore throat Respiratoryno cough, no wheezing. Dyspnea on exertion Cardiacno palpitations, no chest pain, no syncope Irma nausea, vomiting, diarrhea, melena, hematochezia GUno urinary retention, no urinary incontinence, no dysuria, no hematuria Musculoskeletalno joint pain, no muscle tenderness Skinno bruising, no rashes, no pruritus Neurono isolated weakness, no paresthesia Psychno depression, no anxiety Physical Exam 2 Physical Exam: General-alert and oriented x3, no fever, no chills HEENT-head atraumatic and normocephalic, pupils equal and reactive to light, extraocular muscles intact Neck-no lymphadenopathy or thyromegaly, trachea midline Chest-dullness and diminished breath sounds at the bases continues to improve. Bibasilar inspiratory rales have lessened. No wheezing. Cardiac-irregular rhythm. Controlled rate. Normal S1 and S2 Abdomen-normal bowel sounds, no hepatosplenomegaly Extremities-no cyanosis, clubbing, or edema Neuro-cranial nerves II through XII intact, motor and sensory function within normal limits, strength symmetrical with generalized weakness, no focal deficits Psych-normal affect, normal mood Results & Data Results & Data Vital Signs (Past 12 Hours) Vital Signs Temp Pulse Pulse Resp BP BP Pulse Ox 08/23/24 07:08 36.6 C 51 L 19 131/64 92 08/23/24 07:00 08/23/24 03:28 36.8 C 86 19 129/68 94 08/22/24 23:41 36.8 C 53 L 19 132/80 95 O2 Del Method O2 Flow Rate 08/23/24 07:08 Nasal Cannula 2 08/23/24 07:00 Nasal Cannula 2 08/23/24 03:28 Nasal Cannula 2.0 08/22/24 23:41 Nasal Cannula 2.0 Laboratory Results 08/20/24 05:48 08/23/24 05:33 PG Care Time/CCT Total # of Minutes Spent Total Time Spent with Patient: Total time spent is greater than 50% in coordination of care (as documented) at patient's floor/unit and/or counseling patient: Coding Level of Care Code 13599 SUB INP/OBS CARE 2/35MIN Diagnoses Dyspnea on exertion R06.09 Pleural effusion J90 Pulmonary edema cardiac cause I50.1 Nausea & vomiting R11.2 Atrial fibrillation, permanent I48.21 Anticoagulant long-term use Z79.01 Essential hypertension I10 Hypertension type: essential hypertension (7) Hypertension Hypertension type: essential hypertension Qualified Code(s): I10 - Essential (primary) hypertension
[2024-08-23] MEDS: ACETAMINOPHEN 325 MG TAB PO PRN (14:27)
--- NOTE | 2024-08-23 15:14 | XRay Report ---
XR foot LT 2V HISTORY: 88 years-old Female pain acute left rib pain without reported trauma COMPARISON: None TECHNIQUE: 2 views of the left foot FINDINGS: Moderate size plantar calcaneal enthesophyte. Mineralized appearance of the bones with multifocal mos tly mild and mild to moderate osteoarthritis. No acute fracture, dislocation or osseous erosion. Soft tissue thickening of the heel pad. IMPRESSION: 1. No acute fracture or dislocation. 2. Soft tissue thickening of the heel pad with moderate-sized calcaneal enthesophyte. Correlate with patient history and physical exam findings to exclude plantar fasciitis. ACT 112: Negative or not required by law. The above report was generated using voice recognition software. It may contain grammatical, syntax o r spelling errors. Electronically signed by: Julio Olivares M.D. 08/23/2024 3:13 PM
[2024-08-24 06:46] LABS: BUN Creatinine Ratio 17.4 (10-20); Calcium 9.8 mg/dl (8.6-10.3); Creatinine Clr Calc Pharmacy 33.4 ml/min
[2024-08-24] MEDS: FUROSEMIDE 40 MG TAB PO SCH (09:32)
[2024-08-24 10:55] VITALS: PULSE 50
--- NOTE | 2024-08-24 11:08 | Discharge Summary ---
Discharge Summary Date of Service August 24, 2024 Principal Dx & Hospital Course #1 = Principal Diagnosis (1) Dyspnea on exertion: Due to acute hypoxic respiratory failure. Oxygen has now been weaned off. (2) Pleural effusion: Status post bilateral thoracentesis earlier this admission. Chest x-ray have revealed continued gradual improvement. Parenteral Lasix has been switched to oral dosing at a higher dose than she usually takes. Gamble catheter will be removed prior to discharge. (3) Pulmonary edema cardiac cause: Acute diastolic CHF. Now resolved. Treated while hospitalized with parenteral Lasix. Switch to oral dosing at discharge at 40 mg daily which is a higher dose than she previously took. (4) Nausea & vomiting: Resolved. (5) Atrial fibrillation, permanent: Rate controlled. Currently on Eliquis. Telemetry (6) Anticoagulant long-term use: Chronic Eliquis therapy (7) Hypertension: Stable. Continue current medical management Plan Discharge to Center care today, August 23. 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 She presents to the emergency department with symptoms of shortness of breath, dyspnea on exertion, fatigue and worsening lower extremity edema over the past week, with development of nausea and vomiting today. She had been started on furosemide 20 mg daily last week, and was recently increased to 40 mg daily 2 days ago, however, she has not noticed significant improvement in lower extremity edema or breathing issues. Discharge Exam General-alert and oriented x3, no fever, no chills HEENT-head atraumatic and normocephalic, pupils equal and reactive to light, extraocular muscles intact Neck-no lymphadenopathy or thyromegaly, trachea midline Chest-dullness and diminished breath sounds at the bases continues to improve. Bibasilar inspiratory rales have lessened. No wheezing. Cardiac-irregular rhythm. Controlled rate. Normal S1 and S2 Abdomen-normal bowel sounds, no hepatosplenomegaly Extremities-no cyanosis, clubbing, or edema Neuro-cranial nerves II through XII intact, motor and sensory function within normal limits, strength symmetrical with generalized weakness, no focal deficits Psych-normal affect, normal mood Discharge Plan Discharge Items Patient Disposition: Transfer Long-Term Fac Reason For Visit: PULMONARY EDEMA, PLEURAL EFFUSIONS, HYPOXIA Discharge Diagnosis: Acute diastolic congestive heart failure with bilateral pleural effusions, acute hypoxic respiratory failure, left heel spur Activity: Resume your previous activity Non-emergency contact: Primary Care Provider Call non-emergency contact if: your symptoms worsen Follow-up/Referrals: Andrei Francis MD [Primary Care Provider] - Diet: Regular and Heart Healthy Addtl Attending Provider Instructions: Lasix has been increased to 40 mg daily. You have a left heel spur. Cut a hole in a cushion and place it inside the shoe and the heel position to offload the spur to prevent pain Pending Studies at Discharge: No Stand-Alone Forms: My [facility] Skilled Items Patient informed of condition?: Yes DNR: Yes Discharge Level of Care: Skilled Communicable Disease: No Discharge Prognosis: Stable Lines: None Urinary Catheter: No Medications and DC Order Prescriptions: New furosemide 40 mg Tablet 40 mg PO QAM Qty: 30 0RF Continued omeprazole 40 mg capsule,delayed release(DR/EC) 40 mg PO DAILY Qty: 90 1RF Rx Instructions: eat 30 minutes after taking medication. dorzolamide-timolol 22.3-6.8 mg/mL drops 1 drp OPB BID losartan 50 mg tablet 50 mg PO QAM Qty: 90 3RF Rx Instructions: for high blood pressure amlodipine 10 mg tablet 10 mg PO QPM Qty: 90 3RF hydrocortisone 2.5 % cream with perineal applicator 1 applic [place] DAILY PRN (Reason: hemorrhoids) Qty: 30 2RF ranolazine 1,000 mg tablet extended release 12 hr 1,000 mg PO BID Qty: 60 2RF cilostazol 100 mg tablet 100 mg PO BID Qty: 60 5RF Rocklatan 0.02-0.005 % drops 1 drp ophthalmic (eye) DAILY Eliquis 5 mg tablet 5 mg PO BID Qty: 180 3RF Hold Instructions: Resume on 08/02/24. hold until seen by PCP hydrocortisone acetate [Anusol-HC] 25 mg suppository 25 mg [place] BID PRN (Reason: hemorrhoids) Qty: 24 3RF brimonidine 0.2 % drops 1 drp OPB BID levothyroxine 50 mcg tablet 50 mcg PO DAILYBB Discontinued furosemide 20 mg tablet 20 mg PO DAILY Qty: 30 3RF Discharge Orders: Discharge Order- CHF (Routine); Ordered 08/24/24 Ordered By: Neo Torres Admission Data Admit Date/Time: 08/14/24 21:41 Attending Provider: Neo Torres Admit Provider: David Morocho Primary Care Provider: Andrei Francis Other Providers: David Morocho; Andrei Bolaños; Siva Arroyo [facility]; [facility]; [facility] Other Interventions: Discharge Summary Assessment (RN) Last Done: 08/24/24 10:55 Hospital Stay Data Consultations 08/14/24 20:10 ED Decision to Admit Stat 08/14/24 22:41 Consult Cardiology Routine 08/15/24 10:36 Consult Pulmonology Routine Diagnostic Imagining Performed 08/14/24 18:18 CT abd pelvis IV con only Stat 08/15/24 12:48 US point of care ultrasound Urgent 08/17/24 IR thoracentesis wo tube US Routine IR thoracentesis wo tube US Routine Pending Results Patient Have Any Pending Studies at Discharge: No Discharge Instructions Given to Patient (Per Discharging Provider) Lasix has been increased to 40 mg daily. You have a left heel spur. Cut a hole in a cushion and place it inside the shoe and the heel position to offload the spur to prevent pain Total Time Total Time Spent Total Time Spent (In Minutes): 45 minutes Coding Level of Care Code 82107 INP/OBS DISCH >30 MIN Diagnoses Dyspnea on exertion R06.09 Pleural effusion J90 Pulmonary edema cardiac cause I50.1 Nausea & vomiting R11.2 Atrial fibrillation, permanent I48.21 Anticoagulant long-term use Z79.01 Essential hypertension I10 Hypertension type: essential hypertension
[2024-08-24 11:16] VITALS: BP 117/62; RESP 18; TEMP 97.7; O2SAT 95
== END 2024-08-24 13:22 | DRG 291 ==
LOC: ED 16:30 → 4W 21:41 → SUATTDRO 21:41 → 4W 22:27

== ENCOUNTER 2024-08-26 14:44 | Inpatient (IN) ==
[2024-08-26 15:24] LABS: Basophils # (auto) 0.02 K/uL (0.00-0.20); Basophils % (auto) 0.2 %; Eosinophils # (auto) 0.03 K/uL (0.00-0.50); Eosinophils % (auto) 0.3 %; Hematocrit (blood only) 35.8 % (37.0-47.0); Hemoglobin 12.2 g/dl (12.0-16.0); Immature Granulocytes # (auto) 0.03 K/uL (0.01-0.20); Immature Granulocytes % (auto) 0.3 %; Lymphocytes # (auto) 1.18 K/uL (1.20-3.40); Lymphocytes % (auto) 11.9 %; Mean Corpuscular Hgb Conc 34.1 g/dL (32.0-36.0); Mean Platelet Volume 10.7 fL (9.4-12.4); Monocytes # (auto) 0.93 K/uL (0.11-0.59); Monocytes % (auto) 9.4 %; Neutrophils # (auto) 7.71 K/uL (1.40-6.50); Neutrophils % (auto) 77.9 %; Platelet Count 370 K/uL (130-400); RDW Coefficient of Variation 14.8 % (11.5-14.5); RDW Standard Deviation 50.6 fL (36.4-46.3); Red Blood Count 3.81 M/uL (4.20-5.40)
--- NOTE | 2024-08-26 15:41 | Emergency Department Note ---
Impression & Plan Hypoxia ADMIT ED Provider Note HPI: History obtained from patient. The patient is a 88-year-old female with history of atrial fibrillation, currently on Eliquis, presents the emergency department with a chief complaint of lower abdominal pain. Patient states that several hours prior to arrival she developed some pain in the lower portion of her abdomen and acute nausea. Patient denies any diarrhea. Patient states she did have several episodes of vomiting. On arrival here to the ER the patient is hemodynamically stable, she otherwise appears to be in no acute distress. Patient does admit to surgical history of an appendectomy as well as a cholecystectomy. ROS: - Per HPI Differential Diagnosis: Small bowel obstruction, irritable bowel syndrome, viral gastroenteritis, ischemic colitis, choledocholithiasis, urinary tract infection with cystitis, pyelonephritis, amongst other potential pathologies. *Outpatient medications and allergy history reviewed. PE: General: Alert HEENT: Normocephalic, trachea midline Eyes: Extraocular eye movement is intact, no scleral erythema Pulmonary: Clear to auscultation bilaterally, no wheezing Cardio: Regular rate and rhythm GI: Abdomen is soft to palpation, moderate tenderness in the lower abdomen to palpation without guarding or rigidity : No suprapubic tenderness MSK: No evidence of trauma or malformation of the extremities, no edema Skin: No evidence of rash Neuro: Alert, no focal deficits Psychiatric: Cooperative INDEPENDENT INTERPRETATIONS: bus monitor: (As interpreted by myself): - An order was placed for continuous cardiac monitoring - Patient was noted to be in sinus rhythm with a rate of 60 EKG: (As interpreted by myself): Rate: 63 Rhythm: Sinus rhythm Intervals: IN interval prolonged at 250 ms, otherwise within normal limits ST changes: No ST elevation Time: 1629 Chest x-ray: (As interpreted by myself): Pulmonary edema pattern with left lower lung effusion Interventions provided in ED: -IV fluid bolus, IV Zofran, IV ceftriaxone Medical Decision Making: IV was established and lab work obtained, patient was placed on rn cardiac rehab. Lab work shows no leukocytosis, hemoglobin is normal, platelet count is normal, CMP does not show any critical findings, creatinine is mildly elevated at 1.73 for which the patient was given IV fluids. Lactic acid is normal. Troponin is also noted to be mildly elevated at 22.7 and on delta troponin that is downtrending to 19.6. Patient denies any chest pain, EKG shows normal sinus rhythm without acute ischemic changes, low suspicion for ACS. Urinalysis is suggestive of infection with urine nitrite being positive as well as 3+ leukocyte esterase and significant pyuria, CT imaging of the abdomen pelvis shows evidence of bladder inflammation/cystitis and also basilar pulmonary infiltrates. While the patient was here in the ED giving a urine sample she became acutely tachypneic and hypoxic when ambulating to the restroom. She had similar symptoms during her recent admission. I suspect this is likely related to an element of pulmonary edema/fluid overload. Patient is comfortable on nasal cannula oxygen, given her acute kidney injury she was not given diuresis. With the patient's multiple lab abnormalities, urinary tract infection, acute kidney injury, and hypoxia with exertion, I do feel she would benefit from admission for further care. Patient was in agreement to this as well as her family at the bedside. I discussed the patient's presentation with the on-call hospitalist, Dr. Burrows, and the patient was placed for admission in stable condition. Consultants/Discussions held with other healthcare providers: -Hospitalist, Dr. Burrows Disposition discussion held by myself with: -Patient and patient's family at the bedside Diagnosis: 1. Hypoxia with ambulation, acute 2. Pulmonary edema, acute 3. Urinary tract infection, acute, with cystitis on CT imaging 4. Elevated high-sensitivity troponin, acute Disposition: Admission Conrado Miguel DO Emergency Medicine Past Med/Surg History Problem List (Updated 08/26/24 @ 20:44 by Conrado Miguel DO) Hypoxia (Acute) (HFpEF) heart failure with preserved ejection fraction Acute respiratory failure with hypoxia Pulmonary edema cardiac cause Pleural effusion BRBPR (bright red blood per rectum) (Acute) Bright red blood per rectum Syncope and collapse Chest discomfort Palpitations Bilateral claudication of lower limb (Acute) VACA (dyspnea on exertion) (Acute) Abnormal nuclear stress test (Acute) Acute memory impairment Left knee DJD Abnormal CT of the chest Acid reflux Arthritis Carotid artery stenosis Constipation Glaucoma Jacques's thyroiditis Herpes zoster Hypothyroidism Mitral regurgitation Nontoxic multinodular goiter Overweight 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 Tricuspid regurgitation Ventricular tachycardia Irritable bowel syndrome (IBS) Allergic rhinitis Hx of hemorrhoids Rectal bleeding Osteopenia Impaired fasting glucose Vitamin D deficiency Back pain Urinary symptom or sign Neurological symptoms Multiple thyroid nodules Cough Cholesterol-lowering agent myopathy Constipation Renal infarct (Acute) Mesenteric artery stenosis Medical History Atrial fibrillation, permanent History of myocardial infarction PAD (peripheral artery disease) Hypertension Hyperlipidemia Cardiomyopathy CAD in [place] artery Anticoagulant long-term use History of CVA (cerebrovascular accident) Renal infarct Hyperglycemia Claudication NSTEMI (non-ST elevated myocardial infarction) Intractable pain Surgical History History of carpal tunnel surgery History of total abdominal hysterectomy and bilateral salpingo-oophorectomy S/P appendectomy History of cholecystectomy History of thyroid surgery H/O endarterectomy History of Neurological Surgery Carotid Endarterectomy Family History Mother Diabetes Hypertension Sister Diabetes Kidney disease Hypertension Brother Kidney disease Hypertension Diabetes Father Myocardial infarction Colorectal cancer Unknown Hypertension Cardiac disorder Stroke Cancer Other Buerger's disease No family history of bleeding disorder Denies family history of Ovarian cancer Prostate cancer Breast cancer Social History Smoking Status: Never smoker Second Hand Exposure: No; Do You Dip or Chew Tobacco: No; Hx Alcohol Use: No Hx Substance Use: No Preferred Language: Mohawk Communication Ability: Effective Visual Impairment: Limited Hearing Ability: Normal Print Controller Required: No Beliefs That Will Affect Care: None marital status: Current Living Situation: Family Current Living Situation Comment: mobile home current occupational status: retired current occupation: Retired-[employer] Feels Safe at Home: Yes Childhood Exposure to Second-Hand Smoke: No Diet: regular caffeine: Yes during the past year weight has: remained stable Dental Care, Regularly: No Physical Activity Frequency: Does not Exercise Seatbelt Use: always Sunscreen Use: Yes Assistive Devices: None Allergies Allergies Allergy/AdvReac Type Severity Reaction Status Date / Time Penicillins Allergy Intermediate RASH ONLY Verified 08/26/24 18:22 atorvastatin AdvReac Intermediate MUSCLE Verified 08/26/24 18:22 CRAMPS/PAIN pravastatin AdvReac Intermediate MUSCLE Verified 08/26/24 18:22 CRAMPS/PAIN simvastatin AdvReac Intermediate MUSCLE Verified 08/26/24 18:22 CRAMPS/PAIN Home Meds Home Medications Medication Instructions Recorded Confirmed dorzolamide 22.3 mg-timolol 6.8 1 drp OPB BID 02/23/19 08/26/24 mg/mL eye drops brimonidine 0.2 % eye drops 1 drp OPB BID 05/07/19 08/26/24 netarsudil 0.02 %-latanoprost 1 drp OPB QAM 05/30/24 08/26/24 0.005 % eye drops (Rocklatan) levothyroxine 50 mcg tablet 50 mcg PO DAILYBB 08/14/24 08/26/24 acetaminophen 325 mg tablet 650 mg PO Q6H PRN Pain/Fever 08/26/24 08/26/24 (Tylenol) bisacodyl 10 mg rectal suppository 10 mg IN DAILY PRN Constipation 08/26/24 08/26/24 (Dulcolax (bisacodyl)) hydrocortisone 2.5 % topical cream 1 applic IN DAILY PRN hemorrhoids 08/26/24 08/26/24 with perineal applicator lactulose 20 gram/30 mL oral 20 g PO ONCE 08/26/24 08/26/24 solution magnesium hydroxide 400 mg/5 mL 0 mg PO DAILY PRN Constipation 08/26/24 08/26/24 oral suspension (Milk of Magnesia) ondansetron HCl 4 mg tablet 4 mg PO Q6H PRN Nausea And Vomiting 08/26/24 08/26/24 promethazine 25 mg/mL injection 25 mg IM Q6H PRN Nausea And 08/26/24 08/26/24 solution Vomiting sodium phosphates 19 gram-7 118 ml IN DAILY PRN Constipation 08/26/24 08/26/24 gram/118 mL enema (Fleet Enema) Previous Rx's Medication Instructions Recorded omeprazole 40 mg capsule,delayed 40 mg PO DAILY #90 caps 04/13/24 release amlodipine 10 mg tablet 10 mg PO QPM #90 tabs 04/16/24 losartan 50 mg tablet 50 mg PO QAM #90 tabs 04/16/24 cilostazol 100 mg tablet 100 mg PO BID #60 tabs 04/30/24 apixaban 5 mg tablet (Eliquis) 5 mg PO BID #180 tabs 05/30/24 hydrocortisone acetate 25 mg 25 mg IN BID PRN hemorrhoids #24 ea 08/06/24 rectal suppository (Anusol-HC) ranolazine 1,000 mg 1,000 mg PO BID #60 tabs 08/08/24 tablet,extended release,12 hr furosemide 40 mg tablet 40 mg PO QAM #30 tabs 08/24/24 Results & Data (ED) Vital Signs Vital Signs - 24 hr 08/26/24 14:52 08/26/24 15:03 08/26/24 16:00 Temperature 36.5 C Temperature Source Oral Pulse Rate 60 60 Pulse Rate [Apical] 61 Respiratory Rate 20 18 Blood Pressure 130/64 Blood Pressure [Right Arm] 132/52 L Blood Pressure Mean 86 Blood Pressure Mean [Right Arm] 78 Pulse Oximetry 93 91 Oxygen Delivery Method Room Air Room Air Oxygen Flow Rate Sepsis Recent Fever Within 48 Hours No Sepsis New/Unexplained Change in Mental Status N/A Sepsis Action Taken by Nursing No Action Required 08/26/24 18:00 08/26/24 18:01 08/26/24 19:07 Temperature Temperature Source Pulse Rate 63 Pulse Rate [Apical] 63 Respiratory Rate 18 Blood Pressure Blood Pressure [Right Arm] 131/50 L Blood Pressure Mean Blood Pressure Mean [Right Arm] 77 Pulse Oximetry 89 L 94 Oxygen Delivery Method Room Air Nasal Cannula Oxygen Flow Rate 2 Sepsis Recent Fever Within 48 Hours Sepsis New/Unexplained Change in Mental Status Sepsis Action Taken by Nursing 08/26/24 20:00 Temperature Temperature Source Pulse Rate 61 Pulse Rate [Apical] Respiratory Rate 20 Blood Pressure 110/49 L Blood Pressure [Right Arm] Blood Pressure Mean 69 Blood Pressure Mean [Right Arm] Pulse Oximetry 94 Oxygen Delivery Method Oxygen Flow Rate Sepsis Recent Fever Within 48 Hours Sepsis New/Unexplained Change in Mental Status Sepsis Action Taken by Nursing Laboratory Data 08/26/24 15:02 08/26/24 15:02 Lab Results 08/26/24 08/26/24 08/26/24 Range/Units 15:02 15:21 17:02 WBC 9.90 (4.8-10.8) K/ul RBC 3.81 L (4.20-5.40) M/uL Hgb 12.2 (12.0-16.0) g/dl Hct 35.8 L (37.0-47.0) % MCV 94.0 (80.0-100.0) fL MCH 32.0 (25.0-34.0) pg MCHC 34.1 (32.0-36.0) g/dL RDW Std Deviation 50.6 H (36.4-46.3) fL RDW Coeff of Maritza 14.8 H (11.5-14.5) % Plt Count 370 (130-400) K/uL MPV 10.7 (9.4-12.4) fL Immature Gran % (Auto) 0.3 % Neut % (Auto) 77.9 % Lymph % (Auto) 11.9 % [place] % (Auto) 9.4 % Eos % (Auto) 0.3 % Baso % (Auto) 0.2 % Neut # (Auto) 7.71 H (1.40-6.50) K/uL Lymph # (Auto) 1.18 L (1.20-3.40) K/uL [place] # (Auto) 0.93 H (0.11-0.59) K/uL Eos # (Auto) 0.03 (0.00-0.50) K/uL Baso # (Auto) 0.02 (0.00-0.20) K/uL Immature Gran # (Auto) 0.03 (0.01-0.20) K/uL PT 12.3 H (9.0-12.0) Seconds INR 1.1 (0.9-1.1) Sodium 135 L (136-145) mmol/L Potassium 4.1 (3.5-5.1) mmol/L Chloride 92 L (98-107) mmol/L Carbon Dioxide 32 (21-32) mmol/L Anion Gap 11 (3-11) BUN 25 H (6-23) mg/dl Creatinine 1.73 H (0.6-1.2) mg/dl Est Cr Clr Drug Dosing 17.8 ml/min eGFR 28.07 BUN/Creatinine Ratio 14.5 (10-20) Glucose 136 H (70-99(Fasting)) mg/dl Lactate 1.5 (0.4-2.0) mmol/L Calcium 10.7 H (8.6-10.3) mg/dl Total Bilirubin 0.6 (0.2-1.0) mg/dl AST 13 (13-39) U/L ALT 10 (7-52) U/L Alkaline Phosphatase 66 (34-104) U/L Troponin I High Sens 22.7 H 19.6 H (0-14) pg/ml Total Protein 7.2 (6.0-8.3) gm/dl Albumin 4.1 (3.4-5.0) gm/dl Globulin 3.1 (2.5-4.0) gm/dl Albumin/Globulin Ratio 1.3 (0.9-2) Lipase 28 (11-82) U/L Urine Color Urine Appearance (Clear) Urine pH (4.5-7.5) Ur Specific Delta (1.000-1.030) Urine Protein (Negative) Urine Glucose (UA) (Negative) Urine Ketones (Negative) Urine Blood (Negative) Urine Nitrite (Negative) Urine Bilirubin (Negative) Urine Urobilinogen (Negative) Ur Leukocyte Esterase (Negative) Urine WBC (Auto) (0-5) /hpf Urine RBC (Auto) (0-2) /hpf U Hyaline Cast (Auto) (0-2) /lpf U Epithel Cells (Auto) (0-2) /hpf Urine Bacteria (Auto) (None Seen) 08/26/24 Range/Units Unknown WBC (4.8-10.8) K/ul RBC (4.20-5.40) M/uL Hgb (12.0-16.0) g/dl Hct (37.0-47.0) % MCV (80.0-100.0) fL MCH (25.0-34.0) pg MCHC (32.0-36.0) g/dL RDW Std Deviation (36.4-46.3) fL RDW Coeff of Maritza (11.5-14.5) % Plt Count (130-400) K/uL MPV (9.4-12.4) fL Immature Gran % (Auto) % Neut % (Auto) % Lymph % (Auto) % [place] % (Auto) % Eos % (Auto) % Baso % (Auto) % Neut # (Auto) (1.40-6.50) K/uL Lymph # (Auto) (1.20-3.40) K/uL [place] # (Auto) (0.11-0.59) K/uL Eos # (Auto) (0.00-0.50) K/uL Baso # (Auto) (0.00-0.20) K/uL Immature Gran # (Auto) (0.01-0.20) K/uL PT (9.0-12.0) Seconds INR (0.9-1.1) Sodium (136-145) mmol/L Potassium (3.5-5.1) mmol/L Chloride (98-107) mmol/L Carbon Dioxide (21-32) mmol/L Anion Gap (3-11) BUN (6-23) mg/dl Creatinine (0.6-1.2) mg/dl Est Cr Clr Drug Dosing ml/min eGFR BUN/Creatinine Ratio (10-20) Glucose (70-99(Fasting)) mg/dl Lactate (0.4-2.0) mmol/L Calcium (8.6-10.3) mg/dl Total Bilirubin (0.2-1.0) mg/dl AST (13-39) U/L ALT (7-52) U/L Alkaline Phosphatase (34-104) U/L Troponin I High Sens (0-14) pg/ml Total Protein (6.0-8.3) gm/dl Albumin (3.4-5.0) gm/dl Globulin (2.5-4.0) gm/dl Albumin/Globulin Ratio (0.9-2) Lipase (11-82) U/L Urine Color Dark Yellow Urine Appearance Turbid A (Clear) Urine pH 5.0 (4.5-7.5) Ur Specific Delta 1.019 (1.000-1.030) Urine Protein 2+ H (Negative) Urine Glucose (UA) Negative (Negative) Urine Ketones Trace H (Negative) Urine Blood 3+ H (Negative) Urine Nitrite Positive A (Negative) Urine Bilirubin 1+ H (Negative) Urine Urobilinogen Negative (Negative) Ur Leukocyte Esterase 3+ H (Negative) Urine WBC (Auto) >50 H (0-5) /hpf Urine RBC (Auto) >20 H (0-2) /hpf U Hyaline Cast (Auto) >20 H (0-2) /lpf U Epithel Cells (Auto) 11-20 H (0-2) /hpf Urine Bacteria (Auto) 4+ H (None Seen) Administered Medications Discontinued Medications Sodium Chloride (Nss) 1,000 mls @ 999 mls/hr IV .Q1H1M ONE Stop: 08/26/24 16:39 Last Infusion: 08/26/24 17:21 Dose: Infused Documented By: Admin: 08/26/24 15:52 Dose: 999 mls/hr Documented By: CHERRI Ceftriaxone Sodium (Rocephin) 2,000 mg in 50 mls @ 100 mls/hr IV NOW STA Stop: 08/26/24 19:21 Last Infusion: 08/26/24 19:59 Dose: Infused Documented By: Admin: 08/26/24 19:27 Dose: 100 mls/hr Documented By: Ondansetron HCl (Ondansetron Inj 2 Mg/Ml 2 Ml Vial) 4 mg IV NOW STA Stop: 08/26/24 15:36 Last Admin: 08/26/24 15:52 Dose: 4 mg Documented By: CHERRI Ondansetron HCl (Ondansetron Inj 2 Mg/Ml 2 Ml Vial) 4 mg IV NOW STA Stop: 08/26/24 19:54 Last Admin: 08/26/24 19:55 Dose: 4 mg Documented By: KIZZY Imaging Data Radiologist's Impression: Abdomen/Pelvis CT 08/26/24 15:49 EXAM: CT Abdomen and Pelvis Without Intravenous Contrast INDICATION: Abdominal pain, nausea and vomiting. TECHNIQUE: Axial computed tomography images of the abdomen and pelvis without intravenous contrast. Sagittal and coronal reformatted images were created and reviewed. This CT exam was performed using one or more of the following dose reduction techniques: automated exposure control, adjustment of the mA and/or kV according to patient size, and/or use of iterative reconstruction technique. COMPARISON: 08/14/2024 and 06/19/2023 FINDINGS: Limitations: None. Lung bases: See below. Pleural space: Persistent but decreased small pleural effusions and improved basilar pulmonary ventilation. Stable right middle lobe pleural-based nodule allowing for slice selection. Heart: Stable cardiomegaly. Mediastinum: No abnormality noted. ABDOMEN: Liver: Lack of intravenous contrast limits detection of some masses. No abnormality noted. Gallbladder and bile ducts: Cholecystectomy. No ductal dilation or stone noted. Pancreas: No pancreatic mass, calcification, inflammation or ductal dilation noted. Spleen: No significant abnormality noted. Adrenals: No significant abnormality noted. Kidneys and ureters: There is bilateral renal scarring. 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 No hemorrhage. No stone or hydronephrosis. Stomach and bowel: Moderate to large amount of diffuse colonic stool noted. No obstruction. Scattered colonic diverticulosis. No diverticulitis. No obstruction. PELVIS: Appendix: No findings to suggest acute appendicitis. Bladder: There is a small bubble of air in the urinary bladder with mild surrounding inflammation. No stones. There is a small right posterior bladder diverticulum. Reproductive: Hysterectomy. ABDOMEN and PELVIS: Intraperitoneal space: No free air. No significant fluid collection. Bones/joints: Degenerative changes noted throughout the spine. No acute osseous abnormality seen. Soft tissues: Umbilical hernia containing fat. Vasculature: No abdominal aortic aneurysm. Diffuse atherosclerosis of the aorta and branches. Lymph nodes: No pathologically enlarged lymph nodes. IMPRESSION: 1. Urinary bladder is inflamed and contains a bubble of air likely reflecting cystitis. Correlate with urinalysis. 2. Persistent but improved pleural effusions and basilar pulmonary infiltrates. 3. Moderate amounts of diffuse colonic stool and scattered diverticulosis. No diverticulitis or obstruction. 4. 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 No hemorrhage. ACT 112: Negative or not required by law. Electronically signed by Ruby Hess 08-26-2024 4:37 PM Chest X-Ray 08/26/24 18:20 EXAM: Radiograph of the Chest 1 View INDICATION: Shortness of breath. TECHNIQUE: Frontal view of the chest. COMPARISON: 08/23/2024, 08/22/2024 FINDINGS: Lungs and pleural spaces: Persistent but decreased small left pleural effusion. Stable pulmonary edema. Improved consolidation left lung base. No pneumothorax. Heart: Stable cardiomegaly. Mediastinum: Normal contour. Bones/joints: Degenerative changes present in the spine and left shoulder. Soft tissues: No abnormality noted. No radiopaque foreign body noted. Upper abdomen: No abnormality noted. IMPRESSION: Stable pulmonary edema with persistent but improved left basilar pleural effusion and airspace consolidation. ACT 112: Negative or not required by law. Electronically signed by Ruby Hess 08-26-2024 6:44 PM Discharge Plan Visit Data Chief Complaint: Abdominal Pain Stated Complaint: ABDOMINAL PAIN ED Provider: Conrado Miguel Discharge Problem: Hypoxia Forms Stand Alone Forms: [facility] [place] [employer] Prescriptions Prescriptions: No Action omeprazole 40 mg capsule,delayed release(DR/EC) 40 mg PO DAILY Qty: 90 1RF Rx Instructions: eat 30 minutes after taking medication. dorzolamide-timolol 22.3-6.8 mg/mL drops 1 drp OPB BID losartan 50 mg tablet 50 mg PO QAM Qty: 90 3RF Rx Instructions: for high blood pressure amlodipine 10 mg tablet 10 mg PO QPM Qty: 90 3RF ranolazine 1,000 mg tablet extended release 12 hr 1,000 mg PO BID Qty: 60 2RF cilostazol 100 mg tablet 100 mg PO BID Qty: 60 5RF Rocklatan 0.02-0.005 % drops 1 drp OPB QAM Eliquis 5 mg tablet 5 mg PO BID Qty: 180 3RF Hold Instructions: Resume on 08/02/24. hold until seen by PCP hydrocortisone acetate [Anusol-HC] 25 mg suppository 25 mg IN BID PRN (Reason: hemorrhoids) Qty: 24 3RF brimonidine 0.2 % drops 1 drp OPB BID levothyroxine 50 mcg tablet 50 mcg PO DAILYBB furosemide 40 mg Tablet 40 mg PO QAM Qty: 30 0RF acetaminophen [Tylenol] 325 mg Tablet 650 mg PO Q6H MDD 3g/24hr PRN (Reason: Pain/Fever) ondansetron HCl [Zofran] 4 mg Tablet 4 mg PO Q6H PRN (Reason: Nausea And Vomiting) Rx Instructions: Start Date 08/24/24 x14 day supply magnesium hydroxide [Milk of Magnesia] 400 mg/5 mL Suspension 0 mg PO DAILY PRN (Reason: Constipation) Rx Instructions: Milk of Magnesia 7.75%: Give 30ml by mouth as needed for constipation after no BM for 3 days; administer on 7-3 shift bisacodyl [Dulcolax (bisacodyl)] 10 mg Suppository 10 mg IN DAILY PRN (Reason: Constipation) Rx Instructions: Insert 1 unit rectally as needed for constipation, give on day 3 on 3-11 shift if no BM after MOM promethazine 25 mg/mL Solution 25 mg IM Q6H PRN (Reason: Nausea And Vomiting) Rx Instructions: Start Date 08/24/24 x14 days Fleet Enema 19-7 gram/118 mL Enema 118 ml IN DAILY PRN (Reason: Constipation) Rx Instructions: Insert 1 unit rectally as needed for constipation if no BM after dulcolax, then administer on day 4 on 7-3 shift lactulose 20 gram/30 mL Solution 20 g PO ONCE hydrocortisone 2.5 % cream with perineal applicator 1 applic IN DAILY PRN (Reason: hemorrhoids) Referrals Referrals: Andrei Francis MD [Physician] -
[2024-08-26 15:46] LABS: Albumin Globulin Ratio 1.3 (0.9-2); Albumin Level 4.1 gm/dl (3.4-5.0); BUN Creatinine Ratio 14.5 (10-20); Bilirubin,Total 0.6 mg/dl (0.2-1.0); Calcium 10.7 mg/dl (8.6-10.3); Creatinine Clr Calc Pharmacy 17.8 ml/min; Globulin 3.1 gm/dl (2.5-4.0); Potassium 4.1 mmol/L (3.5-5.1); Total Protein 7.2 gm/dl (6.0-8.3); Troponin I High Sensitivity 22.7 pg/ml (0-14)
[2024-08-26 15:50] LABS: INR 1.1 (0.9-1.1); Prothrombin Time 12.3 Seconds (9.0-12.0)
[2024-08-26] MEDS: ONDANSETRON INJ 2 MG/ML 2 ML VIAL IV STA ×2 (15:52→19:55)
[2024-08-26] MEDS: SODIUM CHLORIDE 0.9% 1,000 ML IV ONE (15:52)
--- NOTE | 2024-08-26 16:37 | CT Scan Report ---
EXAM: CT Abdomen and Pelvis Without Intravenous Contrast INDICATION: Abdominal pain, nausea and vomiting. TECHNIQUE: Axial computed tomography images of the abdomen and pelvis without intravenous contrast. Sagittal and coronal reformatted images were created and reviewed. This CT exam was performed using one or more of the following dose reduction techniques: automated exposure control, adjustment of the mA and/or kV according to patient size, and/or use of iterative reconstruction technique. COMPARISON: 08/14/2024 and 06/19/2023 FINDINGS: Limitations: None. Lung bases: See below. Pleural space: Persistent but decreased small pleural effusions and improved basilar pulmonary ventilation. Stable right middle lobe pleural-based nodule allowing for slice selection. Heart: Stable cardiomegaly. Mediastinum: No abnormality noted. ABDOMEN: Liver: Lack of intravenous contrast limits detection of some masses. No abnormality noted. Gallbladder and bile ducts: Cholecystectomy. No ductal dilation or stone noted. Pancreas: No pancreatic mass, calcification, inflammation or ductal dilation noted. Spleen: No significant abnormality noted. Adrenals: No significant abnormality noted. Kidneys and ureters: There is bilateral renal scarring. 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 No hemorrhage. No stone or hydronephrosis. Stomach and bowel: Moderate to large amount of diffuse colonic stool noted. No obstruction. Scattered colonic diverticulosis. No diverticulitis. No obstruction. PELVIS: Appendix: No findings to suggest acute appendicitis. Bladder: There is a small bubble of air in the urinary bladder with mild surrounding inflammation. No stones. There is a small right posterior bladder diverticulum. Reproductive: Hysterectomy. ABDOMEN and PELVIS: Intraperitoneal space: No free air. No significant fluid collection. Bones/joints: Degenerative changes noted throughout the spine. No acute osseous abnormality seen. Soft tissues: Umbilical hernia containing fat. Vasculature: No abdominal aortic aneurysm. Diffuse atherosclerosis of the aorta and branches. Lymph nodes: No pathologically enlarged lymph nodes. IMPRESSION: 1. Urinary bladder is inflamed and contains a bubble of air likely reflecting cystitis. Correlate with urinalysis. 2. Persistent but improved pleural effusions and basilar pulmonary infiltrates. 3. Moderate amounts of diffuse colonic stool and scattered diverticulosis. No diverticulitis or obstruction. 4. 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 No hemorrhage. ACT 112: Negative or not required by law. Electronically signed by Ruby Hess 08-26-2024 4:37 PM
[2024-08-26 17:45] LABS: Troponin I High Sensitivity 19.6 pg/ml (0-14)
[2024-08-26 18:37] LABS: Appearance Urine Turbid (Clear); Bacteria Urine Automated 4+ (None Seen); Bilirubin Urine 1+ (Negative); Blood Urine 3+ (Negative); Cast Urine Automated >20 /lpf (0-2); Color Urine Dark Yellow; Glucose Urine UA Negative (Negative); Ketones Urine Trace (Negative); Leukocyte Esterase Urine 3+ (Negative); Nitrite Urine Positive (Negative); Protein Urine 2+ (Negative); RBC Urine Automated >20 /hpf (0-2); Specific Gravity Urine 1.019 (1.000-1.030); Urobilinogen Urine Negative (Negative); WBC Urine Automated >50 /hpf (0-5)
--- NOTE | 2024-08-26 18:45 | XRay Report ---
EXAM: Radiograph of the Chest 1 View INDICATION: Shortness of breath. TECHNIQUE: Frontal view of the chest. COMPARISON: 08/23/2024, 08/22/2024 FINDINGS: Lungs and pleural spaces: Persistent but decreased small left pleural effusion. Stable pulmonary edema. Improved consolidation left lung base. No pneumothorax. Heart: Stable cardiomegaly. Mediastinum: Normal contour. Bones/joints: Degenerative changes present in the spine and left shoulder. Soft tissues: No abnormality noted. No radiopaque foreign body noted. Upper abdomen: No abnormality noted. IMPRESSION: Stable pulmonary edema with persistent but improved left basilar pleural effusion and airspace consolidation. ACT 112: Negative or not required by law. Electronically signed by Ruby Hess 08-26-2024 6:44 PM
[2024-08-26] MEDS: cefTRIAXone SODIUM 2,000 MG/50 ML BAG IV STA (19:27)
--- NOTE | 2024-08-26 19:43 | History & Physical Report ---
Date of Service August 26, 2024 Assessment & Plan (1) LORNA (acute kidney injury): Plan: 88yo female presenting with lower abdominal pain, nausea and vomiting. Patient with LORNA - BUN=25, Cr=1.73, increased from last BN of 16 and Cr of 0.9 on 08/24/24. Patient was recently admitted to [facility] for acute on chronic HFpEF exacerbation requiring aggressive IV diuresis. LORNA possibly secondary to diuresis. Electrolytes and metabolic profile are acceptable - K=4.1, HCO3=32 with no anion gap. Patient reports she is urinating without difficulty. Has received 1L NSS thus far. Suspect that patient has a very tenuous volume status -Admit to medical -Check CK, urine Protein:Cr -Will continue IVF very cautiously - LR at 70mL/hr x 1L ordered -Monitor UOP -Repeat chemistry in AM -Holding Lasix, Losartan for now (2) UTI (urinary tract infection): Plan: UA suggestive of infection - +LE/Nitrates, also with hematuria and protein likely secondary to infection as well. Patient is afebrile, HD stable and not septic -Follow urine culture sent from ER -Ceftriaxone 1gm IV daily -Will check urine protein:cr given proteinuria and new LORNA -Tylenol as needed for fever -Zofran as needed for nausea (3) Hypoxia: Plan: Patient with transient episode of hypoxia with standing, now resolved -Supplemental O2 as needed Plan Paroxysmal atrial fibrillation -Continue Apixaban Hypothyroidism -Continue Synthroid F/E/N - Saline lock. Monitor electrolytes. Heart healthy diet as tolerated Ppx - continue home Apixaban Code - DNR/DNI per discussion with patient Dispo - Admit to medical History of Present Illness Chief Complaint: abdominal pain Primary Care Provider: Daquan Sigala III, Salome Younger is an 88yo female with history of paroxysmal atrial fibrillation on Eliquis anticoagulation, PAD, HTN, HLP and CAD presenting with lower abdominal pain. Patient was recently admitted to [facility] from 08/14/24 - 08/24/24 after presenting with SOB/VACA/fatigue and worsening bilateral LE edema. She had been taking Lasix 20mg po daily which was increased to 40mg po daily 2 days prior to admission. Patient initially required BiPAP for acute hypoxic respiratory failure. She had an echocardiogram performed on 08/15/24 which revealed EF 65- 70%, aortic sclerosis and mild MR as well as a trace pericardial effusion without signs of tamponade. She had bilateral Pleural effusions. She was treated aggressively with IV lasix (ultimately increased to 80mg IV BID) with fair diuretic response to higher doses. She had thoracenteses performed on 08/17/24 with 650mL removed from the LEFT and 500mL removed from the RIGHT. She was ultimately discharged to [facility] on 08/24/24. Cr = 0.92 on day of discharge. Patient returns to the ER today with lower abdominal pain which started around 15:00 today as well as nausea and vomiting. She denies back pain or flank pain, no urinary complaints. No fevers, chills, cough, SOB or chest pain. She does endorse ongoing orthopnea and bilateral LE edema. In the ER she is afebrile, HD stable. Patient did become SOB and tachypneic as well as had decreased oxygen saturation upon standing to use the bathroom. Symptoms improved after returning to bed - now on 2L NC with adequate oxygenation. ER Course: Zofran 4mg IV x 2 Ceftriaxone 2gm IV NSS x 1L Allergies Allergy/AdvReac Type Severity Reaction Status Date / Time Penicillins Allergy Intermediate RASH ONLY Verified 08/26/24 18:22 atorvastatin AdvReac Intermediate MUSCLE Verified 08/26/24 18:22 CRAMPS/PAIN pravastatin AdvReac Intermediate MUSCLE Verified 08/26/24 18:22 CRAMPS/PAIN simvastatin AdvReac Intermediate MUSCLE Verified 08/26/24 18:22 CRAMPS/PAIN Home Medications Medication Instructions Recorded Confirmed Type dorzolamide 22.3 mg-timolol 6.8 1 drp OPB BID 02/23/19 08/26/24 History mg/mL eye drops brimonidine 0.2 % eye drops 1 drp OPB BID 05/07/19 08/26/24 History omeprazole 40 mg capsule,delayed 40 mg PO DAILY #90 caps 04/13/24 08/26/24 Rx release amlodipine 10 mg tablet 10 mg PO QPM #90 tabs 04/16/24 08/26/24 Rx losartan 50 mg tablet 50 mg PO QAM #90 tabs 04/16/24 08/26/24 Rx cilostazol 100 mg tablet 100 mg PO BID #60 tabs 04/30/24 08/26/24 Rx apixaban 5 mg tablet (Eliquis) 5 mg PO BID #180 tabs 05/30/24 08/26/24 Rx netarsudil 0.02 %-latanoprost 1 drp OPB QAM 05/30/24 08/26/24 History 0.005 % eye drops (Rocklatan) hydrocortisone acetate 25 mg 25 mg SC BID PRN hemorrhoids #24 ea 08/06/24 08/26/24 Rx rectal suppository (Anusol-HC) ranolazine 1,000 mg 1,000 mg PO BID #60 tabs 08/08/24 08/26/24 Rx tablet,extended release,12 hr levothyroxine 50 mcg tablet 50 mcg PO DAILYBB 08/14/24 08/26/24 History furosemide 40 mg tablet 40 mg PO QAM #30 tabs 08/24/24 08/26/24 Rx acetaminophen 325 mg tablet 650 mg PO Q6H PRN Pain/Fever 08/26/24 08/26/24 History (Tylenol) bisacodyl 10 mg rectal suppository 10 mg SC DAILY PRN Constipation 08/26/24 08/26/24 History (Dulcolax (bisacodyl)) hydrocortisone 2.5 % topical cream 1 applic SC DAILY PRN hemorrhoids 08/26/24 08/26/24 History with perineal applicator lactulose 20 gram/30 mL oral 20 g PO ONCE 08/26/24 08/26/24 History solution magnesium hydroxide 400 mg/5 mL 0 mg PO DAILY PRN Constipation 08/26/24 08/26/24 History oral suspension (Milk of Magnesia) ondansetron HCl 4 mg tablet 4 mg PO Q6H PRN Nausea And Vomiting 08/26/24 08/26/24 History promethazine 25 mg/mL injection 25 mg IM Q6H PRN Nausea And 08/26/24 08/26/24 History solution Vomiting sodium phosphates 19 gram-7 118 ml SC DAILY PRN Constipation 08/26/24 08/26/24 History gram/118 mL enema (Fleet Enema) Past Med/Surg History Problem List (Updated 08/26/24 @ 21:02 by Karyna Burrows DO) UTI (urinary tract infection) LORNA (acute kidney injury) Hypoxia (Acute) (HFpEF) heart failure with preserved ejection fraction Acute respiratory failure with hypoxia Pulmonary edema cardiac cause Pleural effusion BRBPR (bright red blood per rectum) (Acute) Bright red blood per rectum Syncope and collapse Chest discomfort Palpitations Bilateral claudication of lower limb (Acute) VACA (dyspnea on exertion) (Acute) Abnormal nuclear stress test (Acute) Acute memory impairment Left knee DJD Abnormal CT of the chest Acid reflux Arthritis Carotid artery stenosis Constipation Glaucoma Jacques's thyroiditis Herpes zoster Hypothyroidism Mitral regurgitation Nontoxic multinodular goiter Overweight 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 Tricuspid regurgitation Ventricular tachycardia Irritable bowel syndrome (IBS) Allergic rhinitis Hx of hemorrhoids Rectal bleeding Osteopenia Impaired fasting glucose Vitamin D deficiency Back pain Urinary symptom or sign Neurological symptoms Multiple thyroid nodules Cough Cholesterol-lowering agent myopathy Constipation Renal infarct (Acute) Mesenteric artery stenosis Medical History Atrial fibrillation, permanent History of myocardial infarction PAD (peripheral artery disease) Hypertension Hyperlipidemia Cardiomyopathy CAD in [place] artery Anticoagulant long-term use History of CVA (cerebrovascular accident) Renal infarct Hyperglycemia Claudication NSTEMI (non-ST elevated myocardial infarction) Intractable pain Surgical History History of carpal tunnel surgery History of total abdominal hysterectomy and bilateral salpingo-oophorectomy S/P appendectomy History of cholecystectomy History of thyroid surgery H/O endarterectomy History of Neurological Surgery Carotid Endarterectomy Family History Mother Diabetes Hypertension Sister Diabetes Kidney disease Hypertension Brother Kidney disease Hypertension Diabetes Father Myocardial infarction Colorectal cancer Unknown Hypertension Cardiac disorder Stroke Cancer Other Buerger's disease No family history of bleeding disorder Denies family history of Ovarian cancer Prostate cancer Breast cancer Social History Smoking Status: Never smoker Second Hand Exposure: No; Do You Dip or Chew Tobacco: No; Hx Alcohol Use: No Hx Substance Use: No Preferred Language: Cypriot Communication Ability: Effective Visual Impairment: Limited Hearing Ability: Normal Lab Engineer Required: No Beliefs That Will Affect Care: None marital status: Current Living Situation: Family Current Living Situation Comment: mobile home current occupational status: retired current occupation: Retired-[employer] Feels Safe at Home: Yes Childhood Exposure to Second-Hand Smoke: No Diet: regular caffeine: Yes during the past year weight has: remained stable Dental Care, Regularly: No Physical Activity Frequency: Does not Exercise Seatbelt Use: always Sunscreen Use: Yes Assistive Devices: None Review of Systems Review of Systems: All systems reviewed & are unremarkable except as noted in HPI & below Physical Exam Physical Exam: General: patient resting comfortably, NAD, non-toxic in appearance, AA&O x 4 Skin: warm, dry, intact, no rashes or lesions HEENT: NC/AT, PERRL, EOMI, anicteric sclera, conjunctiva without injection, external ear normal to inspection and nontender, nares patent, moist mucus membranes, dentition intact, no oropharyngeal lesions, neck supple, trachea midline, no LAD, no thyromegaly, no JVD Heart: +S1/S2, regular, 2/6 PANKAJ at right 2nd ICS, 3/6 murmur at LSB with r adiation to carotids and axilla Lungs: equal air entry bilaterally, faint bibasilar crackles, no rhonchi or wheeze Abd: +BS, soft, NT/ND, no masses/organomegaly/ascites Ext: warm, 2+ pulses in UE/LE bilaterally, no clubbing/cyanosis or edema Neuro: nonfocal, patient AA&O x 4, speech intact, no facial droop, moving all extremities on command with equal strength 5/5 Results & Data Results & Data Vital Signs (Past 12 Hours) Vital Signs Temp Pulse Pulse Resp BP BP Pulse Ox 08/26/24 19:07 63 08/26/24 18:01 94 08/26/24 18:00 63 18 131/50 L 89 L 08/26/24 16:00 61 18 132/52 L 91 08/26/24 15:03 60 08/26/24 14:52 36.5 C 60 20 130/64 93 O2 Del Method O2 Flow Rate 08/26/24 19:07 08/26/24 18:01 Nasal Cannula 2 08/26/24 18:00 Room Air 08/26/24 16:00 Room Air 08/26/24 15:03 08/26/24 14:52 Room Air Laboratory Results Laboratory Results WBC 9.90 K/ul (4.8-10.8) 08/26/24 15:02 RBC 3.81 M/uL (4.20-5.40) L 08/26/24 15:02 Hgb 12.2 g/dl (12.0-16.0) 08/26/24 15:02 Hct 35.8 % (37.0-47.0) L 08/26/24 15:02 MCV 94.0 fL (80.0-100.0) 08/26/24 15:02 MCH 32.0 pg (25.0-34.0) 08/26/24 15:02 MCHC 34.1 g/dL (32.0-36.0) 08/26/24 15:02 RDW Std Deviation 50.6 fL (36.4-46.3) H 08/26/24 15:02 RDW Coeff of Maritza 14.8 % (11.5-14.5) H 08/26/24 15:02 Plt Count 370 K/uL (130-400) 08/26/24 15:02 MPV 10.7 fL (9.4-12.4) 08/26/24 15:02 Immature Gran % (Auto) 0.3 % 08/26/24 15:02 Neut % (Auto) 77.9 % 08/26/24 15:02 Lymph % (Auto) 11.9 % 08/26/24 15:02 [place] % (Auto) 9.4 % 08/26/24 15:02 Eos % (Auto) 0.3 % 08/26/24 15:02 Baso % (Auto) 0.2 % 08/26/24 15:02 Neut # (Auto) 7.71 K/uL (1.40-6.50) H 08/26/24 15:02 Lymph # (Auto) 1.18 K/uL (1.20-3.40) L 08/26/24 15:02 [place] # (Auto) 0.93 K/uL (0.11-0.59) H 08/26/24 15:02 Eos # (Auto) 0.03 K/uL (0.00-0.50) 08/26/24 15:02 Baso # (Auto) 0.02 K/uL (0.00-0.20) 08/26/24 15:02 Immature Gran # (Auto) 0.03 K/uL (0.01-0.20) 08/26/24 15:02 PT 12.3 Seconds (9.0-12.0) H 08/26/24 15:02 INR 1.1 (0.9-1.1) 08/26/24 15:02 Sodium 135 mmol/L (136-145) L 08/26/24 15:02 Potassium 4.1 mmol/L (3.5-5.1) 08/26/24 15:02 Chloride 92 mmol/L (98-107) L 08/26/24 15:02 Carbon Dioxide 32 mmol/L (21-32) 08/26/24 15:02 Anion Gap 11 (3-11) 08/26/24 15:02 BUN 25 mg/dl (6-23) H 08/26/24 15:02 Creatinine 1.73 mg/dl (0.6-1.2) H 08/26/24 15:02 Est Cr Clr Drug Dosing 17.8 ml/min 08/26/24 15:02 eGFR 28.07 08/26/24 15:02 BUN/Creatinine Ratio 14.5 (10-20) 08/26/24 15:02 Glucose 136 mg/dl (70-99(Fasting)) H 08/26/24 15:02 Lactate 1.5 mmol/L (0.4-2.0) 08/26/24 15:21 Calcium 10.7 mg/dl (8.6-10.3) H 08/26/24 15:02 Total Bilirubin 0.6 mg/dl (0.2-1.0) 08/26/24 15:02 AST 13 U/L (13-39) 08/26/24 15:02 ALT 10 U/L (7-52) 08/26/24 15:02 Alkaline Phosphatase 66 U/L (34-104) 08/26/24 15:02 Troponin I High Sens 19.6 pg/ml (0-14) H 08/26/24 17:02 Total Protein 7.2 gm/dl (6.0-8.3) 08/26/24 15:02 Albumin 4.1 gm/dl (3.4-5.0) 08/26/24 15:02 Globulin 3.1 gm/dl (2.5-4.0) 08/26/24 15:02 Albumin/Globulin Ratio 1.3 (0.9-2) 08/26/24 15:02 Lipase 28 U/L (11-82) 08/26/24 15:02 Urine Color Dark Yellow 08/26/24 Unknown Urine Appearance Turbid (Clear) A 08/26/24 Unknown Urine pH 5.0 (4.5-7.5) 08/26/24 Unknown Ur Specific [place] 1.019 (1.000-1.030) 08/26/24 Unknown Urine Protein 2+ (Negative) H 08/26/24 Unknown Urine Glucose (UA) Negative (Negative) 08/26/24 Unknown Urine Ketones Trace (Negative) H 08/26/24 Unknown Urine Blood 3+ (Negative) H 08/26/24 Unknown Urine Nitrite Positive (Negative) A 08/26/24 Unknown Urine Bilirubin 1+ (Negative) H 08/26/24 Unknown Urine Urobilinogen Negative (Negative) 08/26/24 Unknown Ur Leukocyte Esterase 3+ (Negative) H 08/26/24 Unknown Urine WBC (Auto) >50 /hpf (0-5) H 08/26/24 Unknown Urine RBC (Auto) >20 /hpf (0-2) H 08/26/24 Unknown U Hyaline Cast (Auto) >20 /lpf (0-2) H 08/26/24 Unknown U Epithel Cells (Auto) 11-20 /hpf (0-2) H 08/26/24 Unknown Urine Bacteria (Auto) 4+ (None Seen) H 08/26/24 Unknown Impressions Abdomen/Pelvis CT 08/26/24 15:49 EXAM: CT Abdomen and Pelvis Without Intravenous Contrast INDICATION: Abdominal pain, nausea and vomiting. TECHNIQUE: Axial computed tomography images of the abdomen and pelvis without intravenous contrast. Sagittal and coronal reformatted images were created and reviewed. This CT exam was performed using one or more of the following dose reduction techniques: automated exposure control, adjustment of the mA and/or kV according to patient size, and/or use of iterative reconstruction technique. COMPARISON: 08/14/2024 and 06/19/2023 FINDINGS: Limitations: None. Lung bases: See below. Pleural space: Persistent but decreased small pleural effusions and improved basilar pulmonary ventilation. Stable right middle lobe pleural-based nodule allowing for slice selection. Heart: Stable cardiomegaly. Mediastinum: No abnormality noted. ABDOMEN: Liver: Lack of intravenous contrast limits detection of some masses. No abnormality noted. Gallbladder and bile ducts: Cholecystectomy. No ductal dilation or stone noted. Pancreas: No pancreatic mass, calcification, inflammation or ductal dilation noted. Spleen: No significant abnormality noted. Adrenals: No significant abnormality noted. Kidneys and ureters: There is bilateral renal scarring. 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 No hemorrhage. No stone or hydronephrosis. Stomach and bowel: Moderate to large amount of diffuse colonic stool noted. No obstruction. Scattered colonic diverticulosis. No diverticulitis. No obstruction. PELVIS: Appendix: No findings to suggest acute appendicitis. Bladder: There is a small bubble of air in the urinary bladder with mild surrounding inflammation. No stones. There is a small right posterior bladder diverticulum. Reproductive: Hysterectomy. ABDOMEN and PELVIS: Intraperitoneal space: No free air. No significant fluid collection. Bones/joints: Degenerative changes noted throughout the spine. No acute osseous abnormality seen. Soft tissues: Umbilical hernia containing fat. Vasculature: No abdominal aortic aneurysm. Diffuse atherosclerosis of the aorta and branches. Lymph nodes: No pathologically enlarged lymph nodes. IMPRESSION: 1. Urinary bladder is inflamed and contains a bubble of air likely reflecting cystitis. Correlate with urinalysis. 2. Persistent but improved pleural effusions and basilar pulmonary infiltrates. 3. Moderate amounts of diffuse colonic stool and scattered diverticulosis. No diverticulitis or obstruction. 4. 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 No hemorrhage. ACT 112: Negative or not required by law. Electronically signed by Ruby Hess 08-26-2024 4:37 PM Chest X-Ray 08/26/24 18:20 EXAM: Radiograph of the Chest 1 View INDICATION: Shortness of breath. TECHNIQUE: Frontal view of the chest. COMPARISON: 08/23/2024, 08/22/2024 FINDINGS: Lungs and pleural spaces: Persistent but decreased small left pleural effusion. Stable pulmonary edema. Improved consolidation left lung base. No pneumothorax. Heart: Stable cardiomegaly. Mediastinum: Normal contour. Bones/joints: Degenerative changes present in the spine and left shoulder. Soft tissues: No abnormality noted. No radiopaque foreign body noted. Upper abdomen: No abnormality noted. IMPRESSION: Stable pulmonary edema with persistent but improved left basilar pleural effusion and airspace consolidation. ACT 112: Negative or not required by law. Electronically signed by Ruby Hess 08-26-2024 6:44 PM PG Care Time/CCT Total # of Minutes Spent Total Time Spent with Patient: Total time spent is greater than 50% in coordination of care (as documented) at patient's floor/unit and/or counseling patient: Coding Level of Care Code 84781 INT INP/OBS CARE 2/55MIN Diagnoses LORNA (acute kidney injury) N17.9 UTI (urinary tract infection) N39.0 Hypoxia R09.02
[2024-08-26] MEDS ORDERED: bisacodyL 10 MG SUPP PR PRN (21:33)
[2024-08-26] MEDS: LACTATED RINGER'S 1,000 ML IV SCH (21:51)
[2024-08-26 21:52] LABS: Magnesium 2.5 mg/dl (1.7-2.4)
[2024-08-26] MEDS: APIXABAN 5 MG TABLET PO SCH (22:04)
[2024-08-26] MEDS: BRIMONIDINE TARTRATE 0.2% 5ML OPB SCH (22:04)
[2024-08-26] MEDS: RANOLAZINE 500 MG ER TAB PO SCH (22:04)
[2024-08-26] MEDS: DORZOLAMIDE/TIMOLOL 22.3/6.8MG/ML 10 ML BTL OPB SCH (22:04)
[2024-08-27] MEDS: LEVOTHYROXINE SODIUM 50 MCG TABLET PO SCH (05:34)
[2024-08-27 07:20] LABS: Hematocrit (blood only) 31.5 % (37.0-47.0); Hemoglobin 10.4 g/dl (12.0-16.0); Mean Corpuscular Hemoglobin 31.7 pg (25.0-34.0); Mean Platelet Volume 10.7 fL (9.4-12.4); Platelet Count 304 K/uL (130-400); RDW Standard Deviation 51.7 fL (36.4-46.3); Red Blood Count 3.28 M/uL (4.20-5.40); White Blood Count 11.41 K/ul (4.8-10.8)
[2024-08-27 07:39] LABS: BUN Creatinine Ratio 19.1 (10-20); Creatinine Clr Calc Pharmacy 22.6 ml/min; Potassium 3.5 mmol/L (3.5-5.1)
--- NOTE | 2024-08-27 07:59 | Hospitalist Progress Note ---
Date of Service August 27, 2024 Assessment & Plan (1) LORNA (acute kidney injury): Plan: 88yo female presenting with lower abdominal pain, nausea and vomiting. Patient with LORNA - BUN=25, Cr=1.73, increased from last BN of 16 and Cr of 0.9 on 08/24/24. Patient was recently admitted to [facility] for acute on chronic HFpEF exacerbation requiring aggressive IV diuresis. LORNA possibly secondary to diuresis. Electrolytes and metabolic profile are acceptable - K=4.1, HCO3=32 with no anion gap. Patient reports she is urinating without difficulty. Has received 1L NSS thus far. Suspect that patient has a very tenuous volume status -Admit to medical -Check CK, urine Protein:Cr -Will continue IVF very cautiously - LR at 70mL/hr x 1L ordered -Monitor UOP -Repeat chemistry in AM -Holding Lasix, Losartan for now 08/27 Renal function improving, Cr 1.7--> 1.36, suspected 2nd to UTI -- urine cx w/ ecoli on preliminary and continues on Ceftriaxone IV for now. blood cx ngtd Volume overloaded on exam w/ reports increased SOB/confusion this morning by nursing Eval this morning around 11ish, family outside room. Reported increased confusion, reviewed prior admission w/ acute on chronic resp failure/thoracentesis and diuretic use and reports from pulm for BiPAP to continue but does not appear arranged at dc last admission (confirmed by family no O2/NiPPV at SNF). Message to navigator to ensure arranged at dc IVF STOPPED, BUN increased despite improvement in Cr CXR obtained, LEFT effusion noted. VBG checked however pH 7.45 but CO2 levels normal but mentation improved w/ use of BiPAP and will continue Given recent need for thoracentesis, pulm consulted for recs/assistance -->Recs to continue BiPAP, diuretic and no need for thoracentesis and appears improved compared to last admission BP 86/48 despite stable mentation but with CHF hx/afib and resp failure w/ need for diuretics, will move to monitored bed. EKG obtained. afib, rates 54bpm, no CP reported however at this time but suspect needing closer monitoring w/ underlying afib. Check TSH w/ AM labs given prior elevations and on supplementation w/ HR 50s (will add T3 as well) Lasix 20mg IV x 1 NOW w/ PO KCL given afib and will plan to continue lasix 20mg IV BID (given 40mg IV daily last admission). BNP added to AM labs for comparison, repeat ECHO Monitor I&Os, daily weights. Eliquis REDUCED to 2.5mg BID given on for afib and age >80 with weight 57.8kg Will plan to put in for PT/OT consults while inpatient later today, dispo pending course Jorje to ensure BiPAP at dc arranged. Family updated at bedside PT/OT consults placed Labs in AM (2) UTI (urinary tract infection): Plan: +UA on admission, urine cx w/ Ecoli on prelimn and continues ceftriaxone. F/u final urine/blood cxs. CTAP on admit noting ?cystitis, gas in bladder check urine prot:cr given proteinuria, ESTRELLA on HOLD antiemetics/pyretics as needed (3) Hypoxia: Plan: Suspect 2nd to not getting her BiPAP at dc last admission w/ ongoing CHF, LEFT effusion as above on CXR and BiPAP/O2 as needed and diuretics started/IVF stopped and NEEDS BIPAP AT DC Monitor w/ diuresis Plan Paroxysmal atrial fibrillation -Continue Apixaban, HOWEVER REDUCED GIVEN AGE/WEIGHT ABOVE Hypothyroidism -Continue Synthroid, repeat TSH w/ reflex/T3 w/ AM labs Dispo: transfer to PCU, stop IVF/start diuretics. BiPAP/pulm consult. Continue abx/follow up cxs and therapy evals placed. Family updated at bedside 08/27 Admission and Anticipated Discharge Date Admission Date: August 26, 2024 Subjective Eval this moring around 11ish, family outside room. EKG obtained. Discussed moving to monitored bed for closer monitoring and stopping her IVF and providing diuretics. Renal function improved and suspect 2nd to UTI as does endorse suprapubic discomfort/leg weakness and pulm consulted for concerns effusion given prior need for thoracentesis and they rec to continue diuretics which have ordered 20mg IV lasix x 1 and will monitor. Discussed with family about BiPAP as noted prior recs to use at night and does not appear had been arranged at dc and will make sure this is addressed. Salome denies nausea/vomiting or CP at this time but discussed PCU and will monitor. Also discussed eliquis dosing and age/weight, reduction to 2.5mg BID. Daughter also wonders about Synthroid as prior adjustments. Physical Exam 2 Physical Exam: General: 88yo female, frail, laying in bed, BiPAP in place, alert/oriented to person/place/year but fatigued appearing and reporting suprapubic discomfort HEENT: head atraumatic, normocephalic, +JVD Resp: diminished in the bases, L>R, bibasilar crackles, no overt wheezing but on BiPAP, no tachypnea CV: irregularly irregular, rates 50s, +systolic murmur, trace-1+ b/l edema,pulses present, no calf tenderness GI: +BS, soft but slightly distended, +suprapubic discomfort, no guarding/rigidity : no garcia MSK/Neuro: generalized weakness but nonfocal, b/l LE weakness equal but weaker than UE, following commands as able, mentation stable Psych: Alert but fatigued, oriented x 3 at present time, family updated outside room Results & Data Results & Data Vital Signs (Past 12 Hours) Vital Signs Temp Pulse Pulse Pulse Resp BP BP 08/26/24 21:33 36.4 C L 62 16 125/50 L 08/26/24 21:30 08/26/24 21:30 36.4 C L 62 16 125/50 L 08/26/24 21:10 60 20 105/51 L 08/26/24 20:42 60 20 93/54 L 08/26/24 20:00 61 20 110/49 L Pulse Ox O2 Del Method O2 Flow Rate 08/26/24 21:33 95 Nasal Cannula 2 08/26/24 21:30 Nasal Cannula 2 08/26/24 21:30 95 Nasal Cannula 2 08/26/24 21:10 94 Nasal Cannula 2 08/26/24 20:42 94 08/26/24 20:00 94 Laboratory Results 08/27/24 06:33 08/27/24 06:33 Diagnostic Findings Chest X-Ray 08/27/24 08:45 XR chest 2V PA/lateral HISTORY: 88 years-old Female f/u opacity/pna>? Acute shortness of breath COMPARISON: 08/26/2024 TECHNIQUE: AP and lateral views of the chest FINDINGS: Cardiac silhouette is enlarged. Pulmonary vascular congestion with interstitial coarsening. No pneumothorax. Upper abdominal surgical clips. Layering pleural effusions with bibasilar consolidation, mildly progressed on the left. Bones appear grossly intact. IMPRESSION: 1. Cardiomegaly with mild interstitial pulmonary edema. 2. Layering pleural effusions with bibasilar consolidation redemonstrated, mildly progressed on the left. ACT 112: Negative or not required by law. The above report was generated using voice recognition software. It may contain grammatical, syntax or spelling errors. Electronically signed by: Julio Olivares M.D. 08/27/2024 10:54 AM PG Care Time/CCT Total # of Minutes Spent Total Time Spent with Patient: Total time spent is greater than 50% in coordination of care (as documented) at patient's floor/unit and/or counseling patient: Coding Level of Care Code 24004 SUB INP/OBS CARE 3/50MIN Diagnoses LORNA (acute kidney injury) N17.9 UTI (urinary tract infection) N39.0 Hypoxia R09.02
[2024-08-27] MEDS: PANTOprazole 40 MG TAB PO SCH (08:39)
[2024-08-27] MEDS: LACTULOSE SYRUP 20 GM/30 ML UDC PO SCH (08:39)
[2024-08-27] MEDS: POTASSIUM CHLORIDE CRTAB 20 MEQ TABCR PO STA ×2 (08:41→12:36)
[2024-08-27] MEDS: ACETAMINOPHEN 325 MG TAB PO PRN (10:26)
[2024-08-27 10:39] LABS: Base Excess VBG 4.2 mEq/L; HCO3 VBG 28 mmol/L; Oxygen Saturation VBG 84.7 %; PCO2 VBG 40 mmHg (38-50); PO2 VBG 49 mmHg; pH VBG 7.46 (7.36-7.41)
--- NOTE | 2024-08-27 10:55 | XRay Report ---
XR chest 2V PA/lateral HISTORY: 88 years-old Female f/u opacity/pna>? Acute shortness of breath COMPARISON: 08/26/2024 TECHNIQUE: AP and lateral views of the chest FINDINGS: Cardiac silhouette is enlarged. Pulmonary vascular congestion with interstitial coarsening. No pneumo thorax. Upper abdominal surgical clips. Layering pleural effusions with bibasilar consolidation, mild ly progressed on the left. Bones appear grossly intact. IMPRESSION: 1. Cardiomegaly with mild interstitial pulmonary edema. 2. Layering pleural effusions with bibasilar consolidation redemonstrated, mildly progressed on the l eft. ACT 112: Negative or not required by law. The above report was generated using voice recognition software. It may contain grammatical, syntax o r spelling errors. Electronically signed by: Julio Olivares M.D. 08/27/2024 10:54 AM
--- NOTE | 2024-08-27 11:26 | Pulmonary Consultation ---
Date of Consultation August 27, 2024 Assessment & Plan (1) (HFpEF) heart failure with preserved ejection fraction: (2) LORNA (acute kidney injury): (3) Hypoxia: (4) Pleural effusion: Plan 2D echo 06/20/2023: EF 65 to 70%, moderate MR, mild TR, RV not well-visualized -- Acute hypoxic respiratory failure --> Resolved I think it is the distended belly which is causing her to have dyspnea Minimal Small left-sided pleural effusion Respiratory BioFire negative for everything Procalcitonin negative -- History of pleural effusion Secondary to HFpEF S/p thoracentesis 08/17/2024 650 mL on from the left, 500 mL on the right, both side transudative, l ymphocytic Cytology negative for malignancy, showed lymphocytosis -- A-fib On Eliquis Plan: CT abdomen pelvis from 08/26/2024 personally reviewed. Patient has minimal left-sided pleural effusion. This does not need any intervention Would recommend to resume diuretics when feasible and blood pressure permits BiPAP nightly and as needed shortness of breath Case was discussed with primary team Please note the above document was generated using voice recognition software. It may contain grammatical, syntax or spelling errors.Any formal questions or concerns about the content, text or information contained within the body of this dictation should be directly addressed to the provider for clarification. History of Present Illness Attending Physician: Gerber Jacome History of Present Illness 88-year-old female presented to the hospital with abdominal pain Past medical history: A-fib on Eliquis, peripheral vascular disease, GERD, coronary artery disease, dyslipidemia, hypertension, hypothyroidism, mesenteric artery stenosis Pulmonary consulted for pleural effusion no hypoxia At the time of examinations patient's family was in the room. Patient was saturating 98% while on BiPAP. She was not in any respiratory distress She feels warm to touch. Denied any chest pain, no shortness of breath Did complain of abdominal discomfort. Appetite is poor. Denies any nausea or vomiting. No unusual headache or blurry vision Denies any fever. Subjective chills Social history: Lifetime non-smoker, used to work in making airplanes parts. Wore mask. Allergies Allergy/AdvReac Type Severity Reaction Status Date / Time Penicillins Allergy Intermediate RASH ONLY Verified 08/26/24 18:22 atorvastatin AdvReac Intermediate MUSCLE Verified 08/26/24 18:22 CRAMPS/PAIN pravastatin AdvReac Intermediate MUSCLE Verified 08/26/24 18:22 CRAMPS/PAIN simvastatin AdvReac Intermediate MUSCLE Verified 08/26/24 18:22 CRAMPS/PAIN Home Medications Medication Instructions Recorded Confirmed Type dorzolamide 22.3 mg-timolol 6.8 1 drp OPB BID 02/23/19 08/26/24 History mg/mL eye drops brimonidine 0.2 % eye drops 1 drp OPB BID 05/07/19 08/26/24 History omeprazole 40 mg capsule,delayed 40 mg PO DAILY #90 caps 04/13/24 08/26/24 Rx release amlodipine 10 mg tablet 10 mg PO QPM #90 tabs 04/16/24 08/26/24 Rx losartan 50 mg tablet 50 mg PO QAM #90 tabs 04/16/24 08/26/24 Rx cilostazol 100 mg tablet 100 mg PO BID #60 tabs 04/30/24 08/26/24 Rx apixaban 5 mg tablet (Eliquis) 5 mg PO BID #180 tabs 05/30/24 08/26/24 Rx netarsudil 0.02 %-latanoprost 1 drp OPB QAM 05/30/24 08/26/24 History 0.005 % eye drops (Rocklatan) hydrocortisone acetate 25 mg 25 mg ND BID PRN hemorrhoids #24 ea 08/06/24 08/26/24 Rx rectal suppository (Anusol-HC) ranolazine 1,000 mg 1,000 mg PO BID #60 tabs 08/08/24 08/26/24 Rx tablet,extended release,12 hr levothyroxine 50 mcg tablet 50 mcg PO DAILYBB 08/14/24 08/26/24 History furosemide 40 mg tablet 40 mg PO QAM #30 tabs 08/24/24 08/26/24 Rx acetaminophen 325 mg tablet 650 mg PO Q6H PRN Pain/Fever 08/26/24 08/26/24 History (Tylenol) bisacodyl 10 mg rectal suppository 10 mg ND DAILY PRN Constipation 08/26/24 08/26/24 History (Dulcolax (bisacodyl)) hydrocortisone 2.5 % topical cream 1 applic ND DAILY PRN hemorrhoids 08/26/24 08/26/24 History with perineal applicator lactulose 20 gram/30 mL oral 20 g PO ONCE 08/26/24 08/26/24 History solution magnesium hydroxide 400 mg/5 mL 0 mg PO DAILY PRN Constipation 08/26/24 08/26/24 History oral suspension (Milk of Magnesia) ondansetron HCl 4 mg tablet 4 mg PO Q6H PRN Nausea And Vomiting 08/26/24 08/26/24 History promethazine 25 mg/mL injection 25 mg IM Q6H PRN Nausea And 08/26/24 08/26/24 History solution Vomiting sodium phosphates 19 gram-7 118 ml ND DAILY PRN Constipation 08/26/24 08/26/24 History gram/118 mL enema (Fleet Enema) Patient History Medical History Atrial fibrillation, permanent History of myocardial infarction PAD (peripheral artery disease) Hypertension Hyperlipidemia Cardiomyopathy CAD in alutiiq artery Anticoagulant long-term use History of CVA (cerebrovascular accident) Renal infarct Hyperglycemia Claudication NSTEMI (non-ST elevated myocardial infarction) Intractable pain Surgical History History of carpal tunnel surgery History of total abdominal hysterectomy and bilateral salpingo-oophorectomy S/P appendectomy History of cholecystectomy History of thyroid surgery H/O endarterectomy History of Neurological Surgery Carotid Endarterectomy Family History Mother Diabetes Hypertension Sister Diabetes Kidney disease Hypertension Brother Kidney disease Hypertension Diabetes Father Myocardial infarction Colorectal cancer Unknown Hypertension Cardiac disorder Stroke Cancer Other Buerger's disease No family history of bleeding disorder Denies family history of Ovarian cancer Prostate cancer Breast cancer Social History Smoking Status: Never smoker Second Hand Exposure: No; Do You Dip or Chew Tobacco: No; Hx Alcohol Use: No Hx Substance Use: No Preferred Language: Korean Communication Ability: Effective Visual Impairment: Limited Hearing Ability: Normal Quality Control Engineering Technician Required: No Beliefs That Will Affect Care: None marital status: Current Living Situation: Spouse Current Living Situation Comment: mobile home current occupational status: retired current occupation: Retired-[employer] Feels Safe at Home: Yes Childhood Exposure to Second-Hand Smoke: No Diet: regular caffeine: Yes during the past year weight has: remained stable Dental Care, Regularly: No Physical Activity Frequency: Does not Exercise Seatbelt Use: always Sunscreen Use: Yes Assistive Devices: Denture - Upper, Denture - Lower and Glasses Review of Systems 2 Review of Systems: All systems reviewed & are unremarkable except as noted in HPI & below Physical Exam 2 Physical Exam: Constitutional: No acute distress HEENT: EOMI, PERRLA Respiratory system: Decreased air entry bilaterally, no wheeze, no rhonchi, positive crackles bilaterally CVS: S1-S2 positive, no murmurs or gallops Abdomen: Soft, positive bowel sounds x4, Distended, positive diffuse tenderness more in the suprapubic region, no rebound Extremities: +2 pulses bilaterally radialis/ dorsalis pedis, no cyanosis, +1 pitting edema bilateral lower extremity Neuro: Awake alert oriented x3 Psych: Normal mood and affect G/U: Positive Gamble Skin: no rashes, warm and dry Lymphatic: no cervical or axillary lymphadenopathy Results & Data Results & Data Vital Signs (Past 12 Hours) Vital Signs Temp Pulse Resp BP Pulse Ox O2 Del Method O2 Flow Rate 08/27/24 11:10 57 L 16 86/48 L 96 BiPAP 08/27/24 10:47 92 Nasal Cannula 2 08/27/24 10:45 87 L Room Air 08/27/24 08:35 Room Air 08/27/24 07:33 36.4 C 68 16 115/56 L 91 Nasal Cannula 1 Laboratory Results 08/27/24 06:33 08/27/24 06:33 PG Care Time/CCT Total # of Minutes Spent Total Time Spent with Patient: Total time spent is greater than 50% in coordination of care (as documented) at patient's floor/unit and/or counseling patient: Coding Level of Care Code 87657 INT INP/OBS CARE 375MIN Diagnoses (HFpEF) heart failure with preserved ejection fraction I50.30 LORNA (acute kidney injury) N17.9 Hypoxia R09.02 Pleural effusion J90
[2024-08-27] MEDS: ALBUMIN 5% 250 ML IV ONE ×2 (12:37→13:53)
[2024-08-27] MEDS: FUROSEMIDE INJ 20 MG/2 ML VIAL IV ONE (12:47)
[2024-08-27] MEDS ORDERED: SOD PHOSPHATE/SOD BIPHOSPHATE ENEMA 132 ML BTL PR PRN (14:09)
--- NOTE | 2024-08-27 14:11 | Communication Note ---
Date of Service: August 27, 2024 Albumin x 2 provided as discussed w/ pulmonology will defer any further lasix for now and utilize BiPAP. ABd pain discussed, +UA on admission and findings c/w UTI and on abx. ALso noting moderate to large amount of diffuse colonic stool noted and suspect also contributing to discomfort and enema to be provided/continue to monitor.
[2024-08-27] MEDS: ONDANSETRON INJ 2 MG/ML 2 ML VIAL IV PRN (14:24)
[2024-08-27] MEDS: SOD PHOSPHATE/SOD BIPHOSPHATE ENEMA 132 ML BTL PR STA (14:58)
--- NOTE | 2024-08-27 15:53 | XCELERA ---
[id number]
--- NOTE | 2024-08-27 16:41 | Electrocardiogram Report ---
Test Reason : Blood Pressure : */* mmHG Vent. Rate : 63 BPM Atrial Rate : 63 BPM P-R Int : 250 ms QRS Dur : 84 ms QT Int : 414 ms P-R-T Axes : -19 -41 -23 degrees QTcB Int : 423 ms Sinus rhythm with 1st degree A-V block Left axis deviation Inferior infarct , age undetermined Abnormal ECG When compared with ECG of 16-Aug-2024 06:25, AK interval has increased QRS axis Shifted left Inferior infarct is now Present Confirmed by Rodri Taylor ([id number]) on 08/27/2024 4:41:14 PM Referred By: [facility] Confirmed By: Rodri Taylor
--- NOTE | 2024-08-27 16:42 | Electrocardiogram Report ---
Test Reason : Blood Pressure : */* mmHG Vent. Rate : 56 BPM Atrial Rate : 56 BPM P-R Int : 240 ms QRS Dur : 86 ms QT Int : 574 ms P-R-T Axes : 67 55 83 degrees QTcB Int : 553 ms Poor data quality, interpretation may be adversely affected Sinus bradycardia with 1st degree A-V block with Premature supraventricular complexes Nonspecific ST and T wave abnormality Prolonged QT Abnormal ECG When compared with ECG of 26-Aug-2024 16:29, QT has lengthened Premature supraventricular complexes are now Present Confirmed by Rodri Taylor ([id number] on 08/27/2024 4:41:52 PM Referred By: [facility] Confirmed By: Rodri Taylor
[2024-08-27] MEDS ORDERED: FUROSEMIDE INJ 20 MG/2 ML VIAL IV SCH (17:00)
--- NOTE | 2024-08-27 18:33 | Communication Note ---
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 Also noted focal stenosis SMA not noted on recent imaging but if not improving abd pain w/ tx UTI/constipation can consider further imaging/evaluation.
[2024-08-27] MEDS: APIXABAN 2.5 MG TAB PO SCH (20:02)
[2024-08-27] MEDS: cefTRIAXone SODIUM 1,000 MG/50 ML BAG IV SCH (21:36)
[2024-08-28 08:22] LABS: Basophils # (auto) 0.01 K/uL (0.00-0.20); Basophils % (auto) 0.1 %; Eosinophils # (auto) 0.02 K/uL (0.00-0.50); Eosinophils % (auto) 0.1 %; Hemoglobin 9.6 g/dl (12.0-16.0); Immature Granulocytes # (auto) 0.07 K/uL (0.01-0.20); Immature Granulocytes % (auto) 0.5 %; Lymphocytes # (auto) 0.81 K/uL (1.20-3.40); Mean Corpuscular Hemoglobin 31.7 pg (25.0-34.0); Mean Corpuscular Hgb Conc 33.1 g/dL (32.0-36.0); Mean Corpuscular Volume 95.7 fL (80.0-100.0); Mean Platelet Volume 10.4 fL (9.4-12.4); Monocytes # (auto) 0.75 K/uL (0.11-0.59); Monocytes % (auto) 5.6 %; Neutrophils # (auto) 11.75 K/uL (1.40-6.50); Neutrophils % (auto) 87.7 %; Platelet Count 297 K/uL (130-400); RDW Coefficient of Variation 15.3 % (11.5-14.5); RDW Standard Deviation 52.9 fL (36.4-46.3); Red Blood Count 3.03 M/uL (4.20-5.40); White Blood Count 13.41 K/ul (4.8-10.8)
[2024-08-28 08:34] LABS: Albumin Globulin Ratio 1.4 (0.9-2); Albumin Level 3.5 gm/dl (3.4-5.0); BUN Creatinine Ratio 27.4 (10-20); Bilirubin,Total 0.5 mg/dl (0.2-1.0); Calcium 9.3 mg/dl (8.6-10.3); Creatinine Clr Calc Pharmacy 24.8 ml/min; Globulin 2.5 gm/dl (2.5-4.0); Magnesium 2.5 mg/dl (1.7-2.4); Potassium 3.4 mmol/L (3.5-5.1)
[2024-08-28 08:48] LABS: Thyroid Stimulating Hormone 0.528 uIu/ml (0.300-4.500)
[2024-08-28] MEDS: POTASSIUM CHLORIDE CRTAB 20 MEQ TABCR PO STA (09:23)
--- NOTE | 2024-08-28 09:43 | Pulmonology Progress Note ---
Date of Service August 28, 2024 Assessment & Plan (1) (HFpEF) heart failure with preserved ejection fraction: (2) LORNA (acute kidney injury): (3) Hypoxia: (4) Pleural effusion: Plan 2D echo 06/20/2023: EF 65 to 70%, moderate MR, mild TR, RV not well-visualized -- Acute hypoxic respiratory failure --> Resolved I think it is the distended belly which is causing her to have dyspnea Minimal Small left-sided pleural effusion Respiratory BioFire negative for everything Procalcitonin negative -- History of pleural effusion Secondary to HFpEF S/p thoracentesis 08/17/2024 650 mL on from the left, 500 mL on the right, both side transudative, l ymphocytic Cytology negative for malignancy, showed lymphocytosis -- A-fib On Eliquis Plan: Patient looks very lethargic, would recommend BiPAP when she is lethargic and nightly Case was discussed with primary team Please note the above document was generated using voice recognition software. It may contain grammatical, syntax or spelling errors.Any formal questions or concerns about the content, text or information contained within the body of this dictation should be directly addressed to the provider for clarification. Admission and Anticipated Discharge Date Admission Date: August 26, 2024 Subjective Patient seen and examined at bedside. No acute distress, no adverse events overnight Patient was saturating 97% on 2 L, I went down to 2 L She was overall very lethargic. Answering questions appropriately but slow to answer Denied any chest pain, still has abdominal tenderness. No nausea vomiting Poor appetite Review of Systems 2 Review of Systems: Unobtainable due to cognitive status Physical Exam 2 Physical Exam: Constitutional: No acute distress HEENT: EOMI, PERRLA Respiratory system: Decreased air entry bilaterally, no wheeze, no rhonchi, positive crackles bilaterally CVS: S1-S2 positive, no murmurs or gallops Abdomen: Soft, positive bowel sounds x4, nondistended, still has mild diffuse abdominal tenderness especially in the suprapubic region, no rebound Extremities: +2 pulses bilaterally radialis/ dorsalis pedis, no cyanosis, +1 pitting edema bilateral lower extremity Neuro: Somnolent but easily arousable, oriented to self and place Psych: Flat mood and affect G/U: No Gamble Skin: no rashes, warm and dry Lymphatic: no cervical or axillary lymphadenopathy Results & Data Results & Data Vital Signs (Past 12 Hours) Vital Signs Temp Pulse Resp BP Pulse Ox O2 Del Method O2 Flow Rate 08/28/24 09:25 Nasal Cannula 2 08/28/24 08:08 36.5 C 56 L 18 95/45 L 94 Nasal Cannula 3 08/28/24 07:34 36.4 C L 79 21 132/59 L 96 Room Air 08/28/24 02:33 36.6 C 76 16 136/56 L 92 Nasal Cannula 3 08/27/24 22:17 36.5 C 61 16 114/51 L 94 Nasal Cannula 2 08/27/24 22:15 Nasal Cannula 2 Laboratory Results 08/28/24 07:51 08/28/24 07:51 PG Care Time/CCT Total # of Minutes Spent Total Time Spent with Patient: Total time spent is greater than 50% in coordination of care (as documented) at patient's floor/unit and/or counseling patient: Coding Level of Care Code 34227 SUB INP/OBS CARE 2/35MIN Diagnoses (HFpEF) heart failure with preserved ejection fraction I50.30 LORNA (acute kidney injury) N17.9 Hypoxia R09.02 Pleural effusion J90
--- NOTE | 2024-08-28 13:03 | CT Scan Report ---
CT head/brain wo con CLINICAL HISTORY: 88 years-old Female with Lethargy, unresponsive episode. Acutely altered mental st atus TECHNIQUE: Multiple axial CT images of the head were obtained without contrast. A dose lowering tech nique was utilized adhering to the principles of ALARA. CT DOSE: 625.8 mGy.cm COMPARISON: 06/23/2020 FINDINGS: No acute intracranial hemorrhage, midline shift, intra-axial mass, hydrocephalus, territorial ischemi a or abnormal extra-axial collection. Involutional changes with chronic microvascular ischemic diseas e, progressed from prior. Chronic left frontal lobe infarct with encephalomalacia. 5 mm calcification noted along the inner table of the skull adjacent to the left frontal lobe, unchanged. The calvarium is intact. The paranasal sinuses, mastoid air cells, and middle ear cavities are clear . IMPRESSION: No acute intracranial abnormality. ACT 112: Negative or not required by law. The above report was generated using voice recognition software. It may contain grammatical, syntax o r spelling errors. Electronically signed by: Julio Olivares M.D. 08/28/2024 1:01 PM
[2024-08-28] MEDS: LORazepam 2 MG/1 ML VIAL IV STA (13:36)
[2024-08-28] MEDS: levETIRAcetam 500 MG/5 ML VIAL IV STA (13:52)
[2024-08-28] MEDS: LORazepam 2 MG/1 ML VIAL ONE (13:53)
[2024-08-28] MEDS ORDERED: PHARMACIST DISCHARGE MED REC CONSULT PRN (16:54)
--- NOTE | 2024-08-28 17:03 | Neurology Consultation ---
Date of Consultation August 28, 2024 Assessment & Plan (1) Transient alteration of awareness: History of Present Illness Attending Physician: Cyn Tariq MD History of Present Illness pt currently heavily sedated due to getting ativan and keppra just 1-2 hrs ago. pt apparently was confused and had difficulty responding and ? body tremors today. CT head negative with diffuse moderate degree of chronic vascular changes. pt with progression of UTI and continue issue with pleural effusion and LORNA and hypoxic respiratory failure recently. pending mri. chart reviewed. admission HPI: Salome Younger is an 88yo female with history of paroxysmal atrial fibrillation on Eliquis anticoagulation, PAD, HTN, HLP and CAD presenting with lower abdominal pain. Patient was recently admitted to [facility] from 08/14/24 - 08/24/24 after presenting with SOB/VACA/fatigue and worsening bilateral LE edema. She had been taking Lasix 20mg po daily which was increased to 40mg po daily 2 days prior to admis christy. Patient initially required BiPAP for acute hypoxic respiratory failure. She had an echocardiogram performed on 08/15/24 which revealed EF 65-70%, aortic sclerosis and mild MR as well as a trace pericardial effusion without signs of tamponade. She had bilateral Pleural effusions. She was treated aggressively with IV lasix (ultimately increased to 80mg IV BID) with fair diuretic response to higher doses. She had thoracenteses performed on 08/17/24 with 650mL removed from the LEFT and 500mL removed from the RIGHT. She was ultimately discharged to [facility] on 08/24/24. Cr = 0.92 on day of discharge. Patient returns to the ER today with lower abdominal pain which started around 15:00 today as well as nausea and vomiting. She denies back pain or flank pain, no urinary complaints. No fevers, chills, cough, SOB or chest pain. She does endorse ongoing orthopnea and bilateral LE edema. In the ER she is afebrile, HD stable. Patient did become SOB and tachypneic as well as had decreased oxygen saturation upon standing to use the bathroom. Symptoms improved after returning to bed - now on 2L NC with adequate oxygenation. Allergies Allergy/AdvReac Type Severity Reaction Status Date / Time Penicillins Allergy Intermediate RASH ONLY Verified 08/26/24 18:22 atorvastatin AdvReac Intermediate MUSCLE Verified 08/26/24 18:22 CRAMPS/PAIN pravastatin AdvReac Intermediate MUSCLE Verified 08/26/24 18:22 CRAMPS/PAIN simvastatin AdvReac Intermediate MUSCLE Verified 08/26/24 18:22 CRAMPS/PAIN Home Medications Medication Instructions Recorded Confirmed Type dorzolamide 22.3 mg-timolol 6.8 1 drp OPB BID 02/23/19 08/26/24 History mg/mL eye drops brimonidine 0.2 % eye drops 1 drp OPB BID 05/07/19 08/26/24 History omeprazole 40 mg capsule,delayed 40 mg PO DAILY #90 caps 04/13/24 08/26/24 Rx release amlodipine 10 mg tablet 10 mg PO QPM #90 tabs 04/16/24 08/26/24 Rx losartan 50 mg tablet 50 mg PO QAM #90 tabs 04/16/24 08/26/24 Rx cilostazol 100 mg tablet 100 mg PO BID #60 tabs 04/30/24 08/26/24 Rx apixaban 5 mg tablet (Eliquis) 5 mg PO BID #180 tabs 05/30/24 08/26/24 Rx netarsudil 0.02 %-latanoprost 1 drp OPB QAM 05/30/24 08/26/24 History 0.005 % eye drops (Rocklatan) hydrocortisone acetate 25 mg 25 mg MA BID PRN hemorrhoids #24 ea 08/06/24 08/26/24 Rx rectal suppository (Anusol-HC) ranolazine 1,000 mg 1,000 mg PO BID #60 tabs 08/08/24 08/26/24 Rx tablet,extended release,12 hr levothyroxine 50 mcg tablet 50 mcg PO DAILYBB 08/14/24 08/26/24 History furosemide 40 mg tablet 40 mg PO QAM #30 tabs 08/24/24 08/26/24 Rx acetaminophen 325 mg tablet 650 mg PO Q6H PRN Pain/Fever 08/26/24 08/26/24 History (Tylenol) bisacodyl 10 mg rectal suppository 10 mg MA DAILY PRN Constipation 08/26/24 08/26/24 History (Dulcolax (bisacodyl)) hydrocortisone 2.5 % topical cream 1 applic MA DAILY PRN hemorrhoids 08/26/24 08/26/24 History with perineal applicator lactulose 20 gram/30 mL oral 20 g PO ONCE 08/26/24 08/26/24 History solution magnesium hydroxide 400 mg/5 mL 0 mg PO DAILY PRN Constipation 08/26/24 08/26/24 History oral suspension (Milk of Magnesia) ondansetron HCl 4 mg tablet 4 mg PO Q6H PRN Nausea And Vomiting 08/26/24 History promethazine 25 mg/mL injection 25 mg IM Q6H PRN Nausea And 08/26/24 08/26/24 History solution Vomiting sodium phosphates 19 gram-7 118 ml MA DAILY PRN Constipation 08/26/24 08/26/24 History gram/118 mL enema (Fleet Enema) Patient History Medical History Atrial fibrillation, permanent History of myocardial infarction PAD (peripheral artery disease) Hypertension Hyperlipidemia Cardiomyopathy CAD in [place] artery Anticoagulant long-term use History of CVA (cerebrovascular accident) Renal infarct Hyperglycemia Claudication NSTEMI (non-ST elevated myocardial infarction) Intractable pain Surgical History History of carpal tunnel surgery History of total abdominal hysterectomy and bilateral salpingo-oophorectomy S/P appendectomy History of cholecystectomy History of thyroid surgery H/O endarterectomy History of Neurological Surgery Carotid Endarterectomy Family History Mother Diabetes Hypertension Sister Diabetes Kidney disease Hypertension Brother Kidney disease Hypertension Diabetes Father Myocardial infarction Colorectal cancer Unknown Hypertension Cardiac disorder Stroke Cancer Other Buerger's disease No family history of bleeding disorder Denies family history of Ovarian cancer Prostate cancer Breast cancer Social History Smoking Status: Never smoker Second Hand Exposure: No; Do You Dip or Chew Tobacco: No; Hx Alcohol Use: No Hx Substance Use: No Preferred Language: [place] Communication Ability: Effective Visual Impairment: Limited Hearing Ability: Normal Medical Claims Assistant Required: No Beliefs That Will Affect Care: None marital status: Current Living Situation: Spouse Current Living Situation Comment: mobile home current occupational status: retired current occupation: Retired-[employer] Feels Safe at Home: Yes Childhood Exposure to Second-Hand Smoke: No Diet: regular caffeine: Yes during the past year weight has: remained stable Dental Care, Regularly: No Physical Activity Frequency: Does not Exercise Seatbelt Use: always Sunscreen Use: Yes Assistive Devices: Walker and Wheelchair Exam (Neuro) Physical Exam: Neuro: Mental: limited exam. pt sedated from ativan and keppra loading. eyes closed. moaning sounds when pinched. CN: PERRL, making symmetric facial grimacing to pain. Motor: No abnormal movements, normal tone, moves all limbs b/l to stimulation. Sens: flexion to stimulations b/l limbs. Coord:deferred DTR: 1+ sym b/l, toes mute b/l. Gait:deferred. Impression: 88 yo female with confusion and transient alteration of awareness in setting of ongoing UTI, pleural effusion, LORNA, heart failure. Likely all the above ongoing medical issues contributing. Unclear as to if she actually had seizure vs nonconvulsive syncopal event. Recommendations: pending mri brain i do not see the need for EEG at this point. ok with continuing keppra for now continue tx for infection and respiratory issues and LORNA/heart failure, metabolic disorder. avoid hypotension and sedation and sedative meds continue supportive care Chart reviewed I have spent more than 50% educating family about potential diagnosis and neurological evaluation and coordinating care with patient's treatment team. Total time spent (including chart review and coordination of care): 60 min (this includes chart review). Results & Data Vital Signs (Past 12 Hours) Vital Signs Temp Pulse Resp BP BP Pulse Ox O2 Del Method 08/28/24 15:40 36.5 C 54 L 19 97/57 L 99 Nasal Cannula 08/28/24 11:18 36.3 C L 65 18 127/51 L 90 Nasal Cannula 08/28/24 09:25 Nasal Cannula 08/28/24 08:08 36.5 C 56 L 18 95/45 L 94 Nasal Cannula 08/28/24 07:34 36.4 C L 79 21 132/59 L 96 Room Air O2 Flow Rate 08/28/24 15:40 08/28/24 11:18 1 08/28/24 09:25 2 08/28/24 08:08 3 08/28/24 07:34 PG Care Time/CCT Total # of Minutes Spent Total Time Spent with Patient: Total time spent is greater than 50% in coordination of care (as documented) at patient's floor/unit and/or counseling patient: Coding Level of Care Code 74737 IN/OBS CONSULT LVL 4,60M Diagnoses Transient alteration of awareness R40.4
[2024-08-28] MEDS ORDERED: LORazepam 2 MG/1 ML VIAL IV PRN (17:05)
--- NOTE | 2024-08-28 17:21 | Magnetic Resonance Report ---
Clinical History: Lethargy. Possible stroke Technique: Multiple T1 and T2-weighted magnetic resonance images were obtained of the brain without gadolinium contrast Comparison is made to the head CT dated 06/23/2020 Findings: There is no sign of acute infarction with normal-appearing diffusion weighted images. There is cerebral atrophy, within expected limits for the patient's age. There are focal and confluent areas of increased T2 signal intensity within the periventricular white matter of the cerebral hemispheres bilaterally. This is most likely due to chronic small vessel ischemic disease. There is an unchanged old infarct of the left frontal lobe periventricular white matter No definite mass lesion is seen on this noncontrast study. There is no intracranial hemorrhage or other fluid collection. No midline shift or other form of herniation is seen. There is no hydrocephalus. Normal flow-voids are seen within the arteries of the [id number]. The orbits and paranasal sinuses appear normal. The mastoid air cells appear clear. Impression: 1. Cerebral atrophy and chronic small vessel ischemic disease 2. Old left frontal lobe infarct 3. No sign of acute infarction Electronically signed by Mukul Banerjee 08-28-2024 5:21 PM
[2024-08-28] MEDS: ASPIRIN 300 MG SUPP PR SCH (18:01)
[2024-08-28] MEDS: levETIRAcetam 500 MG/5 ML VIAL IV SCH (18:02)
--- NOTE | 2024-08-28 18:53 | Hospitalist Progress Note ---
Date of Service August 28, 2024 Assessment & Plan (1) Seizure-like activity: Plan: Patient presented with lower abdominal pain, nausea, and vomiting. Patient was previously A&O x 4, but had an acute change on 08/28 when she became lethargic and obtunded - Lethargic in AM but able to follow commands of squeezing hands and opening eyes. Was staring off to right side, had tremors and garbled speech at that time - Head CT negative for acute intracranial abnormality - Carotid dopplers ordered, pending - Ammonia and lactate WNL - Upon return from CT scan, patient had witnessed seizure-like activity at bedside with posturing right arm with tremors and eye twitching > 1 mg Ativan and loading Keppra given at that time - Brain MRI initially deferred given concern for protecting airway, but after Ativan and Keppra was able to obtain > Brain MRI negative for acute stroke. Does note cerebral atrophy and chronic small vessel ischemic disease and old left frontal lobe infarct - Neurology consulted > Per Dr. Britt, likely multifactorial with ongoing UTI, pleural effusion, LORNA, heart failure all likely contributing to confusion and transient alteration of awareness > Recommends continuing Keppra, continue medical management, avoid hypotension and sedation, continue supportive care - EEG ordered, pending - Continue Keppra 500 mg BID - Eliquis and DE Aspirin on hold (see #2) - Continue aspiration precautions, neurochecks, seizure precautions, and stroke scale - Continue NPO status > NSS at 100 mls/hr x 1 bag - Lipid panel and A1c with AM labs (2) GI bleed: Plan: Notified by RN that patient has maroon stools and was retaining urine on bladder scan - Gamble catheter placed 08/28 - Eliquis and DE aspirin placed on hold given suspected GI bleed - Fecal occult study ordered, pending - Stool BioFire ordered, pending (3) LORNA (acute kidney injury): Plan: Labs on admission showed LORNA. Patient was recently admitted to [facility] for acute on chronic HFpEF exacerbation requiring aggressive IV diuresis. LORNA possibly secondary to diuresis. Suspect that patient has a very tenuous volume status. - Volume overloaded after IV fluids on admission with subsequent increased SOB/confusion -- provided gentle diuresis - Family reported increased confusion 08/27, reviewed prior admission w/ acute on chronic resp failure/thoracentesis and diuretic use. Reports from pulm for BiPAP to continue but does not appear arranged at dc last admission (confirmed by family no O2/NiPPV at SNF) > Ensure BiPAP set up on discharge. Messaged navigator to ensure arranged at dc - CXR obtained which revealed left effusion - VBG showed pH 7.45 but CO2 levels normal. Mentation improved with use of BiPAP - Pulmonary consulted given recent need for thoracentesis -- Recommending to continue BiPAP (4) UTI (urinary tract infection): Plan: UA positive on admission - Urine culture showing pansensitive E coli -blood cxs NGTD - Continue ceftriaxone while urine and blood cultures finalize Plan Ordered head CT, brain MRI, carotid Dopplers, EEG Ordered Ativan, Keppra, aspirin, IV fluids Ordered fecal occult and stool BioFire Ordered Gamble catheter Consulted neurology and discussed case via phone call multiple times Updated 10+ family members at bedside Chronic stable problems: Paroxysmal atrial fibrillation - Eliquis dose reduced given age/weight. Currently on hold given suspected GI bleed and NPO status Hypothyroidism - Continue Synthroid CODE STATUS: DNR/DNI. Did confirm this with multiple family members 08/28 Admission and Anticipated Discharge Date Admission Date: August 26, 2024 Supervising Physician Co-Signing Physician Notes PA Supervision Note: I personally saw and examined the patient. I verified all morley points and agree with YOON Pathak with the following exceptions and/or additions: S-Pt seen at bedside with YOON Pathak and noted unresponsiveness with eyes deviated to the right, tremor on right side of body. O- Vitals reviewed Gen: [unresponsive but awake,nonverbal, moaning at times] HEENT: [anicteric sclerae, EOMI, PERRL] CV: [irreg irregt. normal rate no mgr nl S1S2] Pulm: [CTAB no wcr] Abd: [+BS soft NT ND no masses or hernias] Ext: [no edema] Skin: [no rashes, warm/dry] Neuro: [does squeeze hands to verbal cue bilat] CBC, BMP reviewed A/P-88 yo female here with UTI, now with acute change in mentation and witnessed seizre activity Stroke workup negative Possible seizure-check EEG, consult Neuro continue abx for UTI Subjective Patient seen and evaluated at bedside with multiple family members present. She is very lethargic today which is an acute change compared to yesterday. A code purple was called around 1230 when the patient's daughter witnessed her "slumped to the side," have tremors, and make grunting sounds. Patient was difficult to arouse, but was able to follow the commands of squeezing my hands and opening her eyes. She was staring off to the right side and had tremors of her right hand with garbled speech at that time. Vital signs are stable, blood sugar stable. MD at bedside as well. I returned to bedside when patient returned from CT scan as she was retching, but RN could not access suction. Witnessed seizure-like activity at bedside at that time with posturing right arm with tremors and eye twitching. Ativan and Keppra given. Confirmed with multiple family members at bedside that patient is DNR/DNI. MD at bedside as well. Deferred brain MRI at this time given concerns regarding airway when lying flat. Updated by RN in evening that bladder scan showed urinary retention. Gamble ca theter was placed at this time. RN also reported maroon stool at this time, but denied teresa red blood or tarry stools. Updated multiple family members multiple times throughout the day. Patient re mained unresponsive to verbal commands after Ativan and Keppra and lethargic throughout the day. Physical Exam Physical Exam: General: Frail elderly female. Unable to follow verbal commands. Cardiac: Irregularly irregular with rates in the 50s. Systolic murmur noted. Pulm: Breath sounds diminished in the bases bilaterally with bibasilar crackles. No wheezing or stridor. 99% on room air. Abdominal: Soft, nondistended. Winces with palpation of abdomen. Bowel sounds present. : Gamble draining dark brandon urine. Neuro: Obtunded. PERRL. Moaning sounds intermittently. In the morning, was able to follow verbal commands including squeezing hands and opening eyes. Could not track eyes at that time. In afternoon and evening, unable to follow verbal commands. Results & Data Results & Data Vital Signs (Past 12 Hours) Vital Signs Temp Pulse Resp BP BP Pulse Ox O2 Del Method 08/28/24 15:40 97.7 F 54 L 19 97/57 L 99 Nasal Cannula 08/28/24 11:18 97.3 F L 65 18 127/51 L 90 Nasal Cannula 08/28/24 09:25 Nasal Cannula 08/28/24 08:08 97.7 F 56 L 18 95/45 L 94 Nasal Cannula 08/28/24 07:34 97.5 F L 79 21 132/59 L 96 Room Air O2 Flow Rate 08/28/24 15:40 08/28/24 11:18 1 08/28/24 09:25 2 08/28/24 08:08 3 08/28/24 07:34 Laboratory Results Reviewed CBC Reviewed chemistries Reviewed serologies Reviewed urine culture Reviewed blood cultures Diagnostic Findings Reviewed Head CT 08/28/24 12:32 CT head/brain wo con CLINICAL HISTORY: 88 years-old Female with Lethargy, unresponsive episode. Acutely altered mental status TECHNIQUE: Multiple axial CT images of the head were obtained without contrast. A dose lowering technique was utilized adhering to the principles of ALARA. CT DOSE: 625.8 mGy.cm COMPARISON: 06/23/2020 FINDINGS: No acute intracranial hemorrhage, midline shift, intra-axial mass, hydrocephalus, territorial ischemia or abnormal extra-axial collection. Involutional changes with chronic microvascular ischemic disease, progressed from prior. Chronic left frontal lobe infarct with encephalomalacia. 5 mm calcification noted along the inner table of the skull adjacent to the left frontal lobe, unchanged. The calvarium is intact. The paranasal sinuses, mastoid air cells, and middle ear cavities are clear. IMPRESSION: No acute intracranial abnormality. ACT 112: Negative or not required by law. The above report was generated using voice recognition software. It may contain grammatical, syntax or spelling errors. Electronically signed by: Julio Olivares M.D. 08/28/2024 1:01 PM Reviewed Brain MRI 08/28/24 12:49 Clinical History: Lethargy. Possible stroke Technique: Multiple T1 and T2-weighted magnetic resonance images were obtained of the brain without gadolinium contrast Comparison is made to the head CT dated 06/23/2020 Findings: There is no sign of acute infarction with normal-appearing diffusion weighted images. There is cerebral atrophy, within expected limits for the patient's age. There are focal and confluent areas of increased T2 signal intensity within the periventricular white matter of the cerebral hemispheres bilaterally. This is most likely due to chronic small vessel ischemic disease. There is an unchanged old infarct of the left frontal lobe periventricular white matter No definite mass lesion is seen on this noncontrast study. There is no intracranial hemorrhage or other fluid collection. No midline shift or other form of herniation is seen. There is no hydrocephalus. Normal flow-voids are seen within the arteries of the [id number]. The orbits and paranasal sinuses appear normal. The mastoid air cells appear clear. Impression: 1. Cerebral atrophy and chronic small vessel ischemic disease 2. Old left frontal lobe infarct 3. No sign of acute infarction Electronically signed by Mukul Banerjee 08-28-2024 5:21 PM PG Care Time/CCT Total # of Minutes Spent Total Time Spent with Patient: Total time spent is greater than 50% in coordination of care (as documented) at patient's floor/unit and/or counseling patient: Coding Level of Care Code 32997 SUB INP/OBS CARE 3/50MIN Diagnoses Seizure-like activity R56.9 GI bleed K92.2 LORNA (acute kidney injury) N17.9 UTI (urinary tract infection) N39.0
[2024-08-28] MEDS: SODIUM CHLORIDE 0.9% 1,000 ML IV SCH (19:50)
[2024-08-28 23:09] LABS: Adenovirus F 40/41 PCR Not Detected (NotDetected); Astrovirus PCR Not Detected (NotDetected); Campylobacter PCR Not Detected (NotDetected); Cryptosporidium PCR Not Detected (NotDetected); Cyclospora cayetanensis PCR Not Detected (NotDetected); Entamoeba histolytica PCR Not Detected (NotDetected); Enteroaggregative E.coli(EAEC) Not Detected (NotDetected); Enteropathogenic E.coli (EPEC) Not Detected (NotDetected); Enterotoxigenic E.coli (ETEC) Not Detected (NotDetected); Giardia lamblia PCR Not Detected (NotDetected); Norovirus GI/GII PCR Not Detected (NotDetected); Plesiomonas shigelloides PCR Not Detected (NotDetected); Rotavirus A PCR Not Detected (NotDetected); Salmonella PCR Not Detected (NotDetected); Sapovirus PCR Not Detected (NotDetected); Shiga-like Toxin E.coli (STEC) Not Detected (NotDetected); Shigella/Enteroinvasive E.coli Not Detected (NotDetected); Vibrio cholerae PCR Not Detected (NotDetected); Vibrio species PCR Not Detected (NotDetected); Yersinia enterocolitica PCR Not Detected (NotDetected)
[2024-08-29 07:09] LABS: Hematocrit (blood only) 27.7 % (37.0-47.0); Mean Corpuscular Hemoglobin 31.6 pg (25.0-34.0); Mean Corpuscular Hgb Conc 32.5 g/dL (32.0-36.0); Mean Corpuscular Volume 97.2 fL (80.0-100.0); Mean Platelet Volume 10.3 fL (9.4-12.4); Platelet Count 283 K/uL (130-400); RDW Coefficient of Variation 15.5 % (11.5-14.5); RDW Standard Deviation 54.7 fL (36.4-46.3); Red Blood Count 2.85 M/uL (4.20-5.40); White Blood Count 7.38 K/ul (4.8-10.8)
[2024-08-29 07:20] LABS: Albumin Globulin Ratio 1.3 (0.9-2); Albumin Level 3.2 gm/dl (3.4-5.0); Bilirubin,Total 0.4 mg/dl (0.2-1.0); Calcium 9.1 mg/dl (8.6-10.3); Chol HDL Ratio 1.9 (0-5); Creatinine Clr Calc Pharmacy 28.7 ml/min; Globulin 2.5 gm/dl (2.5-4.0); Potassium 3.2 mmol/L (3.5-5.1); Total Protein 5.7 gm/dl (6.0-8.3)
--- NOTE | 2024-08-29 08:05 | Pulmonology Progress Note ---
Date of Service August 29, 2024 Assessment & Plan (1) (HFpEF) heart failure with preserved ejection fraction: (2) LORNA (acute kidney injury): (3) Hypoxia: (4) Pleural effusion: Plan 2D echo 06/20/2023: EF 65 to 70%, moderate MR, mild TR, RV not well-visualized -- Acute hypoxic respiratory failure --> Resolved I think it is the distended belly which is causing her to have dyspnea Minimal Small left-sided pleural effusion Respiratory BioFire negative for everything Procalcitonin negative -- History of pleural effusion Secondary to HFpEF S/p thoracentesis 08/17/2024 650 mL on from the left, 500 mL on the right, both side transudative, l ymphocytic Cytology negative for malignancy, showed lymphocytosis -- A-fib On Eliquis --> Eliquis held secondary to episodes of confusion and concerns for seizure-like activity Admission and Anticipated Discharge Date Admission Date: August 26, 2024 Supervising Physician Co-Signing Physician Notes I saw and evaluated the patient with Matt Aguilar PA-C, and agree with findings and plan as documented in the note. Patient seen and examined at bedside. No acute distress. Yesterday patient had some seizure-like activity, MRI of the brain was negative She was saturating 98% on 2 L nasal cannula, I went down to 1 L She was awake alert oriented to self and place. Patient's family was also in the room Denies any chest pain, stated that abdomen has significantly improved. Denied any abdominal pain Has a Gamble catheter and is urinating well. Constitutional: No acute distress HEENT: EOMI, PERRLA Respiratory system: Decreased air entry bilaterally, no wheeze, no rhonchi, positive crackles bilaterally CVS: S1-S2 positive, no murmurs or gallops Abdomen: Soft, positive bowel sounds x4, nondistended, no abdominal tenderness Extremities: +2 pulses bilaterally radialis/ dorsalis pedis, no cyanosis, +1 pitting edema bilateral lower extremity Neuro: Awake alert oriented to self and place Psych: Normal mood and affect G/U: Positive Gamble Plan: Continue with incentive spirometry Continue with course of antibiotics for UTI Diuretics as tolerated for left-sided small pleural effusion. No indication for thoracentesis. Case was discussed with RN at bedside as well as primary team No further recommendation from pulmonary perspective, will sign off Please call directly with any questions Please note the above document was generated using voice recognition software. It may contain grammatical, syntax or spelling errors.Any formal questions or concerns about the content, text or information contained within the body of this dictation should be directly addressed to the provider for clarification. Subjective Patient seen and evaluated at bedside. Patient with seizure-like activity yesterday and altered mental status. Upon evaluation today, she is awake and alert. She is pleasantly confused, but much improved from yesterday. Review of Systems 2 Review of Systems: As per HPI Physical Exam 2 Physical Exam: VITAL SIGNS Vital signs and nursing notes were reviewed. GENERAL 88-year-old female appearing her stated age who is in no acute distress. Communicates well with provider and answers questions appropriately. SKIN Without rashes or lesions. NOSE Midline and without cyanosis. MOUTH/OROPHARYNX Without perioral cyanosis. NECK Neck with FROM. Supple to palpation. LUNGS Chest wall evaluation demonstrates normal chest wall A:P diameter. Auscultation reveals fine crackles at the bases. CARDIAC RRR with S1/S2. No murmur, rubs, or gallops appreciated. ABDOMEN Abdominal inspection demonstrates flat. BS normoactive all four quadrants. No tenderness, palpable masses, or ascites noted. EXTREMITIES Nail clubbing not present. No peripheral cyanosis. No pretibial edema present. +3/5 radial palpated throughout. PSYCH awake and alert. She is pleasantly confused, but communicative and participates in conversation today which is much improved from yesterday. Skin: no rashes, warm and dry Lymphatic: no cervical or axillary lymphadenopathy Results & Data Results & Data Vital Signs (Past 12 Hours) Vital Signs Temp Pulse Pulse Resp BP Pulse Ox O2 Del Method 08/29/24 07:43 36.7 C 78 16 108/49 L 95 Oxymask 08/29/24 02:40 36.8 C 63 18 116/68 98 Oxymask 08/28/24 22:45 36.8 C 86 21 119/63 89 L Oxymask 08/28/24 22:07 72 08/28/24 20:06 36.7 C 76 18 151/65 H 98 Nasal Cannula O2 Flow Rate 08/29/24 07:43 2 08/29/24 02:40 2 08/28/24 22:45 2 08/28/24 22:07 08/28/24 20:06 1 Laboratory Results 08/29/24 06:43 08/29/24 06:43 PG Care Time/CCT Total # of Minutes Spent Total Time Spent with Patient: Total time spent is greater than 50% in coordination of care (as documented) at patient's floor/unit and/or counseling patient: Coding Level of Care Code 90050 SUB INP/OBS CARE 2/35MIN Diagnoses (HFpEF) heart failure with preserved ejection fraction I50.30 LORNA (acute kidney injury) N17.9 Hypoxia R09.02 Pleural effusion J90
[2024-08-29 08:21] LABS: Estimated Average Glucose 105 mg/dl; Hemoglobin A1C 5.3 % (4.5-5.6)
[2024-08-29] MEDS: POTASSIUM CHLORIDE / WTR 10 MEQ/100 ML PLCT IV SCH (09:04)
--- NOTE | 2024-08-29 09:38 | Neurology Progress Note ---
Date of Service August 29, 2024 Assessment & Plan (1) Transient alteration of awareness: Admission and Anticipated Discharge Date Admission Date: August 26, 2024 Subjective pt this morning back to her baseline. pt alert and talking well. fully oriented. Results & Data Vital Signs (Past 12 Hours) Vital Signs Temp Pulse Pulse Resp BP Pulse Ox O2 Del Method 08/29/24 07:43 36.7 C 78 16 108/49 L 95 Oxymask 08/29/24 02:40 36.8 C 63 18 116/68 98 Oxymask 08/28/24 22:45 36.8 C 86 21 119/63 89 L Oxymask 08/28/24 22:07 72 O2 Flow Rate 08/29/24 07:43 2 08/29/24 02:40 2 08/28/24 22:45 2 08/28/24 22:07 Exam (Neuro) Physical Exam: Neuro: Mental: AOx3, was not sure of year, fluent speech, normal comprehension, no apraxia, no neglect CN: PERRL, Full EOM, symmetric face, midline T/U/P Motor: No abnormal movements, 5/5 t/o bilaterally grossly. Coord: intact grossly DTR: 2+ sym b/l upper limbs. Impression: 88 yo female with transient confusion and seizure like event in setting of LORNA, hypoxia, UTI and pulmonary effusion, heart failure. MRI brain negative. EEG unremarkable. pt doing well now and back to baseline. Recommendations: no further neuro work up needed. continue tx for infection and multi-organ dysfunction avoid hypotension and sedation ok with keppra for now, recommend stopping it after a week. call again if new question. Chart reviewed I have spent more than 50% educating patient and family about potential diagnosis and neurological evaluation and coordinating care with patient's treatment team. Total time spent (including chart review and coordination of care): 35 min (this includes chart review). PG Care Time/CCT Total # of Minutes Spent Total Time Spent with Patient: Total time spent is greater than 50% in coordination of care (as documented) at patient's floor/unit and/or counseling patient: Coding Level of Care Code 93274 SUB INP/OBS CARE 2/35MIN Diagnoses Transient alteration of awareness R40.4
--- NOTE | 2024-08-29 09:40 | Electroencephalogram ---
EEG Procedure Note Date of Service August 29, 2024 Start / End Times Start Time: 550 End Time: 610 Referring Physician keesha ramirez History confusion Home Medication List Medication Instructions Recorded Confirmed Type dorzolamide 22.3 mg-timolol 6.8 1 drp OPB BID 02/23/19 08/26/24 History mg/mL eye drops brimonidine 0.2 % eye drops 1 drp OPB BID 05/07/19 08/26/24 History omeprazole 40 mg capsule,delayed 40 mg PO DAILY #90 caps 04/13/24 08/26/24 Rx release amlodipine 10 mg tablet 10 mg PO QPM #90 tabs 04/16/24 08/26/24 Rx losartan 50 mg tablet 50 mg PO QAM #90 tabs 04/16/24 08/26/24 Rx cilostazol 100 mg tablet 100 mg PO BID #60 tabs 04/30/24 08/26/24 Rx apixaban 5 mg tablet (Eliquis) 5 mg PO BID #180 tabs 05/30/24 08/26/24 Rx netarsudil 0.02 %-latanoprost 1 drp OPB QAM 05/30/24 08/26/24 History 0.005 % eye drops (Rocklatan) hydrocortisone acetate 25 mg 25 mg NV BID PRN hemorrhoids #24 ea 08/06/24 08/26/24 Rx rectal suppository (Anusol-HC) ranolazine 1,000 mg 1,000 mg PO BID #60 tabs 08/08/24 08/26/24 Rx tablet,extended release,12 hr levothyroxine 50 mcg tablet 50 mcg PO DAILYBB 08/14/24 08/26/24 History furosemide 40 mg tablet 40 mg PO QAM #30 tabs 08/24/24 08/26/24 Rx acetaminophen 325 mg tablet 650 mg PO Q6H PRN Pain/Fever 08/26/24 08/26/24 History (Tylenol) bisacodyl 10 mg rectal suppository 10 mg NV DAILY PRN Constipation 08/26/24 08/26/24 History (Dulcolax (bisacodyl)) hydrocortisone 2.5 % topical cream 1 applic NV DAILY PRN hemorrhoids 08/26/24 08/26/24 History with perineal applicator lactulose 20 gram/30 mL oral 20 g PO ONCE 08/26/24 08/26/24 History solution magnesium hydroxide 400 mg/5 mL 0 mg PO DAILY PRN Constipation 08/26/24 08/26/24 History oral suspension (Milk of Magnesia) ondansetron HCl 4 mg tablet 4 mg PO Q6H PRN Nausea And Vomiting 08/26/24 08/26/24 History promethazine 25 mg/mL injection 25 mg IM Q6H PRN Nausea And 08/26/24 08/26/24 History solution Vomiting sodium phosphates 19 gram-7 118 ml NV DAILY PRN Constipation 08/26/24 08/26/24 History gram/118 mL enema (Fleet Enema) Inpatient Medication List Acetaminophen (Acetaminophen 325 Mg Tab) 650 mg PO Q6H PRN PRN Reason: Pain/Fever Stop: 09/25/24 21:32 Last Admin: 08/27/24 10:26 Dose: 650 mg Documented By: CARMITA Apixaban (Apixaban 2.5 Mg Tab) 2.5 mg PO BID [facility] Stop: 09/26/24 20:59 Last Admin: 08/28/24 09:21 Dose: 2.5 mg Documented By: Admin: 08/27/24 20:02 Dose: 2.5 mg Documented By: RAY Aspirin (Aspirin 300 Mg Supp) 300 mg NV DAILY [facility] Stop: 09/27/24 16:59 Last Admin: 08/28/24 18:01 Dose: 300 mg Documented By: RENAE Brimonidine Tartrate (Brimonidine Tartrate 0.2% 5ml) 1 drops OPB BID [facility] Stop: 09/25/24 21:32 Last Admin: 08/29/24 08:33 Dose: 1 drops Documented By: Admin: 08/28/24 21:23 Dose: 1 drops Documented By: Admin: 08/28/24 09:22 Dose: 1 drops Documented By: Admin: 08/27/24 20:03 Dose: 1 drops Documented By: Admin: 08/27/24 08:39 Dose: 1 drops Documented By: Admin: 08/26/24 22:04 Dose: 1 drops Documented By: PRABHU Dorzolamide/Timolol (Dorzolamide/Timolol 22.3/6.8mg/Ml 10 Ml Btl) 1 drops OPB BID [facility] Stop: 09/25/24 21:32 Last Admin: 08/29/24 08:33 Dose: 1 drops Documented By: Admin: 08/28/24 21:22 Dose: 1 drops Documented By: Admin: 08/28/24 09:21 Dose: 1 drops Documented By: Admin: 08/27/24 20:03 Dose: 1 drops Documented By: Admin: 08/27/24 08:39 Dose: 1 drops Documented By: Admin: 08/26/24 22:04 Dose: 1 drops Documented By: PRABHU Ceftriaxone Sodium (Rocephin) 1,000 mg in 50 mls @ 100 mls/hr IV Q24H ELZA Stop: 09/01/24 20:59 Last Infusion: 08/28/24 21:51 Dose: Infused Documented By: Admin: 08/28/24 21:21 Dose: 100 mls/hr Documented By: Infusion: 08/27/24 22:06 Dose: Infused Documented By: Admin: 08/27/24 21:36 Dose: 100 mls/hr Documented By: RAY Potassium Chloride (K Moy / Wtr) 10 meq in 100 mls @ 100 mls/hr IV Q1H ELZA; Protocol Stop: 08/29/24 11:44 Last Admin: 08/29/24 09:04 Dose: 100 mls/hr Documented By: RENAE Lactulose (Lactulose Syrup 20 Gm/30 Ml Udc) 20 gm PO DAILY ELZA Stop: 09/26/24 08:59 Last Admin: 08/29/24 08:35 Dose: Not Given Documented By: Admin: 08/28/24 09:21 Dose: 20 gm Documented By: Admin: 08/27/24 08:39 Dose: 20 gm Documented By: CARMITA Levetiracetam (Levetiracetam 500 Mg/5 Ml Vial) 500 mg IV Q12H ELZA Stop: 09/27/24 16:59 Last Admin: 08/29/24 06:13 Dose: 500 mg Documented By: Admin: 08/28/24 18:02 Dose: 500 mg Documented By: RENAE Levothyroxine Sodium (Levothyroxine Sodium 50 Mcg Tablet) 50 mcg PO DAILYBB ELZA Stop: 09/26/24 06:29 Last Admin: 08/29/24 06:11 Dose: Not Given Documented By: Admin: 08/28/24 06:13 Dose: 50 mcg Documented By: Admin: 08/27/24 05:34 Dose: 50 mcg Documented By: PRABHU Ondansetron HCl (Ondansetron Inj 2 Mg/Ml 2 Ml Vial) 4 mg IV Q6H PRN PRN Reason: Nausea And Vomiting Stop: 09/25/24 21:32 Last Admin: 08/28/24 12:23 Dose: 4 mg Documented By: Admin: 08/27/24 20:03 Dose: 4 mg Documented By: Admin: 08/27/24 14:24 Dose: 4 mg Documented By: MELVIN Pantoprazole Sodium (Pantoprazole 40 Mg Tab) 40 mg PO DAILY [facility] Stop: 09/26/24 08:59 Last Admin: 08/29/24 08:34 Dose: 40 mg Documented By: Admin: 08/28/24 09:21 Dose: 40 mg Documented By: Admin: 08/27/24 08:39 Dose: 40 mg Documented By: CARMITA Ranolazine (Ranolazine 500 Mg Er Tab) 1,000 mg PO BID ELZA Stop: 09/25/24 21:32 Last Admin: 08/29/24 08:34 Dose: 1,000 mg Documented By: Admin: 08/28/24 20:06 Dose: Not Given Documented By: Admin: 08/28/24 09:21 Dose: 1,000 mg Documented By: Admin: 08/27/24 20:03 Dose: 1,000 mg Documented By: Admin: 08/27/24 08:39 Dose: 1,000 mg Documented By: Admin: 08/26/24 22:04 Dose: 1,000 mg Documented By: PRABHU Discontinued Medications Apixaban (Apixaban 5 Mg Tablet) 5 mg PO BID ELZA Stop: 09/25/24 21:32 Last Admin: 08/27/24 08:39 Dose: 5 mg Documented By: Admin: 08/26/24 22:04 Dose: 5 mg Documented By: PRABHU Furosemide (Furosemide Inj 20 Mg/2 Ml Vial) 20 mg IV ONE ONE Stop: 08/27/24 11:08 Last Admin: 08/27/24 12:47 Dose: 20 mg Documented By: MELVIN Sodium Chloride (Nss) 1,000 mls @ 999 mls/hr IV .Q1H1M ONE Stop: 08/26/24 16:39 Last Infusion: 08/26/24 17:21 Dose: Infused Documented By: Admin: 08/26/24 15:52 Dose: 999 mls/hr Documented By: NRB Ceftriaxone Sodium (Rocephin) 2,000 mg in 50 mls @ 100 mls/hr IV NOW STA Stop: 08/26/24 19:21 Last Infusion: 08/26/24 19:59 Dose: Infused Documented By: Admin: 08/26/24 19:27 Dose: 100 mls/hr Documented By: Lactated Ringer's (Lr) 1,000 mls @ 70 mls/hr IV .[id number] ELZA Stop: 08/27/24 11:50 Last Infusion: 08/27/24 10:10 Dose: Infused Documented By: Admin: 08/26/24 21:51 Dose: 70 mls/hr Documented By: PRABHU Albumin Human (Albumin 5%) 250 mls @ 250 mls/hr IV ONE ONE Stop: 08/27/24 13:02 Last Infusion: 08/27/24 14:01 Dose: Infused Documented By: Admin: 08/27/24 12:37 Dose: 250 mls/hr Documented By: AAL Albumin Human (Albumin 5%) 250 mls @ 250 mls/hr IV ONE ONE Stop: 08/27/24 14:04 Last Infusion: 08/27/24 15:44 Dose: Infused Documented By: Admin: 08/27/24 13:53 Dose: 250 mls/hr Documented By: KAYLYN Sodium Chloride (Nss) 1,000 mls @ 100 mls/hr IV .Q10H ELZA Stop: 08/29/24 04:59 Last Infusion: 08/29/24 05:46 Dose: Infused Documented By: Admin: 08/28/24 19:50 Dose: 100 mls/hr Documented By: ROGER Levetiracetam (Levetiracetam 500 Mg/5 Ml Vial) 1,150 mg 20 mg/kg (1150 mg) IV NOW STA Stop: 08/28/24 13:33 Last Admin: 08/28/24 13:52 Dose: 1,150 mg Documented By: RENAE Lorazepam (Lorazepam 2 Mg/1 Ml Vial) 1 mg IV NOW STA Stop: 08/28/24 13:33 Last Admin: 08/28/24 13:36 Dose: 1 mg Documented By: RENAE Lorazepam (Lorazepam 2 Mg/1 Ml Vial) Confirm Administered Dose 2 mg .ROUTE .STK- MED ONE Stop: 08/28/24 13:34 Last Admin: 08/28/24 13:53 Dose: Not Given Documented By: RENAE Ondansetron HCl (Ondansetron Inj 2 Mg/Ml 2 Ml Vial) 4 mg IV NOW STA Stop: 08/26/24 15:36 Last Admin: 08/26/24 15:52 Dose: 4 mg Documented By: CHERRI Ondansetron HCl (Ondansetron Inj 2 Mg/Ml 2 Ml Vial) 4 mg IV NOW STA Stop: 08/26/24 19:54 Last Admin: 08/26/24 19:55 Dose: 4 mg Documented By: KIZZY Potassium Chloride (Potassium Chloride Crtab 20 Meq Tabcr) 20 meq PO NOW STA Stop: 08/27/24 08:35 Last Admin: 08/27/24 08:41 Dose: 20 meq Documented By: CARMITA Potassium Chloride (Potassium Chloride Crtab 20 Meq Tabcr) 40 meq PO NOW STA Stop: 08/27/24 11:08 Last Admin: 08/27/24 12:36 Dose: 40 meq Documented By: AAMatt Potassium Chloride (Potassium Chloride Crtab 20 Meq Tabcr) 20 meq PO NOW STA Stop: 08/28/24 08:56 Last Admin: 08/28/24 09:23 Dose: 20 meq Documented By: RENAE Sodium Biphosphate/Sodium Phosphate (Sod Phosphate/Sod Biphosphate Enema 132 Ml Btl) 132 ml NV NOW STA Stop: 08/27/24 14:10 Last Admin: 08/27/24 14:58 Dose: 132 ml Documented By: AAL Description This is a 21 electrode EEG with a single channel dedicated to limited EKG. The electrodes were placed in accordance with the International 10-20 system. Interpretation This is a 21 electrode EEG with a single channel dedicated to limited EKG. The electrodes were placed in accordance with the International 10-20 system. There is a posterior dominant rhythm of 7-8 Hz which is symmetrically distributed and attenuates with eye opening. There is a normal anterior to post erior organization. Photic stimulation: unremarkable Hyperventilation performed: ___ unremarkable; _x_ not performed. There is no focal slowing. No epileptiform abnormalities. Sleep stage: x__ not achieved, ___drowsy state, ___ Stage II, ___ REM stage achieved. consistent sharp artifact noted t/o the recording. Interpretation Normal-appearing awake EEG. [facility] EEG Procedure Codes Indication for Procedure (1) Transient alteration of awareness: Neurology Neurology: 87530 EEG include record awake & drowsy
--- NOTE | 2024-08-29 10:38 | Hospitalist Progress Note ---
Date of Service August 29, 2024 Assessment & Plan (1) Seizure-like activity: Plan: Patient presented with lower abdominal pain, nausea, and vomiting. Patient was previously A&O x 4, but had an acute change on 08/28 when she became lethargic and obtunded > Lethargic in AM but able to follow commands of squeezing hands and opening eyes. Was staring off to right side, had tremors and garbled speech at that time > Later had witnessed seizure-like activity at bedside with posturing right arm with tremors and eye twitching - Head CT negative for acute intracranial abnormality - Carotid dopplers showed atherosclerosis WITHOUT hemodynamically significant stenosis - Brain MRI negative for acute stroke. 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 Britt, likely multifactorial with ongoing UTI, pleural effusion, LORNA, heart failure all likely contributing to confusion and transient alteration of awareness > Recommends continuing Keppra for now, continued medical management, avoid hypotension and sedation, continue supportive care - Continue Keppra 500 mg BID until neurology follow-up appointment outpatient - Continue Eliquis and Aspirin 81 mg daily (2) GI bleed: Plan: Notified by RN that patient has maroon stools and was retaining urine on bladder scan - Gamble catheter placed 08/28 - Stool BioFire negative - Fecal occult study ordered, uncollected. No further reports of teresa red, maroon, or black stools -ok to resume Eliquis and ASA (3) LORNA (acute kidney injury): Plan: Labs on admission showed LRONA. Patient was recently admitted to [facility] for acute on chronic HFpEF exacerbation requiring aggressive IV diuresis. LORNA possibly secondary to diuresis. Suspect that patient has a very tenuous volume status. - Volume overloaded after IV fluids on admission with subsequent increased SOB/confusion -- provided gentle diuresis - Family reported increased confusion 08/27, reviewed prior admission w/ acute on chronic resp failure/thoracentesis and diuretic use. Reports from pul for BiPAP to continue but does not appear arranged at dc last admission (confirmed by family no O2/NiPPV at SNF) > Ensure BiPAP set up on discharge. Messaged navigator to ensure arranged at dc - CXR obtained which revealed left effusion - VBG showed pH 7.45 but CO2 levels normal. Mentation improved with use of BiPAP - Pulmonary consulted given recent need for thoracentesis -- Recommending to continue incentive spirometry, diuretics as tolerated for left-sided small pleural effusion. No indication for thoracentesis (4) UTI (urinary tract infection): Plan: UA positive on admission - Urine culture showing pansensitive E coli - Blood cultures NGTD - Continue ceftriaxone while urine and blood cultures finalize Plan Updated family members at bedside Repleted potassium Resumed Eliquis Started baby aspirin Resumed diet Chronic stable problems: Paroxysmal atrial fibrillation - Eliquis dose reduced given age/weight. Currently on hold given suspected GI bleed and NPO status Hypothyroidism - Continue Synthroid Dispo: PT recommending rehab; referrals pending CODE STATUS: DNR/DNI. Did confirm this with multiple family members 08/28 Admission and Anticipated Discharge Date Admission Date: August 26, 2024 Supervising Physician Co-Signing Physician Notes YOON Supervision Note: I did not personally see or examine the patient today, but I verified all morley points of YOON Pathak's assessment and plan with the following exceptions/additions: None Subjective Patient seen and evaluated at bedside with daughter and grandson present. She is significantly improved compared to yesterday and has returned to her baseline. She reports feeling well today, denies remembering the events of yesterday. She denies current headache, visual changes, dizziness, chest pain, palpitations, SOB, difficulty breathing, abdominal pain, or nausea. She is A&O x4 currently. We discussed yesterday's events, results, and plan moving forward. All questions were addressed and answered. No additional complaints or concerns at this time. Physical Exam Physical Exam: General: No acute distress, nondiaphoretic, frail elderly female. Skin: The skin was without rashes, erythema, edema, or bruising. Cardiac: Irregularly irregular with rates in the 60-70s. Systolic murmur noted. Pulm: Fine bibasilar crackles, but otherwise clear to auscultation bilaterally. No respiratory distress. 95% on 2 L NC. Abdominal: Soft, nontender, nondistended. Bowel sounds present. : Gamble catheter draining brandon urine. Neuro: A&O x4. No focal neurological deficits. Responds appropriately to conversation. Follows commands. Results & Data Results & Data Vital Signs (Past 12 Hours) Vital Signs Temp Pulse Resp BP Pulse Ox O2 Del Method O2 Flow Rate 08/29/24 07:43 98.1 F 78 16 108/49 L 95 Oxymask 2 08/29/24 02:40 98.2 F 63 18 116/68 98 Oxymask 2 08/28/24 22:45 98.2 F 86 21 119/63 89 L Oxymask 2 Laboratory Results Reviewed CBC Reviewed CMP Reviewed lipid panel Diagnostic Findings Reviewed carotid dopplers Carotid Doppler Study 08/29/24 00:00 US carotid doppler BI CLINICAL HISTORY: 88 years-old Female with Lethargy, unresponsive episode, ?stroke. COMPARISON: 03/24/2020 TECHNIQUE: Multiple real time sonographic images of the carotid bifurcations were obtained assessing zacarias scale, color Doppler and spectral wave form appearance FINDINGS: RIGHT CAROTID: The peak systolic velocity measured within the right ICA is 99 cm/sec. The end diastolic velocity measured 19 cm/sec. The ICA to CCA ratio measured 1.8 which correlates with a stenosis of 0-50%. There is moderate atherosclerosis. LEFT CAROTID: The peak systolic velocity measured within the left ICA is 80 cm/sec. The end diastolic velocity measured 15 cm/sec. The ICA to CCA ratio measured 1.5 which correlates with a stenosis of 0-50%. There is moderate to extensive atherosclerosis. There is normal antegrade vertebral flow bilaterally. Thyroid goiter incidentally noted with hyperemia. Right lobe measures up to 5 cm and left measures up to 3.5 cm. Subcentimeter low suspicion thyroid nodules. IMPRESSION: 1. Atherosclerosis without hemodynamically significant stenosis. 2. Normal antegrade vertebral flow bilaterally. 3. Thyroid goiter incidentally noted without suspicious nodule identified. ACT 112: Negative or not required by law. The above report was generated using voice recognition software. It may contain grammatical, syntax or spelling errors. Electronically signed by: Julio Olivares M.D. 08/29/2024 2:56 PM PG Care Time/CCT Total # of Minutes Spent Total Time Spent with Patient: Total time spent is greater than 50% in coordination of care (as documented) at patient's floor/unit and/or counseling patient: Coding Level of Care Code 18192 SUB INP/OBS CARE 3/50MIN Diagnoses Seizure-like activity R56.9 GI bleed K92.2 LORNA (acute kidney injury) N17.9 UTI (urinary tract infection) N39.0
--- NOTE | 2024-08-29 14:58 | Ultrasound Report ---
US carotid doppler BI CLINICAL HISTORY: 88 years-old Female with Lethargy, unresponsive episode, ?stroke. COMPARISON: 03/24/2020 TECHNIQUE: Multiple real time sonographic images of the carotid bifurcations were obtained assessing zacarias scale, color Doppler and spectral wave form appearance FINDINGS: RIGHT CAROTID: The peak systolic velocity measured within the right ICA is 99 cm/sec. The end diast olic velocity measured 19 cm/sec. The ICA to CCA ratio measured 1.8 which correlates with a stenosis of 0-50%. There is moderate atherosclerosis. LEFT CAROTID: The peak systolic velocity measured within the left ICA is 80 cm/sec. The end diastol ic velocity measured 15 cm/sec. The ICA to CCA ratio measured 1.5 which correlates with a stenosis of 0-50%. There is moderate to extensive atherosclerosis. There is normal antegrade vertebral flow bilaterally. Thyroid goiter incidentally noted with hyperem ia. Right lobe measures up to 5 cm and left measures up to 3.5 cm. Subcentimeter low suspicion thyroi d nodules. IMPRESSION: 1. Atherosclerosis without hemodynamically significant stenosis. 2. Normal antegrade vertebral flow bilaterally. 3. Thyroid goiter incidentally noted without suspicious nodule identified. ACT 112: Negative or not required by law. The above report was generated using voice recognition software. It may contain grammatical, syntax o r spelling errors. Electronically signed by: Julio Olivares M.D. 08/29/2024 2:56 PM
[2024-08-29] MEDS: levETIRAcetam 500 MG TAB PO SCH (21:00)
--- NOTE | 2024-08-30 05:54 | Electrocardiogram Report ---
Test Reason : Blood Pressure : */* mmHG Vent. Rate : 53 BPM Atrial Rate : 83 BPM P-R Int : * ms QRS Dur : 90 ms QT Int : 592 ms P-R-T Axes : * 89 117 degrees QTcB Int : 555 ms Sinus bradycardia with junctional complexes Nonspecific ST and T wave abnormality Prolonged QT Abnormal ECG When compared with ECG of 27-Aug-2024 10:21, Junctional complexes are now present Confirmed by Rodri Taylor ([id number]) on 08/30/2024 5:54:19 AM Referred By: [facility] Confirmed By: Rodri Taylor
[2024-08-30 06:39] LABS: Hematocrit (blood only) 27.3 % (37.0-47.0); Hemoglobin 9.1 g/dl (12.0-16.0); Mean Corpuscular Hgb Conc 33.3 g/dL (32.0-36.0); Mean Corpuscular Volume 96.1 fL (80.0-100.0); Mean Platelet Volume 10.1 fL (9.4-12.4); Platelet Count 306 K/uL (130-400); RDW Coefficient of Variation 15.4 % (11.5-14.5); RDW Standard Deviation 53.9 fL (36.4-46.3); Red Blood Count 2.84 M/uL (4.20-5.40); White Blood Count 6.81 K/ul (4.8-10.8)
[2024-08-30 07:16] LABS: BUN Creatinine Ratio 23.8 (10-20); Calcium 8.7 mg/dl (8.6-10.3); Creatinine Clr Calc Pharmacy 48.8 ml/min; Magnesium 1.9 mg/dl (1.7-2.4); Potassium 3.1 mmol/L (3.5-5.1)
--- NOTE | 2024-08-30 08:13 | Hospitalist Progress Note ---
Date of Service August 30, 2024 Assessment & Plan (1) Seizure-like activity: Plan: Patient presented with lower abdominal pain, nausea, and vomiting. Patient was previously A&O x 4, but had an acute change on 08/28 when she became lethargic and obtunded > Lethargic in AM but able to follow commands of squeezing hands and opening eyes. Was staring off to right side, had tremors and garbled speech at that time -was given IV ativan and IV Keppra loading dose > Later had witnessed seizure-like activity at bedside with posturing right arm with tremors and eye twitching. Patient was obtunded for the remainder of the day following this episode Patient has a reported history of seizure 12 years ago after her stroke - Head CT negative for acute intracranial abnormality - Carotid dopplers showed atherosclerosis WITHOUT hemodynamically significant stenosis - Brain MRI negative for acute stroke. 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 Britt, likely multifactorial with ongoing UTI, pleural effusion, LORNA, heart failure all likely contributing to confusion and transient alteration of awareness > Recommends continuing Keppra for now, continued medical management, avoid hypotension and sedation, continue supportive care - Continue Keppra 500 mg BID until neurology follow-up appointment outpatient - Continue Eliquis and Aspirin 81 mg daily (for h/o old CVA) -recommend follow up with Neurology as outpatient for seizure (2) GI bleed: Plan: Notified by RN that patient has maroon stools x 1 and was retaining urine on bladder scan - Gamble catheter placed 08/28 - Stool BioFire negative - Multiple episodes of brown bowel movements, then 1 report of bright red blood noted with bowel movement. Fecal occult study positive. History of hemorrhoids that bleed with/after bowel movements. No significant change in hgb, no abdominal pain > Suspect hemorrhoidal bleeding and low suspicion for GI bleed - ok to continue Eliquis and ASA - Monitor CBC in AM Refractory hypokalemia, mag WNL - Possibly secondary to multiple BMs - Repleted, monitor BMP in AM (3) LORNA (acute kidney injury): Plan: Labs on admission showed LORNA. Patient was recently admitted to [facility] for acute on chronic HFpEF exacerbation requiring aggressive IV diuresis. LORNA possibly secondary to diuresis. Suspect that patient has a very tenuous volume status. - Volume overloaded after IV fluids on admission with subsequent increased SOB/confusion -- provided gentle diuresis Likely Exacerbation of HFpEF Treated with IV Lasix, IV albumin and BiPAP - LORNA resolved - Previous reports from pulm to continue BiPAP, but not necessary at this point - CXR obtained which revealed left effusion - Pulmonary consulted given recent need for thoracentesis -- Recommending to continue incentive spirometry, diuretics as tolerated for left-sided small pleural effusion. No indication for thoracentesis (4) UTI (urinary tract infection): Plan: UA positive on admission - Urine culture showing pansensitive E coli - Blood cultures NGTD - Switched ceftriaxone to cefdinir - continue through 08/31 Plan Updated family members at bedside Repleted potassium Switched ceftriaxone to cefdinir Chronic stable problems: Paroxysmal atrial fibrillation - Eliquis dose reduced given age/weight Hypothyroidism - TSH here normal, Continue Synthroid Dispo: PT recommending rehab; referrals pending CODE STATUS: DNR/DNI Admission and Anticipated Discharge Date Admission Date: August 26, 2024 Supervising Physician Co-Signing Physician Notes PA Supervision Note: I personally saw and examined the patient. I verified all morley points and agree with YOON Pathak with the following exceptions and/or additions: S-Pt feels great, no complaints, completely AAOx3. Does not recall any events from 2 days ago. No further seizure activity O- Vitals reviewed Gen: [AAOx3, NAD] HEENT: [anicteric sclerae, EOMI] A/P-88 yo female here with UTI, seizure activity Improving on abx, Keppra f/u with Neuro at discharge Subjective Patient seen and evaluated at bedside with family members present. She reports feeling well. She denies any abdominal pain, chest pain, shortness of breath, or headache. She continues to have loose stools. Per RN, patient had loose brown stools this morning, but did have 1 bowel movement with bright red blood noted. Patient reports she has hemorrhoids which do bleed intermittently with/after bowel movements. Discussed with family that we are waiting to hear back on the rehab referrals. No additional complaints or concerns at this time. Physical Exam Physical Exam: General: No acute distress, nondiaphoretic, frail elderly female. Skin: The skin was without rashes, erythema, edema, or bruising. Cardiac: Irregularly irregular with rates in the 60-70s. Systolic murmur noted. Pulm: Fine bibasilar crackles, but otherwise clear to auscultation bilaterally. No respiratory distress. 95% on 2 L NC. Abdominal: Soft, nontender, nondistended. Bowel sounds present. : Gamble catheter draining brandon urine. Neuro: A&O x4. No focal neurological deficits. Responds appropriately to conversation. Follows commands. Results & Data Results & Data Vital Signs (Past 12 Hours) Vital Signs Temp Pulse Pulse Resp BP Pulse Ox O2 Del Method 08/30/24 07:18 98.2 F 65 17 131/68 90 Nasal Cannula 08/30/24 03:06 98.6 F 64 17 116/63 90 Room Air 08/29/24 22:45 97.9 F 74 17 152/68 H 96 Room Air 08/29/24 22:08 65 Laboratory Results Reviewed CBC Reviewed BMP PG Care Time/CCT Total # of Minutes Spent Total Time Spent with Patient: Total time spent is greater than 50% in coordination of care (as documented) at patient's floor/unit and/or counseling patient: Coding Level of Care Code 08800 SUB INP/OBS CARE 3/50MIN Diagnoses Seizure-like activity R56.9 GI bleed K92.2 LORNA (acute kidney injury) N17.9 UTI (urinary tract infection) N39.0
[2024-08-30] MEDS: ASPIRIN 81 MG ECTAB PO SCH (08:29)
[2024-08-30] MEDS: POTASSIUM CHLORIDE CRTAB 20 MEQ TABCR PO STA (11:02)
[2024-08-30] MEDS: CEFDINIR 300 MG CAP PO SCH (11:02)
[2024-08-30] MEDS: POTASSIUM CHLORIDE CRTAB 20 MEQ TABCR PO ONE (12:44)
[2024-08-31 07:23] LABS: Hematocrit (blood only) 29.3 % (37.0-47.0); Hemoglobin 9.7 g/dl (12.0-16.0); Mean Corpuscular Hemoglobin 31.8 pg (25.0-34.0); Mean Corpuscular Hgb Conc 33.1 g/dL (32.0-36.0); Mean Corpuscular Volume 96.1 fL (80.0-100.0); Mean Platelet Volume 9.9 fL (9.4-12.4); Platelet Count 341 K/uL (130-400); RDW Coefficient of Variation 15.7 % (11.5-14.5); RDW Standard Deviation 55.1 fL (36.4-46.3); Red Blood Count 3.05 M/uL (4.20-5.40); White Blood Count 5.64 K/ul (4.8-10.8)
[2024-08-31 07:44] LABS: BUN Creatinine Ratio 16.9 (10-20); Creatinine Clr Calc Pharmacy 52.1 ml/min; Potassium 4.4 mmol/L (3.5-5.1)
--- NOTE | 2024-08-31 12:38 | Hospitalist Progress Note ---
Date of Service August 31, 2024 Assessment & Plan (1) Seizure-like activity: Plan: Patient presented with lower abdominal pain, nausea, and vomiting. Patient was previously A&O x 4, but had an acute change on 08/28 when she became lethargic and obtunded > Lethargic in AM but able to follow commands of squeezing hands and opening eyes. Was staring off to right side, had tremors and garbled speech at that time -was given IV ativan and IV Keppra loading dose > Later had witnessed seizure-like activity at bedside with posturing right arm with tremors and eye twitching. Patient was obtunded for the remainder of the day following this episode Patient has a reported history of seizure 12 years ago after her stroke - Head CT negative for acute intracranial abnormality - Carotid dopplers showed atherosclerosis WITHOUT hemodynamically significant stenosis - Brain MRI negative for acute stroke. 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 Britt, likely multifactorial with ongoing UTI, pleural effusion, LORNA, heart failure all likely contributing to confusion and transient alteration of awareness > Recommends continuing Keppra for now, continued medical management, avoid hypotension and sedation, continue supportive care - No further seizure-like activity - Continue Keppra 500 mg BID until neurology follow-up appointment outpatient - Continue Eliquis and Aspirin 81 mg daily (for h/o old CVA) - Recommend follow up with Neurology as outpatient for seizure (2) Bleeding hemorrhoid: Plan: Notified by RN that patient has maroon stools x 1 and was retaining urine on bladder scan - Gamble catheter placed 08/28 - Stool BioFire negative - Multiple episodes of brown bowel movements, then 1 report of bright red blood noted with bowel movement. Fecal occult study positive. History of hemorrhoids that bleed with/after bowel movements. No significant change in hgb, no abdominal pain > Suspect hemorrhoidal bleeding and low suspicion for GI bleed - ok to continue Eliquis and ASA Refractory hypokalemia, mag WNL - Possibly secondary to multiple BMs - Repleted, augmented appropriately (3) LORNA (acute kidney injury): Plan: Labs on admission showed LORNA. Patient was recently admitted to [facility] for acute on chronic HFpEF exacerbation requiring aggressive IV diuresis. LORNA possibly secondary to diuresis. Suspect that patient has a very tenuous volume status. - Volume overloaded after IV fluids on admission with subsequent increased SOB/confusion -- provided gentle diuresis Likely Exacerbation of HFpEF Treated with IV Lasix, IV albumin and BiPAP - LORNA resolved - Previous reports from pulm to continue BiPAP, but not necessary at this point - CXR obtained which revealed left effusion - Pulmonary consulted given recent need for thoracentesis -- Recommending to continue incentive spirometry, diuretics as tolerated for left-sided small pleural effusion. No indication for thoracentesis - Lasix x 1 given 08/31 (4) UTI (urinary tract infection): Plan: UA positive on admission - Urine culture showing pansensitive E coli - Blood cultures NGTD - Switched ceftriaxone to cefdinir, completed on 08/31 Plan Reviewed telemetry -- sinus bradycardia in 50-60s, no events. Downgraded to med/surg Updated family members at bedside Ordered Lasix x1 Ordered Boost supplementation Downgraded to med/surg Discussed discharge planning with CM Chronic stable problems: Paroxysmal atrial fibrillation - Eliquis dose reduced given age/weight Hypothyroidism - TSH here normal, Continue Synthroid Dispo: PT recommending rehab; referrals pending CODE STATUS: DNR/DNI Admission and Anticipated Discharge Date Admission Date: August 26, 2024 Supervising Physician Co-Signing Physician Notes PA Supervision Note: I did not personally see or examine the patient today, but I verified all morley points of YOON Pathak's assessment and plan with the following exceptions/additions: None Subjective Patient seen and evaluated at bedside with multiple family members present. She reports feeling well overall; she is eager for discharge. She notes increased cough, nonproductive. Denies shortness of breath. She reports she ambulated around her room this morning and did well. Discussed starting Boost supplementation given low PO intake and not big fan of meats. No additional complaints or concerns at this time. Physical Exam Physical Exam: General: No acute distress, nondiaphoretic, frail elderly female. Skin: The skin was without rashes, erythema, edema, or bruising. Cardiac: Sinus bradycardia in 50-60s. Systolic murmur noted. Pulm: Diminished breath sounds at bases bilaterally, but otherwise clear to auscultation bilaterally. No respiratory distress. 94% on room air. Abdominal: Soft, nontender, nondistended. Bowel sounds present. : Gamble catheter draining light yellow urine. Neuro: A&O x4. No focal neurological deficits. Results & Data Results & Data Vital Signs (Past 12 Hours) Vital Signs Temp Pulse Pulse Resp BP Pulse Ox O2 Del Method 08/31/24 12:05 97.7 F 65 18 168/77 H 94 Room Air 08/31/24 10:07 56 L 08/31/24 08:16 97.5 F L 71 20 182/65 H 92 Nasal Cannula 08/31/24 03:00 99.3 F 57 L 19 152/69 H 90 Nasal Cannula O2 Flow Rate 08/31/24 12:05 08/31/24 10:07 08/31/24 08:16 1 08/31/24 03:00 2 Laboratory Results Reviewed CBC Reviewed BMP PG Care Time/CCT Total # of Minutes Spent Total Time Spent with Patient: Total time spent is greater than 50% in coordination of care (as documented) at patient's floor/unit and/or counseling patient: Coding Level of Care Code 66993 SUB INP/OBS CARE 3/50MIN Diagnoses Seizure-like activity R56.9 Bleeding hemorrhoid K64.9 LORNA (acute kidney injury) N17.9 UTI (urinary tract infection) N39.0
[2024-08-31] MEDS: FUROSEMIDE 40 MG TAB PO ONE (13:15)
[2024-09-01 06:29] LABS: Hematocrit (blood only) 32.1 % (37.0-47.0); Hemoglobin 11.1 g/dl (12.0-16.0); Mean Corpuscular Hemoglobin 32.6 pg (25.0-34.0); Mean Corpuscular Hgb Conc 34.6 g/dL (32.0-36.0); Mean Corpuscular Volume 94.4 fL (80.0-100.0); Mean Platelet Volume 9.6 fL (9.4-12.4); Platelet Count 375 K/uL (130-400); RDW Coefficient of Variation 15.6 % (11.5-14.5); RDW Standard Deviation 53.8 fL (36.4-46.3); White Blood Count 7.11 K/ul (4.8-10.8)
[2024-09-01 06:45] LABS: BUN Creatinine Ratio 15.3 (10-20); Creatinine Clr Calc Pharmacy 52.1 ml/min; Potassium 4.1 mmol/L (3.5-5.1)
--- NOTE | 2024-09-01 13:24 | Hospitalist Progress Note ---
Date of Service September 01, 2024 Assessment & Plan (1) Seizure-like activity: Plan: Patient presented with lower abdominal pain, nausea, and vomiting. Patient was previously A&O x 4, but had an acute change on 08/28 when she became lethargic and obtunded > Lethargic in AM but able to follow commands of squeezing hands and opening eyes. Was staring off to right side, had tremors and garbled speech at that time -was given IV ativan and IV Keppra loading dose > Later had witnessed seizure-like activity at bedside with posturing right arm with tremors and eye twitching. Patient was obtunded for the remainder of the day following this episode Patient has a reported history of seizure 12 years ago after her stroke - Head CT negative for acute intracranial abnormality - Carotid dopplers showed atherosclerosis WITHOUT hemodynamically significant stenosis - Brain MRI negative for acute stroke. 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 Britt, likely multifactorial with ongoing UTI, pleural effusion, LORNA, heart failure all likely contributing to confusion and transient alteration of awareness > Recommends continuing Keppra for now, continued medical management, avoid hypotension and sedation, continue supportive care - No further seizure-like activity - Continue Keppra 500 mg BID until neurology follow-up appointment outpatient - Continue Eliquis and Aspirin 81 mg daily (for h/o old CVA) - Recommend follow up with Neurology as outpatient for seizure (2) Bleeding hemorrhoid: Plan: Notified by RN that patient has maroon stools x 1 and was retaining urine on bladder scan - Gamble catheter placed 08/28 - Stool BioFire negative - Multiple episodes of brown bowel movements, then 1 report of bright red blood noted with bowel movement. Fecal occult study positive. History of hemorrhoids that bleed with/after bowel movements. No significant change in hgb, no abdominal pain > Suspect hemorrhoidal bleeding and low suspicion for GI bleed - ok to continue Eliquis and ASA Refractory hypokalemia, mag WNL - Possibly secondary to multiple BMs - Repleted, augmented appropriately (3) LORNA (acute kidney injury): Plan: Labs on admission showed LORNA. Patient was recently admitted to [facility] for acute on chronic HFpEF exacerbation requiring aggressive IV diuresis. LORNA possibly secondary to diuresis. Suspect that patient has a very tenuous volume status. - Volume overloaded after IV fluids on admission with subsequent increased SOB/confusion -- provided gentle diuresis Likely Exacerbation of HFpEF Treated with IV Lasix, IV albumin and BiPAP - LORNA resolved - Previous reports from pulm to continue BiPAP, but not necessary at this point - CXR obtained which revealed left effusion - Pulmonary consulted given recent need for thoracentesis -- Recommending to continue incentive spirometry, diuretics as tolerated for left-sided small pleural effusion. No indication for thoracentesis - Lasix x 1 given 08/31, 09/01 (4) UTI (urinary tract infection): Plan: UA positive on admission - Urine culture showing pansensitive E coli - Blood cultures NGTD - Switched ceftriaxone to cefdinir, completed on 08/31 Plan Updated family members at bedside Ordered Lasix x1 Resumed amlodipine Consider starting Remeron for appetite stimulation Chronic stable problems: Paroxysmal atrial fibrillation - Eliquis dose reduced given age/weight Hypothyroidism - TSH here normal, Continue Synthroid Dispo: PT recommending rehab; referrals pending CODE STATUS: DNR/DNI Admission and Anticipated Discharge Date Admission Date: August 26, 2024 Supervising Physician Co-Signing Physician Notes YOON Supervision Note: I did not personally see or examine the patient today, but I verified all morley points of YOON Pathak's assessment and plan with the following exceptions/additions: None Subjective Patient seen and evaluated at bedside with multiple family members present. She is disappointed in waiting for rehab placement. She does note that her cough is improved after receiving 1 dose of Lasix yesterday. Her diarrhea is also improving. She reports little appetite and states she gets full quickly; this is her reported baseline. We discussed trying Remeron for appetite stimulation; son wants to discuss with other family members. No additional complaints or concerns at this time. Physical Exam Physical Exam: General: No acute distress, nondiaphoretic, frail elderly female. Skin: The skin was without rashes, erythema, edema, or bruising. Cardiac: Sinus bradycardia in 50-60s. Systolic murmur noted. Pulm: Diminished breath sounds at bases bilaterally, but otherwise clear to auscultation bilaterally. No respiratory distress. 94% on room air. Abdominal: Soft, nontender, nondistended. Bowel sounds present. : Gamble catheter draining light yellow urine. Neuro: A&O x4. No focal neurological deficits. Results & Data Results & Data Vital Signs (Past 12 Hours) Vital Signs Temp Pulse Resp BP Pulse Ox O2 Del Method 09/01/24 07:09 97.9 F 67 16 165/72 H 92 Room Air 09/01/24 04:10 97.5 F L 67 16 164/58 H 95 Room Air Laboratory Results Reviewed CBC Reviewed BMP PG Care Time/CCT Total # of Minutes Spent Total Time Spent with Patient: Total time spent is greater than 50% in coordination of care (as documented) at patient's floor/unit and/or counseling patient: Coding Level of Care Code 29089 SUB INP/OBS CARE 3/50MIN Diagnoses Seizure-like activity R56.9 Bleeding hemorrhoid K64.9 LORNA (acute kidney injury) N17.9 UTI (urinary tract infection) N39.0
[2024-09-01] MEDS: FUROSEMIDE 40 MG TAB PO ONE (13:53)
[2024-09-01] MEDS: amLODIPine BESYLATE 5 MG TAB PO SCH (20:40)
[2024-09-02 07:27] LABS: BUN Creatinine Ratio 17.5 (10-20); Calcium 8.9 mg/dl (8.6-10.3); Potassium 3.8 mmol/L (3.5-5.1)
--- NOTE | 2024-09-02 12:09 | Hospitalist Progress Note ---
Date of Service September 02, 2024 Assessment & Plan (1) Seizure-like activity: Plan: Patient presented with lower abdominal pain, nausea, and vomiting. Patient was previously A&O x 4, but had an acute change on 08/28 when she became lethargic and obtunded > Lethargic in AM but able to follow commands of squeezing hands and opening eyes. Was staring off to right side, had tremors and garbled speech at that time -was given IV ativan and IV Keppra loading dose > Later had witnessed seizure-like activity at bedside with posturing right arm with tremors and eye twitching. Patient was obtunded for the remainder of the day following this episode Patient has a reported history of seizure 12 years ago after her stroke - Head CT negative for acute intracranial abnormality - Carotid dopplers showed atherosclerosis WITHOUT hemodynamically significant stenosis - Brain MRI negative for acute stroke. 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 Britt, likely multifactorial with ongoing UTI, pleural effusion, LORNA, heart failure all likely contributing to confusion and transient alteration of awareness > Recommends continuing Keppra for now, continued medical management, avoid hypotension and sedation, continue supportive care - No further seizure-like activity - Continue Keppra 500 mg BID until neurology follow-up appointment outpatient - Continue Eliquis and Aspirin 81 mg daily (for h/o old CVA) - Recommend follow up with Neurology as outpatient for seizure (2) Bleeding hemorrhoid: Plan: Notified by RN that patient has maroon stools x 1 and was retaining urine on bladder scan - Gamble catheter placed 08/28 - Stool BioFire negative - Multiple episodes of brown bowel movements, then 1 report of bright red blood noted with bowel movement. Fecal occult study positive. History of hemorrhoids that bleed with/after bowel movements. No significant change in hgb, no abdominal pain > Suspect hemorrhoidal bleeding and low suspicion for GI bleed - ok to continue Eliquis and ASA Refractory hypokalemia, mag WNL - Possibly secondary to multiple BMs - Repleted, augmented appropriately (3) LORNA (acute kidney injury): Plan: Labs on admission showed LORNA. Patient was recently admitted to [facility] for acute on chronic HFpEF exacerbation requiring aggressive IV diuresis. LORNA possibly secondary to diuresis. Suspect that patient has a very tenuous volume status. - Volume overloaded after IV fluids on admission with subsequent increased SOB/confusion -- provided gentle diuresis Likely Exacerbation of HFpEF Treated with IV Lasix, IV albumin and BiPAP - LORNA resolved - Previous reports from pulm to continue BiPAP, but not necessary at this point - CXR obtained which revealed left effusion - Pulmonary consulted given recent need for thoracentesis -- Recommending to continue incentive spirometry, diuretics as tolerated for left-sided small pleural effusion. No indication for thoracentesis - Lasix x 1 given 08/31, 09/01; suspect patient would benefit from MWF diuretic schedule (4) UTI (urinary tract infection): Plan: UA positive on admission - Urine culture showing pansensitive E coli - Blood cultures NGTD - Switched ceftriaxone to cefdinir, completed on 08/31 Plan Consider starting Remeron for appetite stimulation Chronic stable problems: Paroxysmal atrial fibrillation - Eliquis dose reduced given age/weight Hypothyroidism - TSH here normal, Continue Synthroid Dispo: PT recommending rehab; referrals pending CODE STATUS: DNR/DNI Admission and Anticipated Discharge Date Admission Date: August 26, 2024 Supervising Physician Co-Signing Physician Notes PA Supervision Note: I did not personally see or examine the patient today, but I verified all morley points of YOON Pathak's assessment and plan with the following exceptions/additions: None Subjective Patient seen and evaluated at bedside while eating lunch. She reports feeling well, and notes that her cough has resolved. We discussed that she may benefit from a MWF diuretic regimen, as daily seemed to dry her out, but she gets volume overloaded without any diuretics. She reports low appetite and only had one bite of the turkey on her plate and no bites of the green beans. Offered patient other lunch options and she elected for tuna salad sandwich with mashed potatoes. Encouraged to choose foods she enjoys when making selections with kitchen staff. No additional complaints or concerns at this time. Physical Exam Physical Exam: General: No acute distress, nondiaphoretic, frail elderly female. Skin: The skin was without rashes, erythema, edema, or bruising. Cardiac: Sinus bradycardia in 50-60s. Systolic murmur noted. Pulm: Diminished breath sounds at bases bilaterally, but otherwise clear to auscultation bilaterally. No respiratory distress. 94% on room air. Abdominal: Soft, nontender, nondistended. Bowel sounds present. : Gamble catheter draining light yellow urine. Neuro: A&O x4. No focal neurological deficits. Results & Data Results & Data Vital Signs (Past 12 Hours) Vital Signs Temp Pulse Resp BP Pulse Ox O2 Del Method 09/02/24 07:05 97.9 F 68 16 160/69 H 93 Room Air Laboratory Results Reviewed BMP PG Care Time/CCT Total # of Minutes Spent Total Time Spent with Patient: Total time spent is greater than 50% in coordination of care (as documented) at patient's floor/unit and/or counseling patient: Coding Level of Care Code 11975 SUB INP/OBS CARE 2/35MIN Diagnoses Seizure-like activity R56.9 Bleeding hemorrhoid K64.9 LORNA (acute kidney injury) N17.9 UTI (urinary tract infection) N39.0
--- NOTE | 2024-09-03 11:51 | XRay Report ---
XR calcaneus LT min 2V CLINICAL HISTORY: Acute left heel pain. COMPARISON: Left foot radiographs August 23, 2024. FINDINGS: There are no fractures within the left calcaneus. No bony erosion is present. There are no osseous lesions. There is a moderate-sized plantar calcaneal spur. Soft tissue thickening of the britton l pad is again noted. IMPRESSION: 1. No fractures within the left calcaneus. 2. Soft tissue thickening of the left heel pain with moderate size calcaneal spur. Findings could be correlated with evidence for plantar fasciitis. ACT 112: Negative or not required by law. Electronically signed by: Avinash Mace M.D. 09/03/2024 11:50 AM
--- NOTE | 2024-09-03 18:43 | Hospitalist Progress Note ---
Date of Service September 03, 2024 Assessment & Plan (1) Seizure-like activity: Plan: Patient presented with lower abdominal pain, nausea, and vomiting. Patient was previously A&O x 4, but had an acute change on 08/28 when she became lethargic and obtunded > Lethargic in AM but able to follow commands of squeezing hands and opening eyes. Was staring off to right side, had tremors and garbled speech at that time -was given IV ativan and IV Keppra loading dose > Later had witnessed seizure-like activity at bedside with posturing right arm with tremors and eye twitching. Patient was obtunded for the remainder of the day following this episode Patient has a reported history of seizure 12 years ago after her stroke - Head CT negative for acute intracranial abnormality - Carotid dopplers showed atherosclerosis WITHOUT hemodynamically significant stenosis - Brain MRI negative for acute stroke. 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 Britt, likely multifactorial with ongoing UTI, pleural effusion, LORNA, heart failure all likely contributing to confusion and transient alteration of awareness > Recommends continuing Keppra for now, continued medical management, avoid hypotension and sedation, continue supportive care - No further seizure-like activity - Continue Keppra 500 mg BID until neurology follow-up appointment outpatient - Continue Eliquis and Aspirin 81 mg daily (for h/o old CVA) - Recommend follow up with Neurology as outpatient for seizure (2) Bleeding hemorrhoid: Plan: Notified by RN that patient has maroon stools x 1 and was retaining urine on bladder scan - Gamble catheter placed 08/28 - Stool BioFire negative - Multiple episodes of brown bowel movements, then 1 report of bright red blood noted with bowel movement. Fecal occult study positive. History of hemorrhoids that bleed with/after bowel movements. No significant change in hgb, no abdominal pain > Suspect hemorrhoidal bleeding and low suspicion for GI bleed - ok to continue Eliquis and ASA Refractory hypokalemia, mag WNL - Possibly secondary to multiple BMs - Repleted, augmented appropriately (3) LORNA (acute kidney injury): Plan: Labs on admission showed LORNA. Patient was recently admitted to [facility] for acute on chronic HFpEF exacerbation requiring aggressive IV diuresis. LORNA possibly secondary to diuresis. Suspect that patient has a very tenuous volume status. - Volume overloaded after IV fluids on admission with subsequent increased SOB/confusion -- provided gentle diuresis Likely Exacerbation of HFpEF Treated with IV Lasix, IV albumin and BiPAP - LORNA resolved - Previous reports from pulm to continue BiPAP, but not necessary at this point - CXR obtained which revealed left effusion - Pulmonary consulted given recent need for thoracentesis -- Recommending to continue incentive spirometry, diuretics as tolerated for left-sided small pleural effusion. No indication for thoracentesis - Lasix x 1 given 08/31, 09/01; suspect patient would benefit from [facility] diuretic schedule on discharge (4) UTI (urinary tract infection): Plan: UA positive on admission - Urine culture showing pansensitive E coli - Blood cultures NGTD - Switched ceftriaxone to cefdinir, completed on 08/31 (5) Plantar fasciitis of left foot: Plan: Patient complained of left heel pain with weightbearing while working with PT on 09/03 - Point tenderness to left heel - Left heel x-ray suggestive of plantar fasciitis; no fractures - Recommend supportive care > Ibuprofen 600 mg Q8H PRN -- monitor closely given on Eliquis > Provide stretching exercises Plan Updated at bedside Ordered x-ray left heel Ordered ibuprofen Consider starting Remeron for appetite stimulation Chronic stable problems: Paroxysmal atrial fibrillation - Eliquis dose reduced given age/weight Hypothyroidism - TSH here normal, Continue Synthroid Dispo: PT recommending rehab; referrals pending CODE STATUS: DNR/DNI Admission and Anticipated Discharge Date Admission Date: August 26, 2024 Supervising Physician Co-Signing Physician Notes Attending Attestation - Chart reviewed, care plan d/w YOON Pathak. I agree w/ the morley components of her documentation. Javed Ashley MD Subjective Patient seen and evaluated in bedside chair with her present. She reports feeling well and denies any acute complaints. She had her Gamble catheter removed earlier today and has urinated without difficulty since. PT informed me patient complained of left heel pain with weightbearing while they were working with her today. She does have point tenderness to her left heel. Patient denies any recent injuries to her knowledge. Physical Exam Physical Exam: General: No acute distress, nondiaphoretic, frail elderly female. Skin: The skin was without rashes, erythema, edema, or bruising. Cardiac: Sinus bradycardia in 50-60s. Systolic murmur noted. Pulm: Diminished breath sounds at bases bilaterally, but otherwise clear to auscultation bilaterally. No respiratory distress. 95% on room air. Abdominal: Soft, nontender, nondistended. Bowel sounds present. Neuro: A&O x4. No focal neurological deficits. Results & Data Results & Data Vital Signs (Past 12 Hours) Vital Signs Temp Pulse Resp BP Pulse Ox O2 Del Method 09/03/24 14:47 97.5 F L 59 L 16 103/61 95 Room Air 09/03/24 07:42 98.6 F 62 16 133/61 92 Room Air PG Care Time/CCT Total # of Minutes Spent Total Time Spent with Patient: Total time spent is greater than 50% in coordination of care (as documented) at patient's floor/unit and/or counseling patient: Coding Level of Care Code 51867 SUB INP/OBS CARE 3/50MIN Diagnoses Seizure-like activity R56.9 Bleeding hemorrhoid K64.9 LORNA (acute kidney injury) N17.9 UTI (urinary tract infection) N39.0 Plantar fasciitis of left foot M72.2
[2024-09-03] MEDS ORDERED: IBUPROFEN 600 MG TAB PO PRN (18:49)
[2024-09-04 06:48] LABS: Hematocrit (blood only) 31.9 % (37.0-47.0); Hemoglobin 10.6 g/dl (12.0-16.0); Mean Corpuscular Hemoglobin 31.6 pg (25.0-34.0); Mean Corpuscular Hgb Conc 33.2 g/dL (32.0-36.0); Mean Corpuscular Volume 95.2 fL (80.0-100.0); Mean Platelet Volume 9.7 fL (9.4-12.4); Platelet Count 389 K/uL (130-400); RDW Standard Deviation 55.6 fL (36.4-46.3); Red Blood Count 3.35 M/uL (4.20-5.40)
[2024-09-04 07:10] LABS: Calcium 9.3 mg/dl (8.6-10.3); Creatinine Clr Calc Pharmacy 50.4 ml/min; Magnesium 1.9 mg/dl (1.7-2.4); Potassium 4.1 mmol/L (3.5-5.1)
--- NOTE | 2024-09-04 08:47 | Hospitalist Progress Note ---
Date of Service September 04, 2024 Assessment & Plan (1) Seizure-like activity: Plan: Patient presented with lower abdominal pain, nausea, and vomiting. Patient was previously A&O x 4, but had an acute change on 08/28 when she became lethargic and obtunded > Lethargic in AM but able to follow commands of squeezing hands and opening eyes. Was staring off to right side, had tremors and garbled speech at that time -was given IV ativan and IV Keppra loading dose > Later had witnessed seizure-like activity at bedside with posturing right arm with tremors and eye twitching. Patient was obtunded for the remainder of the day following this episode Patient has a reported history of seizure 12 years ago after her stroke Head CT negative for acute intracranial abnormality Carotid dopplers showed atherosclerosis WITHOUT hemodynamically significant st enosis Brain MRI negative for acute stroke. Does note cerebral atrophy and chronic small vessel ischemic disease and old left frontal lobe infarct EEG normal-appearing Lipid panel WNL, A1c 5.3% Neurology consulted -- Per Dr. Britt, likely multifactorial with ongoing UTI, pleural effusion, LORNA, heart failure all likely contributing to confusion and transient alteration of awareness -- Recommends continuing Keppra for now, continued medical management, avoid hypotension and sedation, continue supportive care 09/04 IMPROVING/STABLE, awaiting placement. Good appetite, eating/drinking and moving her bowels. No further seizure-like activity and continues on Keppra 500mg BID until neurology outpatient follow up for seizure Remains on eliquis 2.5mg BID (reduced for age/weight) and asa 81mg (for hx old CVA) Lasix 40mg Q2D ordered to maintain volume status given improvement in PO/BP stable 121/61 and BUN/Cr 14/0.61. Monitor to resume losartan now that LORNA resolved if BPs tolerating Awaiting rehab at discharge, [facility] without bed, [facility] referral to be sent. Updated family at bedside 09/04 (2) Bleeding hemorrhoid: Plan: Notified by RN that patient has maroon stools x 1 and was retaining urine on bladder scan and garcia placed 08/28. Stool biofire negative, fecal occult POSITIVE. -Hx hemorrhoids that bleed with/after bowel movement prior and given anusol suppositories in the past and given no significant change in hgb and no further abd pain since tx UTI and moving bowels resumed eliquis/aspirin. Low suspicion for GI bleed Refractory hypokalemia, mag WNL - Possibly secondary to multiple BMs - Repleted, augmented appropriately and remaining stable (3) LORNA (acute kidney injury): Plan: Labs on admission showed LORNA. Patient was recently admitted to [facility] for acute on chronic HFpEF exacerbation requiring aggressive IV diuresis. LORNA possibly secondary to diuresis. Suspect that patient has a very tenuous volume status. Volume overloaded after IV fluids on admission with subsequent increased SOB/confusion -- provided gentle diuresis 20mg IV lasix x 1 Home losartan/lasix on hold Likely Exacerbation of HFpEF Treated with IV Lasix, IV albumin and BiPAP - LORNA resolved however losartan remains on hold - Previous reports from pulm to continue BiPAP, but not necessary at this point --per pulm, patient karlald have outpatient polysomnography but does not qualify at this time - CXR obtained which revealed left effusion - Pulmonary consulted given recent need for thoracentesis -- Recommending to continue incentive spirometry, diuretics as tolerated for left-sided small pleural effusion. No indication for thoracentesis - Lasix x 1 given 08/31, 09/01 suspect patient would benefit from MWF diuretic schedule on discharge and will place orders for lasix 40mg q2d to start today/monitor renal function to ensure staying stable. if renal function stable can consider resuming her losartan 50,mg daily but cautious use to prevent hypotention MOnitor weights/renal function (4) UTI (urinary tract infection): Plan: UA positive on admission - Urine culture showing pansensitive E coli and was provided Ceftriaxone IV initially starting 08/26 Blood cx NGTD and switched to Cefdinir and completed abx course on 08/31 UOP acceptable, renal function stable/resolved LORNA (5) Plantar fasciitis of left foot: Plan: Patient complained of left heel pain with weightbearing while working with PT on 09/03 - Point tenderness to left heel - Left heel x-ray suggestive of plantar fasciitis; no fractures - Recommend supportive care > Ibuprofen 600 mg Q8H PRN -- monitor closely given on Eliquis (has utilized one dose) > Provide stretching exercises, continued PT/OT (6) Atrial fibrillation, permanent: Plan: Eliquis dose reduced given age/weight -- reduce at dc planned Not on BB due to bradycardia, rates controlled. TSH wnl and remains on home synthroid dose Plan Dispo: awaiting placement, [facility] following and [facility] without bed currently but sending ref to [facility] per family/patient wishes -- continues to follow. Doing MUCH better than last week -- reports decent appetite reported but can consider remeron for appetite stimulation pending repeat evals (her brother did pass away today) Updated daughter/family at bedside 09/04, melatonin ordered for sleep tonight. Admission and Anticipated Discharge Date Admission Date: August 26, 2024 Supervising Physician Co-Signing Physician Notes The patient was not seen by me. The chart was reviewed. Case discussed with YOON Kaur. Agree with assessment and plan Subjective Evaluated this afternoon, family at bedside. Good appetite, moving her bowels. No abdominal discomfort. Stable breathing, denies SOB but family does report gets winded at times. Discussed low dose lasix q2d for now and monitoring. Eliquis reduced dose discussed and will be continued at lower dose at dc. Melatonin ordered to help with sleep tonight, her brother just (had been dealing with prostate ca for some time), support provided. Planning for rehab, [facility] no bed yet, ref to [facility] to be sent. Has been getting up/ambulating in the room and using the bathroom. Has also ambulated in the [place]ierra. Hopeful dc once bed at rehab available. Questions/concerns addressed at this time. Physical Exam Physical Exam: General: 88yo female sitting up in bed, daughter/family in room, NAD, appears MUCH improved from last week HEENT: head atraumatic, normocephalic, mmm, trachea midline Resp; no cough/tachypnea, able to speak in complete sentences, slightly diminished L>R but no rales/wheezing, on ROOM AIR CV: NSR, + systolic murmur, trace pedal edema, calves nontender GI: +BS, slight distension but MUCH improved, soft/nontender MSK/Neuro: nonfocal, answering questions appropriately Psych: AOx3, cooperative with exam Results & Data Results & Data Vital Signs (Past 12 Hours) Vital Signs Temp Pulse Resp BP Pulse Ox O2 Del Method 09/04/24 07:23 37.2 C 82 16 130/63 94 Room Air 09/03/24 21:50 36.8 C 61 18 122/71 95 Room Air Laboratory Results 09/04/24 Range/Units 05:54 WBC 7.70 (4.8-10.8) K/ul RBC 3.35 L (4.20-5.40) M/uL Hgb 10.6 L (12.0-16.0) g/dl Hct 31.9 L (37.0-47.0) % MCV 95.2 (80.0-100.0) fL MCH 31.6 (25.0-34.0) pg MCHC 33.2 (32.0-36.0) g/dL RDW Std Deviation 55.6 H (36.4-46.3) fL RDW Coeff of Maritza 16.0 H (11.5-14.5) % Plt Count 389 (130-400) K/uL MPV 9.7 (9.4-12.4) fL Sodium 140 (136-145) mmol/L Potassium 4.1 (3.5-5.1) mmol/L Chloride 106 (98-107) mmol/L Carbon Dioxide 28 (21-32) mmol/L Anion Gap 6 (3-11) BUN 14 (6-23) mg/dl Creatinine 0.61 (0.6-1.2) mg/dl Est Cr Clr Drug Dosing 50.4 ml/min eGFR 85.94 BUN/Creatinine Ratio 23.0 H (10-20) Glucose 85 (70-99(Fasting)) mg/dl Calcium 9.3 (8.6-10.3) mg/dl Magnesium 1.9 (1.7-2.4) mg/dl PG Care Time/CCT Total # of Minutes Spent Total Time Spent with Patient: Total time spent is greater than 50% in coordination of care (as documented) at patient's floor/unit and/or counseling patient: Coding Level of Care Code 46558 SUB INP/OBS CARE 3/50MIN Diagnoses Seizure-like activity R56.9 Bleeding hemorrhoid K64.9 LORNA (acute kidney injury) N17.9 UTI (urinary tract infection) N39.0 Plantar fasciitis of left foot M72.2 Atrial fibrillation, permanent I48.21
[2024-09-04] MEDS: FUROSEMIDE 40 MG TAB PO SCH (09:29)
[2024-09-04] MEDS: MELATONIN 3 MG TAB PO SCH (20:22)
[2024-09-05 07:39] LABS: BUN Creatinine Ratio 29.2 (10-20); Calcium 9.3 mg/dl (8.6-10.3); Creatinine Clr Calc Pharmacy 47.3 ml/min
--- NOTE | 2024-09-05 08:06 | Hospitalist Progress Note ---
Date of Service September 05, 2024 Assessment & Plan (1) Seizure-like activity: Plan: Patient presented with lower abdominal pain, nausea, and vomiting. Patient was previously A&O x 4, but had an acute change on 08/28 when she became lethargic and obtunded > Lethargic in AM but able to follow commands of squeezing hands and opening eyes. Was staring off to right side, had tremors and garbled speech at that time -was given IV ativan and IV Keppra loading dose > Later had witnessed seizure-like activity at bedside with posturing right arm with tremors and eye twitching. Patient was obtunded for the remainder of the day following this episode Patient has a reported history of seizure 12 years ago after her stroke Head CT negative for acute intracranial abnormality Carotid dopplers showed atherosclerosis WITHOUT hemodynamically significant stenosis Brain MRI negative for acute stroke. Does note cerebral atrophy and chronic small vessel ischemic disease and old left frontal lobe infarct EEG normal-appearing Lipid panel WNL, A1c 5.3% Neurology consulted -- Per Dr. Britt, likely multifactorial with ongoing UTI, pleural effusion, LORNA, heart failure all likely contributing to confusion and transient alteration of awareness -- Recommends continuing Keppra for now, continued medical management, avoid hypotension and sedation, continue supportive care IMPROVING/STABLE, awaiting placement. No further seizure-like activity and continues on Keppra 500mg BID until neurology outpatient follow up for seizure Good appetite, eating/drinking and moving her bowels but will add colace BID to prevent constipation given hemorrhoids/bleeding in the past. Butt paste ordered for irritation, daughter bringing cushion but encouraged up/out of bed to chair as much as possible. Lasix 40mg Q2D ordered 09/04 to maintain volume status given improvement in PO intake and BP stable @ 121/61 with normalized renal function. --Improvement in breathing/stable on room air, however BUN/Cr 19/0.[address] lasix on HOLD for 09/06 until assessed. Could consider LOWER dose 20mg PO q2d to maintain volume status if 40mg too much given concerns for over diuresis w/ LORNA on admission. Monitor to resume home losartan which she takes 50mg daily and has been OFF Remains on eliquis 2.5mg BID (reduced for age/weight) and asa 81mg (for hx old CVA) -- NEW RX for eliquis at [place] Patient to have outpt sleep study per pulm, no need for BiPAP at present time. PT/OT rec rehab, ref to [facility] pending but no bed. CM following. Updated daughter Shelby this morning who has been visiting daily, (2) LORNA (acute kidney injury): Plan: Labs on admission showed LORNA. Patient was recently admitted to [facility] for acute on chronic HFpEF exacerbation requiring aggressive IV diuresis. LORNA possibly secondary to diuresis. Suspect that patient has a very tenuous volume status. Volume overloaded after IV fluids on admission with subsequent increased SOB/confusion -- provided gentle diuresis 20mg IV lasix x 1 Home losartan/lasix on hold Likely Exacerbation of HFpEF Treated with IV Lasix, IV albumin and BiPAP Pulm consulted, no need for repeat thoracentesis Tx as above, renal function/LORNA now RESOLVED Was given lasix on 08/31, 09/01 Resumed lasix 40mg dose but at Q2D dosing on 09/04 BUN/Cr stable 19/0.[address] on HOLD for 09/06 until evaluated/renal function assessed to prevent LORNA Suspect dose need 3x/wk dosing however possible at lower dose, ie 20mg vs lower daily dose but cautious monitoring of BPs to prevent hypotension given above (3) UTI (urinary tract infection): Plan: +UA, urine cx w pansensitive Ecoli Ceftriaxone--> Cefnidir from 08/26-08/31 while inpatient. No further suprapubic discomfort on exam and has been afebrile with stable UOP reported (having unmeasured voides) BLD cx NGTD (4) Plantar fasciitis of left foot: Plan: Patient complained of left heel pain with weightbearing while working with PT on 09/03 - Point tenderness to left heel - Left heel x-ray suggestive of plantar fasciitis; no fractures - Recommend supportive care > Ibuprofen 600 mg Q8H PRN -- monitor closely given on Eliquis (has utilized one dose) > Provide stretching exercises, continued PT/OT (5) Atrial fibrillation, permanent: Plan: Eliquis dose reduced given age/weight -- reduce at dc planned, needs new rx Not on BB due to bradycardia, rates controlled. TSH wnl and remains on home Synthroid dose Plan Dispo: awaiting placement, CM following and [facility] without bed currently but sending ref to [facility] per family/patient wishes -- continues to follow. Continue melatonin HS for sleep, has been effective. Reports decent appetite but could consider remeron if needed Lasix order on HOLD for AM, consdier reduction in dose pending volume status but also need to monitor to resume home losartan as has been off her 50mg daily dose (?needing reduction) Updated daughter Shelby at bedside 09/04, via phone this morning (as well as other daughter) and Shelby will be in this afternoon to visit with patient. Admission and Anticipated Discharge Date Admission Date: August 26, 2024 Supervising Physician Co-Signing Physician Notes The patient was not seen by me. The chart was reviewed. Case discussed with YOON Kaur. Agree with assessment and plan Subjective Evaluated this morning, resting in bed. Reports feeling well, decent appetite. Got a decent night sleep and discussed continuing melatonin. Still waiting for placement, supportive care provided. Updated family via phone this morning, lot of visitors. Has been together 20+ yrs and missing her greatly. Hopeful will have bed in next 24-48 hours, CM following. Patient denies any fever/chills, chest pain, increased shortness of breath. Passing gas, BM day prior and discussed colace to prevent constipation. Questions/concerns addressed at this time. Physical Exam 2 Physical Exam: General: 88yo female resting in bed, NAD, appears well/comfortable HEENT: head atraumatic, normocephalic, mmm, trachea midline Resp; no cough/tachypnea, able to speak in complete sentences, slightly diminished L>R but no rales/wheezing, on ROOM AIR CV: NSR, + systolic murmur, trace pedal edema, calves nontender GI: +BS, slight distension but MUCH improved, soft/nontender MSK/Neuro: nonfocal, answering questions appropriately Psych: AOx3, cooperative with exam Results & Data Results & Data Vital Signs (Past 12 Hours) Vital Signs Temp Pulse Resp BP Pulse Ox O2 Del Method 09/05/24 07:29 36.8 C 50 L 16 125/62 92 Room Air 09/04/24 20:28 36.7 C 59 L 18 132/57 L 94 Room Air Laboratory Results 09/04/24 05:54 09/05/24 06:55 Mag 2.0 PG Care Time/CCT Total # of Minutes Spent Total Time Spent with Patient: Total time spent is greater than 50% in coordination of care (as documented) at patient's floor/unit and/or counseling patient: Coding Level of Care Code 04501 SUB INP/OBS CARE 3/50MIN Diagnoses Seizure-like activity R56.9 LORNA (acute kidney injury) N17.9 UTI (urinary tract infection) N39.0 Plantar fasciitis of left foot M72.2 Atrial fibrillation, permanent I48.21
[2024-09-05] MEDS: DOCUSATE SODIUM 100 MG CAP PO SCH (09:25)
[2024-09-05] MEDS: BUTT PASTE (ZINC OXIDE 16%) 171 APPLN/57 GM JAR EXT SCH (15:06)
[2024-09-06 06:44] LABS: Calcium 9.2 mg/dl (8.6-10.3); Magnesium 2.1 mg/dl (1.7-2.4); Potassium 4.1 mmol/L (3.5-5.1)
--- NOTE | 2024-09-06 12:23 | Hospitalist Progress Note ---
Date of Service September 06, 2024 Assessment & Plan (1) Seizure-like activity: Plan: Patient presented with lower abdominal pain, nausea, and vomiting. Patient was previously A&O x 4, but had an acute change on 08/28 when she became lethargic and obtunded > Lethargic in AM but able to follow commands of squeezing hands and opening eyes. Was staring off to right side, had tremors and garbled speech at that time -was given IV ativan and IV Keppra loading dose > Later had witnessed seizure-like activity at bedside with posturing right arm with tremors and eye twitching. Patient was obtunded for the remainder of the day following this episode - Patient has a reported history of seizure 12 years ago after her stroke Head CT negative for acute intracranial abnormality Carotid dopplers showed atherosclerosis WITHOUT hemodynamically significant stenosis Brain MRI negative for acute stroke. Does note cerebral atrophy and chronic small vessel ischemic disease and old left frontal lobe infarct EEG normal-appearing Lipid panel WNL, A1c 5.3% Neurology consulted - Per Dr. Britt, likely multifactorial with ongoing UTI, pleural effusion, LORNA, heart failure all likely contributing to confusion and transient alteration of awareness No further seizure-like activity and continues on Keppra 500mg BID until neurology outpatient follow up for seizure (2) LORNA (acute kidney injury): Plan: Labs on admission showed LORNA. Patient was recently admitted to [facility] for acute on chronic HFpEF exacerbation requiring aggressive IV diuresis and thoracentesis. LORNA possibly secondary to diuresis. Suspect that patient has a very tenuous volume status. - Volume overloaded after IV fluids on admission with subsequent increased SOB/confusion -- provided gentle diuresis 20mg IV lasix x 1 - Home losartan on hold - Likely Exacerbation of HFpEF Treated with IV Lasix, IV albumin and BiPAP - Pulm consulted, no need for repeat thoracentesis. Patient to have outpt sleep study per pulm, no need for BiPAP at present time - Continue Lasix 40 mg QOD - LORNA resolved (3) UTI (urinary tract infection): Plan: Acute UTI treated with ceftriaxone and cefdinir while hospitalized. Blood cultures negative - No further urinary symptoms or concern for repeat infection (4) Plantar fasciitis of left foot: Plan: Patient complained of left heel pain with weightbearing while working with PT on 09/03 - Point tenderness to left heel - Left heel x-ray suggestive of plantar fasciitis; no fractures - Recommend supportive care > Ibuprofen 600 mg Q8H PRN -- monitor closely given on Eliquis (has utilized one dose) > Provide stretching exercises, continued PT/OT (5) Atrial fibrillation, permanent: Plan: Eliquis dose reduced given age/weight -- reduce at dc planned, needs new rx Not on BB due to bradycardia, rates controlled TSH wnl and remains on home Synthroid dose Plan Updated family members at bedside Resumed Lasix Dispo: awaiting placement, following and [facility] without bed currently but sending ref to [facility] per family/patient wishes -- continues to follow. Continue melatonin HS for sleep, has been effective. Reports decent appetite but could consider remeron if needed monitor to resume home losartan as has been off her 50mg daily dose (?needing reduction) VTE PPX: Eliquis CODE STATUS: DNR/DNI Admission and Anticipated Discharge Date Admission Date: August 26, 2024 Supervising Physician Co-Signing Physician Notes The patient was not seen by me. The chart was reviewed. Case discussed with YOON Krause. Agree with assessment and plan Subjective Patient seen and evaluated at bedside with multiple family members present. She reports feeling well, just disappointed about still awaiting rehab placement. She denies shortness of breath, cough, or increased lower extremity swelling. She reports sleeping well at night, regular bowel movements, and ok appetite. No additional complaints or concerns at this time. Physical Exam Physical Exam: General: No acute distress, nondiaphoretic, frail elderly female. Skin: The skin was without rashes, erythema, edema, or bruising. Cardiac: Sinus bradycardia in 50-60s. Systolic murmur noted. Pulm: Diminished breath sounds at bases bilaterally, but otherwise clear to auscultation bilaterally. No respiratory distress. 92% on room air. Abdominal: Soft, nontender, nondistended. Bowel sounds present. Neuro: A&O x4. No focal neurological deficits. Results & Data Results & Data Vital Signs (Past 12 Hours) Vital Signs Temp Pulse Resp BP Pulse Ox O2 Del Method 09/06/24 07:51 Room Air 09/06/24 07:12 97.9 F 50 L 16 118/66 92 Room Air Laboratory Results Reviewed BMP PG Care Time/CCT Total # of Minutes Spent Total Time Spent with Patient: Total time spent is greater than 50% in coordination of care (as documented) at patient's floor/unit and/or counseling patient: Coding Level of Care Code 40962 SUB INP/OBS CARE 2/35MIN Diagnoses Seizure-like activity R56.9 LORNA (acute kidney injury) N17.9 UTI (urinary tract infection) N39.0 Plantar fasciitis of left foot M72.2 Atrial fibrillation, permanent I48.21
[2024-09-07 07:25] LABS: BUN Creatinine Ratio 32.3 (10-20); Calcium 9.2 mg/dl (8.6-10.3); Creatinine Clr Calc Pharmacy 49.6 ml/min; Potassium 4.3 mmol/L (3.5-5.1)
--- NOTE | 2024-09-07 08:27 | Hospitalist Progress Note ---
Date of Service September 07, 2024 Assessment & Plan (1) Seizure-like activity: Plan: Patient presented with lower abdominal pain, nausea, and vomiting. Patient was previously A&O x 4, but had an acute change on 08/28 when she became lethargic and obtunded > Lethargic in AM but able to follow commands of squeezing hands and opening eyes. Was staring off to right side, had tremors and garbled speech at that time -was given IV ativan and IV Keppra loading dose > Later had witnessed seizure-like activity at bedside with posturing right arm with tremors and eye twitching. Patient was obtunded for the remainder of the day following this episode - Patient has a reported history of seizure 12 years ago after her stroke Head CT negative for acute intracranial abnormality Carotid dopplers showed atherosclerosis WITHOUT hemodynamically significant stenosis Brain MRI negative for acute stroke. Does note cerebral atrophy and chronic small vessel ischemic disease and old left frontal lobe infarct EEG normal-appearing Lipid panel WNL, A1c 5.3% Neurology consulted - Per Dr. Britt, likely multifactorial with ongoing UTI, pleural effusion, LORNA, heart failure all likely contributing to confusion and transient alteration of awareness No further seizure-like activity and continues on Keppra 500mg BID until neurology outpatient follow up for seizure (2) LORNA (acute kidney injury): Plan: Labs on admission showed LORNA. Patient was recently admitted to [facility] for acute on chronic HFpEF exacerbation requiring aggressive IV diuresis and thoracentesis. LORNA possibly secondary to diuresis. Suspect that patient has a very tenuous volume status. Volume overloaded after IV fluids on admission with subsequent increased SOB/confusion -- provided gentle diuresis 20mg IV lasix x 1. Pulm consulted, no thoracentesis Likely Exacerbation of HFpEF , Treated with IV Lasix, IV albumin and BiPAP Renal function normalized, LORNA resolved Had given lasix x 2 doses and placed on Lasix 40mg PO Q2D 09/05 Lasix 40mg Q2D CONTINUED with stable renal function Losartan REMAINS ON HOLD, monitor if able to resume pending BPs but have been stable 120/60s OFF and can consider continuing to hold at dc to prevent hypotension Renal dose meds/avoid toxins. Monitor BMP (3) UTI (urinary tract infection): Plan: Acute UTI treated with ceftriaxone and cefdinir while hospitalized. Blood cultures negative and denies any burning/frequency (4) Plantar fasciitis of left foot: Plan: Patient complained of left heel pain with weightbearing while working with PT on 09/03 Point tenderness to left heel Left heel x-ray suggestive of plantar fasciitis; no fractures Recommend supportive care > Ibuprofen 600 mg Q8H PRN -- monitor closely given on Eliquis (has utilized one dose) > Provide stretching exercises, continued PT/OT (5) Atrial fibrillation, permanent: Plan: Eliquis dose reduced given age/weight -- reduce at dc planned, needs new rx Not on BB due to bradycardia, rates controlled TSH wnl and remains on home Synthroid dose Plan CODE STATUS: DNR/DNI VTE PPX: Eliquis REDUCED DOSE ABOVE, new rx at dc Dispo: ongoing inpatient stay waiting for rehab placement. Continues lasix 40mg q2d. Monitor BP and renal function to see about possible reduction in losartan or if able to resume at home dose but needs monitoring to avoid hypotension and has been well controlled off such at this time. NEEDS OUTPT SLEEP STUDY PER PULM, no BiPAP at this time as does not qualift Admission and Anticipated Discharge Date Admission Date: August 26, 2024 Supervising Physician Co-Signing Physician Notes The patient was not seen by me. The chart was reviewed. Case discussed with YOON Kaur. Agree with assessment and plan Subjective Evaluated this morning, moved rooms. Doing well. Decent appetite. Moved her bowels this morning. Buttocks improved. Breathing reportedly improved, 96% on RA> Lasix QOD at present, remains OFF losartan for now. If BPs elevated tomorrow/stable renal function can resume. Ongoing wait for bed at rehab. Discussed can call family w/ update as needed but plan remains the same. Questions/concerns addressed at this time. Physical Exam 2 Physical Exam: General: No acute distress, nondiaphoretic, frail elderly female. Skin: The skin was without rashes, erythema, edema, or bruising. Cardiac: Sinus bradycardia in 50-60s. Systolic murmur noted. Pulm: Diminished breath sounds at bases bilaterally, but otherwise clear to auscultation bilaterally. No respiratory distress. 92% on room air. Abdominal: Soft, nontender, nondistended. Bowel sounds present. Neuro: A&O x4. No focal neurological deficits. General: 88yo female resting in bed, NAD, appears well/comfortable, improving HEENT: head atraumatic, normocephalic, mmm, trachea midline Resp; no cough/tachypnea, able to speak in complete sentences, slightly diminished L>R IMPROVED, no rales/wheezing, 96% on RA CV: NSR, + systolic murmur, trace pedal edema (IMPROVING), calves nontender GI: +BS, soft/nontender MSK/Neuro: nonfocal, answering questions appropriately Psych: AOx3, cooperative with exam Results & Data Results & Data Vital Signs (Past 12 Hours) Vital Signs Temp Pulse Resp BP Pulse Ox O2 Del Method 09/07/24 07:23 37.1 C 58 L 16 120/60 96 Room Air 09/06/24 22:00 Room Air Laboratory Results 09/04/24 05:54 09/07/24 06:42 PG Care Time/CCT Total # of Minutes Spent Total Time Spent with Patient: Total time spent is greater than 50% in coordination of care (as documented) at patient's floor/unit and/or counseling patient: Coding Level of Care Code 43738 SUB INP/OBS CARE 2/35MIN Diagnoses Seizure-like activity R56.9 LORNA (acute kidney injury) N17.9 UTI (urinary tract infection) N39.0 Plantar fasciitis of left foot M72.2 Atrial fibrillation, permanent I48.21
[2024-09-07] MEDS ORDERED: DOCUSATE SODIUM 100 MG CAP PO PRN (12:18)
[2024-09-07] MEDS ORDERED: LOPERAMIDE HCL 2 MG CAP PO PRN (17:31)
[2024-09-07] MEDS: SODIUM CHLORIDE 0.9% 250 ML IV ONE (17:38)
[2024-09-07] MEDS: SODIUM CHLORIDE 0.9% 1,000 ML IV SCH (17:57)
[2024-09-07 18:22] LABS: Cdiff Toxin B Gene (2yr or >) Positive Cdiff Gene (Neg)
[2024-09-07 19:17] LABS: Cdiff Antigen Positive
[2024-09-07 19:19] LABS: Cdiff Toxin A+B Positive Cdiff Toxin (Negative)
--- NOTE | 2024-09-07 19:25 | Communication Note ---
Date of Service: September 07, 2024 Patient with episode of diarrhea 1 this morning. Discussed monitoring w/ recent abx however had another episode of diarrhea this afternoon and cdiff testing ordered/obtained and given 250cc NSS to keep BP up and planned to continue gentle IVF overnight and lasix placed on hold for AM. Notified that Cdiff gene positive and isolation precautions in placed and instructed to hold OFF imodium until toxin resulted in case positive as prior gene testing in past negative. Unfortunately, cdiff gene/toxin both POSITIVE, c/w cdiff infection. Likely from recent abx use for UTI but did have colonic retention/stool burden on admission CTAP without evidence for colitis. Placing on Vancomycin 125mg PO QID and will plan to monitor response to treatment. Lasix to REMAIN ON HOLD to prevent further dehydration (notable did NOT get on 09/06 when resumed) as well as hypotension/electrolyte issues. Continued inpatient stay. Dr Torres to resume care of patient in AM 09/08.
[2024-09-07] MEDS: CHERRY SYRUP 5 ML UDP PO SCH (21:01)
[2024-09-07] MEDS: VANCOMYCIN HCL 125 MG/2.5ML SOLN PO SCH (21:01)
[2024-09-08 05:24] LABS: Appearance Urine Clear (Clear); Bacteria Urine Automated None Seen (None Seen); Bilirubin Urine Negative (Negative); Blood Urine Negative (Negative); Cast Urine Automated 0-2 /lpf (0-2); Color Urine Yellow; Epithelial Cell Urine Auto 0-2 /hpf (0-2); Glucose Urine UA Negative (Negative); Ketones Urine Negative (Negative); Leukocyte Esterase Urine Trace (Negative); Nitrite Urine Negative (Negative); Protein Urine Negative (Negative); RBC Urine Automated 0-2 /hpf (0-2); Specific Gravity Urine 1.005 (1.000-1.030); Urobilinogen Urine Negative (Negative); WBC Urine Automated 0-5 /hpf (0-5); pH Urine 5.5 (4.5-7.5)
[2024-09-08 07:11] LABS: Hemoglobin 8.8 g/dl (12.0-16.0); Mean Corpuscular Hemoglobin 31.7 pg (25.0-34.0); Mean Corpuscular Hgb Conc 32.6 g/dL (32.0-36.0); Mean Corpuscular Volume 97.1 fL (80.0-100.0); Mean Platelet Volume 10.2 fL (9.4-12.4); Platelet Count 303 K/uL (130-400); RDW Coefficient of Variation 16.1 % (11.5-14.5); RDW Standard Deviation 56.7 fL (36.4-46.3); Red Blood Count 2.78 M/uL (4.20-5.40); White Blood Count 9.63 K/ul (4.8-10.8)
[2024-09-08 07:31] LABS: BUN Creatinine Ratio 21.8 (10-20); Calcium 8.8 mg/dl (8.6-10.3); Creatinine Clr Calc Pharmacy 55.9 ml/min; Magnesium 1.9 mg/dl (1.7-2.4); Potassium 4.1 mmol/L (3.5-5.1)
--- NOTE | 2024-09-08 10:56 | Hospitalist Progress Note ---
Date of Service September 08, 2024 Assessment & Plan (1) Seizure-like activity: Plan: No recurrence while hospitalized. She is on Keppra. Appreciate neurology consultation and recommendations. Head CT scan on admission was negative. She also underwent brain MRI scan carotid Doppler evaluation, EEG. No significant findings. (2) LORNA (acute kidney injury): Plan: Present on admission. Now resolved. Monitor intake and output. Losartan remains on hold (3) UTI (urinary tract infection): Plan: Treated with antibiotics and resolved. Blood cultures negative. (4) Plantar fasciitis of left foot: Plan: Treated and resolved. X-ray consistent with plantar fasciitis (5) Atrial fibrillation, permanent: Plan: Rate controlled. Continue Eliquis. Plan Continue oral vancomycin therapy. Awaiting SNF placement. Admission and Anticipated Discharge Date Admission Date: August 26, 2024 Subjective Alert and oriented. No distress. Multiple family members are present in the room. She is on oral vancomycin, day 2, for C. difficile enteritis. She denies frequent bowel movements at this time. White blood cell count is 9600. SNF placement is pending. Review of Systems 2 Review of Systems: Constitutionalno fever or chills ENTno blurred vision, no double vision, no epistaxis, no sore throat Respiratoryno cough, no wheezing, no shortness of breath Cardiacno palpitations, no chest pain, no syncope Irma nausea, vomiting, melena, hematochezia. She states frequent diarrhea stools have subsided GUno urinary retention, no urinary incontinence, no dysuria, no hematuria Musculoskeletalno joint pain, no muscle tenderness Skinno bruising, no rashes, no pruritus Neurono isolated weakness, no paresthesia Psychno depression, no anxiety Physical Exam 2 Physical Exam: General-alert and oriented x3, no fever, no chills HEENT-head atraumatic and normocephalic, pupils equal and reactive to light, extraocular muscles intact Neck-no lymphadenopathy or thyromegaly, trachea midline Chest-clear to auscultation. No rales, wheezing or rhonchi Cardiac-regular rate and rhythm, normal S1 and S2 Abdomen-normal bowel sounds, no hepatosplenomegaly Extremities-no cyanosis, clubbing, or edema Neuro-cranial nerves II through XII intact, motor and sensory function within normal limits, strength symmetrical although she has generalized weakness due to advanced age, no focal deficits Psych-flat affect Results & Data Results & Data Vital Signs (Past 12 Hours) Vital Signs Temp Pulse Resp BP Pulse Ox O2 Del Method 09/08/24 08:59 Room Air 09/08/24 07:46 36.6 C 62 16 117/65 92 Room Air Laboratory Results 09/08/24 06:37 09/08/24 06:37 PG Care Time/CCT Total # of Minutes Spent Total Time Spent with Patient: Total time spent is greater than 50% in coordination of care (as documented) at patient's floor/unit and/or counseling patient: Coding Level of Care Code 09032 SUB INP/OBS CARE 3/50MIN Diagnoses Seizure-like activity R56.9 LORNA (acute kidney injury) N17.9 UTI (urinary tract infection) N39.0 Plantar fasciitis of left foot M72.2 Atrial fibrillation, permanent I48.21
--- NOTE | 2024-09-09 14:55 | Hospitalist Progress Note ---
Date of Service September 09, 2024 Assessment & Plan (1) Seizure-like activity: Plan: No recurrence while hospitalized. She is on Keppra. Appreciate neurology consultation and recommendations. Head CT scan on admission was negative. She also underwent brain MRI scan carotid Doppler evaluation, EEG. No significant findings. (2) LORNA (acute kidney injury): Plan: Present on admission. Now resolved. Monitor intake and output. Losartan remains on hold (3) C. difficile enteritis: Plan: Currently on oral vancomycin day 3. Improving. (4) UTI (urinary tract infection): Plan: Treated with antibiotics and resolved. Blood cultures negative. (5) Plantar fasciitis of left foot: Plan: Treated and resolved. X-ray consistent with plantar fasciitis (6) Atrial fibrillation, permanent: Plan: Rate controlled. Continue Eliquis. Plan Continue oral vancomycin therapy. Awaiting SNF placement. Admission and Anticipated Discharge Date Admission Date: August 26, 2024 Subjective Alert and oriented. Afebrile. Vital signs stable. No new problems. Review of Systems 2 Review of Systems: Constitutionalno fever or chills ENTno blurred vision, no double vision, no epistaxis, no sore throat Respiratoryno cough, no wheezing, no shortness of breath Cardiacno palpitations, no chest pain, no syncope Irma nausea, vomiting, melena, hematochezia. She states frequent diarrhea stools have subsided GUno urinary retention, no urinary incontinence, no dysuria, no hematuria Musculoskeletalno joint pain, no muscle tenderness Skinno bruising, no rashes, no pruritus Neurono isolated weakness, no paresthesia Psychno depression, no anxiety Physical Exam 2 Physical Exam: General-alert and oriented x3, no fever, no chills HEENT-head atraumatic and normocephalic, pupils equal and reactive to light, extraocular muscles intact Neck-no lymphadenopathy or thyromegaly, trachea midline Chest-clear to auscultation. No rales, wheezing or rhonchi Cardiac-regular rate and rhythm, normal S1 and S2 Abdomen-normal bowel sounds, no hepatosplenomegaly Extremities-no cyanosis, clubbing, or edema Neuro-cranial nerves II through XII intact, motor and sensory function within normal limits, strength symmetrical although she has generalized weakness due to advanced age, no focal deficits Psych-flat affect Results & Data Results & Data Vital Signs (Past 12 Hours) Vital Signs Temp Pulse Resp BP Pulse Ox O2 Del Method 09/09/24 08:00 Room Air 09/09/24 07:29 37 C 61 16 123/66 93 Room Air Laboratory Results 09/08/24 06:37 09/08/24 06:37 PG Care Time/CCT Total # of Minutes Spent Total Time Spent with Patient: Total time spent is greater than 50% in coordination of care (as documented) at patient's floor/unit and/or counseling patient: Coding Level of Care Code 11936 SUB INP/OBS CARE 2/35MIN Diagnoses Seizure-like activity R56.9 LORNA (acute kidney injury) N17.9 C. difficile enteritis A04.72 UTI (urinary tract infection) N39.0 Plantar fasciitis of left foot M72.2 Atrial fibrillation, permanent I48.21
[2024-09-10 10:08] LABS: Basophils # (auto) 0.04 K/uL (0.00-0.20); Basophils % (auto) 0.6 %; Eosinophils % (auto) 1.5 %; Hematocrit (blood only) 31.3 % (37.0-47.0); Hemoglobin 10.1 g/dl (12.0-16.0); Immature Granulocytes # (auto) 0.02 K/uL (0.01-0.20); Immature Granulocytes % (auto) 0.3 %; Lymphocytes # (auto) 1.23 K/uL (1.20-3.40); Lymphocytes % (auto) 17.9 %; Mean Corpuscular Hemoglobin 31.5 pg (25.0-34.0); Mean Corpuscular Hgb Conc 32.3 g/dL (32.0-36.0); Mean Corpuscular Volume 97.5 fL (80.0-100.0); Mean Platelet Volume 10.5 fL (9.4-12.4); Monocytes # (auto) 0.56 K/uL (0.11-0.59); Monocytes % (auto) 8.1 %; Neutrophils # (auto) 4.93 K/uL (1.40-6.50); Neutrophils % (auto) 71.6 %; Platelet Count 353 K/uL (130-400); RDW Coefficient of Variation 15.8 % (11.5-14.5); RDW Standard Deviation 56.5 fL (36.4-46.3); Red Blood Count 3.21 M/uL (4.20-5.40); White Blood Count 6.88 K/ul (4.8-10.8)
[2024-09-10 10:24] LABS: BUN Creatinine Ratio 21.9 (10-20); Calcium 9.6 mg/dl (8.6-10.3); Creatinine Clr Calc Pharmacy 48.1 ml/min; Potassium 4.3 mmol/L (3.5-5.1)
--- NOTE | 2024-09-10 16:39 | Hospitalist Progress Note ---
Date of Service September 10, 2024 Assessment & Plan (1) Seizure-like activity: Plan: Admitted with a UTI and acute kidney injury, along with acute metabolic encephalopathy which had resolved after 1 day of treatment. However, she then had a witnessed seizure x 2 which resolved with IV Keppra and Ativan No recurrence while hospitalized. She is on Keppra. Appreciate neurology consultation and recommendations. Head CT scan on admission was negative. She also underwent brain MRI scan carotid Doppler evaluation, EEG. No significant findings. She does have a previous history of seizure about 12 years ago as per her son Continue Keppra 500 Mg p.o. twice daily and follow-up with neurology as an outpatient (2) C. difficile enteritis: Plan: Much improved, now diarrhea resolved after starting p.o. vancomycin Continue 10-day course of p.o. vancomycin This is secondary to being on antibiotics for UTI earlier in her hospitalization Discontinue as needed Imodium-this has not been used Discontinue all as needed laxatives (3) LORNA (acute kidney injury): Plan: Present on admission. Now resolved. Monitor intake and output. Losartan remains on hold Holding home Lasix (4) UTI (urinary tract infection): Plan: Treated with antibiotics and resolved. Blood cultures negative. Patient also had constipation which likely contributed towards development of UTI Constipation now resolved as has C. difficile colitis as above (5) Plantar fasciitis of left foot: Plan: Treated and resolved. X-ray consistent with plantar fasciitis Discontinue as needed ibuprofen-not good for renal function in the elderly (6) Atrial fibrillation, permanent: Plan: Rate controlled. Continue Eliquis at reduced dose due to low body weight and age greater than 80 With stable angina-continue Ranexa, aspirin HTN-continue amlodipine but losartan on hold Plan Chronic medical problems: Hypothyroidism-continue levothyroxine Glaucoma-continue home eyedrops GERD-continue PPI DVT prophylaxis-Eliquis Disposition-medically stable for discharge, awaiting insurance authorization for SNF-hopefully tomorrow Admission and Anticipated Discharge Date Admission Date: August 26, 2024 Subjective Patient feeling well today. Has not had any diarrhea at all. Denies abdominal pains, no other concerns, she is anxious for discharge Physical Exam Constitutional: WD/WN, vitals as above Respiratory: normal respiratory effort, lungs clear to auscultation Cardiovascular: Rate/Rhythm: regular rate and + irregularly irregular Extremities: no edema Gastrointestinal (Abdomen): normal bowel sounds, soft, nontender, no hepatosplenomegaly Psychiatric: A+Ox3, euthymic affect Results & Data Results & Data Vital Signs (Past 12 Hours) Vital Signs Temp Pulse Resp BP BP Pulse Ox O2 Del Method 09/10/24 15:37 36.7 C 54 L 17 144/75 H 96 Room Air 09/10/24 07:45 Room Air 09/10/24 07:33 36.8 C 54 L 18 144/69 H 90 Room Air Laboratory Results CBC, BMP reviewed PG Care Time/CCT Total # of Minutes Spent Total Time Spent with Patient: Total time spent is greater than 50% in coordination of care (as documented) at patient's floor/unit and/or counseling patient: Coding Level of Care Code 54522 SUB INP/OBS CARE 11/03MIN Diagnoses Seizure-like activity R56.9 C. difficile enteritis A04.72 LORNA (acute kidney injury) N17.9 UTI (urinary tract infection) N39.0 Plantar fasciitis of left foot M72.2 Atrial fibrillation, permanent I48.21
--- NOTE | 2024-09-11 16:07 | Hospitalist Progress Note ---
Date of Service September 11, 2024 Assessment & Plan (1) Seizure-like activity: Plan: Admitted with a UTI and acute kidney injury, along with acute metabolic encephalopathy which had resolved after 1 day of treatment. However, she then had a witnessed seizure x 2 on the 3rd hospital day which resolved with IV Keppra and Ativan No recurrence of seizures since then and remains on Keppra. Appreciate neurology consultation and recommendations. Head CT scan on admission was negative. She also underwent brain MRI scan carotid Doppler evaluation, EEG. No significant findings. She does have a previous history of seizure about 12 years ago as per her son Continue Keppra 500 Mg p.o. twice daily and follow-up with neurology as an outpatient (2) C. difficile enteritis: Plan: Much improved, now diarrhea resolved after starting p.o. vancomycin Continue 10-day course of p.o. vancomycin through 09/17/24 This is secondary to being on antibiotics for UTI earlier in her hospitalization Of note, she had severe constipation on admission and typically needs to have a good bowel regimen-is on lactulose at home (3) LORNA (acute kidney injury): Plan: Present on admission. Now resolved. Monitor intake and output. Losartan remains on hold Holding home Lasix as well while had profuse diarrhea (4) UTI (urinary tract infection): Plan: Treated with antibiotics and resolved. Blood cultures negative. Patient also had constipation which likely contributed towards development of UTI Constipation now resolved as has C. difficile colitis as above (5) Plantar fasciitis of left foot: Plan: Treated and resolved. X-ray consistent with plantar fasciitis avoid ibuprofen-not good for renal function in the elderly (6) Atrial fibrillation, permanent: Plan: Rate controlled. Continue Eliquis at reduced dose due to low body weight and age greater than 80 With stable angina-continue Ranexa, aspirin HTN-continue amlodipine but losartan on hold Plan Chronic medical problems: Hypothyroidism-continue levothyroxine, TSH here normal at 0.5 Glaucoma-continue home eyedrops GERD-continue PPI DVT prophylaxis-Eliquis Disposition-medically stable for discharge, insurance authorization for SNF got approved at 1600 on 09/11--> plan for dc to [facility] tomorrow AM Admission and Anticipated Discharge Date Admission Date: August 26, 2024 Anticipated date of discharge: 09/12/24 Subjective Only moved bowels once today. Is eating and drinking, no other problems or concerns Discussed her care with her son and granddaughter at bedside Physical Exam Constitutional: WD/WN, vitals as above Respiratory: normal respiratory effort, lungs clear to auscultation Cardiovascular: Rate/Rhythm: regular rate and + irregularly irregular Extremities: no edema Psychiatric: A+Ox3, euthymic affect Results & Data Results & Data Vital Signs (Past 12 Hours) Vital Signs Temp Pulse Resp BP Pulse Ox O2 Del Method 09/11/24 15:48 36.4 C L 64 18 171/74 H 96 Room Air 09/11/24 08:08 36.5 C 60 18 150/69 H 96 Room Air Laboratory Results no labs PG Care Time/CCT Total # of Minutes Spent Total Time Spent with Patient: Total time spent is greater than 50% in coordination of care (as documented) at patient's floor/unit and/or counseling patient: Coding Level of Care Code 45219 SUB INP/OBS CARE 1/25MIN Diagnoses Seizure-like activity R56.9 C. difficile enteritis A04.72 LORNA (acute kidney injury) N17.9 UTI (urinary tract infection) N39.0 Plantar fasciitis of left foot M72.2 Atrial fibrillation, permanent I48.21
[2024-09-11 20:16] VITALS: RESP 16
[2024-09-12 07:34] VITALS: BP 124/72; TEMP 98.1; O2SAT 95
[2024-09-12 10:39] VITALS: PULSE 62
--- NOTE | 2024-09-12 10:43 | Discharge Summary ---
Discharge Summary Date of Service September 12, 2024 Principal Dx & Hospital Course #1 = Principal Diagnosis (1) Seizure: Admitted with a UTI and acute kidney injury, along with acute metabolic encephalopathy which had resolved after 1 day of treatment. However, she then had witnessed seizures x 2 on the 3rd hospital day which resolved with IV Keppra and Ativan Seizures were generalized tonic initially then second seizure with right sided tonic clonic followed by many hours of post-ictal lethargy No recurrence of seizures since then and remains on Keppra. Appreciate neurology consultation and recommendations. Head CT scan on admission was negative. She also underwent brain MRI scan carotid Doppler evaluation, EEG. No significant findings. She does have a previous history of seizure about 12 years ago as per her son in setting of her previous CVA Continue Keppra 500 Mg p.o. twice daily and follow-up with neurology as an outpatient (2) C. difficile enteritis: Much improved, now diarrhea resolved after starting p.o. vancomycin Continue 10-day course of p.o. vancomycin through 09/17/24 This is secondary to being on antibiotics for UTI earlier in her hospitalization Of note, she had severe constipation on admission and typically needs to have a good bowel regimen-is on lactulose at home-resume laxatives once compelted course of vancomycin to prevent recurrence of previous severe constipation (3) LORNA (acute kidney injury): Present on admission. Now resolved. Monitor intake and output. Losartan and lasix placed on hold Lasix was then resumed but then stopped again when she developed C. diff colitis Can now resume low dose lasix 20mg MWF to prevent reaccumulation of pleural effusion Can resume losartan Check BMP at rehab in 2-3 days (4) UTI (urinary tract infection): Treated with antibiotics and resolved. Blood cultures negative. Patient also had constipation which likely contributed towards development of UTI Constipation now resolved as has C. difficile colitis as above (5) Plantar fasciitis of left foot: Treated and resolved. X-ray consistent with plantar fasciitis avoid ibuprofen-not good for renal function in the elderly (6) Atrial fibrillation, permanent: Rate controlled. Continue Eliquis at reduced dose due to low body weight and age greater than 80 With stable angina-continue Ranexa, aspirin HTN-continue amlodipine and resume losartan Plan Chronic medical problems: Hypothyroidism-continue levothyroxine, TSH here normal at 0.5 Glaucoma-continue home eyedrops GERD-continue PPI DVT prophylaxis-Eliquis Disposition-medically stable for discharge to [facility] today Notes For Next Care Provider Check BMP in 2-3 days Needs Neurology follow up May need overnight POx and Two Step walk test prior to discharge from rehab to determine home O2 needs Medication Changes From Visit See List Admission HPI Per Admitting Provider Salome Younger is an 88yo female with history of paroxysmal atrial fibrillation on Eliquis anticoagulation, PAD, HTN, HLP and CAD presenting with lower abdominal pain. Patient was recently admitted to [facility] from 08/14/24 - 08/24/24 after presenting with SOB/VACA/fatigue and worsening bilateral LE edema. She had been taking Lasix 20mg po daily which was increased to 40mg po daily 2 days prior to admission. Patient initially required BiPAP for acute hypoxic respiratory failure. She had an echocardiogram performed on 08/15/24 which revealed EF 65- 70%, aortic sclerosis and mild MR as well as a trace pericardial effusion without signs of tamponade. She had bilateral Pleural effusions. She was treated aggressively with IV lasix (ultimately increased to 80mg IV BID) with fair diuretic response to higher doses. She had thoracenteses performed on 08/17/24 with 650mL removed from the LEFT and 500mL removed from the RIGHT. She was ultimately discharged to [facility] on 08/24/24. Cr = 0.92 on day of discharge. Patient returns to the ER today with lower abdominal pain which started around 15:00 today as well as nausea and vomiting. She denies back pain or flank pain, no urinary complaints. No fevers, chills, cough, SOB or chest pain. She does endorse ongoing orthopnea and bilateral LE edema. In the ER she is afebrile, HD stable. Patient did become SOB and tachypneic as well as had decreased oxygen saturation upon standing to use the bathroom. Symptoms improved after returning to bed - now on 2L NC with adequate oxygenation. ER Course: Zofran 4mg IV x 2 Ceftriaxone 2gm IV NSS x 1L Discharge Exam Constitutional WD/WN, vitals as above Respiratory normal respiratory effort, lungs clear to auscultation Cardiovascular Rate/Rhythm: regular rate and + irregularly irregular Extremities: no edema Gastrointestinal (Abdomen) normal bowel sounds, soft, nontender, no hepatosplenomegaly Psychiatric A+Ox3, euthymic affect Discharge Plan Discharge Items Patient Disposition: Transfer Intermediate Fac Reason For Visit: ABDOMINAL PAIN,LORNA Discharge Diagnosis: UTI Acute metabolic encephalopathy Seizure C. diff diarrhea Condition on Discharge: Good Activity: As commented below Lifting: Gradually increase as tolerated Bathing: No limitations Exercise/Sports: Gradually increase as tolerated Non-emergency contact: Primary Care Provider and Neurologist Call non-emergency contact if: you have any medication questions and your symptoms worsen Follow-up/Referrals: Solis Tatum MD [Physician] - (Follow up with Neurology within 2-3 weeks after discharge) Daquan Sigala III, MD [Primary Care Provider] - Diet: Heart Healthy Diet Texture: Dental soft (bite-sized) Addtl Attending Provider Instructions: Please continue taking the Vancomycin by mouth, four times a day, through 09/17/24 for your C. diff diarrhea. Continue the keppra and follow up with the Neurologist for your witnessed seizures. Check a BMP in 2-3 days since we are resuming your losartan. Pending Studies at Discharge: No Stand-Alone Forms: My [facility] Skilled Items Patient informed of condition?: Yes DNR: Yes Discharge Level of Care: Skilled Communicable Disease: Yes (C. diff) Discharge Prognosis: Improving Lines: None Urinary Catheter: No Medications and DC Order Prescriptions: New Eliquis 2.5 mg Tablet 2.5 mg PO BID Qty: 60 0RF levetiracetam [Keppra] 500 mg Tablet 500 mg PO BID Qty: 60 0RF melatonin 3 mg Tablet 3 mg PO HS Qty: 30 0RF aspirin 81 mg Tablet,Delayed Release (Dr/Ec) 81 mg PO DAILY Qty: 30 0RF Boudreauxs Butt Paste 16 % Ointment 1 applic EXT BID Qty: 57 0RF vancomycin 125 mg capsule 125 mg PO Q6H 6 Days Qty: 24 0RF furosemide [Lasix] 20 mg tablet 20 mg PO .qMWF Qty: 12 0RF Continued omeprazole 40 mg capsule,delayed release(DR/EC) 40 mg PO DAILY Qty: 90 1RF Rx Instructions: eat 30 minutes after taking medication. dorzolamide-timolol 22.3-6.8 mg/mL drops 1 drp OPB BID losartan 50 mg tablet 50 mg PO QAM Qty: 90 3RF Rx Instructions: for high blood pressure amlodipine 10 mg tablet 10 mg PO QPM Qty: 90 3RF ranolazine 1,000 mg tablet extended release 12 hr 1,000 mg PO BID Qty: 60 2RF Rocklatan 0.02-0.005 % drops 1 drp OPB QAM brimonidine 0.2 % drops 1 drp OPB BID levothyroxine 50 mcg tablet 50 mcg PO DAILYBB acetaminophen [Tylenol] 325 mg Tablet 650 mg PO Q6H MDD 3g/24hr PRN (Reason: Pain/Fever) hydrocortisone 2.5 % cream with perineal applicator 1 applic AR DAILY PRN (Reason: hemorrhoids) Held lactulose 20 gram/30 mL Solution 20 g PO ONCE Hold Instructions: Resume on 09/18/24. Hold until C. diff diarrhea is resolved Discontinued cilostazol 100 mg tablet 100 mg PO BID Qty: 60 5RF Eliquis 5 mg tablet 5 mg PO BID Qty: 180 3RF Hold Instructions: Resume on 08/02/24. hold until seen by PCP hydrocortisone acetate [Anusol-HC] 25 mg suppository 25 mg AR BID PRN (Reason: hemorrhoids) Qty: 24 3RF furosemide 40 mg Tablet 40 mg PO QAM Qty: 30 0RF ondansetron HCl [Zofran] 4 mg Tablet 4 mg PO Q6H PRN (Reason: Nausea And Vomiting) Rx Instructions: Start Date 08/24/24 x14 day supply magnesium hydroxide [Milk of Magnesia] 400 mg/5 mL Suspension 0 mg PO DAILY PRN (Reason: Constipation) Rx Instructions: Milk of Magnesia 7.75%: Give 30ml by mouth as needed for constipation after no BM for 3 days; administer on 7-3 shift bisacodyl [Dulcolax (bisacodyl)] 10 mg Suppository 10 mg AR DAILY PRN (Reason: Constipation) Rx Instructions: Insert 1 unit rectally as needed for constipation, give on day 3 on 3-11 shift if no BM after MOM promethazine 25 mg/mL Solution 25 mg IM Q6H PRN (Reason: Nausea And Vomiting) Rx Instructions: Start Date 08/24/24 x14 days Fleet Enema 19-7 gram/118 mL Enema 118 ml AR DAILY PRN (Reason: Constipation) Rx Instructions: Insert 1 unit rectally as needed for constipation if no BM after dulcolax, then administer on day 4 on 7-3 shift Discharge Orders: Discharge Order (Routine); Ordered 09/12/24 Ordered By: Cyn Tariq Admission Data Admit Date/Time: 08/26/24 19:42 Attending Provider: Cyn Tariq Admit Provider: Karyna Burrows Primary Care Provider: Daquan Sigala III Other Providers: Constanza Eubanks at [place]; Karyna Burrows; Scott Britt Hospital Stay Data Consultations 08/26/24 18:58 ED Decision to Admit Stat 08/27/24 11:06 Consult Pulmonology Routine 08/28/24 12:50 Consult Neurology Routine Diagnostic Imagining Performed 08/26/24 15:49 CT abd pelvis wo con Stat 08/28/24 12:[address] [CT head/brain wo con] Stat 08/28/24 12:49 MR brain wo con Stat 08/29/24 US carotid doppler BI Stat Pending Results Patient Have Any Pending Studies at Discharge: No Discharge Instructions Given to Patient (Per Discharging Provider) Please continue taking the Vancomycin by mouth, four times a day, through 09/17/24 for your C. diff diarrhea. Continue the keppra and follow up with the Neurologist for your witnessed seizures. Check a BMP in 2-3 days since we are resuming your losartan. Total Time Total Time Spent Total Time Spent (In Minutes): 35 min Total Time Includes: Examination of the Patient, Discharge Planning and Medication Reconciliation Coding Level of Care Code 63442 INP/OBS DISCH >30 MIN Diagnoses Seizure R56.9 C. difficile enteritis A04.72 LORNA (acute kidney injury) N17.9 UTI (urinary tract infection) N39.0 Plantar fasciitis of left foot M72.2 Atrial fibrillation, permanent I48.21
== END 2024-09-12 11:48 | DRG 682 ==
LOC: ED 14:44 → SUATTDRO 19:42 → 3N 19:42 → 2S 08-27 12:26 → 3W 08-31 16:12

== ENCOUNTER 2024-09-26 17:58 | Observation (INO) ==
--- NOTE | 2024-09-26 18:32 | Emergency Department Note ---
Impression & Plan Atrial fibrillation with slow ventricular response, Dizziness, Fall from standing, On apixaban therapy, Injury of right ankle and foot ED Provider Note NAME: HIWOT RANGEL AGE: 89 SEX: F : 1935 ARRIVES VIA: Ambulance INFORMANT: Patient ED PROVIDER(S): Giovani Cerna MD CHIEF COMPLAINT: Dizziness, variable heart rate, falls 2 days ago, referred. PLAN: Disposition: Admit MEDICAL DECISION MAKING: The patient is a pleasant 89-year-old woman with a past medical history of atrial fibrillation on Eliquis 2.5 mg twice daily (not on beta-cindy per records due to bradycardia), hypertension, hyperlipidemia, GERD history of Takotsubo's cardiomyopathy with subsequent normalization of LV systolic function, CAD, ambulatory dysfunction where she uses a walker who presents to the emergency department via EMS referred by home health for multiple concerns including a fall 2 days ago where the patient had tripped on her rug falling forward onto her hands and knees but hitting her face on the floor. The patient family report that she suffered a sprain of her right ankle but has been walking on it without difficulty and even report doing well during her physical therapy today. They deny having loss of consciousness. Per family's report the patient was seen by her home nurse today and there was concern of highly variable heart rate ranging from the 30s-90s with the patient reporting feeling lightheaded. Per the family the home nurse had contacted the provider on-call explaining the symptoms in the patient's fall 2 days ago on anticoagulation and they recommended immediate transfer to the emergency department via EMS and so 911 was called. Patient and family acknowledge that the patient is quite upset as she has been doing well at home and denies having any symptoms. On evaluation patient is no distress, afebrile with stable vital signs. Heart rate is in the upper 50s-70s and atrial fibrillation. Vital signs are otherwise stable. She appears euvolemic. She has no focal neurologic deficits. Head is atraumatic. There is moderate swelling/ecchymosis of the right ankle with full range of motion intact. Distal PMS is intact. There is no gross deformity. EKG demonstrates atrial fibrillation without overt acute ischemia. Chest x-ray demonstrates bibasilar airspace opacities which are nonspecific. Small bilateral pleural effusions are noted. WBC within normal limits. H/H similar to prior range values. Platelets within normal limits. Chemistry without metabolic acidosis. Potassium 3.3 and electrolytes otherwise unremarkable. LFTs are unremarkable. High-sensitivity troponin is 15, marginally above normal, nonspecific. BNP 308, nonspecific in the setting of her atrial fibrillation. TSH within normal limits. UA is pending. CT of the head was negative for acute abnormalities. Plain films of the pelvis were negative for acute fracture or dislocation. X-ray of the right foot and ankle with equivocal findings of possible small avulsion fracture of the navicular bone and questionable small avulsion fracture of the distal aspect of the anterior talus. Of note, following completion of her imaging studies family and the patient eager to be discharged as the patient's was accompanying them as he cannot be at home by himself given history of dementia and COPD with O2 dependence. Patient explained that the patient's x-ray findings if confirmed to be present may require the patient to be nonweightbearing on the right lower extremity and this may impact the patient's ambulatory function which is already impaired. Further, they report that the patient lives at home with her . They were nonetheless still eager to be discharged and were initially indicating that they would not want this study. Eventually they agreed to at least have the CT imaging but still wanted discharge. They did request that I speak to their granddaughter who was an ICU nurse at our facility and works in the surgery currently. We did discuss the patient's presentation over speaker phone in the room with all family members. We additionally reviewed concerns from the home nurse regarding fluctuation of heart rate down to the 30s which at this time is unclear if reflected artifact and was not true bradycardia. We further discussed risks of not having clear diagnosis of the patient's foot and ankle injury and did offer admission for observation. The patient and family agree did remain resistant to this. However after further discussion with their granddaughter over the phone the patient and family eventually did agree with admission to the hospital for further evaluation and management. CT of the right foot ordered and pending. Case was discussed with Dr. Burrows, [facility] hospitalist, who will evaluate the patient for admission. Of note, patient was taken to CT and CT of the abdomen pelvis ordered for another patient was performed instead of the patient's CT of the foot. This is being addressed by emergency mirror department supervisor. Admitting team aware, and will inform patient and given images have been obtained order will be placed and interpreted but will not be processed as a charge. Further management per admitting team. Triage Nursing notes reviewed and agree them. Prior/external medical records reviewed Vital Signs: reviewed Differential diagnosis: Infection, dehydration, metabolic abnormality, hypo/hyperglycemia, electrolyte disturbance, anemia, hypoxia, cardiac sources, intracerebral event, toxicologic, neurologic, as well as other pathologies. ER treatment provided: See below. Diagnostics interpreted by me: ECG: Atrial fibrillation with slow ventricular response, 50 bpm, no ectopy, no overt ST elevation or depression, QTc 428, QRS 82. Cardiac Monitoring: An order for continuous cardiac monitoring was placed and demonstrated Atrial fibrillation with slow ventricular response, 50 bpm, no ectopy. Laboratory studies: See below Imaging studies: See below Consultation(s): Case was discussed with Dr. Burrows, [facility] hospitalist, who will evaluate the patient for admission. HPI: The patient is a pleasant 89-year-old woman with a past medical history of atrial fibrillation on Eliquis 2.5 mg twice daily (not on beta-cindy per records due to bradycardia), hypertension, hyperlipidemia, GERD history of Takotsubo's cardiomyopathy with subsequent normalization of LV systolic function, CAD, ambulatory dysfunction where she uses a walker who presents to the emergency department via EMS referred by home health for multiple concerns including a fall 2 days ago where the patient had tripped on her rug falling forward onto her hands and knees but hitting her face on the floor. The patient family report that she suffered a sprain of her right ankle but has been walking on it without difficulty and even report doing well during her physical therapy today. They deny having loss of consciousness. Per family's report the patient was seen by her home nurse today and there was concern of highly variable heart rate ranging from the 30s-90s with the patient reporting feeling lightheaded. Per the family the home nurse had contacted the provider on-call explaining the symptoms in the patient's fall 2 days ago on anticoagulation and they recommended immediate transfer to the emergency department via EMS and so 911 was called. Patient and family acknowledge that the patient is quite upset as she has been doing well at home and denies having any symptoms. ROS: See above HPI for pertinent positives & negatives. A total of 10 systems reviewed and were otherwise negative. VITALS:See Below PHYSICAL EXAMINATION: GENERAL: Awake, alert, in no distress HENT: Normocephalic, atraumatic. Oropharynx unremarkable. EYES: Normal conjunctiva. Sclera non-icteric. NECK: Supple. No nuchal rigidity. FROM. No JVD. RESPIRATORY: Clear to auscultation. CARDIAC: Regular rate, irregular rhythm. Extremities warm and well perfused. Pulses equal. ABDOMEN: Soft, non-distended. No tenderness to palpation. No rebound or guarding. No masses. MUSCULOSKELETAL: Chest examination reveals no tenderness. The back is symmetrical on inspection without obvious abnormality. There is no CVA tenderness to palpation. No joint edema. LOWER EXTREMITIES: Calves are equal size bilaterally and non-tender. Moderate swelling/ecchymosis of the right ankle with full range of motion intact. Distal PMS is intact. There is no gross deformity. NEURO: Normal sensorium. No sensory or motor deficits noted. SKIN: No rash or jaundice noted. Giovani Cerna MD Past Med/Surg History Problem List (Updated 09/27/24 @ 06:36 by Giovani Cerna MD) Injury of right ankle and foot (Acute) On apixaban therapy (Acute) Fall from standing (Acute) Dizziness (Acute) Atrial fibrillation with slow ventricular response (Acute) UTI (urinary tract infection) Talus fracture Navicular fracture of ankle Dizziness Seizure C. difficile enteritis Plantar fasciitis of left foot (HFpEF) heart failure with preserved ejection fraction Acute respiratory failure with hypoxia Pulmonary edema cardiac cause Pleural effusion BRBPR (bright red blood per rectum) (Acute) Bright red blood per rectum Syncope and collapse Chest discomfort Palpitations Bilateral claudication of lower limb (Acute) VACA (dyspnea on exertion) (Acute) Abnormal nuclear stress test (Acute) Acute memory impairment Left knee DJD Abnormal CT of the chest Acid reflux Arthritis Carotid artery stenosis Constipation Glaucoma Jacques's thyroiditis Herpes zoster Hypothyroidism Mitral regurgitation Nontoxic multinodular goiter Overweight 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 Tricuspid regurgitation Ventricular tachycardia Irritable bowel syndrome (IBS) Allergic rhinitis Hx of hemorrhoids Rectal bleeding Osteopenia Impaired fasting glucose Vitamin D deficiency Back pain Urinary symptom or sign Neurological symptoms Multiple thyroid nodules Cough Cholesterol-lowering agent myopathy Constipation Renal infarct (Acute) Mesenteric artery stenosis Medical History Seizure-like activity GI bleed Atrial fibrillation, permanent History of myocardial infarction PAD (peripheral artery disease) Hypertension Hyperlipidemia Cardiomyopathy CAD in [place] artery Anticoagulant long-term use History of CVA (cerebrovascular accident) Renal infarct Hyperglycemia Claudication NSTEMI (non-ST elevated myocardial infarction) Intractable pain Surgical History History of carpal tunnel surgery History of total abdominal hysterectomy and bilateral salpingo-oophorectomy S/P appendectomy History of cholecystectomy History of thyroid surgery H/O endarterectomy History of Neurological Surgery Carotid Endarterectomy Family History Mother Diabetes Hypertension Sister Diabetes Kidney disease Hypertension Brother Kidney disease Hypertension Diabetes Father Myocardial infarction Colorectal cancer Unknown Hypertension Cardiac disorder Stroke Cancer Other Buerger's disease No family history of bleeding disorder Denies family history of Ovarian cancer Prostate cancer Breast cancer Social History Smoking Status: Never smoker Second Hand Exposure: No; Do You Dip or Chew Tobacco: No; Tobacco Cessation Education Requested by Patient: No Hx Alcohol Use: Yes Alcohol type: wine Alcohol Intake Frequency: 4 or More x per/Week Alcohol Intake Frequency Comment: 1-2 glasses per day Hx Substance Use: No Preferred Language: Swazi Communication Ability: Effective Visual Impairment: Limited Hearing Ability: Normal Foil Spinner Required: No Beliefs That Will Affect Care: None marital status: Current Living Situation: Spouse Current Living Situation Comment: mobile home current occupational status: retired current occupation: Retired-[employer] Other Information That Helps Us Care for You: No Feels Safe at Home: Yes Safety Concerns: Feels Safe At This Time Childhood Exposure to Second-Hand Smoke: No Diet: regular caffeine: Yes during the past year weight has: remained stable Dental Care, Regularly: No Physical Activity Frequency: Does not Exercise Seatbelt Use: always Sunscreen Use: Yes Assistive Devices: Glasses and Walker Allergies Allergies Allergy/AdvReac Type Severity Reaction Status Date / Time Penicillins Allergy Intermediate RASH ONLY Verified 08/26/24 18:22 atorvastatin AdvReac Intermediate MUSCLE Verified 08/26/24 18:22 CRAMPS/PAIN pravastatin AdvReac Intermediate MUSCLE Verified 08/26/24 18:22 CRAMPS/PAIN simvastatin AdvReac Intermediate MUSCLE Verified 08/26/24 18:22 CRAMPS/PAIN Home Meds Home Medications Medication Instructions Recorded Confirmed dorzolamide 22.3 mg-timolol 6.8 1 drp OPB BID 02/23/19 09/26/24 mg/mL eye drops brimonidine 0.2 % eye drops 1 drp OPB BID 05/07/19 09/26/24 netarsudil 0.02 %-latanoprost 1 drp OPB QAM 05/30/24 09/26/24 0.005 % eye drops (Rocklatan) acetaminophen 325 mg tablet 650 mg PO Q6H PRN Pain/Fever 08/26/24 09/26/24 (Tylenol) Previous Rx's Medication Instructions Recorded omeprazole 40 mg capsule,delayed 40 mg PO DAILY #90 caps 04/13/24 release amlodipine 10 mg tablet 10 mg PO QPM #90 tabs 04/16/24 losartan 50 mg tablet 50 mg PO QAM #90 tabs 04/16/24 ranolazine 1,000 mg 1,000 mg PO BID #60 tabs 08/08/24 tablet,extended release,12 hr apixaban 2.5 mg tablet (Eliquis) 2.5 mg PO BID #60 tabs 09/11/24 aspirin 81 mg tablet,delayed 81 mg PO DAILY #30 tabs 09/11/24 release furosemide 20 mg tablet (Lasix) 20 mg PO .qMWF #12 tabs 09/11/24 levetiracetam 500 mg tablet 500 mg PO BID #60 tabs 09/11/24 (Keppra) melatonin 3 mg tablet 3 mg PO HS #30 tabs 09/11/24 zinc oxide 16 % topical ointment 1 applic EXT BID #57 grams 09/11/24 (Boudreauxs Butt Paste) levothyroxine 50 mcg tablet 50 mcg PO DAILYBB #90 tabs 09/24/24 Results & Data (ED) Vital Signs Vital Signs - 24 hr 09/26/24 18:08 09/26/24 18:08 09/26/24 18:08 Temperature 36.6 C Temperature Source Oral Pulse Rate 72 Pulse Rate [Right Brachial] 72 Pulse Rate from SpO2 Sensor Pulse Rhythm Regular Pulse Rhythm [Right Brachial] Regular Pulse Strength Normal Pulse Strength [Right Brachial] Normal Respiratory Rate 18 18 Respiratory Effort / Characteristics Non-Labored Non-Labored Respiratory Depth Normal Normal Respiratory Pattern Regular Regular Blood Pressure 142/67 H Blood Pressure [Right Arm] 142/67 H Blood Pressure Mean 92 Blood Pressure Mean [Right Arm] 92 Blood Pressure Position Lying Blood Pressure Position [Right Arm] Lying Pulse Oximetry 96 96 Oxygen Delivery Method Room Air Room Air Room Air Sepsis Recent Fever Within 48 Hours No Sepsis New/Unexplained Change in Mental Status No Sepsis Action Taken by Nursing No Action Required 09/26/24 18:16 09/26/24 18:42 09/26/24 20:00 Temperature Temperature Source Pulse Rate 51 L Pulse Rate [Right Brachial] 60 Pulse Rate from SpO2 Sensor Pulse Rhythm Pulse Rhythm [Right Brachial] Regular Pulse Strength Pulse Strength [Right Brachial] Normal Respiratory Rate 18 Respiratory Effort / Characteristics Non-Labored Respiratory Depth Normal Respiratory Pattern Regular Blood Pressure Blood Pressure [Right Arm] 147/55 H Blood Pressure Mean Blood Pressure Mean [Right Arm] 85 Blood Pressure Position Blood Pressure Position [Right Arm] Lying Pulse Oximetry 98 96 Oxygen Delivery Method Room Air Room Air Sepsis Recent Fever Within 48 Hours Sepsis New/Unexplained Change in Mental Status Sepsis Action Taken by Nursing 09/26/24 22:00 09/26/24 22:12 09/26/24 22:12 Temperature Temperature Source Pulse Rate 66 Pulse Rate [Right Brachial] 56 L Pulse Rate from SpO2 Sensor Pulse Rhythm Pulse Rhythm [Right Brachial] Regular Pulse Strength Pulse Strength [Right Brachial] Normal Respiratory Rate 16 20 Respiratory Effort / Characteristics Non-Labored Respiratory Depth Normal Respiratory Pattern Regular Blood Pressure 147/61 H 147/61 H Blood Pressure [Right Arm] 147/61 H Blood Pressure Mean 96 96 Blood Pressure Mean [Right Arm] 89 Blood Pressure Position Blood Pressure Position [Right Arm] Lying Pulse Oximetry 92 94 Oxygen Delivery Method Room Air Sepsis Recent Fever Within 48 Hours Sepsis New/Unexplained Change in Mental Status Sepsis Action Taken by Nursing 09/26/24 22:12 09/26/24 22:12 09/26/24 23:09 Temperature Temperature Source Pulse Rate 57 L 60 Pulse Rate [Right Brachial] Pulse Rate from SpO2 Sensor 58 L Pulse Rhythm Pulse Rhythm [Right Brachial] Pulse Strength Pulse Strength [Right Brachial] Respiratory Rate 24 23 Respiratory Effort / Characteristics Respiratory Depth Respiratory Pattern Blood Pressure 147/61 H 147/61 H Blood Pressure [Right Arm] Blood Pressure Mean 96 89 Blood Pressure Mean [Right Arm] Blood Pressure Position Blood Pressure Position [Right Arm] Pulse Oximetry 94 94 Oxygen Delivery Method Sepsis Recent Fever Within 48 Hours Sepsis New/Unexplained Change in Mental Status Sepsis Action Taken by Nursing 09/26/24 23:12 Temperature Temperature Source Pulse Rate 54 L Pulse Rate [Right Brachial] Pulse Rate from SpO2 Sensor 55 L Pulse Rhythm Pulse Rhythm [Right Brachial] Pulse Strength Pulse Strength [Right Brachial] Respiratory Rate 24 Respiratory Effort / Characteristics Respiratory Depth Respiratory Pattern Blood Pressure Blood Pressure [Right Arm] Blood Pressure Mean Blood Pressure Mean [Right Arm] Blood Pressure Position Blood Pressure Position [Right Arm] Pulse Oximetry 95 Oxygen Delivery Method Sepsis Recent Fever Within 48 Hours Sepsis New/Unexplained Change in Mental Status Sepsis Action Taken by Nursing Laboratory Data Attestation: I reviewed the patient's lab results. 09/26/24 18:04 09/26/24 18:04 Lab Results 09/26/24 Range/Units 18:04 WBC 6.33 (4.8-10.8) K/ul RBC 3.59 L (4.20-5.40) M/uL Hgb 11.4 L (12.0-16.0) g/dl Hct 34.5 L (37.0-47.0) % MCV 96.1 (80.0-100.0) fL MCH 31.8 (25.0-34.0) pg MCHC 33.0 (32.0-36.0) g/dL RDW Std Deviation 53.9 H (36.4-46.3) fL RDW Coeff of Maritza 15.1 H (11.5-14.5) % Plt Count 300 (130-400) K/uL MPV 10.8 (9.4-12.4) fL Immature Gran % (Auto) 0.3 % Neut % (Auto) 55.9 % Lymph % (Auto) 31.8 % [place] % (Auto) 10.1 % Eos % (Auto) 1.3 % Baso % (Auto) 0.6 % Neut # (Auto) 3.54 (1.40-6.50) K/uL Lymph # (Auto) 2.01 (1.20-3.40) K/uL [place] # (Auto) 0.64 H (0.11-0.59) K/uL Eos # (Auto) 0.08 (0.00-0.50) K/uL Baso # (Auto) 0.04 (0.00-0.20) K/uL Immature Gran # (Auto) 0.02 (0.01-0.20) K/uL PT 11.2 (9.0-12.0) Seconds INR 1.0 (0.9-1.1) Sodium 138 (136-145) mmol/L Potassium 3.3 L (3.5-5.1) mmol/L Chloride 104 (98-107) mmol/L Carbon Dioxide 24 (21-32) mmol/L Anion Gap 10 (3-11) BUN 17 (6-23) mg/dl Creatinine 0.73 (0.6-1.2) mg/dl Est Cr Clr Drug Dosing 45.0 ml/min eGFR 78.56 BUN/Creatinine Ratio 23.3 H (10-20) Glucose 93 (70-99(Fasting)) mg/dl Calcium 9.4 (8.6-10.3) mg/dl Phosphorus 3.6 (2.5-4.9) mg/dl Magnesium 1.7 (1.7-2.4) mg/dl Total Bilirubin 0.6 (0.2-1.0) mg/dl AST 11 L (13-39) U/L ALT 8 (7-52) U/L Alkaline Phosphatase 53 (34-104) U/L Troponin I High Sens 15.0 H (0-14) pg/ml B-Natriuretic Peptide 308 H (0-100) pg/ml Total Protein 6.9 (6.0-8.3) gm/dl Albumin 4.0 (3.4-5.0) gm/dl Globulin 2.9 (2.5-4.0) gm/dl Albumin/Globulin Ratio 1.4 (0.9-2) Lipase 27 (11-82) U/L TSH 1.052 (0.300-4.500) uIu/ml Administered Medications Apixaban (Apixaban 2.5 Mg Tab) 2.5 mg PO BID [facility] Stop: 10/27/24 01:30 Last Admin: 09/27/24 02:48 Dose: 2.5 mg Documented By: DOUG Sodium Chloride (Nss) 1,000 mls @ 80 mls/hr IV .[id number] ELZA Stop: 09/28/24 01:30 Last Admin: 09/27/24 02:25 Dose: 80 mls/hr Documented By: DOUG Levetiracetam (Levetiracetam 500 Mg Tab) 500 mg PO BID [facility] Stop: 10/27/24 01:30 Last Admin: 09/27/24 02:48 Dose: 500 mg Documented By: DOUG Levothyroxine Sodium (Levothyroxine Sodium 50 Mcg Tablet) 50 mcg PO DAILYBB [facility] Stop: 10/27/24 06:29 Last Admin: 09/27/24 06:07 Dose: 50 mcg Documented By: DOUG Discontinued Medications Potassium Chloride (K Moy / Wtr) 10 meq in 100 mls @ 100 mls/hr IV Q1H [facility] Stop: 09/27/24 03:59 Last Infusion: 09/27/24 04:40 Dose: Infused Documented By: Admin: 09/27/24 03:18 Dose: 100 mls/hr Documented By: Infusion: 09/27/24 03:18 Dose: Infused Documented By: Admin: 09/27/24 02:25 Dose: 100 mls/hr Documented By: DOUG Ioversol (Optiray 320 100ml) 100 ml IV ONCE ONE Stop: 09/27/24 01:57 Last Admin: 09/27/24 01:56 Dose: 93 ml Documented By: GUILLERMO Imaging Data Radiologist's Impression: Chest X-Ray 09/26/24 18:29 Exam(s): XR CXR 1 VIEW EXAM: XR Chest, 1 View CLINICAL HISTORY: Palpitations. TECHNIQUE: Frontal view of the chest. COMPARISON: Chest radiograph 08/27/2024 FINDINGS: Lungs: Bilateral airspace opacities may represent pulmonary edema and/or atypical infection. Pleural space: Small bilateral pleural effusions, worse on the left. No pneumothorax. Heart: Cardiomegaly. Mediastinum: Unremarkable. Normal mediastinal contour. Bones/joints: Degenerative changes of the spine are noted. No acute fracture. IMPRESSION: 1. Bilateral airspace opacities may represent pulmonary edema and/or atypical infection. 2. Cardiomegaly. 3. Small bilateral pleural effusions, worse on the left. Electronically signed by: Carolyn Otto MD 09/26/24 21:05 PM Ankle X-Ray 09/26/24 19:44 Exam(s): XR RIGHT ANKLE, 3+ views EXAM: XR Right Ankle Complete, 3 or More Views CLINICAL HISTORY: Injury. TECHNIQUE: Frontal, lateral and oblique views of the right ankle. COMPARISON: No relevant prior studies available. FINDINGS: Bones/joints: Calcaneal enthesophyte is noted. No acute fracture. No dislocation. Soft tissues: There is nonspecific soft tissue swelling of the ankle. Vasculature: There are vascular calcifications. IMPRESSION: There is nonspecific soft tissue swelling of the ankle. No underlying fracture or dislocation. Electronically signed by: Carolyn Otto MD 09/26/24 21:[address] 09/26/24 19:44 Exam(s): CT HEAD Without Contrast EXAM: CT Head Without Intravenous Contrast CLINICAL HISTORY: fall. TECHNIQUE: Axial computed tomography images of the head/brain without intravenous contrast. CTDI is 37.61 mGy and DLP is 625.8 mGy-cm. Automated exposure control was utilized for the study. A dose lowering technique was utilized adhering to the principles of ALARA. COMPARISON: 08/28/2024. FINDINGS: Brain: Age-appropriate generalized atrophy. No acute stroke. 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 Mild supratentorial periventricular and subcortical white matter changes. No acute hemorrhage or abnormal extra-axial fluid collection. Ventricles: No hydrocephalus. No midline shift. Bones/joints: Unchanged 5 mm lobe calcification the table anterior aspect left frontal calvarium, possibly small meningioma without significant mass-effect. No acute fracture. Soft tissues: Unremarkable. Sinuses: Unremarkable as visualized. No acute sinusitis. IMPRESSION: No acute post-traumatic intracranial abnormality. Electronically signed by: Bogdan Baer M.D. 09/26/24 21:40 PM Pelvis X-Ray 09/26/24 19:44 Exam(s): XR PELVIS, 1-2 views EXAM: XR Pelvis, 1 or 2 Views CLINICAL HISTORY: Injury. TECHNIQUE: Frontal view of the pelvis. 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 No definitive fracture. Moderate degenerative changes of the left hip are noted. No dislocation. Soft tissues: Unremarkable. 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 No definitive fracture. If clinical concern is high consider further evaluation with CT. Electronically signed by: Carolyn Otto MD 09/26/24 21:43 PM Foot X-Ray 09/26/24 19:45 Exam(s): XR RIGHT FOOT, 3+ views EXAM: XR Right Foot Complete, 3 or More Views CLINICAL HISTORY: Fall. TECHNIQUE: Frontal, lateral and oblique views of the right foot. COMPARISON: No relevant prior studies available. FINDINGS: Bones/joints: Small avulsion fracture of the navicular bone. Question small avulsion fracture of the distal aspect of the anterior talus. Calcaneal enthesophytes are noted. No dislocation. Soft tissues: Nonspecific soft tissue swelling of the foot. No radiopaque foreign body. IMPRESSION: 1. Small avulsion fracture of the navicular bone. 2. Question small avulsion fracture of the distal aspect of the anterior talus. 3. Nonspecific soft tissue swelling of the foot. Electronically signed by: Carolyn Otto MD 09/26/24 21:43 PM Discharge Plan Visit Data Chief Complaint: Cardiac Assessment Stated Complaint: CARDIAC ASSESSMENT ED Provider: Giovani Cerna Discharge Problem: Atrial fibrillation with slow ventricular response, Dizziness, Fall from standing, On apixaban therapy, Injury of right ankle and foot Patient Disposition: Admitted As Inpatient Discharge Instructions Interventions: ED Discharge Assessment Last Done: 09/27/24 00:50 Discharge Problem: Fall from standing Qualifiers: Encounter type: initial encounter Qualified Code(s): W19.XXXA - Unspecified fall, initial encounter Injury of right ankle and foot Qualifiers: Encounter type: initial encounter Qualified Code(s): S99.911A - Unspecified injury of right ankle, initial encounter
[2024-09-26 18:41] LABS: Basophils # (auto) 0.04 K/uL (0.00-0.20); Basophils % (auto) 0.6 %; Eosinophils # (auto) 0.08 K/uL (0.00-0.50); Eosinophils % (auto) 1.3 %; Hematocrit (blood only) 34.5 % (37.0-47.0); Hemoglobin 11.4 g/dl (12.0-16.0); Immature Granulocytes # (auto) 0.02 K/uL (0.01-0.20); Immature Granulocytes % (auto) 0.3 %; Lymphocytes # (auto) 2.01 K/uL (1.20-3.40); Lymphocytes % (auto) 31.8 %; Mean Corpuscular Hemoglobin 31.8 pg (25.0-34.0); Mean Corpuscular Volume 96.1 fL (80.0-100.0); Mean Platelet Volume 10.8 fL (9.4-12.4); Monocytes # (auto) 0.64 K/uL (0.11-0.59); Monocytes % (auto) 10.1 %; Neutrophils # (auto) 3.54 K/uL (1.40-6.50); Neutrophils % (auto) 55.9 %; Platelet Count 300 K/uL (130-400); RDW Coefficient of Variation 15.1 % (11.5-14.5); RDW Standard Deviation 53.9 fL (36.4-46.3); Red Blood Count 3.59 M/uL (4.20-5.40); White Blood Count 6.33 K/ul (4.8-10.8)
[2024-09-26 19:05] LABS: Albumin Globulin Ratio 1.4 (0.9-2); BUN Creatinine Ratio 23.3 (10-20); Bilirubin,Total 0.6 mg/dl (0.2-1.0); Calcium 9.4 mg/dl (8.6-10.3); Globulin 2.9 gm/dl (2.5-4.0); Magnesium 1.7 mg/dl (1.7-2.4); Phosphorus 3.6 mg/dl (2.5-4.9); Potassium 3.3 mmol/L (3.5-5.1); Total Protein 6.9 gm/dl (6.0-8.3)
[2024-09-26 19:20] LABS: Prothrombin Time 11.2 Seconds (9.0-12.0)
[2024-09-26 19:21] LABS: Thyroid Stimulating Hormone 1.052 uIu/ml (0.300-4.500)
--- NOTE | 2024-09-26 21:06 | XRay Report ---
Exam(s): XR CXR 1 VIEW EXAM: XR Chest, 1 View CLINICAL HISTORY: Palpitations. TECHNIQUE: Frontal view of the chest. COMPARISON: Chest radiograph 08/27/2024 FINDINGS: Lungs: Bilateral airspace opacities may represent pulmonary edema and/or atypical infection. Pleural space: Small bilateral pleural effusions, worse on the left. No pneumothorax. Heart: Cardiomegaly. Mediastinum: Unremarkable. Normal mediastinal contour. Bones/joints: Degenerative changes of the spine are noted. No acute fracture. IMPRESSION: 1. Bilateral airspace opacities may represent pulmonary edema and/or atypical infection. 2. Cardiomegaly. 3. Small bilateral pleural effusions, worse on the left. Electronically signed by: Carolyn Otto MD 09/26/24 21:05 PM
--- NOTE | 2024-09-26 21:40 | CT Scan Report ---
Exam(s): CT HEAD Without Contrast EXAM: CT Head Without Intravenous Contrast CLINICAL HISTORY: fall. TECHNIQUE: Axial computed tomography images of the head/brain without intravenous contrast. CTDI is 37.61 mGy and DLP is 625.8 mGy-cm. Automated exposure control was utilized for the study. A dose lowering technique was utilized adhering to the principles of ALARA. COMPARISON: 08/28/2024. FINDINGS: Brain: Age-appropriate generalized atrophy. No acute stroke. 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 Mild supratentorial periventricular and subcortical white matter changes. No acute hemorrhage or abnormal extra-axial fluid collection. Ventricles: No hydrocephalus. No midline shift. Bones/joints: Unchanged 5 mm lobe calcification the table anterior aspect left frontal calvarium, possibly small meningioma without significant mass-effect. No acute fracture. Soft tissues: Unremarkable. Sinuses: Unremarkable as visualized. No acute sinusitis. IMPRESSION: No acute post-traumatic intracranial abnormality. Electronically signed by: Bogdan Baer M.D. 09/26/24 21:40 PM
--- NOTE | 2024-09-26 21:42 | XRay Report ---
Exam(s): XR RIGHT ANKLE, 3+ views EXAM: XR Right Ankle Complete, 3 or More Views CLINICAL HISTORY: Injury. TECHNIQUE: Frontal, lateral and oblique views of the right ankle. COMPARISON: No relevant prior studies available. FINDINGS: Bones/joints: Calcaneal enthesophyte is noted. No acute fracture. No dislocation. Soft tissues: There is nonspecific soft tissue swelling of the ankle. Vasculature: There are vascular calcifications. IMPRESSION: There is nonspecific soft tissue swelling of the ankle. No underlying fracture or dislocation. Electronically signed by: Carolyn Otto MD 09/26/24 21:41 PM
--- NOTE | 2024-09-26 21:43 | XRay Report ---
Exam(s): XR PELVIS, 1-2 views EXAM: XR Pelvis, 1 or 2 Views CLINICAL HISTORY: Injury. TECHNIQUE: Frontal view of the pelvis. 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 No definitive fracture. Moderate degenerative changes of the left hip are noted. No dislocation. Soft tissues: Unremarkable. 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 No definitive fracture. If clinical concern is high consider further evaluation with CT. Electronically signed by: Carolyn Otto MD 09/26/24 21:43 PM
--- NOTE | 2024-09-26 21:44 | XRay Report ---
Exam(s): XR RIGHT FOOT, 3+ views EXAM: XR Right Foot Complete, 3 or More Views CLINICAL HISTORY: Fall. TECHNIQUE: Frontal, lateral and oblique views of the right foot. COMPARISON: No relevant prior studies available. FINDINGS: Bones/joints: Small avulsion fracture of the navicular bone. Question small avulsion fracture of the distal aspect of the anterior talus. Calcaneal enthesophytes are noted. No dislocation. Soft tissues: Nonspecific soft tissue swelling of the foot. No radiopaque foreign body. IMPRESSION: 1. Small avulsion fracture of the navicular bone. 2. Question small avulsion fracture of the distal aspect of the anterior talus. 3. Nonspecific soft tissue swelling of the foot. Electronically signed by: Carolyn Otto MD 09/26/24 21:43 PM
--- NOTE | 2024-09-26 22:46 | History & Physical Report ---
Date of Service September 26, 2024 Assessment & Plan (1) Dizziness: Plan: -Patient with A-fib on Eliquis. -CBC benign, PT/INR normal, CMP unremarkable. -BNP of 308. -Troponin of 15. -TSH normal. -Head CT negative. -Chest x-ray showed bilateral airspace opacities which may represent pulmonary edema and/or atypical infection. Cardiomegaly and small bilateral pleural effusions worse on the left. -Due to patient having issues with standing up and getting dizzy we will put Gamble in to limit fall risk until etiology of dizziness is determined. -CT abdomen and pelvis was done. Will follow results though should not change plan. -Will hold amlodipine and losartan and monitor on telemetry. -Will consult cardiology as patient has been having episodes of tacky bradycardia syndrome causing dizziness. (2) Atrial fibrillation, permanent: Plan: -Patient with A-fib on Eliquis. -Will continue monitor on telemetry and consult cardiology. (3) Navicular fracture of ankle: Plan: -Foot x-ray of the right foot shows small avulsion fracture at the navicular bone. Also showed questionable small avulsion fracture of the distal aspect of the anterior talus. -CT of the foot pending at time of admission. -PT OT ordered. -Will consult orthopedics. (4) Talus fracture: Plan: -As above, awaiting CT results. (5) UTI (urinary tract infection): Plan: -Patient with a positive UA for UTI. -Patient is asymptomatic and not having any urinary symptoms. -Will hold off on antibiotic therapy at this time. -Gamble placed due to fall risk secondary to dizziness upon standing. (6) Hypertension: Plan: -Patient currently takes amlodipine 10 mg, losartan 50 mg, as well as Lasix 40 mg once a day. -Will hold amlodipine and losartan due to symptoms of tacky bradycardia. -Will consult cardiology. (7) (HFpEF) heart failure with preserved ejection fraction: Plan: -Echo done on 08-27-2024 showed an EF over 70. -Continue on Lasix 40 mg daily as patient has had recent admissions needing diuresis. -May consider decreasing doses of Lasix if contributing to dizziness. -Will hold off on another echo at this time. Consult cardiology. (8) Seizure: Plan: -Recently diagnosed, continue on Keppra 500 mg twice daily. (9) Hypothyroidism: Plan: -TSH of 1.0 -Continue on Synthroid 50 mcg. (10) PAD (peripheral artery disease): Plan: -Noted. History of Present Illness Chief Complaint: dizziness, ?tachybrady, ?Talus-navic fx Primary Care Provider: Daquan Sigala III, MD Patient is an 89-year-old Who presents to the hospital with fluctuating pulse rate. Patient was recently admitted and DC'd to SNF. Patient was admitted to the hospital from August 14 to August 24. She was admitted for shortness of breath and worsening lower extremity edema as well as nausea and vomiting. She was then readmitted to [facility] from August 26 to September 12. During that admission she had a seizure. She was discharged with Keppra 500 mg twice daily and to follow-up with neurology. She did have an episode with therapy that had lightheadedness with bradycardia and hypotension. Also has a history of C. difficile. She then went home and fell on Tuesday due to not using her walker. She has been also feeling very dizzy and lightheaded. States that her pulse has been fluctuating between fast and slow. Allergies Allergy/AdvReac Type Severity Reaction Status Date / Time Penicillins Allergy Intermediate RASH ONLY Verified 08/26/24 18:22 atorvastatin AdvReac Intermediate MUSCLE Verified 08/26/24 18:22 CRAMPS/PAIN pravastatin AdvReac Intermediate MUSCLE Verified 08/26/24 18:22 CRAMPS/PAIN simvastatin AdvReac Intermediate MUSCLE Verified 08/26/24 18:22 CRAMPS/PAIN Home Medications Medication Instructions Recorded Confirmed Type dorzolamide 22.3 mg-timolol 6.8 1 drp OPB BID 02/23/19 09/26/24 History mg/mL eye drops brimonidine 0.2 % eye drops 1 drp OPB BID 05/07/19 09/26/24 History omeprazole 40 mg capsule,delayed 40 mg PO DAILY #90 caps 04/13/24 09/26/24 Rx release amlodipine 10 mg tablet 10 mg PO QPM #90 tabs 04/16/24 09/26/24 Rx losartan 50 mg tablet 50 mg PO QAM #90 tabs 04/16/24 09/26/24 Rx netarsudil 0.02 %-latanoprost 1 drp OPB QAM 05/30/24 09/26/24 History 0.005 % eye drops (Rocklatan) ranolazine 1,000 mg 1,000 mg PO BID #60 tabs 08/08/24 09/26/24 Rx tablet,extended release,12 hr acetaminophen 325 mg tablet 650 mg PO Q6H PRN Pain/Fever 08/26/24 09/26/24 History (Tylenol) apixaban 2.5 mg tablet (Eliquis) 2.5 mg PO BID #60 tabs 09/11/24 09/26/24 Rx aspirin 81 mg tablet,delayed 81 mg PO DAILY #30 tabs 09/11/24 09/26/24 Rx release furosemide 20 mg tablet (Lasix) 20 mg PO .qMWF #12 tabs 09/11/24 09/26/24 Rx levetiracetam 500 mg tablet 500 mg PO BID #60 tabs 09/11/24 09/26/24 Rx (Keppra) melatonin 3 mg tablet 3 mg PO HS #30 tabs 09/11/24 09/26/24 Rx zinc oxide 16 % topical ointment 1 applic EXT BID #57 grams 09/11/24 09/26/24 Rx (Boudreauxs Butt Paste) levothyroxine 50 mcg tablet 50 mcg PO DAILYBB #90 tabs 09/24/24 09/26/24 Rx Past Med/Surg History Problem List (Updated 09/27/24 @ 06:36 by Giovani Cerna MD) Injury of right ankle and foot (Acute) On apixaban therapy (Acute) Fall from standing (Acute) Dizziness (Acute) Atrial fibrillation with slow ventricular response (Acute) UTI (urinary tract infection) Talus fracture Navicular fracture of ankle Dizziness Seizure C. difficile enteritis Plantar fasciitis of left foot (HFpEF) heart failure with preserved ejection fraction Acute respiratory failure with hypoxia Pulmonary edema cardiac cause Pleural effusion BRBPR (bright red blood per rectum) (Acute) Bright red blood per rectum Syncope and collapse Chest discomfort Palpitations Bilateral claudication of lower limb (Acute) VACA (dyspnea on exertion) (Acute) Abnormal nuclear stress test (Acute) Acute memory impairment Left knee DJD Abnormal CT of the chest Acid reflux Arthritis Carotid artery stenosis Constipation Glaucoma Jacques's thyroiditis Herpes zoster Hypothyroidism Mitral regurgitation Nontoxic multinodular goiter Overweight 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 Tricuspid regurgitation Ventricular tachycardia Irritable bowel syndrome (IBS) Allergic rhinitis Hx of hemorrhoids Rectal bleeding Osteopenia Impaired fasting glucose Vitamin D deficiency Back pain Urinary symptom or sign Neurological symptoms Multiple thyroid nodules Cough Cholesterol-lowering agent myopathy Constipation Renal infarct (Acute) Mesenteric artery stenosis Medical History Seizure-like activity GI bleed Atrial fibrillation, permanent History of myocardial infarction PAD (peripheral artery disease) Hypertension Hyperlipidemia Cardiomyopathy CAD in [place] artery Anticoagulant long-term use History of CVA (cerebrovascular accident) Renal infarct Hyperglycemia Claudication NSTEMI (non-ST elevated myocardial infarction) Intractable pain Surgical History History of carpal tunnel surgery History of total abdominal hysterectomy and bilateral salpingo-oophorectomy S/P appendectomy History of cholecystectomy History of thyroid surgery H/O endarterectomy History of Neurological Surgery Carotid Endarterectomy Family History Mother Diabetes Hypertension Sister Diabetes Kidney disease Hypertension Brother Kidney disease Hypertension Diabetes Father Myocardial infarction Colorectal cancer Unknown Hypertension Cardiac disorder Stroke Cancer Other Buerger's disease No family history of bleeding disorder Denies family history of Ovarian cancer Prostate cancer Breast cancer Social History Smoking Status: Never smoker Second Hand Exposure: No; Do You Dip or Chew Tobacco: No; Tobacco Cessation Education Requested by Patient: No Hx Alcohol Use: Yes Alcohol type: wine Alcohol Intake Frequency: 4 or More x per/Week Alcohol Intake Frequency Comment: 1-2 glasses per day Hx Substance Use: No Preferred Language: Kinyarwanda Communication Ability: Effective Visual Impairment: Limited Hearing Ability: Normal Insulation Professional Required: No Beliefs That Will Affect Care: None marital status: Current Living Situation: Spouse Current Living Situation Comment: mobile home current occupational status: retired current occupation: Retired-[employer] Other Information That Helps Us Care for You: No Feels Safe at Home: Yes Safety Concerns: Feels Safe At This Time Childhood Exposure to Second-Hand Smoke: No Diet: regular caffeine: Yes during the past year weight has: remained stable Dental Care, Regularly: No Physical Activity Frequency: Does not Exercise Seatbelt Use: always Sunscreen Use: Yes Assistive Devices: Glasses and Walker Review of Systems Review of Systems: All systems reviewed & are unremarkable except as noted in Subjective Physical Exam Physical Exam: Constitutional: well-appearing, no acute distress HEENT: NCAT, no conjunctival injection CV: regular rhythm, no murmur appreciated, extremities well-perfused, no LE edema Resp: CTABL, no wheezes/rales/rhonchi appreciated, no increased work of breathing GI: soft, nondistended, nontender, BS normoactive MSK: no gross deformities appreciated Skin: warm, dry, no rash appreciated Neuro: alert, oriented, no focal neurologic deficit appreciated Results & Data Results & Data Vital Signs (Past 12 Hours) Vital Signs Temp Pulse Pulse Resp BP BP Pulse Ox 09/26/24 22:00 56 L 16 147/61 H 92 09/26/24 20:00 60 18 147/55 H 96 09/26/24 18:42 98 09/26/24 18:16 51 L 09/26/24 18:08 72 18 142/67 H 96 09/26/24 18:08 09/26/24 18:08 36.6 C 72 18 142/67 H 96 O2 Del Method 09/26/24 22:00 Room Air 09/26/24 20:00 Room Air 09/26/24 18:42 Room Air 09/26/24 18:16 09/26/24 18:08 Room Air 09/26/24 18:08 Room Air 09/26/24 18:08 Room Air Laboratory Results Laboratory Results WBC 6.33 K/ul (4.8-10.8) 09/26/24 18:04 RBC 3.59 M/uL (4.20-5.40) L 09/26/24 18:04 Hgb 11.4 g/dl (12.0-16.0) L 09/26/24 18:04 Hct 34.5 % (37.0-47.0) L 09/26/24 18:04 MCV 96.1 fL (80.0-100.0) 09/26/24 18:04 MCH 31.8 pg (25.0-34.0) 09/26/24 18:04 MCHC 33.0 g/dL (32.0-36.0) 09/26/24 18:04 RDW Std Deviation 53.9 fL (36.4-46.3) H 09/26/24 18:04 RDW Coeff of Marit[place] 15.1 % (11.5-14.5) H 09/26/24 18:04 Plt Count 300 K/uL (130-400) 09/26/24 18:04 MPV 10.8 fL (9.4-12.4) 09/26/24 18:04 Immature Gran % (Auto) 0.3 % 09/26/24 18:04 Neut % (Auto) 55.9 % 09/26/24 18:04 Lymph % (Auto) 31.8 % 09/26/24 18:04 [place] % (Auto) 10.1 % 09/26/24 18:04 Eos % (Auto) 1.3 % 09/26/24 18:04 Baso % (Auto) 0.6 % 09/26/24 18:04 Neut # (Auto) 3.54 K/uL (1.40-6.50) 09/26/24 18:04 Lymph # (Auto) 2.01 K/uL (1.20-3.40) 09/26/24 18:04 [place] # (Auto) 0.64 K/uL (0.11-0.59) H 09/26/24 18:04 Eos # (Auto) 0.08 K/uL (0.00-0.50) 09/26/24 18:04 Baso # (Auto) 0.04 K/uL (0.00-0.20) 09/26/24 18:04 Immature Gran # (Auto) 0.02 K/uL (0.01-0.20) 09/26/24 18:04 PT 11.2 Seconds (9.0-12.0) 09/26/24 18:04 INR 1.0 (0.9-1.1) 09/26/24 18:04 Sodium 138 mmol/L (136-145) 09/26/24 18:04 Potassium 3.3 mmol/L (3.5-5.1) L 09/26/24 18:04 Chloride 104 mmol/L (98-107) 09/26/24 18:04 Carbon Dioxide 24 mmol/L (21-32) 09/26/24 18:04 Anion Gap 10 (3-11) 09/26/24 18:04 BUN 17 mg/dl (6-23) 09/26/24 18:04 Creatinine 0.73 mg/dl (0.6-1.2) 09/26/24 18:04 Est Cr Clr Drug Dosing 45.0 ml/min 09/26/24 18:04 eGFR 78.56 09/26/24 18:04 BUN/Creatinine Ratio 23.3 (10-20) H 09/26/24 18:04 Glucose 93 mg/dl (70-99(Fasting)) 09/26/24 18:04 Calcium 9.4 mg/dl (8.6-10.3) 09/26/24 18:04 Phosphorus 3.6 mg/dl (2.5-4.9) 09/26/24 18:04 Magnesium 1.7 mg/dl (1.7-2.4) 09/26/24 18:04 Total Bilirubin 0.6 mg/dl (0.2-1.0) 09/26/24 18:04 AST 11 U/L (13-39) L 09/26/24 18:04 ALT 8 U/L (7-52) 09/26/24 18:04 Alkaline Phosphatase 53 U/L (34-104) 09/26/24 18:04 Troponin I High Sens 15.0 pg/ml (0-14) H 09/26/24 18:04 B-Natriuretic Peptide 308 pg/ml (0-100) H 09/26/24 18:04 Total Protein 6.9 gm/dl (6.0-8.3) 09/26/24 18:04 Albumin 4.0 gm/dl (3.4-5.0) 09/26/24 18:04 Globulin 2.9 gm/dl (2.5-4.0) 09/26/24 18:04 Albumin/Globulin Ratio 1.4 (0.9-2) 09/26/24 18: Lipase 27 U/L (11-82) 09/26/24 18: TSH 1.052 uIu/ml (0.300-4.500) 09/26/24 18:04 Urine Color Yellow 09/26/24 23:20 Urine Appearance Cloudy (Clear) A 09/26/24 23:20 Urine pH 5.0 (4.5-7.5) 09/26/24 23:20 Ur Specific [place] 1.020 (1.000-1.030) 09/26/24 23:20 Urine Protein Negative (Negative) 09/26/24 23:20 Urine Glucose (UA) Negative (Negative) 09/26/24 23:20 Urine Ketones Negative (Negative) 09/26/24 23:20 Urine Blood Negative (Negative) 09/26/24 23:20 Urine Nitrite Positive (Negative) A 09/26/24 23:20 Urine Bilirubin Negative (Negative) 09/26/24 23:20 Urine Urobilinogen Negative (Negative) 09/26/24 23:20 Ur Leukocyte Esterase 1+ (Negative) H 09/26/24 23:20 Urine WBC (Auto) 11-20 /hpf (0-5) H 09/26/24 23:20 Urine RBC (Auto) 0-2 /hpf (0-2) 09/26/24 23:20 U Hyaline Cast (Auto) 0-2 /lpf (0-2) 09/26/24 23:20 U Epithel Cells (Auto) >20 /hpf (0-2) H 09/26/24 23:20 Urine Bacteria (Auto) 4+ (None Seen) H 09/26/24 23:20 Impressions Chest X-Ray 09/26/24 18:29 Exam(s): XR CXR 1 VIEW EXAM: XR Chest, 1 View CLINICAL HISTORY: Palpitations. TECHNIQUE: Frontal view of the chest. COMPARISON: Chest radiograph 08/27/2024 FINDINGS: Lungs: Bilateral airspace opacities may represent pulmonary edema and/or atypical infection. Pleural space: Small bilateral pleural effusions, worse on the left. No pneumothorax. Heart: Cardiomegaly. Mediastinum: Unremarkable. Normal mediastinal contour. Bones/joints: Degenerative changes of the spine are noted. No acute fracture. IMPRESSION: 1. Bilateral airspace opacities may represent pulmonary edema and/or atypical infection. 2. Cardiomegaly. 3. Small bilateral pleural effusions, worse on the left. Electronically signed by: Carolyn Otto MD 09/26/24 21:05 PM Ankle X-Ray 09/26/24 19:44 Exam(s): XR RIGHT ANKLE, 3+ views EXAM: XR Right Ankle Complete, 3 or More Views CLINICAL HISTORY: Injury. TECHNIQUE: Frontal, lateral and oblique views of the right ankle. COMPARISON: No relevant prior studies available. FINDINGS: Bones/joints: Calcaneal enthesophyte is noted. No acute fracture. No dislocation. Soft tissues: There is nonspecific soft tissue swelling of the ankle. Vasculature: There are vascular calcifications. IMPRESSION: There is nonspecific soft tissue swelling of the ankle. No underlying fracture or dislocation. Electronically signed by: Carolyn Otto MD 09/26/24 21:[address] 09/26/24 19:44 Exam(s): CT HEAD Without Contrast EXAM: CT Head Without Intravenous Contrast CLINICAL HISTORY: fall. TECHNIQUE: Axial computed tomography images of the head/brain without intravenous contrast. CTDI is 37.61 mGy and DLP is 625.8 mGy-cm. Automated exposure control was utilized for the study. A dose lowering technique was utilized adhering to the principles of ALARA. COMPARISON: 08/28/2024. FINDINGS: Brain: Age-appropriate generalized atrophy. No acute stroke. 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 Mild supratentorial periventricular and subcortical white matter changes. No acute hemorrhage or abnormal extra-axial fluid collection. Ventricles: No hydrocephalus. No midline shift. Bones/joints: Unchanged 5 mm lobe calcification the table anterior aspect left frontal calvarium, possibly small meningioma without significant mass-effect. No acute fracture. Soft tissues: Unremarkable. Sinuses: Unremarkable as visualized. No acute sinusitis. IMPRESSION: No acute post-traumatic intracranial abnormality. Electronically signed by: Bogdan Baer M.D. 09/26/24 21:40 PM Pelvis X-Ray 09/26/24 19:44 Exam(s): XR PELVIS, 1-2 views EXAM: XR Pelvis, 1 or 2 Views CLINICAL HISTORY: Injury. TECHNIQUE: Frontal view of the pelvis. 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 No definitive fracture. Moderate degenerative changes of the left hip are noted. No dislocation. Soft tissues: Unremarkable. 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 No definitive fracture. If clinical concern is high consider further evaluation with CT. Electronically signed by: Carolyn Otto MD 09/26/24 21:43 PM Foot X-Ray 09/26/24 19:45 Exam(s): XR RIGHT FOOT, 3+ views EXAM: XR Right Foot Complete, 3 or More Views CLINICAL HISTORY: Fall. TECHNIQUE: Frontal, lateral and oblique views of the right foot. COMPARISON: No relevant prior studies available. FINDINGS: Bones/joints: Small avulsion fracture of the navicular bone. Question small avulsion fracture of the distal aspect of the anterior talus. Calcaneal enthesophytes are noted. No dislocation. Soft tissues: Nonspecific soft tissue swelling of the foot. No radiopaque foreign body. IMPRESSION: 1. Small avulsion fracture of the navicular bone. 2. Question small avulsion fracture of the distal aspect of the anterior talus. 3. Nonspecific soft tissue swelling of the foot. Electronically signed by: Carolyn Otto MD 09/26/24 21:43 PM Abdomen/Pelvis CT 09/27/24 01:05 EXAM: CT abd pelvis IV con only CLINICAL HISTORY: Evaluation. TECHNIQUE: Axial CT scan of the abdomen and pelvis was performed with IV contrast. Coronal and sagittal reconstructive images were also obtained. One of the following dose reduction techniques were utilized for this exam: Automated exposure control, adjustment of the mA and/or kV according to patient size, use of iterative reconstruction? COMPARISON: 08/26/2024 FINDINGS: The scanned lower lung cuts show an increased amount of left pleural effusion with progressed basilar atelectasis. Stable right middle lobe pleural-based nodule. Stable cardiomegaly. The liver is average in size showing a smooth outline. No focal or diffuse parenchymal abnormality. The portal vein is unremarkable. The spleen, pancreas, and adrenal gland are unremarkable. The gallbladder is surgically removed. Prominent CBD (reaching about 1 cm) and intrahepatic biliary radicles, likely post-cholecystectomy changes. There is bilateral renal scarring. 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 No hemorrhage. No calculi or hydronephrosis. Right renal simple cortical cyst also seen. A moderate amount of diffuse colonic stool noted. Scattered colonic diverticulosis. No diverticulitis. No gross bowel masses or signs of intestinal obstruction. No findings to suggest acute appendicitis. No significant mesenteric, pelvic, or retroperitoneal lymph node enlargement. Unremarkable abdominopelvic vasculature aprt from atherosclerotic changes. No ascites or retroperitoneal collections. The urinary bladder is unremarkable. There is a small right posterior bladder diverticulum. Non-visualized uterus, likely surgically removed. Degenerative changes of the spine. No aggressive-looking bone lesions. Umbilical hernia containing fat. The scanned lower lung cuts show : Persistent but decreased small pleural effusions and improved basilar pulmonary ventilation. Stable right middle lobe pleural-based nodule. Stable cardiomegaly. IMPRESSION: 1. An increased amount of left pleural effusion with progressed basilar atelectasis. 2. Non-complicated colonic diverticulosis. Stable. 3. 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 Stable. 4. The urinary bladder appears currently unremarkable apart from a small right posterior bladder diverticulum. Electronically signed by Daniel Valente 09-27-2024 03:42 AM Supervising Physician Co-Signing Physician Notes Patient seen and examined, chart reviewed, case discussed with Dr. Turner and I agree with the assessment and plan as above. Patient with atrial fibrillation - concern for possible tachycardia, bradycardia On exam she is resting comfortably, NAD Skin - intact, no rashes HEENT -MMM, Neck supple Heart - +S1/S2, irregularly irregular Lungs - CTA Abd - +BS, soft, NT/ND Ext - warm, well perfused Labs and images reviewed Of note, patient received a CT of the abdomen with contrast in error. An incident report has been filed on this matter Assessment/plan -Ongoing cardiac monitoring for possible tachy-enmanuel syndrome. May need outpatient cardiac monitoring if no events uncovered here. 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
[2024-09-26 23:34] LABS: Appearance Urine Cloudy (Clear); Bacteria Urine Automated 4+ (None Seen); Bilirubin Urine Negative (Negative); Blood Urine Negative (Negative); Cast Urine Automated 0-2 /lpf (0-2); Color Urine Yellow; Epithelial Cell Urine Auto >20 /hpf (0-2); Glucose Urine UA Negative (Negative); Ketones Urine Negative (Negative); Leukocyte Esterase Urine 1+ (Negative); Nitrite Urine Positive (Negative); Protein Urine Negative (Negative); RBC Urine Automated 0-2 /hpf (0-2); Urobilinogen Urine Negative (Negative)
[2024-09-27] MEDS ORDERED: ONDANSETRON INJ 2 MG/ML 2 ML VIAL IV PRN (01:31)
[2024-09-27] MEDS ORDERED: ACETAMINOPHEN 325 MG TAB PO PRN (01:31)
[2024-09-27] MEDS: OPTIRAY 320 100ml IV ONE (01:56)
[2024-09-27] MEDS: SODIUM CHLORIDE 0.9% 1,000 ML IV SCH (02:25)
[2024-09-27] MEDS: POTASSIUM CHLORIDE / WTR 10 MEQ/100 ML PLCT IV SCH (02:25)
[2024-09-27] MEDS: levETIRAcetam 500 MG TAB PO SCH (02:48)
[2024-09-27] MEDS: APIXABAN 2.5 MG TAB PO SCH (02:48)
--- NOTE | 2024-09-27 03:11 | Billing Data ---
Date of Service September 26, 2024 Coding Level of Care Code 91516 INT INP/OBS CARE
--- NOTE | 2024-09-27 03:42 | CT Scan Report ---
EXAM: CT abd pelvis IV con only CLINICAL HISTORY: Evaluation. TECHNIQUE: Axial CT scan of the abdomen and pelvis was performed with IV contrast. Coronal and sagittal reconstructive images were also obtained. One of the following dose reduction techniques were utilized for this exam: Automated exposure control, adjustment of the mA and/or kV according to patient size, use of iterative reconstruction? COMPARISON: 08/26/2024 FINDINGS: The scanned lower lung cuts show an increased amount of left pleural effusion with progressed basilar atelectasis. Stable right middle lobe pleural-based nodule. Stable cardiomegaly. The liver is average in size showing a smooth outline. No focal or diffuse parenchymal abnormality. The portal vein is unremarkable. The spleen, pancreas, and adrenal gland are unremarkable. The gallbladder is surgically removed. Prominent CBD (reaching about 1 cm) and intrahepatic biliary radicles, likely post-cholecystectomy changes. There is bilateral renal scarring. 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 No hemorrhage. No calculi or hydronephrosis. Right renal simple cortical cyst also seen. A moderate amount of diffuse colonic stool noted. Scattered colonic diverticulosis. No diverticulitis. No gross bowel masses or signs of intestinal obstruction. No findings to suggest acute appendicitis. No significant mesenteric, pelvic, or retroperitoneal lymph node enlargement. Unremarkable abdominopelvic vasculature aprt from atherosclerotic changes. No ascites or retroperitoneal collections. The urinary bladder is unremarkable. There is a small right posterior bladder diverticulum. Non-visualized uterus, likely surgically removed. Degenerative changes of the spine. No aggressive-looking bone lesions. Umbilical hernia containing fat. The scanned lower lung cuts show : Persistent but decreased small pleural effusions and improved basilar pulmonary ventilation. Stable right middle lobe pleural-based nodule. Stable cardiomegaly. IMPRESSION: 1. An increased amount of left pleural effusion with progressed basilar atelectasis. 2. Non-complicated colonic diverticulosis. Stable. 3. 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 Stable. 4. The urinary bladder appears currently unremarkable apart from a small right posterior bladder diverticulum. Electronically signed by Daniel Valente 09-27-2024 03:42 AM
[2024-09-27] MEDS: LEVOTHYROXINE SODIUM 50 MCG TABLET PO SCH (06:07)
[2024-09-27 07:03] LABS: Basophils # (auto) 0.04 K/uL (0.00-0.20); Basophils % (auto) 0.8 %; Eosinophils # (auto) 0.07 K/uL (0.00-0.50); Eosinophils % (auto) 1.3 %; Hematocrit (blood only) 35.5 % (37.0-47.0); Hemoglobin 11.9 g/dl (12.0-16.0); Immature Granulocytes # (auto) 0.01 K/uL (0.01-0.20); Immature Granulocytes % (auto) 0.2 %; Lymphocytes # (auto) 1.47 K/uL (1.20-3.40); Lymphocytes % (auto) 28.3 %; Mean Corpuscular Hemoglobin 31.7 pg (25.0-34.0); Mean Corpuscular Hgb Conc 33.5 g/dL (32.0-36.0); Mean Corpuscular Volume 94.7 fL (80.0-100.0); Mean Platelet Volume 10.9 fL (9.4-12.4); Monocytes # (auto) 0.47 K/uL (0.11-0.59); Monocytes % (auto) 9.1 %; Neutrophils # (auto) 3.13 K/uL (1.40-6.50); Neutrophils % (auto) 60.3 %; Platelet Count 299 K/uL (130-400); RDW Coefficient of Variation 14.7 % (11.5-14.5); RDW Standard Deviation 51.6 fL (36.4-46.3); Red Blood Count 3.75 M/uL (4.20-5.40); White Blood Count 5.19 K/ul (4.8-10.8)
[2024-09-27 07:22] LABS: Albumin Globulin Ratio 1.2 (0.9-2); Albumin Level 3.4 gm/dl (3.4-5.0); BUN Creatinine Ratio 19.2 (10-20); Bilirubin,Total 0.5 mg/dl (0.2-1.0); Calcium 8.9 mg/dl (8.6-10.3); Globulin 2.8 gm/dl (2.5-4.0); Magnesium 1.6 mg/dl (1.7-2.4); Potassium 3.5 mmol/L (3.5-5.1); Total Protein 6.2 gm/dl (6.0-8.3)
[2024-09-27] MEDS ORDERED: FUROSEMIDE 40 MG TAB PO SCH (09:00)
[2024-09-27] MEDS: BRIMONIDINE TARTRATE 0.2% 5ML OPB SCH (09:32)
[2024-09-27] MEDS: DORZOLAMIDE/TIMOLOL 22.3/6.8MG/ML 10 ML BTL OPB SCH (09:32)
[2024-09-27] MEDS: ASPIRIN 81 MG ECTAB PO SCH (09:33)
[2024-09-27] MEDS: PANTOprazole 40 MG TAB PO SCH (09:33)
[2024-09-27] MEDS: MAGNESIUM SULFATE / D5W 1 GM/100 ML BAG IV SCH (09:33)
[2024-09-27] MEDS: POTASSIUM CHLORIDE CRTAB 20 MEQ TABCR PO STA (09:33)
[2024-09-27] MEDS: RANOLAZINE 500 MG ER TAB PO SCH (09:33)
--- NOTE | 2024-09-27 11:08 | Orthopedic Consultation ---
Date of Service September 27, 2024 Assessment & Plan (1) Injury of right ankle and foot: (2) Talus fracture: (3) Navicular fracture of ankle: Plan Avulsion fracture of the navicular and dorsal talus right foot: -Plain film radiographs and CT of the right foot reviewed showing small avulsion fractures of the navicular talus. -Recommend rest ice elevation of left lower extremity. Apply ice pack and 15- minute intervals to the dorsum of the foot. Okay to use Charles bandage or Tubigrip for light compression throughout the day. -Will work on getting patient a short leg Cam walker for ambulation. Patient instructed to use walker at all times while ambulating. -Order: PT and OT to evaluate gait with boot and walker to assist. No plan for surgical intervention. Okay for discharge from podiatry standpoint. Follow-up with podiatry at [facility] [address] orthopedics in 4 weeks. History of Present Illness Reason for Consultation: . Foot x-ray of the right foot shows small avulsion fracture at the navicular bone and questionable small avulsion fracture of the distal aspect of the anterior talus. Requesting Physician: . Attending Physician: Cyn Tariq MD . 89-year-old female resting comfortably in hospital bed. Patient is awake alert and oriented x 3. Reports fall in home on 09/24/2024 while not using her walker. She sustained an injury to her right foot and since that time reports tenderness with ambulation especially towards the lateral aspect of the foot. X-ray obtained in the emergency department showing small avulsion fracture of the navicular and possible avulsion fracture of the anterior talus. CT scan of the right foot pending read. Allergies Allergy/AdvReac Type Severity Reaction Status Date / Time Penicillins Allergy Intermediate RASH ONLY Verified 08/26/24 18:22 atorvastatin AdvReac Intermediate MUSCLE Verified 08/26/24 18:22 CRAMPS/PAIN pravastatin AdvReac Intermediate MUSCLE Verified 08/26/24 18:22 CRAMPS/PAIN simvastatin AdvReac Intermediate MUSCLE Verified 08/26/24 18:22 CRAMPS/PAIN Home Medications Medication Instructions Recorded Confirmed Type dorzolamide 22.3 mg-timolol 6.8 1 drp OPB BID 02/23/19 09/26/24 History mg/mL eye drops brimonidine 0.2 % eye drops 1 drp OPB BID 05/07/19 09/26/24 History omeprazole 40 mg capsule,delayed 40 mg PO DAILY #90 caps 04/13/24 09/26/24 Rx release amlodipine 10 mg tablet 10 mg PO QPM #90 tabs 04/16/24 09/26/24 Rx losartan 50 mg tablet 50 mg PO QAM #90 tabs 04/16/24 09/26/24 Rx netarsudil 0.02 %-latanoprost 1 drp OPB QAM 05/30/24 09/26/24 History 0.005 % eye drops (Rocklatan) ranolazine 1,000 mg 1,000 mg PO BID #60 tabs 08/08/24 09/26/24 Rx tablet,extended release,12 hr acetaminophen 325 mg tablet 650 mg PO Q6H PRN Pain/Fever 08/26/24 09/26/24 History (Tylenol) apixaban 2.5 mg tablet (Eliquis) 2.5 mg PO BID #60 tabs 09/11/24 09/26/24 Rx aspirin 81 mg tablet,delayed 81 mg PO DAILY #30 tabs 09/11/24 09/26/24 Rx release furosemide 20 mg tablet (Lasix) 20 mg PO .qMWF #12 tabs 09/11/24 09/26/24 Rx levetiracetam 500 mg tablet 500 mg PO BID #60 tabs 09/11/24 09/26/24 Rx (Keppra) melatonin 3 mg tablet 3 mg PO HS #30 tabs 09/11/24 09/26/24 Rx zinc oxide 16 % topical ointment 1 applic EXT BID #57 grams 09/11/24 09/26/24 Rx (Boudreauxs Butt Paste) levothyroxine 50 mcg tablet 50 mcg PO DAILYBB #90 tabs 09/24/24 09/26/24 Rx Past Med/Surg History Problem List Injury of right ankle and foot (Acute) On apixaban therapy (Acute) Fall from standing (Acute) Dizziness (Acute) Atrial fibrillation with slow ventricular response (Acute) UTI (urinary tract infection) Talus fracture Navicular fracture of ankle Dizziness Seizure C. difficile enteritis Plantar fasciitis of left foot (HFpEF) heart failure with preserved ejection fraction Acute respiratory failure with hypoxia Pulmonary edema cardiac cause Pleural effusion BRBPR (bright red blood per rectum) (Acute) Bright red blood per rectum Syncope and collapse Chest discomfort Palpitations Bilateral claudication of lower limb (Acute) VACA (dyspnea on exertion) (Acute) Abnormal nuclear stress test (Acute) Acute memory impairment Left knee DJD Abnormal CT of the chest Acid reflux Arthritis Carotid artery stenosis Constipation Glaucoma Jacques's thyroiditis Herpes zoster Hypothyroidism Mitral regurgitation Nontoxic multinodular goiter Overweight 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 Tricuspid regurgitation Ventricular tachycardia Irritable bowel syndrome (IBS) Allergic rhinitis Hx of hemorrhoids Rectal bleeding Osteopenia Impaired fasting glucose Vitamin D deficiency Back pain Urinary symptom or sign Neurological symptoms Multiple thyroid nodules Cough Cholesterol-lowering agent myopathy Constipation Renal infarct (Acute) Mesenteric artery stenosis Medical History Seizure-like activity GI bleed Atrial fibrillation, permanent History of myocardial infarction PAD (peripheral artery disease) Hypertension Hyperlipidemia Cardiomyopathy CAD in [place] artery Anticoagulant long-term use History of CVA (cerebrovascular accident) Renal infarct Hyperglycemia Claudication NSTEMI (non-ST elevated myocardial infarction) Intractable pain Surgical History History of carpal tunnel surgery History of total abdominal hysterectomy and bilateral salpingo-oophorectomy S/P appendectomy History of cholecystectomy History of thyroid surgery H/O endarterectomy History of Neurological Surgery Carotid Endarterectomy Family History Mother Diabetes Hypertension Sister Diabetes Kidney disease Hypertension Brother Kidney disease Hypertension Diabetes Father Myocardial infarction Colorectal cancer Unknown Hypertension Cardiac disorder Stroke Cancer Other Buerger's disease No family history of bleeding disorder Denies family history of Ovarian cancer Prostate cancer Breast cancer Social History Smoking Status: Never smoker Second Hand Exposure: No; Do You Dip or Chew Tobacco: No; Hx Alcohol Use: Yes Alcohol type: wine Alcohol Intake Frequency: 4 or More x per/Week Alcohol Intake Frequency Comment: 1-2 glasses per day Hx Substance Use: No Preferred Language: Uzbek Communication Ability: Effective Visual Impairment: Limited Hearing Ability: Normal Plant Supervisor Required: No Beliefs That Will Affect Care: None marital status: Current Living Situation: Spouse Current Living Situation Comment: mobile home current occupational status: retired current occupation: Retired-[employer] Feels Safe at Home: Yes Childhood Exposure to Second-Hand Smoke: No Diet: regular caffeine: Yes during the past year weight has: remained stable Dental Care, Regularly: No Physical Activity Frequency: Does not Exercise Seatbelt Use: always Sunscreen Use: Yes Assistive Devices: Walker Review of Systems All systems reviewed & are unremarkable except as noted in HPI & below. Physical Exam . Focused lower extremity physical exam: Palpable dorsalis pedis and posterior tibial pulse bilaterally. No pain with medial lateral compression of the right calf muscle. No open wounds. No notable deformity of the foot. Mild edema to the right foot. Diffuse ecchymosis to the dorsum of the right foot. No identifiable instability through nonweightbearing range of motion. Patient has full unrestricted range of motion of the ankle and subtalar joint. No pain to palpation of the navicular tuberosity and the dorsal neck of the talus. Most notable area of tenderness is overlying the third fourth and fifth tarsometatarsal joints dorsal laterally. Results & Data Results & Data Laboratory Results . Diagnostic Findings . Plain film radiographs x 3 right foot: IMPRESSION: 1. Small avulsion fracture of the navicular bone. 2. Question small avulsion fracture of the distal aspect of the anterior talus. 3. Nonspecific soft tissue swelling of the foot. CT right foot:IMPRESSION: 1. Subtle acute nondisplaced dorsal cortical chip fractures of the navicular and also likely the talus. 2. Subcentimeter linear bone fragments are also noted along the medial margin of the talar neck which may represent acute cortical chip fractures. 3. No acute displaced fracture or dislocation. 4. 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 PG Care Time/CCT Total # of Minutes Spent Total Time Spent with Patient: Total time spent is greater than 50% in coordination of care (as documented) at patient's floor/unit and/or counseling patient: Coding Level of Care Code 84558 IN/OBS CONSULT LVL 3,45M Diagnoses Injury of right ankle and foot S99.911A; S99.921A Encounter type: initial encounter Talus fracture S92.109A Navicular fracture of ankle S92.253A (1) Injury of right ankle and foot Encounter type: initial encounter Qualified Code(s): S99.911A - Unspecified injury of right ankle, initial encounter; S99.921A - Unspecified injury of right foot, initial encounter
--- NOTE | 2024-09-27 12:24 | CT Scan Report ---
CT foot RT wo con HISTORY: 89 years-old Female swelling, fall, eval ?navic and Talus fx acute pain and swelling of the right foot status post fall COMPARISON: Foot radiographs 09/26/2024 TECHNIQUE: Multiple axial CT images of the right foot were obtained without IV contrast. A dose lower ing technique was used consistent with the principals of ABRIL. FINDINGS: Demineralized appearance of the bones. Arterial calcifications. Mild to moderate circumferential subc utaneous edema. Tendons and ligaments are not well evaluated by CT technique. No foreign bodies or fo franklin fluid collections are seen. Probable peroneal tendinosis. Moderate size calcaneal enthesophytes. Multifocal osteoarthritis is predominantly mild. The distal ti srikanth and fibula appear intact linear ossifications are noted along the medial margin of the talus on i mage 115 series 3 measuring up to 9 mm in length. Subtle acute dorsal cortical chip fractures are not ed involving the lateral aspect of the talus on image 126 series 3, image 24 series 301. The visualiz ed forefoot structures appear intact. No midfoot malalignment. Subtle cortical irregularity of the do rsal talar neck likely representing acute fracture. IMPRESSION: 1. Subtle acute nondisplaced dorsal cortical chip fractures of the navicular and also likely the talu s. 2. Subcentimeter linear bone fragments are also noted along the medial margin of the talar neck which may represent acute cortical chip fractures. 3. No acute displaced fracture or dislocation. 4. 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 ACT 112: Negative or not required by law. The above report was generated using voice recognition software. It may contain grammatical, syntax o r spelling errors. Electronically signed by: Julio Olivares M.D. 09/27/2024 12:22 PM
--- NOTE | 2024-09-27 12:38 | Hospitalist Progress Note ---
Date of Service September 27, 2024 Assessment & Plan (1) Dizziness: Plan: Has been having lightheaded episodes off and on with standing since discharge from hospital a few weeks ago. Associated with N/V, shakiness, and subsequent fatigue. Feels her heart rate is rapid but has not been objectively measured during an episode Sounds more orthostatic in nature Aflutter with rates in 50s on tele here, no tachycardia Continue to hold losartan and amlodipine-can resume at lower doses if BPs become elevated Resume home lasix 20mg po qMWF Check orthostatics in AM Dc IVFs started on admission Recommend 30 day cardiac event monitor after discharge to assess for tachyarrh ythmias during episodes (2) Paroxysmal atrial flutter: Plan: Currently in Aflutter. Was in sinus enmanuel last admission. Rates here in 50-60s Continue Eliquis 2.5mg po bid No need for rate control Appreciate Cardiology consult (3) Navicular fracture of ankle: Plan: Right foot x-ray shows small avulsion fracture at the navicular bone and small avulsion fracture of the distal aspect of the anterior talus. CT of the foot confirms the same Podiatry recommends ice, rest, elevation, and CAM short walking boot, WBAT- ordered through orthotics (4) Talus fracture: Plan: as above (5) UTI (urinary tract infection): Plan: UA with more epis than WBCs, hence contaminated. She has no symptoms Ur cx growing E. coli but no need to treat especially given recent C. diff colitis Dc Gamble in AM (6) Hypertension: Plan: With possible orthostasis as above Patient currently takes amlodipine 10 mg, losartan 50 mg, as well as Lasix 20 mg MWF Continue to hold amlodipine and losartan -can resume at lower doses if BPs elevated (7) (HFpEF) heart failure with preserved ejection fraction: Plan: Echo done on 08-27-2024 showed an EF over 70. Resume home lasix 20mg qMWF Continue BP control (8) Seizure: Plan: Recently diagnosed, continue on Keppra 500 mg twice daily. (9) Hypothyroidism: Plan: TSH of 1.0 Continue on Synthroid 50 mcg. (10) PAD (peripheral artery disease): Plan: h/o LLE PAD Continue ASA, Eliquis (11) History of CVA (cerebrovascular accident): Plan: continue ASA, Eliquis Plan DVT proph-Eliquis Dispo-continued stay, await PT/OT evals, will likely need repeat SNF stay at [facility] Admission and Anticipated Discharge Date Admission Date: September 26, 2024 Subjective Pt reports pain in right foot only with bearing weight. She reports she fell after tripping on a rug while trying to walk without her walker. She fell onto her hands and hit her nose on the floor. No other injuries except right foot. Has had some lightheaded episodes since discharge from hospital last admission after which she feels nauseated, sometimes vomits, and then gets very fatigued. Has had some SOB worse than usual lately. During these lightheaded episodes, she feels like her HR is rapid but has not measured it. Tele with atrial flutter, rates in 50s. Physical Exam Constitutional: WD/WN, vitals as above Respiratory: normal respiratory effort, lungs clear to auscultation Cardiovascular: Rate/Rhythm: regular rate and + irregularly irregular Heart Sounds: no murmur Extremities: no edema Gastrointestinal (Abdomen): normal bowel sounds, soft, nontender, no hepatosplenomegaly Musculoskeletal: Extremities: + extremities abnormal to inspection (right foot swelling, mild bruising) Psychiatric: A+Ox3, euthymic affect Results & Data Results & Data Vital Signs (Past 12 Hours) Vital Signs Temp Pulse Pulse Resp BP BP BP 09/27/24 11:14 36.5 C 56 L 16 122/67 09/27/24 08:17 36.5 C 60 18 117/58 L 09/27/24 03:09 36.8 C 65 19 149/77 H 09/27/24 02:55 60 09/27/24 01:59 09/27/24 01:59 36.5 C 61 20 155/76 H 09/27/24 00:50 70 20 136/61 Pulse Ox O2 Del Method 09/27/24 11:14 95 Room Air 09/27/24 08:17 97 Room Air 09/27/24 03:09 94 Room Air 09/27/24 02:55 09/27/24 01:59 Room Air 09/27/24 01:59 96 Room Air 09/27/24 00:50 95 Room Air Laboratory Results CBC, CMP, magnesium reviewed Diagnostic Findings CT A/P, CT right foot reviewed PG Care Time/CCT Total # of Minutes Spent Total Time Spent with Patient: Total time spent is greater than 50% in coordination of care (as documented) at patient's floor/unit and/or counseling patient: Coding Level of Care Code 20130 SUB INP/OBS CARE 2/35MIN Diagnoses Dizziness R42 Paroxysmal atrial flutter I48.92 Navicular fracture of ankle S92.253A Talus fracture S92.109A UTI (urinary tract infection) N39.0 Essential hypertension I10 Hypertension type: essential hypertension (HFpEF) heart failure with preserved ejection fraction I50.30 Seizure R56.9 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
[2024-09-27] MEDS: AMIODARONE 150MG / 100ML D5W IV ONE (15:39)
--- NOTE | 2024-09-27 16:12 | Cardiology Consultation ---
Date of Consultation September 27, 2024 Assessment & Plan (1) Atrial fibrillation with slow ventricular response: (2) (HFpEF) heart failure with preserved ejection fraction: (3) CAD in [place] artery: (4) Hypertension: (5) Paroxysmal atrial flutter: (6) Lightheadedness: (7) Mitral regurgitation: (8) Tricuspid regurgitation: Plan ASSESSMENT/PLAN: 1. Bradycardia: No significant pauses or severe bradycardia. Her heart rate is chronically been in the 50s to 60s. Continue with telemetry. Most recent hospitalization did not demonstrate any significant bradycardia. No urgent indication for pacemaker. 2. Atrial flutter: Appears to be in atrial flutter but asymptomatic in that regard. Also has a history of atrial fibrillation and recently was in sinus rhythm in August 2024. Continue anticoagulation for stroke risk reduction. No rate controlling medications given while bradycardia. 3. Atrial fibrillation: Appears to be paroxysmal. Asymptomatic. Continue anticoagulation for stroke risk reduction. Monitor CBC. 4. CAD: Nonobstructive CAD in 2015 during cardiac cath. Small area of lateral ischemia on 2023 myocardial perfusion study. She has declined coronary angiography. Continue Ranexa. She has not tolerated nitrate therapy. Holding amlodipine given concern for orthostatic hypotension. Intolerant to statin therapy. 5. Lightheadedness: Symptoms suggestive of orthostatic hypotension. Orthostatic vitals ordered. Losartan and amlodipine have been held. If resumed, would use lower doses. 6. Hypertension: Blood pressure mildly hypertensive to normotensive thus far here. Plan as above. 7. Mitral and tricuspid regurgitation: Nonsevere. Continue to monitor. 8. Chronic heart failure with preserved EF: She appears euvolemic. She takes Lasix 3 days/week. Can continue home regimen. Low-sodium diet. Daily weights. 9. Takotsubo cardiomyopathy: Occurred in 2016. LV systolic function has recovered. 10. PAD s/p left lower extremity angioplasty: Follows with Dr. Bolaños. 11. Disposition: Cardiology will continue to follow. Patient care discussed with Dr. Tariq of the primary hospitalist service. With patient permission, reached out to her granddaughter, Rosa Elena Jack SILVANA, and discussed plan of care. Thank you for allowing me to participate in the care of your patient. Please call for any other questions or concerns. Sincerely, Celestino Taylor M.D. History of Present Illness Reason for Consultation: "dizziness, ?tachybrady, afib" Requesting Physician: Dr. Turner Attending Physician: Cyn Tariq MD History of Present Illness Mrs. Younger is a very pleasant 89-year-old female with a history significant for atrial fibrillation, atrial flutter, heart failure with preserved EF, Takotsubo cardiomyopathy, nonobstructive CAD, dyslipidemia, hypertension, carotid artery stenosis status post left CEA, PAD s/p angioplasty, seizure disorder, and stroke. 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 She has had the following studies/procedures: 1. Echo 01/05/2016: Normal LV size, wall motion, systolic function. EF 60-65%. Moderate left atrial dilation. Moderate MR. RVSP less than 40. 2. Carotid duplex 12/23/2015: No significant stenosis bilateral ICA. Status post left endarterectomy. 3. Echo 10/04/2016: Mildly to moderately reduced LV systolic function. EF 40- 45%. Aneurysmal (dyskinesis) area involving apex, distal anterior, distal inferior, distal lateral, distal septal ruiz. Base to mid wall segments appear hypokinetic. Moderate left atrial dilation. Mild to moderate MR. RVSP 31. 4. Cardiac catheterization 10/04/2016: Proximal LAD 30%. Mid LAD 30%. Mid circumflex 20%. Distal circumflex 20%. Proximal RCA 40%. Dominant RCA. LVEDP 14. Hyperdynamic basal segment wall motion. Apical dyskinesis. EF 45%. 5. Echo 12/27/2016: Normal LV size and systolic function. EF 60-65%. Normal wall motion. Mild left atrial dilation. At least mild to moderate MR, MR jet not well visualized. RVSP 31. 6. Lower extremity arterial duplex 07/12/2017: No significant occlusive arterial disease bilaterally. 7. Echo 05/08/2018: Normal LV size, wall motion, systolic function. EF 60-65%. At least mild MR. Moderate TR. 8. Left leg arterial Doppler 05/07/19: High-grade stenosis estimated 90% left popliteal artery. Occlusion left posterior tibial artery. 9. Bilateral lower extremity angiogram 05/09/2019 Dr. Bolaños: Left Lower extremity: Mid popliteal artery 99%. Two vessel runoff to foot via peroneal artery which provides collaterals to the DPA/distal HARDWARE DEVELOPER. Mid HARDWARE DEVELOPER 100%. A TA with severe diffuse disease. Underwent angiography of left popliteal stenosis with 4 x 80 mm drug-eluting balloon. Angioplasty of ORLIN with 2 mm balloon. Right lower extremity: Ostial profundal a 40-50%. Mild SFA/popliteal disease. Severe diffuse peroneal disease. A TA proximal 100%. 10. Left lower extremity angiogram 06/20/2020: Severe distal SFA stenosis, patent popliteal artery and single-vessel runoff. Underwent angioplasty of distal SFA into popliteal artery with drug eluting balloon (5 x 150 mm). 11. Echo 11/04/2020: Normal LV size. Hyperdynamic systolic function. EF > 70%. Normal wall motion. No LVH. Severe left atrial dilation. Sclerotic aortic valve. Moderate MR. Mild to moderate TR. RVSP 34. 12. Lower extremity arterial duplex 01/20/2021: No evidence of restenoses in the left distal SFA/pop A, post intervention. Left proximal chinedu A, ORLIN (approximately 50% stenosis) and HARDWARE DEVELOPER are patent proximally. Mid ORLIN/HARDWARE DEVELOPER occluded with collateral flow at foot. 13. Echo 06/20/2023 [facility]: Normal LV size, wall motion, systolic function. EF 65 to 70%. Moderate MR. RVSP 27. 14. Echo 03/01/2024 [facility]: Normal LV size, wall motion, systolic function. EF 65-70%. Moderate LVH. Moderate left atrial dilation. Sclerotic aortic valve. Moderate MR. Mild to moderate TR. RVSP 49. 15. Nuclear stress 03/28/2024: Abnormal, suggesting small area of lateral ischemia. EF 88%. Normal wall motion. 16. Holter 04/16/2024 to 04/30/2024: Atrial fibrillation throughout. Average HR 68 (40-116). Rare PVCs. No significant pause. 10 patient events occurred during rate controlled A-fib. 17. Echo 08/27/2024 [facility]: Normal LV size. EF > 70%. Normal wall motion. No LVH. Normal RV size and systolic function. Severe left atrial dilation. Sclerotic aortic valve. Mild MS. Mild MR. Trace pericardial effusion. She was hospitalized on 08/14/2024 and diagnosed with heart failure with preserved EF and bilateral pleural effusions. She required significant supplemental oxygen with high flow nasal cannula and underwent diuresis and thoracentesis. She was discharged on 08/24/2024. She was readmitted on 08/26/2024 with abdominal pain and while hospitalized, had seizure-like activity. Keppra was initiated and she was seen by neurology. Per neurology, transient confusion and seizure-like event occurred in the setting of acute kidney injury, hypoxia, and UTI. Neurology considered seizure versus nonconvulsive syncopal event. She also had C. difficile during this hospital stay. She was discharged on 09/12/2024. She was readmitted on 09/26/2024 after a fall 2 days prior. She states that she was trying to walk without her walker and lost her balance. She was lightheaded. She has been experiencing lightheadedness and shakiness with decreased blood pressure. She was also experiencing nausea and vomiting. She has a chronic cough. Family members state that it appears as though she is short of breath transiently however she denies shortness of breath. She feels as though her heart is slowing down randomly although has not captured any pulses during such events. She wore a monitor during her last hospital stay and there was no significant bradycardia noted. She has mild bradycardia in the 50s. There were no significant pauses noted on personal review. She has an avulsion fracture of the navicular and dorsal talus on the right foot and has been seen by orthopedics. She denies syncope. Review of systems: As above. Family history: No known premature CAD. Mother had IN at the age of 84. Social history: Denies tobacco or drug abuse. She lives with her 3rd ( x1 [alcoholic], x1) in [place], [place]. Five children. A granddaughter, Rosa Elena Jack, is RN. She is a retired piece work seafood process worker. She was accompanied today by her daughter, son-in-law, and grandson. Allergies Allergy/AdvReac Type Severity Reaction Status Date / Time Penicillins Allergy Intermediate RASH ONLY Verified 08/26/24 18:22 atorvastatin AdvReac Intermediate MUSCLE Verified 08/26/24 18:22 CRAMPS/PAIN pravastatin AdvReac Intermediate MUSCLE Verified 08/26/24 18:22 CRAMPS/PAIN simvastatin AdvReac Intermediate MUSCLE Verified 08/26/24 18:22 CRAMPS/PAIN Home Medications Medication Instructions Recorded Confirmed Type dorzolamide 22.3 mg-timolol 6.8 1 drp OPB BID 02/23/19 09/26/24 History mg/mL eye drops brimonidine 0.2 % eye drops 1 drp OPB BID 05/07/19 09/26/24 History omeprazole 40 mg capsule,delayed 40 mg PO DAILY #90 caps 04/13/24 09/26/24 Rx release amlodipine 10 mg tablet 10 mg PO QPM #90 tabs 04/16/24 09/26/24 Rx losartan 50 mg tablet 50 mg PO QAM #90 tabs 04/16/24 09/26/24 Rx netarsudil 0.02 %-latanoprost 1 drp OPB QAM 05/30/24 09/26/24 History 0.005 % eye drops (Rocklatan) ranolazine 1,000 mg 1,000 mg PO BID #60 tabs 08/08/24 09/26/24 Rx tablet,extended release,12 hr acetaminophen 325 mg tablet 650 mg PO Q6H PRN Pain/Fever 08/26/24 09/26/24 History (Tylenol) apixaban 2.5 mg tablet (Eliquis) 2.5 mg PO BID #60 tabs 09/11/24 09/26/24 Rx aspirin 81 mg tablet,delayed 81 mg PO DAILY #30 tabs 09/11/24 09/26/24 Rx release furosemide 20 mg tablet (Lasix) 20 mg PO .qMWF #12 tabs 09/11/24 09/26/24 Rx levetiracetam 500 mg tablet 500 mg PO BID #60 tabs 09/11/24 09/26/24 Rx (Keppra) melatonin 3 mg tablet 3 mg PO HS #30 tabs 09/11/24 09/26/24 Rx zinc oxide 16 % topical ointment 1 applic EXT BID #57 grams 09/11/24 09/26/24 Rx (Boudreauxs Butt Paste) levothyroxine 50 mcg tablet 50 mcg PO DAILYBB #90 tabs 09/24/24 09/26/24 Rx Problem List (Updated 09/27/24 @ 17:13 by Rodri Taylor MD) Lightheadedness Paroxysmal atrial flutter Injury of right ankle and foot (Acute) On apixaban therapy (Acute) Fall from standing (Acute) Dizziness (Acute) Atrial fibrillation with slow ventricular response (Acute) UTI (urinary tract infection) Talus fracture Navicular fracture of ankle Dizziness Seizure C. difficile enteritis Plantar fasciitis of left foot (HFpEF) heart failure with preserved ejection fraction Acute respiratory failure with hypoxia Pulmonary edema cardiac cause Pleural effusion BRBPR (bright red blood per rectum) (Acute) Bright red blood per rectum Syncope and collapse Chest discomfort Palpitations Bilateral claudication of lower limb (Acute) VACA (dyspnea on exertion) (Acute) Abnormal nuclear stress test (Acute) Acute memory impairment Left knee DJD Abnormal CT of the chest Acid reflux Arthritis Carotid artery stenosis Constipation Glaucoma Jacques's thyroiditis Herpes zoster Hypothyroidism Mitral regurgitation Nontoxic multinodular goiter Overweight 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 Tricuspid regurgitation Ventricular tachycardia Irritable bowel syndrome (IBS) Allergic rhinitis Hx of hemorrhoids Rectal bleeding Osteopenia Impaired fasting glucose Vitamin D deficiency Back pain Urinary symptom or sign Neurological symptoms Multiple thyroid nodules Cough Cholesterol-lowering agent myopathy Constipation Renal infarct (Acute) Mesenteric artery stenosis Patient History Medical History Seizure-like activity GI bleed Atrial fibrillation, permanent History of myocardial infarction PAD (peripheral artery disease) Hypertension Hyperlipidemia Cardiomyopathy CAD in [place] artery Anticoagulant long-term use History of CVA (cerebrovascular accident) Renal infarct Hyperglycemia Claudication NSTEMI (non-ST elevated myocardial infarction) Intractable pain Surgical History History of carpal tunnel surgery History of total abdominal hysterectomy and bilateral salpingo-oophorectomy S/P appendectomy History of cholecystectomy History of thyroid surgery H/O endarterectomy History of Neurological Surgery Carotid Endarterectomy Family History Mother Diabetes Hypertension Sister Diabetes Kidney disease Hypertension Brother Kidney disease Hypertension Diabetes Father Myocardial infarction Colorectal cancer Unknown Hypertension Cardiac disorder Stroke Cancer Other Buerger's disease No family history of bleeding disorder Denies family history of Ovarian cancer Prostate cancer Breast cancer Social History Smoking Status: Never smoker Second Hand Exposure: No; Do You Dip or Chew Tobacco: No; Hx Alcohol Use: Yes Alcohol type: wine Alcohol Intake Frequency: 4 or More x per/Week Alcohol Intake Frequency Comment: 1-2 glasses per day Hx Substance Use: No Preferred Language: Honduran Communication Ability: Effective Visual Impairment: Limited Hearing Ability: Normal Or Nurse Manager Required: No Beliefs That Will Affect Care: None marital status: Current Living Situation: Spouse Current Living Situation Comment: mobile home current occupational status: retired current occupation: Retired-[employer] Feels Safe at Home: Yes Childhood Exposure to Second-Hand Smoke: No Diet: regular caffeine: Yes during the past year weight has: remained stable Dental Care, Regularly: No Physical Activity Frequency: Does not Exercise Seatbelt Use: always Sunscreen Use: Yes Assistive Devices: Walker Physical Exam Physical Exam: Gen.: No acute distress. Alert. HEENT: Anicteric sclera. Neck: No JVD. Cardiac: Irregular in the upper 50s. Normal S1-S2. 1/6 systolic ejection murmur. Pulmonary: Clear to auscultation bilaterally without wheezes, rales, or rhonchi. Abdomen: Soft, nontender, nondistended, with normoactive bowel sounds. No bruits noted. Extremities: 2+ radial pulses bilaterally. No pitting edema. No cyanosis. Results & Data Vital Signs (Past 12 Hours) Vital Signs Temp Pulse Resp BP Pulse Ox O2 Del Method 09/27/24 15:38 36.4 C L 57 L 16 126/65 95 Room Air 09/27/24 11:14 36.5 C 56 L 16 122/67 95 Room Air 09/27/24 08:17 36.5 C 60 18 117/58 L 97 Room Air Intake & Output 09/25/24 09/26/24 09/27/24 09/28/24 06:59 06:59 06:59 06:59 Intake Total 188.333 / 188.333 700 / 700 Output Total 527 / 527 Balance 188.333 / 188.333 173 / 173 Weight 129 lb 13.636 oz Laboratory Results Laboratory Results - last 24 hr 09/26/24 09/26/24 09/27/24 18:04 23:20 06:04 WBC 6.33 5.19 RBC 3.59 L 3.75 L Hgb 11.4 L 11.9 L Hct 34.5 L 35.5 L MCV 96.1 94.7 MCH 31.8 31.7 MCHC 33.0 33.5 RDW Std Deviation 53.9 H 51.6 H RDW Coeff of Maritza 15.1 H 14.7 H Plt Count 300 299 MPV 10.8 10.9 Immature Gran % (Auto) 0.3 0.2 Neut % (Auto) 55.9 60.3 Lymph % (Auto) 31.8 28.3 [place] % (Auto) 10.1 9.1 Eos % (Auto) 1.3 1.3 Baso % (Auto) 0.6 0.8 Neut # (Auto) 3.54 3.13 Lymph # (Auto) 2.01 1.47 [place] # (Auto) 0.64 H 0.47 Eos # (Auto) 0.08 0.07 Baso # (Auto) 0.04 0.04 Immature Gran # (Auto) 0.02 0.01 PT 11.2 INR 1.0 Sodium 138 139 Potassium 3.3 L 3.5 Chloride 104 107 Carbon Dioxide 24 24 Anion Gap 10 8 BUN 17 10 Creatinine 0.73 0.52 L Est Cr Clr Drug Dosing 45.0 58.0 eGFR 78.56 88.75 BUN/Creatinine Ratio 23.3 H 19.2 Glucose 93 83 Calcium 9.4 8.9 Phosphorus 3.6 Magnesium 1.7 1.6 L Total Bilirubin 0.6 0.5 AST 11 L 11 L ALT 8 7 Alkaline Phosphatase 53 48 Troponin I High Sens 15.0 H B-Natriuretic Peptide 308 H Total Protein 6.9 6.2 Albumin 4.0 3.4 Globulin 2.9 2.8 Albumin/Globulin Ratio 1.4 1.2 Lipase 27 TSH 1.052 Urine Color Yellow Urine Appearance Cloudy A Urine pH 5.0 Ur Specific [place] 1.020 Urine Protein Negative Urine Glucose (UA) Negative Urine Ketones Negative Urine Blood Negative Urine Nitrite Positive A Urine Bilirubin Negative Urine Urobilinogen Negative Ur Leukocyte Esterase 1+ H Urine WBC (Auto) 11-20 H Urine RBC (Auto) 0-2 U Hyaline Cast (Auto) 0-2 U Epithel Cells (Auto) >20 H Urine Bacteria (Auto) 4+ H 09/27/24 08:37 WBC RBC Hgb Hct MCV MCH MCHC RDW Std Deviation RDW Coeff of Maritza Plt Count MPV Immature Gran % (Auto) Neut % (Auto) Lymph % (Auto) [place] % (Auto) Eos % (Auto) Baso % (Auto) Neut # (Auto) Lymph # (Auto) [place] # (Auto) Eos # (Auto) Baso # (Auto) Immature Gran # (Auto) PT INR Sodium Potassium Chloride Carbon Dioxide Anion Gap BUN Creatinine Est Cr Clr Drug Dosing eGFR BUN/Creatinine Ratio Glucose Calcium Phosphorus Magnesium Total Bilirubin AST ALT Alkaline Phosphatase Troponin I High Sens 16.2 H B-Natriuretic Peptide Total Protein Albumin Globulin Albumin/Globulin Ratio Lipase TSH Urine Color Urine Appearance Urine pH Ur Specific [place] Urine Protein Urine Glucose (UA) Urine Ketones Urine Blood Urine Nitrite Urine Bilirubin Urine Urobilinogen Ur Leukocyte Esterase Urine WBC (Auto) Urine RBC (Auto) U Hyaline Cast (Auto) U Epithel Cells (Auto) Urine Bacteria (Auto) Diagnostic Findings Telemetry personally reviewed: Atrial flutter, mostly in the 50s. No significant pauses. Most recent echo report reviewed as noted above in HPI. Orthopedic note reviewed (still in draft form). History and physical report reviewed. ECG personally reviewed 09/26/2024 1812: Probable sinus bradycardia 50 bpm. Poor R wave progression. Discharge summary from 09/12/2024, neurology notes from August 2024, pulmonary note from 08/27/2024 and discharge summary from 08/24/2024 reviewed. Labs reviewed and notable for minimally elevated but stable high-sensitivity troponin level, mildly elevated BNP, normal potassium, stable renal function, nonelevated transaminase levels, normal TSH, mild hypomagnesemia, mild anemia. CT abdomen/pelvis 09/27/2024: Increased amount of left pleural effusion with progressed basilar atelectasis. Diverticulosis. Foot CT 09/26/2024: Subtle acute nondisplaced dorsal cortical chip fractures of the navicular and likely talus. No acute displaced fracture or dislocation. Medications Administered Current Inpatient Medications Acetaminophen (Acetaminophen 325 Mg Tab) 650 mg PO Q4H PRN PRN Reason: Pain or Fever Stop: 10/27/24 01:30 Apixaban (Apixaban 2.5 Mg Tab) 2.5 mg PO BID [facility] Stop: 10/27/24 01:30 Last Admin: 09/27/24 09:33 Dose: 2.5 mg Aspirin (Aspirin 81 Mg Ectab) 81 mg PO DAILY [facility] Stop: 10/27/24 08:59 Last Admin: 09/27/24 09:33 Dose: 81 mg Brimonidine Tartrate (Brimonidine Tartrate 0.2% 5ml) 1 drops OPB BID [facility] Stop: 10/27/24 08:59 Last Admin: 09/27/24 09:32 Dose: 1 drops Dorzolamide/Timolol (Dorzolamide/Timolol 22.3/6.8mg/Ml 10 Ml Btl) 1 drops OPB BID [facility] Stop: 10/27/24 08:59 Last Admin: 09/27/24 09:32 Dose: 1 drops Furosemide (Furosemide 20 Mg Tab) 20 mg PO MoWeFr@0900 [facility] Stop: 10/28/24 08:59 Levetiracetam (Levetiracetam 500 Mg Tab) 500 mg PO BID [facility] Stop: 10/27/24 01:30 Last Admin: 09/27/24 09:33 Dose: 500 mg Levothyroxine Sodium (Levothyroxine Sodium 50 Mcg Tablet) 50 mcg PO DAILYBB [facility] Stop: 10/27/24 06:29 Last Admin: 09/27/24 06:07 Dose: 50 mcg Melatonin (Melatonin 3 Mg Tab) 3 mg PO HS [facility] Stop: 10/27/24 20:59 Miscellaneous (Rocklatan: Order Awaiting Action) 1 each N/A QS [facility] Stop: 10/27/24 08:59 Ondansetron HCl (Ondansetron Inj 2 Mg/Ml 2 Ml Vial) 4 mg IV Q6H PRN PRN Reason: Nausea Stop: 10/27/24 01:30 Pantoprazole Sodium (Pantoprazole 40 Mg Tab) 40 mg PO DAILY [facility]; Protocol Stop: 10/27/24 08:59 Last Admin: 09/27/24 09:33 Dose: 40 mg Ranolazine (Ranolazine 500 Mg Er Tab) 1,000 mg PO BID [facility] Stop: 10/27/24 08:59 Last Admin: 09/27/24 09:33 Dose: 1,000 mg PG Care Time/CCT Total # of Minutes Spent Total Time Spent with Patient: Total time spent is greater than 50% in coordination of care (as documented) at patient's floor/unit and/or counseling patient: Coding Level of Care Code 51803 INT INP/OBS CARE 3/75MIN Diagnoses Atrial fibrillation with slow ventricular response I48.91 (HFpEF) heart failure with preserved ejection fraction I50.30 CAD in [place] artery I25.10 Essential hypertension I10 Hypertension type: essential hypertension Paroxysmal atrial flutter I48.92 Lightheadedness R42 Mitral regurgitation I34.0 Tricuspid regurgitation I07.1 (4) Hypertension Hypertension type: essential hypertension Qualified Code(s): I10 - Essential (primary) hypertension
[2024-09-27] MEDS: MELATONIN 3 MG TAB PO SCH (20:03)
--- NOTE | 2024-09-27 21:22 | Electrocardiogram Report ---
Test Reason : Blood Pressure : */* mmHG Vent. Rate : 50 BPM Atrial Rate : 49 BPM P-R Int : * ms QRS Dur : 82 ms QT Int : 520 ms P-R-T Axes : * 77 66 degrees QTcB Int : 475 ms Sinus bradycardia Cannot rule out Anterior infarct , age undetermined Nonspecific T wave abnormality Abnormal ECG When compared with ECG of 28-Aug-2024 12:27, Junctional complexes are no longer present Confirmed by Rodri Taylor ([id number]) on 09/27/2024 9:22:11 PM Referred By: REFERRED SELF Confirmed By: Rodri Taylor
--- NOTE | 2024-09-28 07:30 | Hospitalist Progress Note ---
Date of Service September 28, 2024 Assessment & Plan (1) Dizziness: Plan: Has been having lightheaded episodes off and on with standing since discharge from hospital a few weeks ago. Associated with N/V, shakiness, and subsequent fatigue. Feels her heart rate is rapid but has not been objectively measured during an episode Sounds more orthostatic in nature Aflutter with rates in 50s on tele here, no tachycardia Continue to hold losartan and amlodipine-can resume at lower doses if BPs become elevated Resume home lasix 20mg po qMWF Check orthostatics in AM Dc IVFs started on admission Recommend 30 day cardiac event monitor after discharge to assess for tachyarrh ythmias during episodes (2) Paroxysmal atrial flutter: Plan: Currently in Aflutter. Was in sinus enmanuel last admission. Rates here in 50-60s Continue Eliquis 2.5mg po bid No need for rate control Appreciate Cardiology consult (3) Navicular fracture of ankle: Plan: Right foot x-ray shows small avulsion fracture at the navicular bone and small avulsion fracture of the distal aspect of the anterior talus. CT of the foot confirms the same Podiatry recommends ice, rest, elevation, and CAM short walking boot, WBAT- ordered through orthotics (4) Talus fracture: Plan: as above (5) UTI (urinary tract infection): Plan: UA with more epis than WBCs, hence contaminated. She has no symptoms Ur cx growing E. coli but no need to treat especially given recent C. diff colitis Dc Gamble in AM (6) Hypertension: Plan: With possible orthostasis as above Patient currently takes amlodipine 10 mg, losartan 50 mg, as well as Lasix 20 mg MWF Continue to hold amlodipine and losartan -can resume at lower doses if BPs elevated (7) (HFpEF) heart failure with preserved ejection fraction: Plan: Echo done on 08-27-2024 showed an EF over 70. Resume home lasix 20mg qMWF Continue BP control (8) Seizure: Plan: Recently diagnosed, continue on Keppra 500 mg twice daily. (9) Hypothyroidism: Plan: TSH of 1.0 Continue on Synthroid 50 mcg. (10) PAD (peripheral artery disease): Plan: h/o LLE PAD Continue ASA, Eliquis (11) History of CVA (cerebrovascular accident): Plan: continue ASA, Eliquis Plan DVT proph-Eliquis Dispo-continued stay, await PT/OT evals, will likely need repeat SNF stay at [facility] Admission and Anticipated Discharge Date Admission Date: September 26, 2024 Results & Data Results & Data Vital Signs (Past 12 Hours) Vital Signs Temp Pulse Resp BP Pulse Ox O2 Del Method 09/28/24 03:37 36.5 C 59 L 18 115/58 L 90 Room Air 09/27/24 23:10 36.8 C 54 L 16 126/65 93 Room Air 09/27/24 19:43 36.5 C 60 18 127/62 95 Room Air PG Care Time/CCT Total # of Minutes Spent Total Time Spent with Patient: Total time spent is greater than 50% in coordination of care (as documented) at patient's floor/unit and/or counseling patient: Coding Diagnoses Dizziness R42 Paroxysmal atrial flutter I48.92 Navicular fracture of ankle S92.253A Talus fracture S92.109A UTI (urinary tract infection) N39.0 Essential hypertension I10 Hypertension type: essential hypertension (HFpEF) heart failure with preserved ejection fraction I50.30 Seizure R56.9 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
[2024-09-28 07:37] LABS: BUN Creatinine Ratio 12.7 (10-20); Calcium 8.8 mg/dl (8.6-10.3); Creatinine Clr Calc Pharmacy 47.9 ml/min; Potassium 4.1 mmol/L (3.5-5.1)
[2024-09-28 08:28] VITALS: RESP 16
[2024-09-28] MEDS: FUROSEMIDE 20 MG TAB PO SCH (09:31)
[2024-09-28 11:18] VITALS: BP 123/61; PULSE 64; TEMP 97.3; O2SAT 97
--- NOTE | 2024-09-28 13:49 | Discharge Summary ---
Discharge Summary Date of Service September 28, 2024 Principal Dx & Hospital Course #1 = Principal Diagnosis (1) Orthostatic hypotension: Salome Younger is an 89 year old female admitted to [facility] from September 26- 2023 due to dizziness and a fall. She was diagnosed with orthostatic hypotension which resolved with stopping amlodipine and losartan. She was also diagnosed with atrial flutter but appears rate controlled in this rhythm therefore only recommend continuing on Eliquis for stroke risk reduction. As a result of the fall she had a nondisplaced fracture of navicular and talus. She was reviewed by podiatry and placed in a cam walker boot for ambulation. She should follow up with podiatry in 4 weeks. Physical therapy recommended acute inpatient rehabilitation but she refused this and will continue with [facility] on discharge. Note urine culture positive for E. coli but no current symptoms. If she was to develop symptoms recommend treating this but suspected asymptomatic bacteruria at time of discharge. (2) Dizziness: (3) Paroxysmal atrial flutter: (4) Navicular fracture of ankle: (5) Talus fracture: (6) UTI (urinary tract infection): (7) Hypertension: (8) (HFpEF) heart failure with preserved ejection fraction: (9) Seizure: (10) Hypothyroidism: (11) PAD (peripheral artery disease): (12) History of CVA (cerebrovascular accident): Notes For Next Care Provider Confirm follow up with podiatry Assess for ongoing orthostasis Monitor for symptoms of UTI - no urinary symptoms present during hospitalization but E. coli present on urine culture Medication Changes From Visit Losartan and amlodipine discontinued due to orthostasis Admission HPI Per Admitting Provider Patient is an 89-year-old Who presents to the hospital with fluctuating pulse rate. Patient was recently admitted and DC'd to SNF. Patient was admitted to the hospital from August 14 to August 24. She was admitted for shortness of breath and worsening lower extremity edema as well as nausea and vomiting. She was then readmitted to [facility] from August 26 to September 12. During that admission she had a seizure. She was discharged with Keppra 500 mg twice daily and to follow-up with neurology. She did have an episode with therapy that had lightheadedness with bradycardia and hypotension. Also has a history of C. difficile. She then went home and fell on Tuesday due to not using her walker. She has been also feeling very dizzy and lightheaded. States that her pulse has been fluctuating between fast and slow. Discharge Exam Constitutional WD/WN, vitals as above Respiratory normal respiratory effort, lungs clear to auscultation Cardiovascular Rate/Rhythm: regular rate and + irregularly irregular Heart Sounds: + murmur (2/6 PANKAJ) Extremities: no pedal edema Gastrointestinal (Abdomen) normal bowel sounds, soft, nontender, no hepatosplenomegaly Genitourinary no CVA tenderness Discharge Plan Discharge Items Patient Disposition: Home - Home Health Services Reason For Visit: DIZZINESS, ?TACHYBRADY, ?TALIS-NAVIC FX Discharge Diagnosis: Orthostatic hypotension Ankle/foot fracture Activity: As commented below Activity Comment: use cam boot walker for ambulation Non-emergency contact: Primary Care Provider and Surgeon Call non-emergency contact if: you have any medication questions and your symptoms worsen Follow-up/Referrals: Andrei Francis MD [Physician] - 10/08/24 11:00 am (Hospital follow up scheduled October 08 at 11:00 with RANDOLPH Rogers at the [place] location) Adonis Mansfield DPM [Surgeon] - (4 week follow up navicular fracture [facility] will call PT to schedule follow up) Diet: Heart Healthy Addtl Attending Provider Instructions: You were admitted to [facility] from September 26- 2023 due to dizziness and a fall. You were diagnosed with orthostatic hypotension which resolved with stopping amlodipine and losartan. You were also diagnosed with atrial flutter but appear rate controlled in this rhythm therefore only recommend continue on Eliquis for stroke risk reduction for this. As a result of the fall you had a nondisplaced fracture of ankle/foot bones (navicular and talus). You were reviewed by podiatry and placed in a cam walker boot for ambulation. Please follow up with podiatry in 4 weeks. Physical therapy recommended acute inpatient rehabilitation but you refused this and will continue with [facility] on discharge. Pending Studies at Discharge: No Stand-Alone Forms: My [facility], Smoking Cessation Medications and DC Order Prescriptions: Continued omeprazole 40 mg capsule,delayed release(DR/EC) 40 mg PO DAILY Qty: 90 1RF Rx Instructions: eat 30 minutes after taking medication. levothyroxine 50 mcg tablet 50 mcg PO DAILYBB Qty: 90 3RF dorzolamide-timolol 22.3-6.8 mg/mL drops 1 drp OPB BID ranolazine 1,000 mg tablet extended release 12 hr 1,000 mg PO BID Qty: 60 2RF Rocklatan 0.02-0.005 % drops 1 drp OPB QAM brimonidine 0.2 % drops 1 drp OPB BID acetaminophen [Tylenol] 325 mg Tablet 650 mg PO Q6H MDD 3g/24hr PRN (Reason: Pain/Fever) Eliquis 2.5 mg Tablet 2.5 mg PO BID Qty: 60 0RF levetiracetam [Keppra] 500 mg Tablet 500 mg PO BID Qty: 60 0RF melatonin 3 mg Tablet 3 mg PO HS Qty: 30 0RF aspirin 81 mg Tablet,Delayed Release (Dr/Ec) 81 mg PO DAILY Qty: 30 0RF Boudreauxs Butt Paste 16 % Ointment 1 applic EXT BID Qty: 57 0RF furosemide [Lasix] 20 mg tablet 20 mg PO .qMWF Qty: 12 0RF Discontinued losartan 50 mg tablet 50 mg PO QAM Qty: 90 3RF Rx Instructions: for high blood pressure Discharge Orders: Discharge Order (Routine); Ordered 09/28/24 Ordered By: Javed Naylor Admission Data Admit Date/Time: 09/26/24 23:20 Attending Provider: Javed Naylor Admit Provider: Volodymyr Turner Primary Care Provider: Daquan Sigala III Other Providers: Karyna Burrows Kip M.; Jorge Harmon; Len Griffin; Armando Rae; Fer Marie; Andres Doty Jr; Rodri Taylor; Clarissa Pierce; Janelle George; Andrei Bolaños; Andrei Castellano; Neo Mortensen; Bridgette Rodriguez; Bogdan Torres; Kamala Oliveira; Sanjeev Dunn; Bogdan Grier; Chase Bui; Oscar Huizar; [facility]; Adonis Mansfield; [facility] Other Interventions: Discharge Summary Assessment (RN) Last Done: 09/28/24 14:04 Hospital Stay Data Consultations 09/26/24 22:39 ED Decision to Admit Stat 09/27/24 01:31 Consult Cardiology Routine 09/27/24 10:59 Consult Podiatry Routine Diagnostic Imagining Performed 09/26/24 19:44 CT head/brain wo con Stat IMPRESSION: No acute post-traumatic intracranial abnormality. 09/26/24 21:50 CT foot RT wo con Stat IMPRESSION: 1. Subtle acute nondisplaced dorsal cortical chip fractures of the navicular and also likely the talus. 2. Subcentimeter linear bone fragments are also noted along the medial margin of the talar neck which may represent acute cortical chip fractures. 3. No acute displaced fracture or dislocation. 4. 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 09/27/24 01:05 CT abd pelvis IV con only Routine IMPRESSION: 1. An increased amount of left pleural effusion with progressed basilar atelectasis. 2. Non-complicated colonic diverticulosis. Stable. 3. 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 Stable. 4. The urinary bladder appears currently unremarkable apart from a small right posterior bladder diverticulum. Pending Results Patient Have Any Pending Studies at Discharge: No Discharge Instructions Given to Patient (Per Discharging Provider) You were admitted to [facility] from September 26- 2023 due to dizziness and a fall. You were diagnosed with orthostatic hypotension which resolved with stopping amlodipine and losartan. You were also diagnosed with atrial flutter but appear rate controlled in this rhythm therefore only recommend continue on Eliquis for stroke risk reduction for this. As a result of the fall you had a nondisplaced fracture of ankle/foot bones (navicular and talus). You were reviewed by podiatry and placed in a cam walker boot for ambulation. Please follow up with podiatry in 4 weeks. Physical therapy recommended acute inpatient rehabilitation but you refused this and will continue with [facility] on discharge. 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 The encounter with the patient was in whole, or in part, for the following medical condition, which is the primary reason for home health care (list medical condition): I certify that, based on my findings, the following services are medically necessary home health services: My clinical findings support the need for the above services because: Further, I certify that my clinical findings support that this patient is homebound (i.e. absences from home require considerable and taxing effort and are for medical reasons or yarsanism services or infrequently or of short duration when for other reasons) because: Certification for Home Health Services: Based on the above findings, I certify that this patient is confined to the home and needs intermittent chcf care, physical therapy and/or speech therapy or continues to need occupational therapy. The patient is under my care, and I have initiated the establishment of the plan of care. This patient will be followed by a physician who will periodically review the plan of care.
--- NOTE | 2024-09-28 21:59 | Electrocardiogram Report ---
Test Reason : Blood Pressure : */* mmHG Vent. Rate : 59 BPM Atrial Rate : 59 BPM P-R Int : 308 ms QRS Dur : 80 ms QT Int : 508 ms P-R-T Axes : -57 60 28 degrees QTcB Int : 504 ms Atrial flutter with slow ventricular response Nonspecific T wave abnormality Prolonged QT Abnormal ECG When compared with ECG of 26-Sep-2024 18:12, Atrial flutter has replaced Sinus bradycardia Confirmed by Rodri Taylor ([id number]) on 09/28/2024 9:58:26 PM Referred By: REFERRED SELF Confirmed By: Rodri Taylor
== END 2024-09-28 16:00 | disposition home health service (06) ==
LOC: SUATTDRO → ED 17:58 → SUATTDRO 23:20 → 2E 23:20 → INTOOBSV 23:20 → 2E 09-27 00:50